=== PATIENT | male | born 1975 | race Caucasian/White ===

== ENCOUNTER → 2020-08-05 12:47 | Outpatient (BNVA) | payer OTHER, SELFPAY | PROVIDERS: Visit Provider Nurse Practitioner | DX: Z20.822 Contact with and (suspected) exposure to COVID-19 (principal) | CPT/HCPCS: 87400; 87635 ==

== ENCOUNTER → 2020-10-04 11:54 | Outpatient (BNVA) | payer SELFPAY | PROVIDERS: Visit Provider Family Medicine | DX: E10.9 Type 1 diabetes mellitus without complications (principal); M25.521 Pain in right elbow; G89.29 Other chronic pain; F17.219 Nicotine dependence, cigarettes, with unspecified nicotine-induced disorders | CPT/HCPCS: 80053; 80061; 82043; 83036; 85025 ==

== ENCOUNTER → 2021-01-10 11:45 | Outpatient (BNVA) | payer SELFPAY | PROVIDERS: PCP Family Medicine; Visit Provider Family Medicine | DX: E10.9 Type 1 diabetes mellitus without complications (principal); N52.9 Male erectile dysfunction, unspecified | CPT/HCPCS: 80053; 83036 ==

== ENCOUNTER 2021-01-17 12:36 | Emergency (ER) | payer SELFPAY ==
[2021-01-17 13:06] VITALS: BP 154/84; PULSE 93; RESP 18; TEMP 37; O2SAT 98; BMI 22.6
[2021-01-17 13:16] LABS: Glucose Point of Care 496 mg/dL (70-110)
[2021-01-17 14:26] LABS: ABG PH Result 7.43 (7.35-7.45); Alveolar-Arterial Oxygen Gradi 5.4 mmHg (5-10); Arterial Blood Gas Hematocrit 43.5 % (42-52); Base Excess ABG 3.3 mmol/L (-2.0-2.0); Blood Gas Allen Test Pos; Blood Gas Operator Identificat CAK; Blood Gas Sample Site Brachial, left; Blood Gas Sample Type Arterial; Carboxyhemoglobin 1.9 %THgb (0.4-20.1); HGB O2 Sat 88.1 % (95-100); Ionized Calcium Level - ABG 1.3 mmol/L (1.1-1.4); Oxygen Device ROOM AIR; Oxygen Saturation ABG 90.7; Potassium Level - ABG 4.5 mmol/L (3.5-5.0); Total Hemoglobin 14.2 g/dL (14-18)
[2021-01-17 15:55] VITALS: BP 143/80; PULSE 99; RESP 18; O2SAT 98
--- NOTE | 2021-01-17 15:56 | XRR_ITS ---
PROCEDURE INFORMATION: Exam: XR Chest Exam date and time: 01/17/2021 3:56 PM Age: 45 years old Clinical indication: Shortness of breath; Patient HX: History--congestion, SOB, body aches, n/v x couple days; Additional info: Reduced breath sounds TECHNIQUE: Imaging protocol: XR of the chest. Views: 1 view. COMPARISON: CR Chest 1 [place] [id number] 03/19/2019 11:54 AM FINDINGS: Lungs: Unremarkable. No consolidation. Pleural spaces: Unremarkable. No pleural effusion. No pneumothorax. Heart/Mediastinum: Unremarkable. No cardiomegaly. Bones/joints: Unremarkable. XR/XR chest 1V portable [id number] IMPRESSION: No acute findings.
[2021-01-17 16:18] LABS: Basophils % 0.4 %; Eosinophils # 0.1 10^3/uL (0.0-0.8); Eosinophils % 0.6 %; Hemoglobin 14.1 g/dL (11.7-16.6); Lymphocytes # 2.5 10^3/uL (0.8-4.8); Lymphocytes % 26.5 %; Mean Corpuscular HGB Conc 34.4 g/dL (30.0-36.0); Mean Corpuscular Hemoglobin 28.7 pg (28.0-34.0); Mean Corpuscular Volume 83.5 fL (80-94); Mean Platelet Volume 10.2 fL (7.4-10.4); Monocytes # 0.6 10^3/uL (0.2-0.9); Monocytes % 6.1 %; Neutrophils # 6.11 10^3/uL (1.8-7.7); Neutrophils % 66.2 %; Nucleated Red Blood Cells % 0 %; Platelet Count 320 10^3/cmm (130-400); Red Blood Count 4.91 10^6/uL (4.1-5.3); Red Cell Distribution Width 13.4 % (12.1-15.1); White Blood Count 9.2 10^3/uL (4.0-10.0)
[2021-01-17 16:28] LABS: Glucose Point of Care 336 mg/dL (70-110)
[2021-01-17 16:36] LABS: Ketone (Acetest) Serum Negative (Negative)
[2021-01-17 16:44] LABS: Alanine Aminotransferase 25 U/L (0-41); Albumin Level 4.5 g/dL (3.5-5.2); Alkaline Phosphatase 80 IU/L (40-130); Anion Gap 15.2 (5-19); Aspartate Amino Transferase 29 U/L (0-40); Blood Urea Nitrogen 37 mg/dL (6-20); Calcium 9.8 mg/dL (8.5-10.5); Carbon Dioxide 26 mmol/L (22-29); Chloride 94 mmol/L (98-107); Globulin 2.5 g/dL (1.3-4.6); Glomerular Filtration Rate 73.1 mL/min (90-130); Glucose 361 mg/dL (65-115); Lipase 12 U/L (13-60); Osmolality Calculated 295 mOsm/kg (285-295); Potassium 4.2 mmol/L (3.5-5.1); Sodium 131 mmol/L (136-145); Total Bilirubin 0.9 mg/dL (0.15-1.2)
[2021-01-17 16:45] LABS: Lactate (Lactic Acid level) 1.2 mmol/L (0.5-2.2)
[2021-01-17] MEDS: ondansetron 2 mg/ML SDV 2 mL 4 MG IVP (17:03)
[2021-01-17] MEDS: sodium chloride 0.9% 1,000 ML 999 ML IV ×2 (17:04→18:51)
--- NOTE | 2021-01-17 18:01 | CTR_ITS ---
PROCEDURE INFORMATION: Exam: CT Abdomen And Pelvis With Contrast Exam date and time: 01/17/2021 6:01 PM Age: 45 years old Clinical indication: Nausea and vomiting; Abdominal pain; Localized; Left lower quadrant (llq); Prior surgery; Surgery type: Hernia; Additional info: Abd pain. N/v/d TECHNIQUE: Imaging protocol: Computed tomography of the abdomen and pelvis with contrast. Radiation optimization: All CT scans at this facility use at least one of these dose optimization techniques: automated exposure control; mA and/or kV adjustment per patient size (includes targeted exams where dose is matched to clinical indication); or iterative reconstruction. Contrast material: OMNI 300; Contrast volume: 95 ml; Contrast route: INTRAVENOUS (IV); COMPARISON: US Abdomen* [id number] 10/17/2018 5:57 AM RADIATION DOSE METRICS: Total DLP (mGy-cm): 766.68 FINDINGS: Lungs: There is calcified granuloma at the left lung base. Liver: There is focal hypodensity in the left lobe of the liver adjacent to the falciform ligament consistent with focal fatty change. No other focal abnormalities identified within the liver. Gallbladder and bile ducts: Normal. No calcified stones. No ductal dilation. Pancreas: The pancreas is normal. Spleen: The spleen demonstrates punctate calcifications, consistent with remote granulomatous organism exposure. Adrenal glands: The adrenal glands are normal. Kidneys and ureters: The kidneys are normal. There is no evidence of hydronephrosis. There is no evidence of renal or ureteral calcifications. Stomach and bowel: There is no evidence of colitis/diverticulitis. Appendix: A normal appendix is identified. Intraperitoneal space: Unremarkable. No free air. No significant fluid collection. Vasculature: Unremarkable. No abdominal aortic aneurysm. Lymph nodes: Unremarkable. No enlarged lymph nodes. Urinary bladder: Unremarkable as visualized. Reproductive: Unremarkable as visualized. Bones/joints: Unremarkable. No acute fracture. Soft tissues: Unremarkable. CT/CT abdomen pelvis w con* [id number] IMPRESSION: 1. Old granulomatous disease. 2. No acute finding. Radiation Dose CTDIVOL = (mGy): DLP = 766.68 (mGy-cm)
[2021-01-17] MEDS: iohexol 300 mg/mL 100 mL Btl IV (18:28)
--- NOTE | 2021-01-17 18:46 | W.ED.ABDPA2 ---
HPI - Abdominal Pain General: Chief Complaint: Abdominal Pain Stated Complaint: body aches, vomitting Time Seen by Provider: 01/17/21 15:47 History of Present Illness: HPI narrative: The patient is a 45-year-old male with type 1 diabetes who comes to the ER complaining of nausea and vomiting of abdominal pain for 3 to 4 days. He has not been tolerating much orally. His glucose is 496 on arrival. He took 30 units of insulin prior to walking in the door. MD elicited complaint: abdominal pain Onset (ago): day(s) (4) Pain Consistency: constant Location: Diffuse Severity: moderate Quality: cramping Radiation: none Exacerbating factors: eating Relieving factors: nothing Associated Symptoms: Reports nausea and vomiting; Denies chills, dysuria and fever(s) Review of Systems General: Reports: 10 or more systems reviewed and unremarkable except in HPI and below Const: Denies: fever(s) or chills Eyes: Denies: change in vision, blurry vision or eye redness ENMT: Denies: throat pain, swelling of lips/tongue, ear or mastoid pain or nasal congestion Card: Denies: chest pain, palpitations, irregular heart rhythm, edema, dyspnea on exertion or orthopnea Resp: Denies: dyspnea, productive cough or non-productive cough GI: Reports: abdominal pain, nausea and vomiting : Denies: dysuria Musc: Denies: neck pain, back pain, extremity pain, joint pain, joint redness, limited range of motion or muscle weakness Skin/Breast: Denies: rash, pruritus, erythema, skin pain or skin tenderness Neuro: Denies: headache(s), numbness in extremities, weakness in extremities, sensory changes, difficulty walking, dizziness, confusion or Slurred speech present Psych: Denies: anxiety or depression Endo: Denies: polyuria All/Imm: Denies: urticaria, throat swelling or tongue swelling PFSH ED PFSH: Medical History Diabetes mellitus type I Surgical History H/O hernia repair Umbilical Social History Smoking and tobacco status: current every day smoker cigarettes Packs smoked per day: 1 Alcohol intake: former Physical Exam Const: COMMON NORMALS: no acute distress, average body habitus, patient oriented x3, no limitations, healthy appearing, alert and well nourished GENERAL APPEARANCE: cooperative, comfortable, well kempt and well developed ORIENTATION/CONSCIOUSNESS: Yes awake, Yes oriented to person, Yes oriented to place and Yes oriented to time HENMT: COMMON NORMALS: normocephalic, external ears normal and Normal external nose present HEAD & SCALP: normal to inspection and normocephalic NOSE: Normal external nose present EXTERNAL EAR: Yes external ears normal MOUTH: Normal oral and palatal mucosa present THROAT: posterior oropharynx normal Eye: COMMON NORMALS: Equal, round and reactive pupils present and EOMs intact bilaterally GENERAL EYE: appearance normal, both eyes and all related structures PUPIL: Yes Equal, round and reactive pupils present Neck/C-Spine: COMMON NORMALS: full ROM, no lymphadenopathy, no meningeal signs and no JVD GENERAL: Yes normal visual inspection Lymph: LYMPHATIC: no lymphadenopathy noted Chest: COMMONS NORMALS: normal inspection of the chest and normal palpation of entire chest wall Resp: COMMON NORMALS: normal respiratory effort, No retractions, No use of accessory muscles, clear to auscultation bilaterally and percussion normal EFFORT & INSPECTION: Yes able to speak in complete sentences AUSCULTATION: clear to auscultation bilaterally PERCUSSION: percussion normal Cardio: COMMON NORMALS: no JVD, regular rate, regular rhythm, S1 normal heart sound present, S2 normal heart sound present and Peripheral pulses 2+ throughout RATE: regular rate RHYTHM: regular rhythm HEART SOUNDS: S1 normal heart sound present and S2 normal heart sound present PERIPHERAL PULSES: Peripheral pulses 2+ throughout GI: COMMON NORMALS: Normal to inspection, nondistended, normoactive bowel sounds present, Soft to palpation, non-tender and no masses INSPECTION: Yes normal to inspection PALPATION: Yes Soft to palpation : COMMON NORMALS: Yes no CVA tenderness BLADDER/KIDNEY EXAM: Yes no CVA tenderness Back/Pelvis: COMMON NORMALS: no CVA tenderness, thoracic and lumbar spine normal to inspection, no thoracic nor lumbar tenderness and thoraco-lumbar ROM normal Extremity: COMMON NORMALS: normal to inspection, full ROM, capillary refill normal, no joint enlargement and no pedal edema GENERAL: Yes normal exam except as noted Neuro: COMMON NORMALS: patient oriented x3, CN's II-XII intact bilaterally, moves all extremities, no focal motor deficits, no sensory deficits noted and gait normal SENSORIUM/ORIENTATION: Yes alert, Yes oriented to person, Yes oriented to place and Yes oriented to time MENINGEAL SIGNS: Yes no meningeal signs Psych: COMMON NORMALS: mental status grossly normal, Normal thought process present, cooperative, normal affect and speech normal APPEARANCE: Yes well kempt ATTITUDE: Yes calm SPEECH: Yes normal speech THOUGHT PROCESS: Normal thought process present Skin: COMMON NORMALS: no rashes or lesions noted GENERAL SKIN EXAM: no rashes or lesions noted Course Vital Signs: Vital signs: Vital Signs Temperature 98.6 F 01/17/21 13:06 Pulse Rate 81 01/17/21 19:32 Respiratory Rate 18 01/17/21 19:32 Blood Pressure 119/88 01/17/21 19:32 Pulse Oximetry 100 01/17/21 19:32 MDM - Abdominal Pain MDM Narrative: Medical decision making narrative: Patient came in with hyperglycemia, nausea, vomiting, abdominal pain. He took 30 units of insulin prior to walking in the door. His glucose was elevated and he refused insulin here. It did come down on its own with insulin he gave prior to walking in the door. He was given IV fluids and Zofran and was tolerating oral fluids well. His belly pain resolved and belly CT was normal. Stable for discharge and follow-up with primary care in a few days. ER with worsening symptoms at any time Lab Data: Labs: Lab Results 01/17/21 01/17/21 01/17/21 Range/Units 13:05 14:15 16:09 WBC 9.2 (4.0-10.0) 10^3/ uL RBC 4.91 (4.1-5.3) 10^6/u L Hgb 14.1 (11.7-16.6) g/dL Hct 41.0 L (42.0-52.0) % MCV 83.5 (80-94) fL MCH 28.7 (28.0-34.0) pg MCHC 34.4 (30.0-36.0) g/dL RDW 13.4 (12.1-15.1) % Plt Count 320 (130-400) 10^3/c mm MPV 10.2 (7.4-10.4) fL Neut % (Auto) 66.2 % Lymph % (Auto) 26.5 % Nicholas % (Auto) 6.1 % Eos % (Auto) 0.6 % Baso % (Auto) 0.4 % Neut # (Auto) 6.11 (1.8-7.7) 10^3/u L Lymph # (Auto) 2.5 (0.8-4.8) 10^3/u L Nicholas # (Auto) 0.6 (0.2-0.9) 10^3/u L Eos # (Auto) 0.1 (0.0-0.8) 10^3/u L Baso # (Auto) 0.0 (0.0-0.1) 10^3/u L Nucleated RBC % (a uto) 0 % Nucleated RBCs # 0.0 /100WBC Specimen Type Arterial Sample Site Brachial, left ABG pH 7.43 (7.35-7.45) ABG pCO2 42.0 (35-45) mmHg ABG pO2 57.0 L (80.0-100.0) mmH g ABG HCO3 28.0 H (22-26) mmol/L ABG O2 Saturation 90.7 ABG Base Excess 3.3 H (-2.0-2.0) mmol/ L Brady Test Pos A-a O2 Gradient 5.4 (5-10) mmHg Hematocrit 43.5 (42-52) % Hgb O2 Saturation 88.1 L (95-100) % Carboxyhemoglobin 1.9 (0.4-20.1) %THgb Methemoglobin 1.0 (0.4-1.5) % Total Hemoglobin 14.2 (14-18) g/dL Sodium 133.0 (131-143) mmol/L Potassium 4.5 (3.5-5.0) mmol/L Glucose 420.0 H (70-115) mg/dL Ionized Calcium 1.3 (1.1-1.4) mmol/L O2 Delivery Device Room air FiO2 21.0 % Die Maker Trim ID Cak Chloride (98-107) mmol/L Carbon Dioxide (22-29) mmol/L Anion Gap (5-19) BUN (6-20) mg/dL Creatinine (0.7-1.2) mg/dL GFR Calculation (90-130) mL/min POC Glucose 496 H (70-110) mg/dL Calculated Osmolal ity (285-295) mOsm/k g Lactate (0.5-2.2) mmol/L Calcium (8.5-10.5) mg/dL Total Bilirubin (0.15-1.2) mg/dL AST (0-40) U/L ALT (0-41) U/L Alkaline Phosphata se (40-130) IU/L Total Protein (6.6-8.7) g/dL Albumin (3.5-5.2) g/dL Globulin (1.3-4.6) g/dL Lipase (13-60) U/L Serum Ketones (Negative) 01/17/21 01/17/21 01/17/21 Range/Units 16:09 16:09 16:09 WBC (4.0-10.0) 10^3/ uL RBC (4.1-5.3) 10^6/u L Hgb (11.7-16.6) g/dL Hct (42.0-52.0) % MCV (80-94) fL MCH (28.0-34.0) pg MCHC (30.0-36.0) g/dL RDW (12.1-15.1) % Plt Count (130-400) 10^3/c mm MPV (7.4-10.4) fL Neut % (Auto) % Lymph % (Auto) % Nicholas % (Auto) % Eos % (Auto) % Baso % (Auto) % Neut # (Auto) (1.8-7.7) 10^3/u L Lymph # (Auto) (0.8-4.8) 10^3/u L Nicholas # (Auto) (0.2-0.9) 10^3/u L Eos # (Auto) (0.0-0.8) 10^3/u L Baso # (Auto) (0.0-0.1) 10^3/u L Nucleated RBC % (a uto) % Nucleated RBCs # /100WBC Specimen Type Sample Site ABG pH (7.35-7.45) ABG pCO2 (35-45) mmHg ABG pO2 (80.0-100.0) mmH g ABG HCO3 (22-26) mmol/L ABG O2 Saturation ABG Base Excess (-2.0-2.0) mmol/ L Brady Test A-a O2 Gradient (5-10) mmHg Hematocrit (42-52) % Hgb O2 Saturation (95-100) % Carboxyhemoglobin (0.4-20.1) %THgb Methemoglobin (0.4-1.5) % Total Hemoglobin (14-18) g/dL Sodium 131 L (131-143) mmol/L Potassium 4.2 (3.5-5.0) mmol/L Glucose 361 H (70-115) mg/dL Ionized Calcium (1.1-1.4) mmol/L O2 Delivery Device FiO2 % Die Maker Trim ID Chloride 94 L (98-107) mmol/L Carbon Dioxide 26 (22-29) mmol/L Anion Gap 15.2 (5-19) BUN 37 H (6-20) mg/dL Creatinine 1.1 (0.7-1.2) mg/dL GFR Calculation 73.1 L (90-130) mL/min POC Glucose (70-110) mg/dL Calculated Osmolal ity 295 (285-295) mOsm/k g Lactate 1.2 (0.5-2.2) mmol/L Calcium 9.8 (8.5-10.5) mg/dL Total Bilirubin 0.9 (0.15-1.2) mg/dL AST 29 (0-40) U/L ALT 25 (0-41) U/L Alkaline Phosphata se 80 (40-130) IU/L Total Protein 7.0 (6.6-8.7) g/dL Albumin 4.5 (3.5-5.2) g/dL Globulin 2.5 (1.3-4.6) g/dL Lipase 12 L (13-60) U/L Serum Ketones Negative (Negative) 01/17/21 01/17/21 Range/Units 16:23 18:47 WBC (4.0-10.0) 10^3/ uL RBC (4.1-5.3) 10^6/u L Hgb (11.7-16.6) g/dL Hct (42.0-52.0) % MCV (80-94) fL MCH (28.0-34.0) pg MCHC (30.0-36.0) g/dL RDW (12.1-15.1) % Plt Count (130-400) 10^3/c mm MPV (7.4-10.4) fL Neut % (Auto) % Lymph % (Auto) % Nicholas % (Auto) % Eos % (Auto) % Baso % (Auto) % Neut # (Auto) (1.8-7.7) 10^3/u L Lymph # (Auto) (0.8-4.8) 10^3/u L Nicholas # (Auto) (0.2-0.9) 10^3/u L Eos # (Auto) (0.0-0.8) 10^3/u L Baso # (Auto) (0.0-0.1) 10^3/u L Nucleated RBC % (a uto) % Nucleated RBCs # /100WBC Specimen Type Sample Site ABG pH (7.35-7.45) ABG pCO2 (35-45) mmHg ABG pO2 (80.0-100.0) mmH g ABG HCO3 (22-26) mmol/L ABG O2 Saturation ABG Base Excess (-2.0-2.0) mmol/ L Brady Test A-a O2 Gradient (5-10) mmHg Hematocrit (42-52) % Hgb O2 Saturation (95-100) % Carboxyhemoglobin (0.4-20.1) %THgb Methemoglobin (0.4-1.5) % Total Hemoglobin (14-18) g/dL Sodium (131-143) mmol/L Potassium (3.5-5.0) mmol/L Glucose (70-115) mg/dL Ionized Calcium (1.1-1.4) mmol/L O2 Delivery Device FiO2 % Die Maker Trim ID Chloride (98-107) mmol/L Carbon Dioxide (22-29) mmol/L Anion Gap (5-19) BUN (6-20) mg/dL Creatinine (0.7-1.2) mg/dL GFR Calculation (90-130) mL/min POC Glucose 336 H 174 H (70-110) mg/dL Calculated Osmolal ity (285-295) mOsm/k g Lactate (0.5-2.2) mmol/L Calcium (8.5-10.5) mg/dL Total Bilirubin (0.15-1.2) mg/dL AST (0-40) U/L ALT (0-41) U/L Alkaline Phosphata se (40-130) IU/L Total Protein (6.6-8.7) g/dL Albumin (3.5-5.2) g/dL Globulin (1.3-4.6) g/dL Lipase (13-60) U/L Serum Ketones (Negative) Discharge Plan Discharge Patient Disposition: Home Clinical Impression: Abdominal pain, Vomiting, Hyperglycemia Condition: Stable Prescriptions: New ondansetron 4 mg tablet,disintegrating 4 mg PO Q8H 4 Days Qty: 12 RF: 0 No Action meloxicam [Mobic] 15 mg tablet 15 mg PO DAILY Qty: 30 RF: 0 Novolin R Regular U-100 Insuln 100 unit/mL solution 10 - 20 unit SUBCUT TID Qty: 30 RF: 1 lisinopril 2.5 mg tablet 2.5 mg PO DAILY Qty: 90 RF: 1 sildenafil (pulm.hypertension) 20 mg tablet See Rx Instructions PO TID Qty: 30 RF: 0 silver sulfadiazine [Silvadene] 1 % cream 1 applic topical BID Qty: 400 RF: 0 Novolin 70/30 U-100 Insulin 100 unit/mL (70-30) suspension 70 - 100 unit SUBCUT DAILY Qty: 30 RF: 1 aspirin 500 mg Tablet 500 - 1,000 mg PO Q4H PRN (Reason: UPSET STOMACH) RF: 0 Pepto-Bismol 262 mg/15 mL Suspension 524 mg PO Q1H PRN (Reason: UPSET STOMACH) RF: 0 Discharge Orders: Discharge ED (Routine); Ordered 01/17/21 Ordered By: Tolu Lang Referrals: Arely Holcomb DO [Primary Care Provider] - Patient Instructions: Abdominal Pain (ED), Opioid Safety Activity Restrictions/Additional Instructions: You have came to the ER for vomiting and hyperglycemia. The insulin you took before you came has lowered your blood glucose significantly to a normal this level. We have given you Zofran which has helped your nausea and your belly pain has improved as well. Please drink lots of fluids and use Zofran to help you with the nausea. Return to the ER with worsening symptoms at any time. Coding Level of Care Code ED Brim Cutter for Nasima Odom
[2021-01-17 18:48] VITALS: BP 125/89; PULSE 78; RESP 18; O2SAT 100
[2021-01-17 18:58] LABS: Glucose Point of Care 174 mg/dL (70-110)
--- NOTE | 2021-01-17 19:15 | PC.NURSE ---
Report from JEANNE Kaye
[2021-01-17 19:32] VITALS: BP 119/88; PULSE 81; RESP 18; O2SAT 100
== END 2021-01-17 19:33 | disposition home or self-care (01) ==
PROVIDERS: Physician Assistant; Emergency Provider Family Medicine; PCP Family Medicine
DX: E10.65 Type 1 diabetes mellitus with hyperglycemia (principal); F17.210 Nicotine dependence, cigarettes, uncomplicated
CPT/HCPCS: 36416; 36600; 71045; 74177; 80051; 80053; 82009; 82330; 82805; 82962; 83605; 83690; 85025; 96361; 96374; 99284; J2405; J7030; Q9967

== ENCOUNTER → 2021-01-19 10:26 | Outpatient (BNVA) | payer OTHER, SELFPAY | PROVIDERS: PCP Family Medicine; Visit Provider Nurse Practitioner Family | DX: J06.9 Acute upper respiratory infection, unspecified (principal); Z20.822 Contact with and (suspected) exposure to COVID-19 | CPT/HCPCS: 87635 ==

== ENCOUNTER 2021-02-27 23:10 | Emergency (ER) | payer SELFPAY ==
[2021-02-27 23:15] VITALS: BP 156/91; PULSE 119; RESP 30; TEMP 36.4; O2SAT 100; BMI 21.1
--- NOTE | 2021-02-27 23:33 | ED_ITS ---
HPI - Nausea/Vomiting/Diarrhea General: Chief complaint: Nausea/Vomiting/Diarrhea Stated complaint: n/v/d/poss low blood sugar Time Seen by Provider: 02/27/21 23:27 Source: patient Mode of arrival: ambulatory Limitations: no limitations History of Present Illness: HPI Narrative: 45-year-old male has a history of type 1 diabetes state over the last few days has not felt well has had nausea vomiting diarrhea. He states that he hasn't been taking his insulin as prescribed either due to not feeling well. He states he is just neglected to take it. He is tachycardic and tachypneic here and in distress. His glucose is reading high and he is afraid that he is in DKA. Denies any pain anywhere. Associated nausea: Yes Associated symtoms: Reports nausea; Denies chest pain, dysuria or headache(s) Review of Systems Const: Denies: fever(s), chills, body aches or change in appetite Eyes: Denies: blurry vision or eye discomfort ENMT: Denies: throat pain or dental pain Card: Denies: chest pain Resp: Denies: dyspnea GI: Reports: nausea and vomiting : Denies: dysuria Musc: Denies: neck pain or back pain Skin/Breast: Denies: rash Neuro: Denies: headache(s) Psych: Denies: depression Walter/Lymph: Denies: easy bruising All/Imm: Denies: urticaria PFS ED PFSH: Medical History Diabetes mellitus type I Surgical History H/O hernia repair Umbilical Social History Smoking and tobacco status: current every day smoker cigarettes Packs smoked per day: 1 Alcohol intake: former Physical Exam Const: COMMON NORMALS: patient oriented x3 GENERAL APPEARANCE: in distress and ill appearing HENMT: COMMON NORMALS: normocephalic and atraumatic HEAD & SCALP: normocephalic and atraumatic Eye: COMMON NORMALS: Equal, round and reactive pupils present and EOMs intact bilaterally PUPIL: Yes Equal, round and reactive pupils present Neck/C-Spine: COMMON NORMALS: full ROM and supple Chest: COMMONS NORMALS: normal inspection of the chest and normal palpation of entire chest wall Resp: COMMON NORMALS: normal respiratory effort, No retractions, No use of accessory muscles and clear to auscultation bilaterally EFFORT & INSPECTION: Yes tachypneic AUSCULTATION: clear to auscultation bilaterally Cardio: COMMON NORMALS: regular rhythm and No murmurs present (Cardio) RAT E: tachycardic RHYTHM: regular rhythm GI: COMMON NORMALS: Normal to inspection, nondistended, normoactive bowel sounds present, Soft to palpation, non-tender and no masses PALPATION: Yes Soft to palpation Extremity: COMMON NORMALS: normal to inspection and full ROM Neuro: COMMON NORMALS: patient oriented x3, moves all extremities and no focal motor deficits Psych: COMMON NORMALS: mental status grossly normal, Normal thought process present and cooperative THOUGHT PROCESS: Normal thought process present Skin: COMMON NORMALS: no rashes or lesions noted and no wounds GENERAL SKIN EXAM: no rashes or lesions noted Course Vital Signs: Vital signs: Vital Signs Temperature 97.5 F L 02/27/21 23:15 Pulse Rate 119 H 02/27/21 23:15 Respiratory Rate 30 H 02/27/21 23:15 Blood Pressure 156/91 02/27/21 23:15 Pulse Oximetry 100 02/27/21 23:15 MDM - Nausea/Vomiting/Diarrhea MDM Narrative: Medical decision making narrative: Patient presents here with DKA with pH of 7.0. Patient was started on insulin drip here and I spoke to parts counterperson at [facility] and will transfer there due to bed availability. Patient has been stable while here. Lab Data: Labs: Lab Results 02/27/21 02/27/21 02/27/21 Range/Units 00:55 23:40 23:45 WBC 23.0 H (4.0-10.0) 10^3/ uL RBC 5.10 (4.1-5.3) 10^6/u L Hgb 14.8 (11.7-16.6) g/dL Hct 47.2 (42.0-52.0) % MCV 92.5 (80-94) fl MCH 29.0 (28.0-34.0) pg MCHC 31.4 (30.0-36.0) g/dL RDW 13.5 (12.1-15.1) % Plt Count 399 (130-400) 10^3/c mm MPV 10.7 H (7.4-10.4) fL Neut % (Auto) 90.4 % Lymph % (Auto) 4.9 % Greenlee % (Auto) 3.8 % Eos % (Auto) 0.0 % Baso % (Auto) 0.1 % Neut # (Auto) 20.74 H (1.8-7.7) 10^3/u L Lymph # (Auto) 1.1 (0.8-4.8) 10^3/u L Greenlee # (Auto) 0.9 (0.2-0.9) 10^3/u L Eos # (Auto) 0.0 (0.0-0.8) 10^3/u L Baso # (Auto) 0.0 (0.0-0.1) 10^3/u L Nucleated RBC % (a uto) 0 % Nucleated RBCs # 0.0 /100WBC Specimen Type Arterial Sample Site Radial, right ABG pH 7.08 L* (7.35-7.45) ABG pCO2 12.4 L* (35-45) mmHg ABG pO2 139.0 H (80.0-100.0) mmH g ABG HCO3 3.7 L (22-26) mmol/L ABG Base Excess -24.1 L (-2.0-2.0) mmol/ L Brady Test Pos Hematocrit 43.3 (42-52) % O2 Delivery Device Room air Batch Analyst ID ellpe Sodium (136-145) mmol/L Potassium (3.5-5.1) mmol/L Chloride (98-107) mmol/L Carbon Dioxide (22-29) mmol/L Anion Gap (5-19) BUN (6-20) mg/dL Creatinine (0.7-1.2) mg/dL GFR Calculation (90-130) mL/min Glucose (65-115) mg/dL Calculated Osmolal ity (285-295) mOsm/k g Calcium (8.5-10.5) mg/dL Total Bilirubin (0.15-1.2) mg/dL AST (0-40) U/L ALT (0-41) U/L Alkaline Phosphata se (40-130) IU/L Total Protein (6.6-8.7) g/dL Albumin (3.5-5.2) g/dL Globulin (1.3-4.6) g/dL Lipase (13-60) U/L Serum Ketones (Negative) SARS-CoV-2 Ag (Rap id) Negative (Negative) 02/28/21 02/28/21 Range/Units 00:00 00:00 WBC (4.0-10.0) 10^3/ uL RBC (4.1-5.3) 10^6/u L Hgb (11.7-16.6) g/dL Hct (42.0-52.0) % MCV (80-94) fl MCH (28.0-34.0) pg MCHC (30.0-36.0) g/dL RDW (12.1-15.1) % Plt Count (130-400) 10^3/c mm MPV (7.4-10.4) fL Neut % (Auto) % Lymph % (Auto) % Greenlee % (Auto) % Eos % (Auto) % Baso % (Auto) % Neut # (Auto) (1.8-7.7) 10^3/u L Lymph # (Auto) (0.8-4.8) 10^3/u L Greenlee # (Auto) (0.2-0.9) 10^3/u L Eos # (Auto) (0.0-0.8) 10^3/u L Baso # (Auto) (0.0-0.1) 10^3/u L Nucleated RBC % (a uto) % Nucleated RBCs # /100WBC Specimen Type Sample Site ABG pH (7.35-7.45) ABG pCO2 (35-45) mmHg ABG pO2 (80.0-100.0) mmH g ABG HCO3 (22-26) mmol/L ABG Base Excess (-2.0-2.0) mmol/ L Brady Test Hematocrit (42-52) % O2 Delivery Device Batch Analyst ID Sodium 122 L (136-145) mmol/L Potassium 6.4 H (3.5-5.1) mmol/L Chloride 75 L (98-107) mmol/L Carbon Dioxide 5 L* (22-29) mmol/L Anion Gap 48.4 H (5-19) BUN 54 H (6-20) mg/dL Creatinine 2.0 H (0.7-1.2) mg/dL GFR Calculation 36.6 L (90-130) mL/min Glucose 839 H* (65-115) mg/dL Calculated Osmolal ity 310 H (285-295) mOsm/k g Calcium 9.1 (8.5-10.5) mg/dL Total Bilirubin 0.7 (0.15-1.2) mg/dL AST 16 (0-40) U/L ALT 26 (0-41) U/L Alkaline Phosphata se 103 (40-130) IU/L Total Protein 6.5 L (6.6-8.7) g/dL Albumin 4.1 (3.5-5.2) g/dL Globulin 2.4 (1.3-4.6) g/dL Lipase 9 L (13-60) U/L Serum Ketones Positive H (Negative) SARS-CoV-2 Ag (Rap id) (Negative) Imaging Data^: CT Abd/Pel: Attestation: I personally reviewed and interpreted this imaging study as follows: Radiologist's impression: [address] [address] [address] Scan Report Signed Patient: Andrews Robins Unit #: [id number] : 1975 Age/Sex: 45 / M ADM Date: 02/27/21 Loc: ER Room/Bed: Attending Dr: Ordering Provider/Ordering MD: Althea Sheehan MD Date of Service: 02/27/21 Procedure(s): CT abdomen pelvis w con* [id number] Accession Number(s): [id number] Report Number: [id number] PROCEDURE INFORMATION: Exam: CT Abdomen And Pelvis With Contrast Exam date and time: 02/27/2021 11:40 PM Age: 45 years old Clinical indication: Abdominal pain; Generalized; Patient HX: Dka; Additional info: Abd pain TECHNIQUE: Imaging protocol: Computed tomography of the abdomen and pelvis with contrast. Radiation optimization: All CT scans at this facility use at least one of these dose optimization techniques: automated exposure control; mA and/or kV adjustment per patient size (includes targeted exams where dose is matched to clinical indication); or iterative reconstruction. Contrast material: OMNI 300; Contrast volume: 95 ml; Contrast route: INTRAVENOUS (IV); COMPARISON: CT abdomen pelvis w con* [id number] 01/17/2021 6:24 PM RADIATION DOSE METRICS: Total DLP (mGy-cm): 709.19 FINDINGS: Lungs: Calcified granuloma again seen in the left lower lung. The lung bases otherwise appear essentially clear. Liver: There is fatty infiltration of the liver. Gallbladder and bile ducts: No definite gallbladder abnormality by CT. No biliary tree dilation. Pancreas: Unremarkable. Spleen: Several small splenic calcifications. Adrenal glands: Unremarkable. Kidneys and ureters: Unremarkable. Stomach and bowel: The stomach appears somewhat distended at the time of scanning. Please correlate clinically. Several small bowel loops are fluid-filled and borderline prominent in size, but the overall appearance is not suggestive of significant small bowel obstruction at this time. This appearance could be secondary to some form of gastroenteritis. Please correlate clinically. If there is clinical suspicion for small bowel obstruction, follow-up may be helpful to exclude progression. There are no CT findings to strongly suggest diverticulitis. Appendix: The appendix is visualized and appears normal. Intraperitoneal space: No free air, ascites, or significant bowel distention. Vasculature: No evidence for abdominal aortic aneurysm. Lymph nodes: No retroperitoneal adenopathy. Urinary bladder: The urinary bladder appears somewhat distended at the time of scanning. This appears similar to the prior exam. Please correlate clinically. Reproductive: Essentially unremarkable for age. Bones/joints: No significant acute finding. Soft tissues: No significant acute finding. CT/CT abdomen pelvis w con* [id number] IMPRESSION: 1. Normal appendix. 2. Several small bowel loops are fluid-filled and borderline prominent in size, see above discussion. This appearance could be secondary to some form of gastroenteritis. 3. Somewhat distended stomach. 4. No free air or significant bowel distention. 5. Somewhat distended urinary bladder. 6. Other findings discussed above. Radiation Dose CTDIVOL = (mGy): DLP = 709.19 (mGy-cm) Dictated By: Damaso Kirk MD Signed By: Damaso Kirk MD Signed Date/Time: 02/28/2154 DD/ Critical Care Time Critical Care Time: Critical Care Time: Yes Total Critical Care Time: 35 Attestation: This case had a high probability of a clinically significant, sudden, or life threatening deterioration of this patient's condition which required my full and direct attention, intervention and personal management. Discharge Plan Discharge Patient Disposition: Xfer Short-Term Hosp Clinical Impression: DKA (diabetic ketoacidoses) Qualifiers: Diabetes mellitus type: type 1 Diabetes mellitus complication detail: without coma Qualified Code(s): E10.10 - Type 1 diabetes mellitus with ketoacidosis without coma Condition: Stable Referrals: rAely Holcomb DO [Primary Care Provider] - Coding Level of Care Code ED Inventory Checker for Chg Fwd Exam Comprehensive
--- NOTE | 2021-02-27 23:40 | CTR_ITS ---
PROCEDURE INFORMATION: Exam: CT Abdomen And Pelvis With Contrast Exam date and time: 02/27/2021 11:40 PM Age: 45 years old Clinical indication: Abdominal pain; Generalized; Patient HX: Dka; Additional info: Abd pain TECHNIQUE: Imaging protocol: Computed tomography of the abdomen and pelvis with contrast. Radiation optimization: All CT scans at this facility use at least one of these dose optimization techniques: automated exposure control; mA and/or kV adjustment per patient size (includes targeted exams where dose is matched to clinical indication); or iterative reconstruction. Contrast material: OMNI 300; Contrast volume: 95 ml; Contrast route: INTRAVENOUS (IV); COMPARISON: CT abdomen pelvis w con* [id number] 01/17/2021 6:24 PM RADIATION DOSE METRICS: Total DLP (mGy-cm): 709.19 FINDINGS: Lungs: Calcified granuloma again seen in the left lower lung. The lung bases otherwise appear essentially clear. Liver: There is fatty infiltration of the liver. Gallbladder and bile ducts: No definite gallbladder abnormality by CT. No biliary tree dilation. Pancreas: Unremarkable. Spleen: Several small splenic calcifications. Adrenal glands: Unremarkable. Kidneys and ureters: Unremarkable. Stomach and bowel: The stomach appears somewhat distended at the time of scanning. Please correlate clinically. Several small bowel loops are fluid-filled and borderline prominent in size, but the overall appearance is not suggestive of significant small bowel obstruction at this time. This appearance could be secondary to some form of gastroenteritis. Please correlate clinically. If there is clinical suspicion for small bowel obstruction, follow-up may be helpful to exclude progression. There are no CT findings to strongly suggest diverticulitis. Appendix: The appendix is visualized and appears normal. Intraperitoneal space: No free air, ascites, or significant bowel distention. Vasculature: No evidence for abdominal aortic aneurysm. Lymph nodes: No retroperitoneal adenopathy. Urinary bladder: The urinary bladder appears somewhat distended at the time of scanning. This appears similar to the prior exam. Please correlate clinically. Reproductive: Essentially unremarkable for age. Bones/joints: No significant acute finding. Soft tissues: No significant acute finding. CT/CT abdomen pelvis w con* [id number] IMPRESSION: 1. Normal appendix. 2. Several small bowel loops are fluid-filled and borderline prominent in size, see above discussion. This appearance could be secondary to some form of gastroenteritis. 3. Somewhat distended stomach. 4. No free air or significant bowel distention. 5. Somewhat distended urinary bladder. 6. Other findings discussed above. Radiation Dose CTDIVOL = (mGy): DLP = 709.19 (mGy-cm)
[2021-02-27] MEDS: ondansetron 2 mg/ML SDV 2 mL 4 MG IVP (23:47)
[2021-02-27] MEDS: morphine 4 mg/mL SDV 1 mL IVP (23:47)
[2021-02-27] MEDS: sodium chloride 0.9% 1,000 ML 999 ML IV (23:47)
[2021-02-27 23:49] LABS: Basophils % 0.1 %; Hematocrit 47.2 % (42.0-52.0); Hemoglobin 14.8 g/dL (11.7-16.6); Lymphocytes # 1.1 10^3/uL (0.8-4.8); Lymphocytes % 4.9 %; Mean Corpuscular HGB Conc 31.4 g/dL (30.0-36.0); Mean Corpuscular Volume 92.5 fl (80-94); Mean Platelet Volume 10.7 fL (7.4-10.4); Monocytes # 0.9 10^3/uL (0.2-0.9); Monocytes % 3.8 %; Neutrophils # 20.74 10^3/uL (1.8-7.7); Neutrophils % 90.4 %; Nucleated Red Blood Cells % 0 %; Platelet Count 399 10^3/cmm (130-400); Red Cell Distribution Width 13.5 % (12.1-15.1)
[2021-02-27 23:55] LABS: Arterial Blood Gas Hematocrit 43.3 % (42-52); Base Excess ABG -24.1 mmol/L (-2.0-2.0); Blood Gas Allen Test Pos; Blood Gas Sample Site Radial, right; Blood Gas Sample Type Arterial; HCO3 ABG 3.7 mmol/L (22-26); Oxygen Device ROOM AIR
[2021-02-27 23:56] LABS: ABG PH Result 7.08 (7.35-7.45)
[2021-02-27 23:57] LABS: ABG PCO2 12.4 mmHg (35-45)
[2021-02-28 00:17] LABS: Ketone (Acetest) Serum Positive (Negative)
[2021-02-28] MEDS: iohexol 300 mg/mL 100 mL Btl IV (00:17)
[2021-02-28 00:25] LABS: Alanine Aminotransferase 26 U/L (0-41); Albumin Level 4.1 g/dL (3.5-5.2); Alkaline Phosphatase 103 IU/L (40-130); Anion Gap 48.4 (5-19); Aspartate Amino Transferase 16 U/L (0-40); Blood Urea Nitrogen 54 mg/dL (6-20); Calcium 9.1 mg/dL (8.5-10.5); Chloride 75 mmol/L (98-107); Globulin 2.4 g/dL (1.3-4.6); Glomerular Filtration Rate 36.6 mL/min (90-130); Lipase 9 U/L (13-60); Potassium 6.4 mmol/L (3.5-5.1); Sodium 122 mmol/L (136-145); Total Bilirubin 0.7 mg/dL (0.15-1.2); Total Protein 6.5 g/dL (6.6-8.7)
[2021-02-28 00:29] LABS: Carbon Dioxide 5 mmol/L (22-29)
[2021-02-28 00:34] LABS: Osmolality Calculated 310 mOsm/kg (285-295)
[2021-02-28 00:44] LABS: Glucose 839 mg/dL (65-115)
[2021-02-28 00:57] LABS: SARS Covid-2 Antigen Negative (Negative)
[2021-02-28] MEDS: insulin regular-human 250 UNIT in sodium chloride 0.9% 250 ML 23.23 UNIT IV (01:02)
[2021-02-28 01:15] VITALS: BP 163/85; PULSE 113; RESP 22; O2SAT 100
[2021-02-28 01:22] LABS: Glucose Point of Care > 600 mg/dL (70-110)
[2021-02-28] MEDS: sodium chloride 0.9% 1,000 ML 999 ML IV (02:01)
[2021-02-28 02:38] LABS: Glucose 689 mg/dL (65-115)
[2021-02-28 02:45] VITALS: BP 163/91; PULSE 123; RESP 20; O2SAT 100
[2021-02-28 03:01] VITALS: BP 146/87; PULSE 124; RESP 22; O2SAT 100
--- NOTE | 2021-02-28 03:03 | PC.NURSE ---
0250 Called report to Eder Montoya RN.
[2021-02-28 03:18] LABS: Glucose Point of Care 532 mg/dL (70-110)
[2021-02-28 04:09] LABS: Glucose Point of Care 395 mg/dL (70-110)
== END 2021-02-28 04:15 | disposition short-term general hospital (02) ==
PROVIDERS: Emergency Provider Emergency Medicine; PCP Family Medicine
DX: E10.10 Type 1 diabetes mellitus with ketoacidosis without coma (principal); F17.210 Nicotine dependence, cigarettes, uncomplicated
CPT/HCPCS: 36415; 36416; 36600; 74177; 80053; 82009; 82803; 82947; 82962; 83690; 85025; 87426; 96361; 96365; 96375; 99285; 99291; 99292; J1815; J2270; J2405; J7030; J7050; Q9967

== ENCOUNTER 2021-05-06 05:11 | Emergency (ER) | payer SELFPAY ==
[2021-05-06 05:17] VITALS: BP 177/102; PULSE 97; RESP 24; TEMP 36.4; O2SAT 99; BMI 19.8
--- NOTE | 2021-05-06 05:29 | ED_ITS ---
Documented by User: Elliot Lorenzo DO 05/06/21 06:04 HPI - Chest Pain General: Chief Complaint: Chest Pain Stated Complaint: Chest pain, swelling rt arm Time Seen by Provider: 05/06/21 05:19 History of Present Illness: HPI narrative: 45-year-old male insulin dependent diabetic presents with chest discomfort described as a right-sided sharp chest pain worsening with inspiration and cough for the past 2 days he denies any fever. He has had some sputum production of white frothy appearance. MD complaint: chest pain Onset (ago): day(s) Timing of current episode: episodic Prior episodes: Yes Onset: during rest Pain location: right chest Pain radiation: right arm Quality: sharp Relieving factors: nothing Exacerbating factors: inspiration Context: recent illness Associated symptoms: Reports dyspnea; Deny abdominal pain, diaphoresis, fever(s), leg edema, palpitations or vomiting Treatment prior to arrival: aspirin Review of Systems Const: Denies: fever(s) or diaphoresis ENMT: Denies: throat pain Card: Reports: chest pain; Denies: palpitations Resp: Reports: dyspnea GI: Denies: abdominal pain or vomiting PFSH ED PFSH: Medical History Diabetes mellitus type I Surgical History H/O hernia repair Umbilical Social History Smoking and tobacco status: current every day smoker cigarettes Packs smoked per day: 1 Alcohol intake: former Physical Exam Const: COMMON NORMALS: patient oriented x3 and alert GENERAL APPEARANCE: cooperative HENMT: COMMON NORMALS: normocephalic and Normal external nose present HEAD & SCALP: normocephalic FACE & SINUS: normal facial exam NOSE: Normal external nose present and Normal nares present Eye: COMMON NORMALS: Equal, round and reactive pupils present and EOMs intact bilaterally PUPIL: Yes Equal, round and reactive pupils present Chest: COMMONS NORMALS: normal inspection of the chest CHEST: Yes tenderness Breast/axilla inspection: Yes no chest deformity, asymmetry, normal contours, no nodules, masses, tenderness Resp: COMMON NORMALS: normal respiratory effort, No use of accessory muscles and clear to auscultation bilaterally AUSCULTATION: clear to auscultation bilaterally Cardio: COMMON NORMALS: regular rate and regular rhythm RATE: regular rate RHYTHM: regular rhythm GI: COMMON NORMALS: Normal to inspection, nondistended, normoactive bowel sounds present, Soft to palpation and non-tender PALPATION: Yes Soft to palpation Extremity: NARRATIVE EXTREMITY EXAM: Right upper extremity, tender swollen area with mild fluctuance no cellulitic streaking. No significant pain on passive extension or flexion of the fingers or wrist. Neuro: COMMON NORMALS: patient oriented x3 SENSORIUM/ORIENTATION: Yes alert Course Vital Signs: Vital signs: Vital Signs Temperature 97.5 F L 05/06/21 05:17 Pulse Rate 81 05/06/21 08:48 Respiratory Rate 16 05/06/21 08:48 Blood Pressure 155/103 05/06/21 08:48 Pulse Oximetry 99 05/06/21 08:48 MDM - Chest Pain MDM Narrative: Medical decision making narrative: White blood cell count elevated mildly. Other labs are pending. Chest x-ray showsNo significant infiltrate, no pneumothorax. Patient will be checked out to Dr. Dlearosa at shift change to follow up on labs and provide appropriate disposition. Lab Data: Labs: Lab Results 05/06/21 05/06/21 05/06/21 05:20 05:20 05:20 WBC 11.8 10^3/uL H 10 ^3/uL (4.0-10.0) RBC 4.17 10^6/uL 10^6 /uL (4.1-5.3) Hgb 12.1 g/dL g/dL (11.7-16.6) Hct 37.2 % L % (42.0-52.0) MCV 89.2 fl fl (80-94) MCH 29.0 pg pg (28.0-34.0) MCHC 32.5 g/dL g/dL (30.0-36.0) RDW 13.6 % % (12.1-15.1) Plt Count 426 10^3/cmm H 10 ^3/cmm (130-400) MPV 9.4 fL fL (7.4-10.4) Neut % (Auto) 68.2 % % Lymph % (Auto) 23.1 % % [place] % (Auto) 6.4 % % Eos % (Auto) 1.6 % % Baso % (Auto) 0.3 % % Neut # (Auto) 8.07 10^3/uL H 10 ^3/uL (1.8-7.7) Lymph # (Auto) 2.7 10^3/uL 10^3/ uL (0.8-4.8) [place] # (Auto) 0.8 10^3/uL 10^3/ uL (0.2-0.9) Eos # (Auto) 0.2 10^3/uL 10^3/ uL (0.0-0.8) Baso # (Auto) 0.0 10^3/uL 10^3/ uL (0.0-0.1) Nucleated RBC % (a uto) 0 % % Nucleated RBCs # 0.0 /100WBC /100W BC PT 11.30 SECONDS L S ECONDS (12.1-14.9) INR 0.79 L (0.8-1.2) APTT 23.8 SECONDS L SE CONDS (23.9-36.7) D-Dimer 0.48 ug/mIFEU ug/ mIFEU (0-0.59) Specimen Type Sample Site ABG pH ABG pCO2 ABG pO2 ABG HCO3 ABG Base Excess Brady Test Hematocrit O2 Delivery Device Bull Riveter ID Sodium 136 mmol/L mmol/L (136-145) Potassium 4.9 mmol/L mmol/L (3.5-5.1) Chloride 97 mmol/L L mmol/ L (98-107) Carbon Dioxide 26 mmol/L mmol/L (22-29) Anion Gap 17.9 (5-19) BUN 22 mg/dL H mg/dL (6-20) Creatinine 0.7 mg/dL mg/dL (0.7-1.2) GFR Calculation 123.1 mL/min mL/m in (90-130) Glucose 337 mg/dL H mg/dL (65-115) POC Glucose Calculated Osmolal ity 299 mOsm/kg H mOs m/kg (285-295) Calcium 9.2 mg/dL mg/dL (8.5-10.5) Total Bilirubin 0.2 mg/dL mg/dL (0.15-1.2) AST 15 U/L U/L (0-40) ALT 20 U/L U/L (0-41) Alkaline Phosphata se 131 IU/L H IU/L (40-130) Creatine Kinase 106 U/L U/L (39-308) Troponin T Baselin e Troponin T [address] [place] Troponin T C-Reactive Protein 3.8 mg/L mg/L (0.0-4.9) NT-Pro-B Natriuret Pep 13 pg/mL pg/mL (0-125) Total Protein 6.3 g/dL L g/dL (6.6-8.7) Albumin 3.9 g/dL g/dL (3.5-5.2) Globulin 2.4 g/dL g/dL (1.3-4.6) Procalcitonin 0.16 ng/mL ng/mL (0-0.5) Serum Ketones 05/06/21 05/06/21 05/06/21 05:20 05:20 06:06 WBC RBC Hgb Hct MCV MCH MCHC RDW Plt Count MPV Neut % (Auto) Lymph % (Auto) [place] % (Auto) Eos % (Auto) Baso % (Auto) Neut # (Auto) Lymph # (Auto) [place] # (Auto) Eos # (Auto) Baso # (Auto) Nucleated RBC % (a uto) Nucleated RBCs # PT INR APTT D-Dimer Specimen Type Arterial Sample Site Radial, left ABG pH 7.43 (7.35-7.45) ABG pCO2 43.9 mmHg mmHg (35-45) ABG pO2 104.0 mmHg H mmHg (80.0-100.0) ABG HCO3 28.9 mmol/L H mmo l/L (22-26) ABG Base Excess 4.0 mmol/L H mmol /L (-2.0-2.0) Brady Test Pos Hematocrit 35.0 % L % (42-52) O2 Delivery Device None Bull Riveter ID [email or web address] Sodium Potassium Chloride Carbon Dioxide Anion Gap BUN Creatinine GFR Calculation Glucose POC Glucose Calculated Osmolal ity Calcium Total Bilirubin AST ALT Alkaline Phosphata se Creatine Kinase Troponin T Baselin e 12 ng/L ng/L (0-15) Troponin T [address] [place] Troponin T C-Reactive Protein NT-Pro-B Natriuret Pep Total Protein Albumin Globulin Procalcitonin Serum Ketones Negative (Negative) 05/06/21 05/06/21 05/06/21 07:32 07:53 08:12 WBC RBC Hgb Hct MCV MCH MCHC RDW Plt Count MPV Neut % (Auto) Lymph % (Auto) [place] % (Auto) Eos % (Auto) Baso % (Auto) Neut # (Auto) Lymph # (Auto) [place] # (Auto) Eos # (Auto) Baso # (Auto) Nucleated RBC % (a uto) Nucleated RBCs # PT INR APTT D-Dimer Specimen Type Sample Site ABG pH ABG pCO2 ABG pO2 ABG HCO3 ABG Base Excess Brady Test Hematocrit O2 Delivery Device [place]eter ID Sodium Potassium Chloride Carbon Dioxide Anion Gap BUN Creatinine GFR Calculation Glucose POC Glucose 31 mg/dL L* mg/dL 72 mg/dL mg/dL (70-110) (70-110) Calculated Osmolal ity Calcium Total Bilirubin AST ALT Alkaline Phosphata se Creatine Kinase Troponin T Baselin e Troponin T [address] [place] 11.47 ng/L ng/L (0-15) Delta Troponin T -0.53 ABS# L ABS# (0-10) C-Reactive Protein NT-Pro-B Natriuret Pep Total Protein Albumin Globulin Procalcitonin Serum Ketones Discharge Plan Discharge Prescriptions: No Action Novolin R Regular U-100 Insuln 100 unit/mL solution 10 - 20 unit SUBCUT TID Qty: 30 RF: 1 silver sulfadiazine [Silvadene] 1 % cream 1 applic topical BID Qty: 400 RF: 0 Novolin 70/30 U-100 Insulin 100 unit/mL (70-30) suspension 70 - 100 unit SUBCUT DAILY Qty: 30 RF: 1 sildenafil (pulm.hypertension) 20 mg tablet See Rx Instructions PO TID Qty: 30 RF: 2 meloxicam [Mobic] 15 mg tablet 15 mg PO DAILY Qty: 30 RF: 2 lisinopril 2.5 mg tablet See Rx Instructions .ROUTE .COMPLEX Qty: 90 RF: 0 aspirin 500 mg Tablet 500 - 1,000 mg PO Q4H PRN (Reason: UPSET STOMACH) RF: 0 Pepto-Bismol 262 mg/15 mL Suspension 524 mg PO Q1H PRN (Reason: UPSET STOMACH) RF: 0 Sign Out Sign Out Data: Patient Sign Out occurred on 05/06/21 at 06:11. Patient's care was discussed, and care was transferred from to Barry Steinberg MD. 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 Detailed Documented by User: Barry Steinberg MD 05/06/21 09:15 HPI - Chest Pain General: Chief Complaint: Chest Pain Stated Complaint: Chest pain, swelling rt arm Time Seen by Provider: 05/06/21 05:19 PFS ED PFSH: Medical History Diabetes mellitus type I Surgical History H/O hernia repair Umbilical Social History Smoking and tobacco status: current every day smoker cigarettes Packs smoked per day: 1 Alcohol intake: former Course Vital Signs: Vital signs: Vital Signs Temperature 97.5 F L 05/06/21 05:17 Pulse Rate 81 05/06/21 08:48 Respiratory Rate 16 05/06/21 08:48 Blood Pressure 155/103 05/06/21 08:48 Pulse Oximetry 99 05/06/21 08:48 MDM - Chest Pain MDM Narrative: Medical decision making narrative: Patient was signed out to me by Dr. Lorenzo, 45-year-old male presents with right elbow pain. On exam he has signs of cellulitis. Bedside ultrasound does not reveal any abscess. No sign of extension of joint space and not believe aspiration is required at this time. Prescription for Keflex provided. Otherwise he is hemodynamically stable afebrile nontoxic-appearing. He also complains of chest pain but EKG and two troponins do not reveal any sign of acute ischemia or other acute abnormality. Symptoms have been ongoing for several days. D-dimer is negative. X-ray does not reveal pneumothorax or consolidation. Remainder of lab work is unremarkable except patient became briefly hypoglycemic due to taking his short acting insulin this morning before coming in and not eating. Significantly improved after food. Repeat glucose measures show normal glycemia. Heart score is two. At this time I believe patient would be safe for discharge and outpatient follow- up. Return precautions provided. Plan was reviewed with the patient who expressed understanding. Questions answered. Patient will follow up with PCP. Patient discharged in stable condition. Lab Data: Labs: Lab Results 3 05/06/21 05/06/21 05/06/21 05:20 05:20 05:20 WBC 11.8 10^3/uL H 10 ^3/uL (4.0-10.0) RBC 4.17 10^6/uL 10^6 /uL (4.1-5.3) Hgb 12.1 g/dL g/dL (11.7-16.6) Hct 37.2 % L % (42.0-52.0) MCV 89.2 fl fl (80-94) MCH 29.0 pg pg (28.0-34.0) MCHC 32.5 g/dL g/dL (30.0-36.0) RDW 13.6 % % (12.1-15.1) Plt Count 426 10^3/cmm H 10 ^3/cmm (130-400) MPV 9.4 fL fL (7.4-10.4) Neut % (Auto) 68.2 % % Lymph % (Auto) 23.1 % % [place] % (Auto) 6.4 % % Eos % (Auto) 1.6 % % Baso % (Auto) 0.3 % % Neut # (Auto) 8.07 10^3/uL H 10 ^3/uL (1.8-7.7) Lymph # (Auto) 2.7 10^3/uL 10^3/ uL (0.8-4.8) [place] # (Auto) 0.8 10^3/uL 10^3/ uL (0.2-0.9) Eos # (Auto) 0.2 10^3/uL 10^3/ uL (0.0-0.8) Baso # (Auto) 0.0 10^3/uL 10^3/ uL (0.0-0.1) Nucleated RBC % (a uto) 0 % % Nucleated RBCs # 0.0 /100WBC /100W BC PT 11.30 SECONDS L S ECONDS (12.1-14.9) INR 0.79 L (0.8-1.2) APTT 23.8 SECONDS L SE CONDS (23.9-36.7) D-Dimer 0.48 ug/mIFEU ug/ mIFEU (0-0.59) Specimen Type Sample Site ABG pH ABG pCO2 ABG pO2 ABG HCO3 ABG Base Excess Brady Test Hematocrit O2 Delivery Device Bull [place]eter ID Sodium 136 mmol/L mmol/L (136-145) Potassium 4.9 mmol/L mmol/L (3.5-5.1) Chloride 97 mmol/L L mmol/ L (98-107) Carbon Dioxide 26 mmol/L mmol/L (22-29) Anion Gap 17.9 (5-19) BUN 22 mg/dL H mg/dL (6-20) Creatinine 0.7 mg/dL mg/dL (0.7-1.2) GFR Calculation 123.1 mL/min mL/m in (90-130) Glucose 337 mg/dL H mg/dL (65-115) POC Glucose Calculated Osmolal ity 299 mOsm/kg H mOs m/kg (285-295) Calcium 9.2 mg/dL mg/dL (8.5-10.5) Total Bilirubin 0.2 mg/dL mg/dL (0.15-1.2) AST 15 U/L U/L (0-40) ALT 20 U/L U/L (0-41) Alkaline Phosphata se 131 IU/L H IU/L (40-130) Creatine Kinase 106 U/L U/L (39-308) Troponin T Baselin e Troponin T [address] [place] Troponin T C-Reactive Protein 3.8 mg/L mg/L (0.0-4.9) NT-Pro-B Natriuret Pep 13 pg/mL pg/mL (0-125) Total Protein 6.3 g/dL L g/dL (6.6-8.7) Albumin 3.9 g/dL g/dL (3.5-5.2) Globulin 2.4 g/dL g/dL (1.3-4.6) Procalcitonin 0.16 ng/mL ng/mL (0-0.5) Serum Ketones 05/06/21 05/06/21 05/06/21 05:20 05:20 06:06 WBC RBC Hgb Hct MCV MCH MCHC RDW Plt Count MPV Neut % (Auto) Lymph % (Auto) [place] % (Auto) Eos % (Auto) Baso % (Auto) Neut # (Auto) Lymph # (Auto) [place] # (Auto) Eos # (Auto) Baso # (Auto) Nucleated RBC % (a uto) Nucleated RBCs # PT INR APTT D-Dimer Specimen Type Arterial Sample Site Radial, left ABG pH 7.43 (7.35-7.45) ABG pCO2 43.9 mmHg mmHg (35-45) ABG pO2 104.0 mmHg H mmHg (80.0-100.0) ABG HCO3 28.9 mmol/L H mmo l/L (22-26) ABG Base Excess 4.0 mmol/L H mmol /L (-2.0-2.0) Brady Test Pos Hematocrit 35.0 % L % (42-52) O2 Delivery Device None Bull Riveter ID [email or web address] Sodium Potassium Chloride Carbon Dioxide Anion Gap BUN Creatinine GFR Calculation Glucose POC Glucose Calculated Osmolal ity Calcium Total Bilirubin AST ALT Alkaline Phosphata se Creatine Kinase Troponin T Baselin e 12 ng/L ng/L (0-15) Troponin T [address] [place] Troponin T C-Reactive Protein NT-Pro-B Natriuret Pep Total Protein Albumin Globulin Procalcitonin Serum Ketones Negative (Negative) 05/06/21 05/06/21 05/06/21 07:32 07:53 08:12 WBC RBC Hgb Hct MCV MCH MCHC RDW Plt Count MPV Neut % (Auto) Lymph % (Auto) [place] % (Auto) Eos % (Auto) Baso % (Auto) Neut # (Auto) Lymph # (Auto) [place] # (Auto) Eos # (Auto) Baso # (Auto) Nucleated RBC % (a uto) Nucleated RBCs # PT INR APTT D-Dimer Specimen Type Sample Site ABG pH ABG pCO2 ABG pO2 ABG HCO3 ABG Base Excess Brady Test Hematocrit O2 Delivery Device [place]eter ID Sodium Potassium Chloride Carbon Dioxide Anion Gap BUN Creatinine GFR Calculation Glucose POC Glucose 31 mg/dL L* mg/dL 72 mg/dL mg/dL (70-110) (70-110) Calculated Osmolal ity Calcium Total Bilirubin AST ALT Alkaline Phosphata se Creatine Kinase Troponin T Baselin e Troponin T [address] [place] 11.47 ng/L ng/L (0-15) Delta Troponin T -0.53 ABS# L ABS# (0-10) C-Reactive Protein NT-Pro-B Natriuret Pep Total Protein Albumin Globulin Procalcitonin Serum Ketones Discharge Plan Discharge Prescriptions: No Action Novolin R Regular U-100 Insuln 100 unit/mL solution 10 - 20 unit SUBCUT TID Qty: 30 RF: 1 silver sulfadiazine [Silvadene] 1 % cream 1 applic topical BID Qty: 400 RF: 0 Novolin 70/30 U-100 Insulin 100 unit/mL (70-30) suspension 70 - 100 unit SUBCUT DAILY Qty: 30 RF: 1 sildenafil (pulm.hypertension) 20 mg tablet See Rx Instructions PO TID Qty: 30 RF: 2 meloxicam [Mobic] 15 mg tablet 15 mg PO DAILY Qty: 30 RF: 2 lisinopril 2.5 mg tablet See Rx Instructions .ROUTE .COMPLEX Qty: 90 RF: 0 aspirin 500 mg Tablet 500 - 1,000 mg PO Q4H PRN (Reason: UPSET STOMACH) RF: 0 Pepto-Bismol 262 mg/15 mL Suspension 524 mg PO Q1H PRN (Reason: UPSET STOMACH) RF: 0 Sign Out Sign Out Data: Patient Sign Out occurred on 05/06/21 at 06:11. Patient's care was discussed, and care was transferred from to Barry Steinberg MD. 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
--- NOTE | 2021-05-06 05:29 | XRR_ITS ---
PROCEDURE INFORMATION: Exam: XR Chest Exam date and time: 05/06/2021 5:29 AM Age: 45 years old Clinical indication: Chest pressure; Patient HX: Chest pain with SOB. ; Additional info: Cp TECHNIQUE: Imaging protocol: XR of the chest. Views: 1 view. Total images: 1 COMPARISON: CR XR chest 1V portable [id number] 01/17/2021 4:06 PM FINDINGS: Lungs: Unremarkable. No consolidation. Pleural spaces: Unremarkable. No pleural effusion. No pneumothorax. Heart/Mediastinum: Unremarkable. No cardiomegaly. Bones/joints: Unremarkable. XR/XR chest 1V portable [id number] IMPRESSION: No acute findings. Radiation Dose CTDIVOL = (mGy): DLP = (mGy-cm)
--- NOTE | 2021-05-06 05:29 | ECG_ITS ---
[facility] Test Date: 2021-05-06 Pat Name: Andrews Robins Department: Room: Gender: Male Phlebotomy Specialist: : [id number] Requested By: Elliot Schulte Order Number: [id number] Edwards MD: Belem Moore M.D. Measurements Intervals [place] Rate: 95 P: 79 CA: 131 QRS: 74 QRSD: 90 T: 74 QT: 336 QTc: 424 Interpretive Statements SINUS RHYTHM POSSIBLE RIGHT ATRIAL ENLARGEMENT [0.25mV P-WAVE] POSSIBLE LEFT ATRIAL ENLARGEMENT [-0.1mV P-WAVE IN V1/V2] POSSIBLE RIGHT VENTRICULAR CONDUCTION DELAY [RSR (QR) IN V1/V2] POSSIBLE LEFT VENTRICULAR HYPERTROPHY [VOLTAGE CRITERIA PLUS LAE OR QRS WIDENING] Compared to ECG 03/19/2019 17:43:59 ST (T wave) deviation no longer present Electronically Signed On 05-07-2021 13:20:06 SHINGLE PACKER by Belem Moore M.D. [email or web address]
[2021-05-06 05:39] LABS: Basophils % 0.3 %; Eosinophils # 0.2 10^3/uL (0.0-0.8); Eosinophils % 1.6 %; Hematocrit 37.2 % (42.0-52.0); Hemoglobin 12.1 g/dL (11.7-16.6); Lymphocytes # 2.7 10^3/uL (0.8-4.8); Lymphocytes % 23.1 %; Mean Corpuscular HGB Conc 32.5 g/dL (30.0-36.0); Mean Corpuscular Volume 89.2 fl (80-94); Mean Platelet Volume 9.4 fL (7.4-10.4); Monocytes # 0.8 10^3/uL (0.2-0.9); Monocytes % 6.4 %; Neutrophils # 8.07 10^3/uL (1.8-7.7); Neutrophils % 68.2 %; Nucleated Red Blood Cells % 0 %; Platelet Count 426 10^3/cmm (130-400); Red Blood Count 4.17 10^6/uL (4.1-5.3); Red Cell Distribution Width 13.6 % (12.1-15.1); White Blood Count 11.8 10^3/uL (4.0-10.0)
[2021-05-06 05:50] LABS: INR 0.79 (0.8-1.2)
[2021-05-06 05:51] LABS: Partial Thromboplastin Time 23.8 SECONDS (23.9-36.7)
[2021-05-06 05:53] LABS: D Dimer 0.48 ug/mIFEU (0-0.59)
[2021-05-06 05:56] LABS: Troponin(5th) Baseline 12 ng/L (0-15)
[2021-05-06 05:59] VITALS: RESP 18; O2SAT 99
[2021-05-06] MEDS: morphine 4 mg/mL SDV 1 mL IVP (05:59)
[2021-05-06] MEDS: ondansetron 2 mg/ML SDV 2 mL 4 MG IVP (05:59)
[2021-05-06 06:06] LABS: NT Pro B Type Natriuretic Pept 13 pg/mL (0-125); Procalcitonin 0.16 ng/mL (0-0.5)
[2021-05-06 06:17] LABS: Alanine Aminotransferase 20 U/L (0-41); Albumin Level 3.9 g/dL (3.5-5.2); Alkaline Phosphatase 131 IU/L (40-130); Anion Gap 17.9 (5-19); Aspartate Amino Transferase 15 U/L (0-40); Blood Urea Nitrogen 22 mg/dL (6-20); C Reactive Protein 3.8 mg/L (0.0-4.9); Calcium 9.2 mg/dL (8.5-10.5); Carbon Dioxide 26 mmol/L (22-29); Chloride 97 mmol/L (98-107); Creatine Phosphokinase 106 U/L (39-308); Globulin 2.4 g/dL (1.3-4.6); Glomerular Filtration Rate 123.1 mL/min (90-130); Glucose 337 mg/dL (65-115); Osmolality Calculated 299 mOsm/kg (285-295); Potassium 4.9 mmol/L (3.5-5.1); Sodium 136 mmol/L (136-145); Total Bilirubin 0.2 mg/dL (0.15-1.2); Total Protein 6.3 g/dL (6.6-8.7)
[2021-05-06 06:18] LABS: ABG PCO2 43.9 mmHg (35-45); ABG PH Result 7.43 (7.35-7.45); Blood Gas Allen Test Pos; Blood Gas Sample Type Arterial; HCO3 ABG 28.9 mmol/L (22-26)
[2021-05-06 06:19] LABS: Blood Gas Sample Site Radial, left
[2021-05-06 06:24] LABS: Ketone (Acetest) Serum Negative (Negative)
--- NOTE | 2021-05-06 06:25 | PC.NURSE ---
2 sets of blood cultures drawn and sent to lab.
[2021-05-06 07:08] VITALS: BP 148/89; PULSE 97; RESP 18; O2SAT 97
--- NOTE | 2021-05-06 07:29 | ECG_ITS ---
[facility] Test Date: 2021-05-06 Pat Name: Andrews Robins Department: Room: Gender: Male Parts Counter Associate: : 1975 Requested By: Elliot Schulte Order Number: [id number] Edwards MD: Belem Moore M.D. Measurements Intervals [place] Rate: 84 P: 70 [place]: 139 QRS: 72 QRSD: 102 T: 71 QT: 369 QTc: 438 Interpretive Statements SINUS RHYTHM POSSIBLE LEFT ATRIAL ENLARGEMENT [-0.1mV P-WAVE IN V1/V2] POSSIBLE RIGHT VENTRICULAR CONDUCTION DELAY [RSR (QR) IN V1/V2] POSSIBLE LEFT VENTRICULAR HYPERTROPHY [VOLTAGE CRITERIA PLUS LAE OR QRS WIDENING] Compared to ECG 05/06/2021 05:16:13 No significant changes Electronically Signed On 05-07-2021 13:26:09 ELECTRICAL PROJECT MANAGER by Belem Moore M.D. [id number]
[2021-05-06] MEDS: dextrose 10% 1,000 ML 150 ML IV (07:45)
--- NOTE | 2021-05-06 07:45 | PC.NURSE ---
Pt states, I'm sweaty. Can you check my sugar? BG 31 at that time. Two orange juice boxes given to pt. ERP notified and new orders. received.
--- NOTE | 2021-05-06 07:56 | PC.NURSE ---
CBG 72 at this time.
[2021-05-06 07:57] LABS: Glucose Point of Care 72 mg/dL (70-110)
[2021-05-06 07:57] LABS: Glucose Point of Care 31 mg/dL (70-110)
[2021-05-06] MEDS: acetaminophen 325 mg Tablet 650 MG PO (08:06)
[2021-05-06 08:48] VITALS: BP 155/103; PULSE 81; RESP 16; O2SAT 99
[2021-05-06 09:03] LABS: Troponin 5 2HR 11.47 ng/L (0-15)
[2021-05-06 09:08] LABS: Troponin 5 2HR Delta -0.53 ABS# (0-10)
[2021-05-06 09:29] VITALS: BP 163/99; PULSE 83; RESP 18; O2SAT 100
== END 2021-05-06 09:28 | disposition home or self-care (01) ==
PROVIDERS: Emergency Medicine; Emergency Provider Emergency Medicine; PCP Family Medicine
DX: R07.9 Chest pain, unspecified (principal); M79.89 Other specified soft tissue disorders; E10.9 Type 1 diabetes mellitus without complications; Z79.4 Long term (current) use of insulin; Z79.82 Long term (current) use of aspirin; F17.210 Nicotine dependence, cigarettes, uncomplicated
CPT/HCPCS: 36416; 36600; 71045; 80053; 82009; 82550; 82803; 82962; 83880; 84145; 84484; 85025; 85378; 85610; 85730; 86140; 93005; 96361; 96374; 96375; 99284; J2270; J2405

== ENCOUNTER 2021-05-23 12:44 | Emergency (ER) | payer SELFPAY ==
--- NOTE | 2021-05-23 12:46 | XRR_ITS ---
PROCEDURE INFORMATION: Exam: XR Right Elbow Exam date and time: 05/23/2021 12:46 PM Age: 45 years old Clinical indication: Injury or trauma; Fall; Blunt trauma (contusions or hematomas); Elbow; Right TECHNIQUE: Imaging protocol: XR Right elbow. Views: 1 or 2 views. COMPARISON: No relevant prior studies available. FINDINGS: Bones/joints: No fracture or other acute bone or joint abnormalities are seen. There is a 9 mm olecranon spur. The joint spaces are not significantly narrowed. Soft tissues: Normal. XR/XR elbow RT 2V [id number] IMPRESSION: No acute bony abnormality. Radiation Dose CTDIVOL = (mGy): DLP = (mGy-cm)
--- NOTE | 2021-05-23 12:46 | CT_ITS ---
WS: [id number] CT FACIAL BONES TECHNIQUE: Noncontrast facial bones with coronal and sagittal reformatted images. CLINICAL INFORMATION: fall COMPARISON: None. DLP: 1670.[address] scans at [facility] use at least one of these dose optimization techniques: automated e xposure control; mA and/or kV adjustment per patient size (includes targeted exams where dose is matc hed to clinical indication); or iterative reconstruction. FINDINGS: Slight irregularity of the anterior nasal bones. Recommend correlation for nondisplaced nasal fractur e. This may be chronic. Paranasal sinuses and mastoid air cells well aerated. Orbits are normal in appearance. Normal lamina papyracea. Inferior orbits are normal. Normal lateral orbits. Normal zygoma. No evidence evidence of mandibular fracture or dislocation. Normal pterygoid plates. Normal parapharyngeal fat. Normal director of teacher education ior nasopharynx. Tonsillar calcifications. CT/CT facial bones wo con* [id number] IMPRESSION: 1. Slight irregularity of the anterior nasal bones. Recommend correlation for nondisplaced nasal fracture. This may be chronic. 2. No other facial fractures.
--- NOTE | 2021-05-23 12:46 | CT_ITS ---
WS: [id number] CT HEAD TECHNIQUE: Noncontrast CT of the head obtained from the skullbase to the vertex. CLINICAL INFORMATION: fall injury COMPARISON: None. DLP: 917.[address] scans at [facility] use at least one of these dose optimization techniques: automated e xposure control; mA and/or kV adjustment per patient size (includes targeted exams where dose is matc hed to clinical indication); or iterative reconstruction. FINDINGS: No evidence of intracranial hemorrhage or mass effect. Ventricular system and basal cisterns are lr nt. No extra-axial fluid collections. No evidence of mass or mass effect. Normal good-white different iation. Paranasal sinuses and mastoid air cells are well aerated. . Soft tissue edema overlying the dorsal pa rietal calvarium. No visualized fractures. CT/CT head wo con* [id number] IMPRESSION: 1. No evidence of intracranial hemorrhage or mass effect. 2. Paranasal sinuses and mastoid air cells well aerated. 3. No acute intracranial findings.
[2021-05-23 12:51] VITALS: BP 125/81; PULSE 90; RESP 19; O2SAT 93
--- NOTE | 2021-05-23 12:59 | ED_ITS ---
HPI - General Adult General: Chief complaint: General Medical Stated complaint: hYPERGLYCEMIA Time Seen by Provider: 05/23/21 12:46 History of Present Illness: HPI narrative: Patient is a 45-year-old male with a history of type 2 diabetes on regular insulin who presents emergency room with concerns for hypoglycemia and fall. Patient was outside and found unconscious on the ground. Patient initially by EMS, had a glucose of 43. Patient was noted to have blood on his forehead and onto his right elbow. Is unclear what happened. On arrival, patient is AAO x3, GCS 15. Her glucose by EMS was 06/25/1947. Patient is on a D10 drip. Patient told that she fell earlier today after taking his insulin. Patient denies any nausea/vomiting, diarrhea, fever/chills, dental complaints, chest pain shortness of breath or other issues. Denies any other coingestions at a time. Patient report taking 25 units of short acting insulin as well as 70/30 Humalog. Patient relates that since this morning. Patient denies any attempt at suicide, any homicidal ideation, hallucination, or hearing voices Onset:unknown Duration: ongoing Location:streets Severity:severe Review of Systems Narrative: Constitutional: No fever, no chills. HEENT: No vision changes CV: No chest pain, no palpitations PULM: no cough, no dyspnea. GI: No abdominal pain, no N/V/D. : No dysuria MSKEL: No muscle pain SKIN: No new rashes, no lesions. NEURO: No headache, no focal weakness. HEME: No visible bruises PSYCH: Normal mood [facility] ED PFSH: Medical History Diabetes mellitus type I Surgical History H/O hernia repair Umbilical Social History Smoking and tobacco status: current every day smoker cigarettes Packs smoked per day: 1 Alcohol intake: former Physical Exam Narrative: EXAM NARRATIVE: Head: Atraumatic Eyes: PERRL, conjunctiva without injection ENT: Mucous membrane moist NECK: Supple, ROM intact LUNGS: LCTAB, no crackles/rhonchi CV: RRR ABDOMEN: Soft, nontender in all quadrants EXTREMITY: Normal ROM SKIN: +multiple superficial abrasions over the face, head, and R elbow NEURO: Awake and alert, no focal motor deficits PSYCH: Normal mood and affect Course Vital Signs: Vital signs: Vital Signs Temperature 98.3 F 05/23/21 13:27 Pulse Rate 86 05/23/21 20:10 Respiratory Rate 18 05/23/21 20:10 Blood Pressure 136/78 05/23/21 20:10 Pulse Oximetry 86 L 05/23/21 20:10 MDM - General Adult MDM Narrative: Medical decision making narrative: Patient is a 45-year-old male with a history of type 1 diabetes presenting to the emergency room for concerns of hypoglycemia after patient was found down with glucose 43. Patient received D10. On arrival to emergency, patient had a glucose of 88 that dropped to 78. Patient continues to be AOx3, GCS 15. Patient received a prescription for D10 as well as is able to tolerate p.o. without difficulty. Patient sent include CT brain, CT face, x-ray of the elbow did not show any acute injuries other than possible acute versus chronic nasal fracture. Finding was discussed extensively with patient. Patient has a copy of the CT report. Patient is given follow-up with ENT for evaluation of broken nose. Facial/scalp and R elbow wounds were extensively irrigated and cleaned. Patient has been able to ambulate. Patient was watched in the emergency room for 3 hours. Do not suspect long-acting insulin at this time. Glucose improved to 600 initially with D10 and po intake. Patient received 10u of short acting insulin with improvement of symptoms. Observed now with glucose <300. Disposition: Discharge. Patient counseled regarding diagnostic impression, treatment plan. Patient given ED strict return precautions to return for continuation, worsening, or development of new symptoms. Instructed to f/u w/ PCP regarding symptoms today. Patient verbalized understanding. Lab Data: Labs: Lab Results 05/23/21 05/23/21 05/23/21 13:09 13:52 13:52 WBC 11.3 10^3/uL H 10 ^3/uL (4.0-10.0) RBC 3.69 10^6/uL L 10 ^6/uL (4.1-5.3) Hgb 10.6 g/dL L g/dL (11.7-16.6) Hct 33.0 % L % (42.0-52.0) MCV 89.4 fl fl (80-94) MCH 28.7 pg pg (28.0-34.0) MCHC 32.1 g/dL g/dL (30.0-36.0) RDW 13.8 % % (12.1-15.1) Plt Count 320 10^3/cmm 10^3 /cmm (130-400) MPV 9.4 fL fL (7.4-10.4) Neut % (Auto) 83.4 % % Lymph % (Auto) 11.2 % % [place] % (Auto) 4.3 % % Eos % (Auto) 0.3 % % Baso % (Auto) 0.4 % % Neut # (Auto) 9.42 10^3/uL H 10 ^3/uL (1.8-7.7) Lymph # (Auto) 1.3 10^3/uL 10^3/ uL (0.8-4.8) [place] # (Auto) 0.5 10^3/uL 10^3/ uL (0.2-0.9) Eos # (Auto) 0.0 10^3/uL 10^3/ uL (0.0-0.8) Baso # (Auto) 0.0 10^3/uL 10^3/ uL (0.0-0.1) Nucleated RBC % (a uto) 0 % % Nucleated RBCs # 0.0 /100WBC /100W BC Sodium 139 mmol/L mmol/L (136-145) Potassium 3.9 mmol/L mmol/L (3.5-5.1) Chloride 103 mmol/L mmol/L (98-107) Carbon Dioxide 24 mmol/L mmol/L (22-29) Anion Gap 15.9 (5-19) BUN 16 mg/dL mg/dL (6-20) Creatinine 0.6 mg/dL L mg/dL (0.7-1.2) GFR Calculation 147.0 mL/min H mL /min (90-130) Glucose 51 mg/dL L mg/dL (65-115) POC Glucose 86 mg/dL mg/dL (70-110) Calculated Osmolal ity 287 mOsm/kg mOsm/ kg (285-295) Calcium 7.9 mg/dL L mg/dL (8.5-10.5) Total Bilirubin 0.2 mg/dL mg/dL (0.15-1.2) AST 54 U/L H U/L (0-40) ALT 28 U/L U/L (0-41) Alkaline Phosphata se 85 IU/L IU/L (40-130) Total Protein 5.5 g/dL L g/dL (6.6-8.7) Albumin 3.7 g/dL g/dL (3.5-5.2) Globulin 1.8 g/dL g/dL (1.3-4.6) Lipase 14 U/L U/L (13-60) Salicylates < 0.3 mg/dL L mg/ dL (3-10) Acetaminophen < 5.0 ug/mL L ug/ mL (10-30) 05/23/21 05/23/21 05/23/21 13:56 15:07 15:09 WBC RBC Hgb Hct MCV MCH MCHC RDW Plt Count MPV Neut % (Auto) Lymph % (Auto) [place] % (Auto) Eos % (Auto) Baso % (Auto) Neut # (Auto) Lymph # (Auto) [place] # (Auto) Eos # (Auto) Baso # (Auto) Nucleated RBC % (a uto) Nucleated RBCs # Sodium Potassium Chloride Carbon Dioxide Anion Gap BUN Creatinine GFR Calculation Glucose POC Glucose 78 mg/dL mg/dL > 600 mg/dL H* mg /dL > 600 mg/dL H* mg /dL (70-110) (70-110) (70-110) Calculated Osmolal ity Calcium Total Bilirubin AST ALT Alkaline Phosphata se Total Protein Albumin Globulin Lipase Salicylates Acetaminophen 05/23/21 05/23/21 05/23/21 16:58 17:27 19:13 WBC RBC Hgb Hct MCV MCH MCHC RDW Plt Count MPV Neut % (Auto) Lymph % (Auto) [place] % (Auto) Eos % (Auto) Baso % (Auto) Neut # (Auto) Lymph # (Auto) [place] # (Auto) Eos # (Auto) Baso # (Auto) Nucleated RBC % (a uto) Nucleated RBCs # Sodium Potassium Chloride Carbon Dioxide Anion Gap BUN Creatinine GFR Calculation Glucose POC Glucose > 600 mg/dL H* mg /dL > 600 mg/dL H* mg /dL 285 mg/dL H mg/dL (70-110) (70-110) (70-110) Calculated Osmolal ity Calcium Total Bilirubin AST ALT Alkaline Phosphata se Total Protein Albumin Globulin Lipase Salicylates Acetaminophen Imaging Data^: Other Imaging: Radiologist's impression: [place] [id number] Scan ReportSigned Patient: Andrews Robins #: [id number]: 1975Acct#:[id number]/Sex: 45 / MADM Date: 05/23/21Loc: ERRoom/Bed:Attending Dr: Ordering Provider/Ordering MD: Kalani Sánchez MD Date of Service: 05/23/21 Procedure(s): CT head wo con* [id number] Accession Number(s): [id number] Report Number: [id number] WS: [id number] CT HEAD TECHNIQUE: Noncontrast CT of the head obtained from the skullbase to the vertex. CLINICAL INFORMATION: fall injury COMPARISON: None. DLP: 917.[address] scans at [facility] use at least one of these dose optimization techniques: automated exposure control; mA and/or kV adjustment per patient size (includes targeted exams where dose is matched to clinical indication); or iterative reconstruction. FINDINGS: No evidence of intracranial hemorrhage or mass effect. Ventricular system and basal cisterns are patent. No extra-axial fluid collections. No evidence of mass or mass effect. Normal good-white differentiation. Paranasal sinuses and mastoid air cells are well aerated. . Soft tissue edema overlying the dorsal parietal calvarium. No visualized fractures. CT/CT head wo con* [id number] IMPRESSION: 1. No evidence of intracranial hemorrhage or mass effect. 2. Paranasal sinuses and mastoid air cells well aerated. 3. No acute intracranial findings. Dictated By:Ted Becerra MDSigned By:Ted Becerra MDSigned Date/Time:05/23/[address] [id number] Scan ReportSigned Patient: Andrews Robinst #: [id number]: 1975Acct#:[id number]/Sex: 45 / MADM Date: 05/23/21Loc: ERRoom/Bed:Attending Dr: Ordering Provider/Ordering MD: Kalani Sánchez MD Date of Service: 05/23/21 Procedure(s): CT facial bones wo con* [id number] Accession Number(s): [id number] Report Number: [id number] WS: [id number] CT FACIAL BONES TECHNIQUE: Noncontrast facial bones with coronal and sagittal reformatted images. CLINICAL INFORMATION: fall COMPARISON: None. DLP: 1670.[address] scans at [facility] use at least one of these dose optimization techniques: automated exposure control; mA and/or kV adjustment per patient size (includes targeted exams where dose is matched to clinical indication); or iterative reconstruction. FINDINGS: Slight irregularity of the anterior nasal bones. Recommend correlation for nondisplaced nasal fracture. This may be chronic. Paranasal sinuses and mastoid air cells well aerated. Orbits are normal in appearance. Normal lamina papyracea. Inferior orbits are normal. Normal lateral orbits. Normal zygoma. No evidence evidence of mandibular fracture or dislocation. Normal pterygoid plates. Normal parapharyngeal fat. Normal posterior nasopharynx. Tonsillar calcifications. CT/CT facial bones wo con* [id number] IMPRESSION: 1. Slight irregularity of the anterior nasal bones. Recommend correlation for nondisplaced nasal fracture. This may be chronic. 2. No other facial fractures. Dictated By:Ted Becerra MDSigned By:Ted Becerra MDSigned Date/Time:05/23/21 1341DD/ [address] [id number] ReportSigned Patient: Andrews Robins #: [id number]: 1975Acct#:[id number]/Sex: 45 / MADM Date: 05/23/21Loc: ERRoom/Bed:Attending Dr: Ordering Provider/Ordering MD: Kalani Sánchez MD Date of Service: 05/23/21 Procedure(s): XR elbow RT 2V [id number] Accession Number(s): [id number] Report Number: [id number] PROCEDURE INFORMATION: Exam: XR Right Elbow Exam date and time: 05/23/2021 12:46 PM Age: 45 years old Clinical indication: Injury or trauma; Fall; Blunt trauma (contusions or hematomas); Elbow; Right TECHNIQUE: Imaging protocol: XR Right elbow. Views: 1 or 2 views. COMPARISON: No relevant prior studies available. FINDINGS: Bones/joints: No fracture or other acute bone or joint abnormalities are seen. There is a 9 mm olecranon spur. The joint spaces are not significantly narrowed. Soft tissues: Normal. XR/XR elbow RT 2V [id number] IMPRESSION: No acute bony abnormality. Radiation Dose CTDIVOL = (mGy): DLP = (mGy-cm) Dictated By:Allison Arellano By:Allison Arellano Date/Time:05/23/21 1336DD/ 1246 Discharge Plan Discharge Patient Disposition: Home Clinical Impression: Hypoglycemia, Fracture, nasal Condition: Stable Prescriptions: No Action Novolin R Regular U-100 Insuln 100 unit/mL solution 10 - 20 unit SUBCUT TID Qty: 30 RF: 1 silver sulfadiazine [Silvadene] 1 % cream 1 applic topical BID Qty: 400 RF: 0 Novolin 70/30 U-100 Insulin 100 unit/mL (70-30) suspension 70 - 100 unit SUBCUT DAILY Qty: 30 RF: 1 sildenafil (pulm.hypertension) 20 mg tablet See Rx Instructions PO TID Qty: 30 RF: 2 meloxicam [Mobic] 15 mg tablet 15 mg PO DAILY Qty: 30 RF: 2 lisinopril 2.5 mg tablet See Rx Instructions .ROUTE .COMPLEX Qty: 90 RF: 0 aspirin 500 mg Tablet 500 - 1,000 mg PO Q4H PRN (Reason: UPSET STOMACH) RF: 0 Pepto-Bismol 262 mg/15 mL Suspension 524 mg PO Q1H PRN (Reason: UPSET STOMACH) RF: 0 Discharge Orders: Discharge ED (Routine); Ordered 05/23/21 Ordered By: Kalani Sánchez Referrals: Arely Holcomb, [Primary Care Provider] - Discharge Diet: Advance as tolerated Discharge Activity: Resume usual activity Patient Instructions: Hypoglycemia, What to Do if Your Blood Sugar is Low (ED) Activity Restrictions/Additional Instructions: Please come back to the emergency room if you are lightheaded, feeling you are about to pass out, if your blood sugar is low, if you have any new or concerning complaints. Our case management associate will have you follow-up with ear nose and throat doctor in the next few days for nasal fracture that is likely chronic. You would be expected to have a phone call with our case management associate who will put you on the schedule. Here's your CT report: [facility] [facility].[place], [place] [address]PD Scan ReportSigned Patient: Andrews Robins #: [id number]: 1975Acct#:[id number]/Sex: 45 / MADM Date: 05/23/21Loc: ERRoom/Bed:A ttending Dr: Ordering Provider/Ordering MD: Kalani Sánchez MD Date of Service: 05/23/21 Procedure(s): CT facial bones wo con* [id number] Accession Number(s): [id number] Report Number: [id number] WS: [id number] CT FACIAL BONES TECHNIQUE: Noncontrast facial bones with coronal and sagittal reformatted images. CLINICAL INFORMATION: fall COMPARISON: None. DLP: 1670.[address] scans at [facility] use at least one of these dose optimization techniques: automated exposure control; mA and/or kV adjustment per patient size (includes targeted exams where dose is matched to clinical indication); or iterative reconstruction. FINDINGS: Slight irregularity of the anterior nasal bones. Recommend correlation for nondisplaced nasal fracture. This may be chronic. Paranasal sinuses and mastoid air cells well aerated. Orbits are normal in appearance. Normal lamina papyracea. Inferior orbits are normal. Normal lateral orbits. Normal zygoma. No evidence evidence of mandibular fracture or disl ocation. Normal pterygoid plates. Normal parapharyngeal fat. Normal posterior nasopharynx. Tonsillar calcifications. CT/CT facial bones wo con* [id number] IMPRESSION: 1. Slight irregularity of the anterior nasal bones. Recommend correlation for nondisplaced nasal fracture. This may be chronic. 2. No other facial fractures. Dictated By:Ted Becerra MDSigned By:Ted Becerra MDSigned Date/Time:05/23/21 1341DD/ 1326 Coding Level of Care Code ED Cotton Buyer for Nasima Odom
[2021-05-23 13:13] LABS: Glucose Point of Care 86 mg/dL (70-110)
[2021-05-23 13:27] VITALS: BP 125/68; PULSE 88; RESP 17; TEMP 36.8; O2SAT 98
[2021-05-23] MEDS: acetaminophen 500 mg Tablet PO (13:32)
[2021-05-23] MEDS: tetanus-dipt-pertussis 0.5 mL SDV IM (13:37)
[2021-05-23 14:00] LABS: Glucose Point of Care 78 mg/dL (70-110)
[2021-05-23] MEDS: dextrose 10% 1,000 ML 999 ML IV (14:15)
[2021-05-23 14:24] LABS: Basophils % 0.4 %; Eosinophils % 0.3 %; Hemoglobin 10.6 g/dL (11.7-16.6); Lymphocytes # 1.3 10^3/uL (0.8-4.8); Lymphocytes % 11.2 %; Mean Corpuscular HGB Conc 32.1 g/dL (30.0-36.0); Mean Corpuscular Hemoglobin 28.7 pg (28.0-34.0); Mean Corpuscular Volume 89.4 fl (80-94); Mean Platelet Volume 9.4 fL (7.4-10.4); Monocytes # 0.5 10^3/uL (0.2-0.9); Monocytes % 4.3 %; Neutrophils # 9.42 10^3/uL (1.8-7.7); Neutrophils % 83.4 %; Nucleated Red Blood Cells % 0 %; Platelet Count 320 10^3/cmm (130-400); Red Blood Count 3.69 10^6/uL (4.1-5.3); Red Cell Distribution Width 13.8 % (12.1-15.1); White Blood Count 11.3 10^3/uL (4.0-10.0)
[2021-05-23 14:47] LABS: Alanine Aminotransferase 28 U/L (0-41); Albumin Level 3.7 g/dL (3.5-5.2); Alkaline Phosphatase 85 IU/L (40-130); Anion Gap 15.9 (5-19); Aspartate Amino Transferase 54 U/L (0-40); Blood Urea Nitrogen 16 mg/dL (6-20); Calcium 7.9 mg/dL (8.5-10.5); Carbon Dioxide 24 mmol/L (22-29); Chloride 103 mmol/L (98-107); Globulin 1.8 g/dL (1.3-4.6); Glucose 51 mg/dL (65-115); Lipase 14 U/L (13-60); Osmolality Calculated 287 mOsm/kg (285-295); Potassium 3.9 mmol/L (3.5-5.1); Sodium 139 mmol/L (136-145); Total Bilirubin 0.2 mg/dL (0.15-1.2); Total Protein 5.5 g/dL (6.6-8.7)
[2021-05-23 14:49] LABS: Acetaminophen < 5.0 ug/mL (10-30); Salicylate < 0.3 mg/dL (3-10)
[2021-05-23 15:11] LABS: Glucose Point of Care > 600 mg/dL (70-110)
[2021-05-23 15:11] LABS: Glucose Point of Care > 600 mg/dL (70-110)
[2021-05-23 15:43] VITALS: BP 130/72; PULSE 85; RESP 18; O2SAT 97
[2021-05-23 17:00] LABS: Glucose Point of Care > 600 mg/dL (70-110)
[2021-05-23] MEDS: insulin lispro 100 unit/1 mL 10 UNIT SUBCUT (17:08)
[2021-05-23] MEDS: lactated ringers 1,000 ML 999 ML IV ×2 (17:10→19:50)
[2021-05-23 17:13] VITALS: BP 132/71; PULSE 87; RESP 18; O2SAT 98
[2021-05-23 17:30] LABS: Glucose Point of Care > 600 mg/dL (70-110)
--- NOTE | 2021-05-23 19:14 | PC.NURSE ---
Pt blood sugar is284
[2021-05-23 19:43] LABS: Glucose Point of Care 285 mg/dL (70-110)
[2021-05-23 19:52] VITALS: BP 152/95; PULSE 76; RESP 18; O2SAT 97
[2021-05-23 20:10] VITALS: BP 136/78; PULSE 86; RESP 18; O2SAT 86
--- NOTE | 2021-05-24 06:29 | DCPLANNER ---
regional program manager had message to schedule a follow up appointment for patient with ENT. regional program manager emailed patients information to both Sandra and Carie at [facility] General Surgery / ENT clinic. Patients information will be printed and reviewed. Clinic will call patient with appointment information.
--- NOTE | 2021-05-26 08:53 | DCPLANNER ---
Carie from [facility] General Surgery contacted director of casework department stating that clinic tried to contact patient to schedule a follow up appointment. Clinic was unable to speak with patient due to phone number on file is a nonworking number. Clinic has reached out to emergency contact and did not have any luck reaching patient that way. A letter was mailed to the patient, informing patient that if he wanted to schedule an appointment to call the clinic.
== END 2021-05-23 20:12 | disposition home or self-care (01) ==
PROVIDERS: Emergency Provider Emergency Medicine; PCP Family Medicine
DX: E10.649 Type 1 diabetes mellitus with hypoglycemia without coma (principal); Z79.4 Long term (current) use of insulin; Z79.82 Long term (current) use of aspirin; S02.2XXA Fracture of nasal bones, initial encounter for closed fracture; F17.210 Nicotine dependence, cigarettes, uncomplicated; Z23 Encounter for immunization; X58.XXXA Exposure to other specified factors, initial encounter
CPT/HCPCS: 36416; 70450; 70486; 73070; 80053; 80307; 82962; 83690; 85025; 90471; 90715; 96360; 96361; 96372; 99284; J1815

== ENCOUNTER 2021-06-12 02:29 | Emergency (ER) | payer SELFPAY ==
[2021-06-12 02:30] VITALS: BP 147/88; PULSE 92; RESP 18; TEMP 36.6; O2SAT 100; BMI 20.4
--- NOTE | 2021-06-12 03:08 | XRR_ITS ---
PROCEDURE INFORMATION: Exam: XR Chest Exam date and time: 06/12/2021 3:08 AM Age: 46 years old Clinical indication: Other: Low blood sugar; Additional info: Altered mental status TECHNIQUE: Imaging protocol: XR of the chest. Views: 1 view. COMPARISON: 1. CR (CHEST, ) 2021-05-06 05:38 2. CR XR chest 1V portable [id number] 2021-01-17 16:06 3. CR Chest 1 [place] [id number] 2019-03-19 11:54 4. CR Chest 1 [place] [id number] 2018-10-16 18:55 FINDINGS: Lungs: There is a pulmonary parenchymal calcification consistent with remote granulomatous organism exposure. Pleural spaces: Unremarkable. No pleural effusion. No pneumothorax. Heart/Mediastinum: Unremarkable. No cardiomegaly. Bones/joints: Unremarkable. XR/XR chest 1V portable [id number] IMPRESSION: No acute abnormality.
[2021-06-12] MEDS: dextrose 5%-sod chloride 0.9% 1,000 ML 100 ML IV (03:52)
[2021-06-12 03:53] VITALS: BP 136/74; PULSE 80; RESP 17; O2SAT 99
[2021-06-12 03:59] LABS: Basophils % 0.5 %; Eosinophils # 0.2 10^3/uL (0.0-0.8); Hematocrit 35.2 % (42.0-52.0); Hemoglobin 11.6 g/dL (11.7-16.6); Lymphocytes # 2.2 10^3/uL (0.8-4.8); Lymphocytes % 29.1 %; Mean Corpuscular Hemoglobin 28.2 pg (28.0-34.0); Mean Corpuscular Volume 85.6 fl (80-94); Mean Platelet Volume 10.6 fL (7.4-10.4); Monocytes # 0.5 10^3/uL (0.2-0.9); Monocytes % 7.2 %; Neutrophils # 4.49 10^3/uL (1.8-7.7); Neutrophils % 60.9 %; Nucleated Red Blood Cells % 0 %; Platelet Count 243 10^3/cmm (130-400); Red Blood Count 4.11 10^6/uL (4.1-5.3); Red Cell Distribution Width 13.4 % (12.1-15.1); White Blood Count 7.4 10^3/uL (4.0-10.0)
[2021-06-12 04:21] LABS: Alanine Aminotransferase 23 U/L (0-41); Albumin Level 3.9 g/dL (3.5-5.2); Alkaline Phosphatase 85 IU/L (40-130); Aspartate Amino Transferase 23 U/L (0-40); Blood Urea Nitrogen 16 mg/dL (6-20); Calcium 8.5 mg/dL (8.5-10.5); Carbon Dioxide 23 mmol/L (22-29); Chloride 101 mmol/L (98-107); Creatine Phosphokinase 259 U/L (39-308); Globulin 2.6 g/dL (1.3-4.6); Glomerular Filtration Rate 122.5 mL/min (90-130); Glucose 121 mg/dL (65-115); Osmolality Calculated 288 mOsm/kg (285-295); Phosphorus 3.2 mg/dL (2.5-4.5); Sodium 138 mmol/L (136-145); Total Bilirubin 0.2 mg/dL (0.15-1.2); Total Protein 6.5 g/dL (6.6-8.7)
[2021-06-12 04:34] LABS: Slide Review Slide Review Perform
[2021-06-12 04:36] LABS: Anion Gap 17.4 (5-19); Potassium 3.4 mmol/L (3.5-5.1)
--- NOTE | 2021-06-12 04:38 | W.ED.GENADLT ---
HPI - General Adult General: Chief complaint: General Medical Stated complaint: LOW BS Time Seen by Provider: 06/12/21 02:39 History of Present Illness: HPI narrative: 46-year-old male who was at home when a family member checked on him. They found him to be not responding. Blood sugar was low. Patient notes he has had several instances of low blood sugar in the last few days. He states that he may have overshot his regular insulin dosage with his nighttime insulin before bed tonight. He was given D10 in route, finish the bag, and was improved, but then began to deteriorate again, so another bag of D10 was given. On arrival he is alert and talking. Associated symptoms: Reports confusion and nausea; Deny chest pain, dyspnea, palpitations or vomiting Review of Systems Const: Denies: fever(s), chills or body aches Eyes: Denies: change in vision ENMT: Denies: throat pain Card: Denies: chest pain or palpitations Resp: Denies: dyspnea, productive cough or non-productive cough GI: Reports: nausea; Denies: abdominal pain or vomiting Neuro: Reports: confusion; Denies: numbness in extremities or weakness in extremities [facility] ED PFSH: Medical History Diabetes mellitus type I Surgical History H/O hernia repair Umbilical Social History Smoking and tobacco status: current every day smoker cigarettes Packs smoked per day: 1 Alcohol intake: former Physical Exam Const: COMMON NORMALS: no acute distress, patient oriented x3 and alert HENMT: COMMON NORMALS: normocephalic HEAD & SCALP: normocephalic Eye: COMMON NORMALS: Equal, round and reactive pupils present and EOMs intact bilaterally PUPIL: Yes Equal, round and reactive pupils present Chest: COMMONS NORMALS: normal inspection of the chest Cardio: COMMON NORMALS: regular rate and regular rhythm RATE: regular rate RHYTHM: regular rhythm GI: COMMON NORMALS: Normal to inspection, nondistended, normoactive bowel sounds present, Soft to palpation and non-tender PALPATION: Yes Soft to palpation Neuro: COMMON NORMALS: patient oriented x3 SENSORIUM/ORIENTATION: Yes alert Course Vital Signs: Vital signs: Vital Signs Temperature 97.9 F 06/12/21 02:30 Pulse Rate 80 06/12/21 03:53 Respiratory Rate 17 06/12/21 03:53 Blood Pressure 136/74 06/12/21 03:53 Pulse Oximetry 99 06/12/21 03:53 MDM - General Adult MDM Narrative: Medical decision making narrative: Shortly after my evaluation, the patient became less responsive again. He was diaphoretic. His blood sugar was checked and it was 30. He was given an amp of D50, with resolution of his symptoms. He has since had to pieces of pizza, and is getting a normal saline D5 infusion at 100 cc an hour. His potassium is 3.4. Hemoglobin 11.6. He appears stable, awake alert and talking. His chest x-ray shows no abnormality. Blood sugar has remained elevated. Currently 161. We will allow him discharge. Frequent sugar checks at home. Lab Data: Labs: Lab Results 06/12/21 06/12/21 06/12/21 03:21 03:40 03:40 WBC 7.4 10^3/uL 10^3/ uL (4.0-10.0) RBC 4.11 10^6/uL 10^6 /uL (4.1-5.3) Hgb 11.6 g/dL L g/dL (11.7-16.6) Hct 35.2 % L % (42.0-52.0) MCV 85.6 fl fl (80-94) MCH 28.2 pg pg (28.0-34.0) MCHC 33.0 g/dL g/dL (30.0-36.0) RDW 13.4 % % (12.1-15.1) Plt Count 243 10^3/cmm 10^3 /cmm (130-400) MPV 10.6 fL H fL (7.4-10.4) Neut % (Auto) 60.9 % % Lymph % (Auto) 29.1 % % [place] % (Auto) 7.2 % % Eos % (Auto) 2.0 % % Baso % (Auto) 0.5 % % Neut # (Auto) 4.49 10^3/uL 10^3 /uL (1.8-7.7) Lymph # (Auto) 2.2 10^3/uL 10^3/ uL (0.8-4.8) [place] # (Auto) 0.5 10^3/uL 10^3/ uL (0.2-0.9) Eos # (Auto) 0.2 10^3/uL 10^3/ uL (0.0-0.8) Baso # (Auto) 0.0 10^3/uL 10^3/ uL (0.0-0.1) Nucleated RBC % (a uto) 0 % % Nucleated RBCs # 0.0 /100WBC /100W BC Sodium 138 mmol/L mmol/L (136-145) Potassium 3.4 mmol/L L mmol /L (3.5-5.1) Chloride 101 mmol/L mmol/L (98-107) Carbon Dioxide 23 mmol/L mmol/L (22-29) Anion Gap 17.4 (5-19) BUN 16 mg/dL mg/dL (6-20) Creatinine 0.7 mg/dL mg/dL (0.7-1.2) GFR Calculation 122.5 mL/min mL/m in (90-130) Glucose 121 mg/dL H mg/dL (65-115) POC Glucose 30 mg/dL L* mg/dL (70-110) Calculated Osmolal ity 288 mOsm/kg mOsm/ kg (285-295) Calcium 8.5 mg/dL mg/dL (8.5-10.5) Phosphorus 3.2 mg/dL mg/dL (2.5-4.5) Magnesium 2.0 mg/dL mg/dL (1.7-2.3) Total Bilirubin 0.2 mg/dL mg/dL (0.15-1.2) AST 23 U/L U/L (0-40) ALT 23 U/L U/L (0-41) Alkaline Phosphata se 85 IU/L IU/L (40-130) Creatine Kinase 259 U/L U/L (39-308) Total Protein 6.5 g/dL L g/dL (6.6-8.7) Albumin 3.9 g/dL g/dL (3.5-5.2) Globulin 2.6 g/dL g/dL (1.3-4.6) 12/20/21 12/20/21 04:44 05:58 WBC RBC Hgb Hct MCV MCH MCHC RDW Plt Count MPV Neut % (Auto) Lymph % (Auto) [place] % (Auto) Eos % (Auto) Baso % (Auto) Neut # (Auto) Lymph # (Auto) [place] # (Auto) Eos # (Auto) Baso # (Auto) Nucleated RBC % (a uto) Nucleated RBCs # Sodium Potassium Chloride Carbon Dioxide Anion Gap BUN Creatinine GFR Calculation Glucose POC Glucose 97 mg/dL mg/dL 163 mg/dL H mg/dL (70-110) (70-110) Calculated Osmolal ity Calcium Phosphorus Magnesium Total Bilirubin AST ALT Alkaline Phosphata se Creatine Kinase Total Protein Albumin Globulin Discharge Plan Discharge Patient Disposition: Home Clinical Impression: Hypoglycemia Condition: Stable Prescriptions: No Action Novolin R Regular U-100 Insuln 100 unit/mL solution 10 - 20 unit SUBCUT TID Qty: 30 RF: 1 silver sulfadiazine [Silvadene] 1 % cream 1 applic topical BID Qty: 400 RF: 0 Novolin 70/30 U-100 Insulin 100 unit/mL (70-30) suspension 70 - 100 unit SUBCUT DAILY Qty: 30 RF: 1 sildenafil (pulm.hypertension) 20 mg tablet See Rx Instructions PO TID Qty: 30 RF: 2 meloxicam [Mobic] 15 mg tablet 15 mg PO DAILY Qty: 30 RF: 2 lisinopril 2.5 mg tablet See Rx Instructions .ROUTE .COMPLEX Qty: 90 RF: 0 aspirin 500 mg Tablet 500 - 1,000 mg PO Q4H PRN (Reason: UPSET STOMACH) RF: 0 Pepto-Bismol 262 mg/15 mL Suspension 524 mg PO Q1H PRN (Reason: UPSET STOMACH) RF: 0 Discharge Orders: Discharge ED (Routine); Ordered 06/12/21 Ordered By: Elliot Lorenzo Referrals: Arely Holcomb DO [Primary Care Provider] - 1-3 days Patient Instructions: Hypoglycemia in a Person with Diabetes (ED) Activity Restrictions/Additional Instructions: Check your blood sugar every 2 hours for the next 12 hours, then as needed. Make sure your oral intake today is appropriate for the insulin you take. Consider cutting the dosage of your long-acting insulin in half at least for the next 24 hours. Return for inability to keep your blood sugar up, mental status changes, fever, other concerning symptoms. Coding Level of Care Code ED Cytometry Technologist for Chg Fwd Exam Detailed
[2021-06-12 04:46] LABS: Glucose Point of Care 97 mg/dL (70-110)
[2021-06-12 06:02] LABS: Glucose Point of Care 30 mg/dL (70-110)
[2021-06-12 06:02] LABS: Glucose Point of Care 163 mg/dL (70-110)
[2021-06-12 07:38] VITALS: BP 136/74; PULSE 80; RESP 17; O2SAT 99
== END 2021-06-12 07:38 | disposition home or self-care (01) ==
PROVIDERS: Emergency Provider Emergency Medicine; PCP Family Medicine
DX: E10.649 Type 1 diabetes mellitus with hypoglycemia without coma (principal); Z79.4 Long term (current) use of insulin; Z79.82 Long term (current) use of aspirin; F17.210 Nicotine dependence, cigarettes, uncomplicated
CPT/HCPCS: 36416; 71045; 80053; 82550; 82962; 83735; 84100; 85025; 99283

== ENCOUNTER 2021-09-04 03:44 | Inpatient (IN) | payer SELFPAY ==
[2021-09-04] VITALS (45 sets, daily range): BP systolic 117–173; BP diastolic 70–100; PULSE 97–119; RESP 12–27; TEMP 36.4–36.8; O2SAT 90–99; BMI 19.8
--- NOTE | 2021-09-04 04:04 | W.ED.NAVMDI ---
HPI - Nausea/Vomiting/Diarrhea General: Chief complaint: Nausea/Vomiting/Diarrhea Stated complaint: N/V Time Seen by Provider: 09/04/21 03:47 Source: patient History of Present Illness: 46-year-old male who is not a stranger to the ER. He is an insulin-dependent diabetic. He presents with vomiting and diarrhea for the past 2 to 3 days. Multiple episodes of vomiting. States he is dehydrated. No history of fever. No blood in the stool. No significant belly pain. He states his sugars have been high. Therefore 100 earlier in the morning, but he took his insulin with some improvement. He just threw up in the room, and is asking for water. MD elicited complaint: nausea, vomiting and diarrhea Pertinent past history: other Onset (ago): day(s) Description of vomiting: watery Description of diarrhea: watery Associated nausea: Yes Associated abdominal pain: No Location of pain: Other Radiation: other Severity: moderate Associated symtoms: Reports anorexia and nausea; Denies altered mental status, change in vision, chest pain, cough, dizziness, fevers/chills or short of breath Review of Systems Const: Reports: chills; Denies: fever(s) or body aches Eyes: Denies: change in vision ENMT: Denies: throat pain Card: Denies: chest pain Resp: Denies: dyspnea, productive cough or non-productive cough GI: Reports: nausea, vomiting and diarrhea; Denies: abdominal pain or hematochezia Neuro: Denies: dizziness PFSH ED PFSH: Medical History Diabetes mellitus type I Surgical History H/O hernia repair Umbilical Social History Smoking and tobacco status: never smoked Alcohol intake: former Physical Exam Const: EXAM LIMITATIONS: no altered mental status HENMT: COMMON NORMALS: normocephalic, atraumatic and Normal external nose present HEAD & SCALP: normocephalic and atraumatic NOSE: Normal external nose present Eye: COMMON NORMALS: Equal, round and reactive pupils present and EOMs intact bilaterally PUPIL: Yes Equal, round and reactive pupils present Chest: COMMONS NORMALS: normal inspection of the chest Cardio: COMMON NORMALS: regular rate and regular rhythm RATE: regular rate RHYTHM: regular rhythm GI: COMMON NORMALS: Normal to inspection, nondistended, normoactive bowel sounds present, Soft to palpation and non-tender PALPATION: Yes Soft to palpation Neuro: GILBERTO COMA SCALE: document GCS findings Eakly coma scale eye opening: Spontaneous [place] coma scale verbal response: Orientated E[place] coma scale motor response: Obey commands Gilberto coma scale total score: 15 Course Consultations: Consultation #1: mary jo Time: 05:21 Vital Signs: Vital signs: Vital Signs Temperature 97.7 F 09/04/21 03:46 Pulse Rate 114 H 09/04/21 05:08 Respiratory Rate 18 09/04/21 05:08 Blood Pressure 125/84 09/04/21 03:46 Pulse Oximetry 99 09/04/21 05:08 MDM - Nausea/Vomiting/Diarrhea Medical Decision Making 46-year-old gentleman, type I diabetic, presenting with vomiting. Serum glucose is 850. Sodium 128. Potassium 5.5. White blood cell count 12.7. Bicarbonate is 12. Serum ketones are positive. pH is 7.2 on ABG. He is on his way through 4 L of fluid, insulin bolus with drip. He will go to the ICU. Lab Data : 09/04/21 03:30 09/04/21 03:30 Laboratory Results WBC 12.7 10^3/uL (4.0-10.0) H 09/04/21 03:30 RBC 5.47 10^6/uL (4.1-5.3) H 09/04/21 03:30 Hgb 15.0 g/dL (11.7-16.6) 09/04/21 03:30 Hct 49.3 % (42.0-52.0) 09/04/21 03:30 MCV 90.1 fl (80-94) 09/04/21 03:30 MCH 27.4 pg (28.0-34.0) L 09/04/21 03:30 MCHC 30.4 g/dL (30.0-36.0) 09/04/21 03:30 RDW 13.3 % (12.1-15.1) 09/04/21 03:30 Plt Count 374 10^3/cmm (130-400) 09/04/21 03:30 MPV 10.4 fL (7.4-10.4) 09/04/21 03:30 Neut % (Auto) 90.0 % 09/04/21 03:30 Lymph % (Auto) 7.8 % 09/04/21 03:30 [place] % (Auto) 1.1 % 09/04/21 03:30 Eos % (Auto) 0.1 % 09/04/21 03:30 Baso % (Auto) 0.4 % 09/04/21 03:30 Neut # (Auto) 11.39 10^3/uL (1.8-7.7) H 09/04/21 03:30 Lymph # (Auto) 1.0 10^3/uL (0.8-4.8) 09/04/21 03:30 [place] # (Auto) 0.1 10^3/uL (0.2-0.9) L 09/04/21 03:30 Eos # (Auto) 0.0 10^3/uL (0.0-0.8) 09/04/21 03:30 Baso # (Auto) 0.1 10^3/uL (0.0-0.1) 09/04/21 03:30 Nucleated RBC % (auto) 0 % 09/04/21 03:30 Nucleated RBCs # 0.0 /100WBC 09/04/21 03:30 Specimen Type Arterial 09/04/21 04:51 Sample Site Radial, right 09/04/21 04:51 ABG pH 7.20 (7.35-7.45) L 09/04/21 04:51 ABG pCO2 22.3 mmHg (35-45) L 09/04/21 04:51 ABG pO2 116.0 mmHg (80.0-100.0) H 09/04/21 04:51 ABG HCO3 8.7 mmol/L (22-26) L 09/04/21 04:51 ABG Base Excess -17.6 mmol/L (-2.0-2.0) L 09/04/21 04:51 Brady Test Pos 09/04/21 04:51 Hematocrit 37.9 % (42-52) L 09/04/21 04:51 O2 Delivery Device Room air 09/04/21 04:51 Materials Handling Coordinator ID [email or web address] 09/04/21 04:51 Sodium 128 mmol/L (136-145) L 09/04/21 03:30 Potassium 5.5 mmol/L (3.5-5.1) H 09/04/21 03:30 Chloride 77 mmol/L (98-107) L 09/04/21 03:30 Carbon Dioxide 12 mmol/L (22-29) L 09/04/21 03:30 Anion Gap 44.5 (5-19) H 09/04/21 03:30 BUN 44 mg/dL (6-20) H 09/04/21 03:30 Creatinine 1.5 mg/dL (0.7-1.2) H 09/04/21 03:30 GFR Calculation 50.8 mL/min (90-130) L 09/04/21 03:30 Glucose 850 mg/dL (65-115) H* 09/04/21 03:30 POC Glucose > 600 mg/dL (70-110) H* 09/04/21 04:56 Calculated Osmolality 319 mOsm/kg (285-295) H 09/04/21 03:30 Lactate 3.4 mmol/L (0.5-2.2) H 09/04/21 03:30 Calcium 10.1 mg/dL (8.5-10.5) 09/04/21 03:30 Total Bilirubin 0.5 mg/dL (0.15-1.2) 09/04/21 03:30 AST 25 U/L (0-40) 09/04/21 03:30 ALT 51 U/L (0-41) H 09/04/21 03:30 Alkaline Phosphatase 167 IU/L (40-130) H 09/04/21 03:30 C-Reactive Protein 11.7 mg/L (0.0-4.9) H 09/04/21 03:30 Total Protein 7.8 g/dL (6.6-8.7) 09/04/21 03:30 Albumin 4.7 g/dL (3.5-5.2) 09/04/21 03:30 Globulin 3.1 g/dL (1.3-4.6) 09/04/21 03:30 Lipase 14 U/L (13-60) 09/04/21 03:30 Serum Ketones Positive (Negative) H 09/04/21 03:30 Critical Care Time Critical Care Time: Critical Care Time: Yes Total Critical Care Time: 40 Attestation: This case had a high probability of a clinically significant, sudden, or life threatening deterioration of this patient's condition which required my full and direct attention, intervention and personal management. Time is independent of any procedures form Discharge Plan Discharge Patient Disposition: Admitted As Inpatient Clinical Impression: Diabetic keto-acidosis Condition: Serious Prescriptions: No Action mupirocin 2 % ointment 1 applic topical BID 14 Days Qty: 22 0RF cephalexin 500 mg capsule 500 mg PO QID 7 Days Qty: 28 0RF silver sulfadiazine [Silvadene] 1 % cream 1 applic topical BID Qty: 400 0RF Rx Instructions: apply a 1.5 mm thickness 340 B sildenafil (pulm.hypertension) 20 mg tablet See Rx Instructions PO TID Qty: 30 2RF Rx Instructions: take 1-5 one hour before sexual activity meloxicam [Mobic] 15 mg tablet 15 mg PO DAILY Qty: 30 2RF lisinopril 2.5 mg tablet See Rx Instructions .ROUTE .COMPLEX Qty: 90 0RF Dose Instruction: TAKE 1 TABLET BY MOUTH EVERY DAY Rx Instructions: TAKE 1 TABLET BY MOUTH EVERY DAY Novolin R Regular U-100 Insuln 100 unit/mL solution See Rx Instructions .ROUTE .COMPLEX Qty: 30 0RF Dose Instruction: INJECT 10 - 20 UNIT (0.1 - 0.2 ML) SUBCUTANEOUSLY THREE TIMES DAILY Rx Instructions: INJECT 10 - 20 UNIT (0.1 - 0.2 ML) SUBCUTANEOUSLY THREE TIMES DAILY Novolin 70/30 U-100 Insulin 100 unit/mL (70-30) suspension See Rx Instructions .ROUTE .COMPLEX Qty: 30 0RF Dose Instruction: INJECT 70 TO 100 UNITS SUBCUTANEOUSLY EVERY DAY Rx Instructions: INJECT 70 TO 100 UNITS SUBCUTANEOUSLY EVERY DAY aspirin 500 mg Tablet 500 - 1,000 mg PO Q4H PRN (Reason: UPSET STOMACH) 0RF Pepto-Bismol 262 mg/15 mL Suspension 524 mg PO Q1H PRN (Reason: UPSET STOMACH) 0RF Referrals: Arely Holcomb DO [Primary Care Provider] - Coding Level of Care Code ED Pharmacy Services Representative for Chg Fwd Exam Detailed
[2021-09-04 04:13] LABS: Basophils # 0.1 10^3/uL (0.0-0.1); Basophils % 0.4 %; Eosinophils % 0.1 %; Hematocrit 49.3 % (42.0-52.0); Lymphocytes % 7.8 %; Mean Corpuscular HGB Conc 30.4 g/dL (30.0-36.0); Mean Corpuscular Hemoglobin 27.4 pg (28.0-34.0); Mean Corpuscular Volume 90.1 fl (80-94); Mean Platelet Volume 10.4 fL (7.4-10.4); Monocytes # 0.1 10^3/uL (0.2-0.9); Monocytes % 1.1 %; Neutrophils # 11.39 10^3/uL (1.8-7.7); Nucleated Red Blood Cells % 0 %; Platelet Count 374 10^3/cmm (130-400); Red Blood Count 5.47 10^6/uL (4.1-5.3); Red Cell Distribution Width 13.3 % (12.1-15.1); White Blood Count 12.7 10^3/uL (4.0-10.0)
[2021-09-04] MEDS: sodium chloride 0.9% 1,000 ML 999 ML IV ×6 (04:16→05:15)
[2021-09-04] MEDS: ondansetron 2 mg/ML SDV 2 mL 4 MG IVP (04:17)
[2021-09-04 04:26] LABS: Lactate (Lactic Acid level) 3.4 mmol/L (0.5-2.2)
[2021-09-04 04:40] LABS: Alanine Aminotransferase 51 U/L (0-41); Albumin Level 4.7 g/dL (3.5-5.2); Alkaline Phosphatase 167 IU/L (40-130); Aspartate Amino Transferase 25 U/L (0-40); Blood Urea Nitrogen 44 mg/dL (6-20); C Reactive Protein 11.7 mg/L (0.0-4.9); Calcium 10.1 mg/dL (8.5-10.5); Carbon Dioxide 12 mmol/L (22-29); Chloride 77 mmol/L (98-107); Globulin 3.1 g/dL (1.3-4.6); Glomerular Filtration Rate 50.8 mL/min (90-130); Lipase 14 U/L (13-60); Sodium 128 mmol/L (136-145); Total Bilirubin 0.5 mg/dL (0.15-1.2); Total Protein 7.8 g/dL (6.6-8.7)
[2021-09-04 04:50] LABS: Anion Gap 44.5 (5-19); Glucose 850 mg/dL (65-115); Osmolality Calculated 319 mOsm/kg (285-295); Potassium 5.5 mmol/L (3.5-5.1)
[2021-09-04 04:58] LABS: Glucose Point of Care > 600 mg/dL (70-110)
[2021-09-04 04:59] LABS: Ketone (Acetest) Serum Positive (Negative)
[2021-09-04] MEDS: insulin regular-human 100 units/1 mL 10 UNIT IVP (04:59)
[2021-09-04 05:12] LABS: ABG PCO2 22.3 mmHg (35-45); Arterial Blood Gas Hematocrit 37.9 % (42-52); Base Excess ABG -17.6 mmol/L (-2.0-2.0); Blood Gas Allen Test Pos; Blood Gas Sample Site Radial, right; Blood Gas Sample Type Arterial; HCO3 ABG 8.7 mmol/L (22-26); Oxygen Device ROOM AIR
--- NOTE | 2021-09-04 05:22 | XRR_ITS ---
PROCEDURE INFORMATION: Exam: XR Chest Exam date and time: 09/04/2021 5:22 AM Age: 46 years old Clinical indication: Shortness of breath and other: Dka TECHNIQUE: Imaging protocol: XR of the chest. Views: 1 view. COMPARISON: CR XR chest 1V portable [id number] 06/12/2021 3:30 AM FINDINGS: Lungs: Unremarkable. No consolidation. Pleural spaces: Unremarkable. No pleural effusion. No pneumothorax. Heart/Mediastinum: Unremarkable. No cardiomegaly. Bones/joints: Unremarkable. XR/XR chest 1V portable [id number] IMPRESSION: No acute findings.
--- NOTE | 2021-09-04 05:42 | PC.NURSE ---
Pt lying L-side, eyes closed appears to be asleep, no needs identified at this time.
[2021-09-04] MEDS: insulin regular-human 250 UNIT in sodium chloride 0.9% 250 ML 13.33 UNIT IV (05:50)
[2021-09-04 05:54] LABS: Glucose Point of Care 500 mg/dL (70-110)
[2021-09-04 06:00] LABS: Add Urine Microscopic? NO; Charge for UA Resulting for Rev
[2021-09-04 06:01] LABS: Protein Urine Neg (Negative); Urine Appearance Clear (CLEAR); Urine Color Yellow (Yellow); pH Urine 5 (5-7)
[2021-09-04 06:02] LABS: Bilirubin Urine Neg (Negative); Blood Urine Neg (Negative); Glucose Urine UA 4+ (Normal); Ketones Urine 3+ (Negative); Leukocyte Esterase Urine Negative (Negative); Nitrate Urine Negative (Negative); Urobilinogen Urine Norm (Negative)
[2021-09-04 06:11] LABS: Amphetamines Screen Urine Positive (Negative); Barbiturates Screen Urine Negative (Negative); Benzodiazepines Screen Urine Negative (Negative); Cocaine Screen Urine Negative (Negative); Opiate Screen Urine Negative (Negative); PCP Screen Urine Negative (Negative); THC Screen Urine Negative (Negative)
[2021-09-04 06:16] LABS: Adenovirus Not Detected (NOT DETECT); Chlamydia Pneumoniae Not Detected (NOT DETECT); Coronavirus 229E,HKU1,NL63,OC4 Not Detected (NOT DETECT); Human Metapneumovirus Not Detected (NOT DETECT); Human Rhinovirus/Enterovirus Not Detected (NOT DETECT); Influenza A Not Detected (NOT DETECT); Influenza A H1 Not Detected (NOT DETECT); Influenza A H1-2009 Not Detected (NOT DETECT); Influenza A H3 Not Detected (NOT DETECT); Influenza B Not Detected (NOT DETECT); Mycoplasma Pneumoniae Not Detected (NOT DETECT); Parainfluenza Virus Type 1 Not Detected (NOT DETECT); Parainfluenza Virus Type 2 Not Detected (NOT DETECT); Parainfluenza Virus Type 3 Not Detected (NOT DETECT); Parainfluenza Virus Type 4 Not Detected (NOT DETECT); Respiratory Syncytial Virus A Not Detected (NOT DETECT); Respiratory Syncytial Virus B Not Detected (NOT DETECT); SARS-COV-2 Not Detected (NOT DETECT)
--- NOTE | 2021-09-04 06:25 | PM.HP ---
Providers/Chief Complaint Admitting Physician: Karuna Carrion MD Primary Care Provider: Arely Holcomb DO Chief Complaint: N/V History of Present Illness Andrews Robins is a 46 year old male with type 1 DM on 70/30 and regular insulin as outpatient with h/o recurrent hypoglycemia episodes with falls presenting today with DKA as evidenced by blood sugar 850, + urine ketones, metabolic acidosis, anion gap 44. urine tox + amphetamines. ROS + for multiple episodes of nausea, vomiting and diarrhea. Review of Systems General: Reports: 10 or more systems reviewed and unremarkable except in HPI and below Const: Denies: fever(s), chills or body aches Eyes: Denies: change in vision, blurry vision or photophobia ENMT: Reports: hoarseness; Denies: throat pain, enlarged tonsils, odynophagia or nasal congestion Card: Denies: chest pain, palpitations, irregular heart rhythm, edema, swelling of feet/ankles, lightheadedness, pre-syncope, dyspnea on exertion or orthopnea Resp: Denies: dyspnea, productive cough, non-productive cough, wheezing, stridor, pain on inspiration, change in phlegm color, hemoptysis or chest congestion GI: Denies: abdominal pain, nausea, vomiting, hematemesis, coffee ground emesis, dysphagia, heartburn, diarrhea, constipation, GI cramping, change in stool character, hematochezia or melena : Denies: flank pain, dysuria, urinary frequency, urinary urgency, urinary hesitancy or hematuria Musc: Denies: neck pain, back pain, extremity pain, joint swelling, joint warmth or deformity Neuro: Denies: headache(s), numbness in extremities, weakness in extremities, sensory changes, difficulty walking, frequent falls, dizziness, vertigo, behavioral changes, Slurred speech present or seizure-like activity Psych: Denies: anxiety, depression, suicidal ideation or homicidal ideation Endo: Denies: polyuria, polydipsia, tired all the time, cold intolerance or hot flashes Walter/Lymph: Denies: easy bruising or easy bleeding Medications/Allergies Home Medications Medication Instructions Recorded Confirmed Last Taken Type silver sulfadiazine 1 % topical 1 applic TOPICAL BID #400 g 01/10/21 06/21/21 01/17/21 Rx cream (Silvadene) aspirin 500 mg tablet 500 - 1,000 mg PO Q4H PRN 01/17/21 06/21/21 01/16/21 History bismuth subsalicylate 262 mg/15 mL 524 mg PO Q1H PRN 01/17/21 06/21/21 01/16/21 History oral suspension (Pepto-Bismol) meloxicam 15 mg tablet (Mobic) 15 mg PO DAILY #30 tab 02/20/21 06/21/21 Unknown Rx sildenafil (pulm.hypertension) 20 See Rx Instructions PO TID #30 tab 02/20/21 06/21/21 Unknown Rx mg tablet lisinopril 2.5 mg tablet See Rx Instructions .ROUTE 04/24/21 06/21/21 Unknown Rx .COMPLEX #90 tab cephalexin 500 mg capsule 500 mg PO QID 7 Days #28 cap 06/21/21 06/21/21 Unknown Rx mupirocin 2 % topical ointment 1 applic TOPICAL BID 14 Days #22 g 06/21/21 06/21/21 Unknown Rx insulin human U-100 NPH-regulr See Rx Instructions .ROUTE 08/09/21 Unknown Rx 70-30 mix 100 unit/mL subcutaneous .COMPLEX #30 ml susp (Novolin 70/30 U-100 Insulin) insulin regular human 100 unit/mL See Rx Instructions .ROUTE 08/09/21 Unknown Rx injection solution (Novolin R .COMPLEX #30 ml Regular U-100 Insulin) Allergies Allergy/AdvReac Type Severity Reaction Status Date / Time famotidine [From Pepcid] Allergy Unconscious Verified 06/21/21 16:15 omeprazole [From Prilosec] Allergy Unconscious Verified 06/21/21 16:15 PFSH Acute PFSH: Medical History Diabetes mellitus type I Surgical History H/O hernia repair Umbilical Social History Smoking and tobacco status: never smoked Alcohol intake: former Vitals/I&O/Wt Last Vital Signs Temp 97.7 F 09/04/21 03:46 Pulse 111 H 09/04/21 05:54 Resp 14 03/14/22 05:54 BP 155/86 09/04/21 05:54 Pulse Ox 98 09/04/21 05:54 09/03/21 09/03/21 09/04/21 14:59 22:59 06:59 Intake Total 2366.30 / 2366.30 Balance 2366.30 / 2366.30 Weight last 48 hrs Weight 68.039 kg Physical Exam Narrative: GEN: Awake, alert and oriented, no acute distress CVS: S1S2 N RS: CTA B/L Abd: Soft, nt/nd , bs+ INDUCTION HEAT TREATER: no focal neuro deficits Data : 09/04/21 03:30 09/04/21 03:30 Other Labs: Radiology Impressions Chest X-Ray 09/04/21 05:22 IMPRESSION: No acute findings. Laboratory Results WBC 12.7 10^3/uL (4.0-10.0) H 09/04/21 03:30 RBC 5.47 10^6/uL (4.1-5.3) H 09/04/21 03:30 Hgb 15.0 g/dL (11.7-16.6) 09/04/21 03:30 Hct 49.3 % (42.0-52.0) 09/04/21 03:30 MCV 90.1 fl (80-94) 09/04/21 03:30 MCH 27.4 pg (28.0-34.0) L 09/04/21 03:30 MCHC 30.4 g/dL (30.0-36.0) 09/04/21 03:30 RDW 13.3 % (12.1-15.1) 09/04/21 03:30 Plt Count 374 10^3/cmm (130-400) 09/04/21 03:30 MPV 10.4 fL (7.4-10.4) 09/04/21 03:30 Neut % (Auto) 90.0 % 09/04/21 03:30 Lymph % (Auto) 7.8 % 09/04/21 03:30 Alexander % (Auto) 1.1 % 09/04/21 03:30 Eos % (Auto) 0.1 % 09/04/21 03:30 Baso % (Auto) 0.4 % 09/04/21 03:30 Neut # (Auto) 11.39 10^3/uL (1.8-7.7) H 09/04/21 03:30 Lymph # (Auto) 1.0 10^3/uL (0.8-4.8) 09/04/21 03:30 Alexander # (Auto) 0.1 10^3/uL (0.2-0.9) L 09/04/21 03:30 Eos # (Auto) 0.0 10^3/uL (0.0-0.8) 09/04/21 03:30 Baso # (Auto) 0.1 10^3/uL (0.0-0.1) 09/04/21 03:30 Nucleated RBC % (auto) 0 % 09/04/21 03:30 Nucleated RBCs # 0.0 /100WBC 09/04/21 03:30 Specimen Type Arterial 09/04/21 04:51 Sample Site Radial, right 09/04/21 04:51 ABG pH 7.20 (7.35-7.45) L 09/04/21 04:51 ABG pCO2 22.3 mmHg (35-45) L 09/04/21 04:51 ABG pO2 116.0 mmHg (80.0-100.0) H 09/04/21 04:51 ABG HCO3 8.7 mmol/L (22-26) L 09/04/21 04:51 ABG Base Excess -17.6 mmol/L (-2.0-2.0) L 09/04/21 04:51 Brady Test Pos 09/04/21 04:51 Hematocrit 37.9 % (42-52) L 09/04/21 04:51 O2 Delivery Device Room air 09/04/21 04:51 Plastic Press Operator ID [email or web address] 09/04/21 04:51 Sodium 128 mmol/L (136-145) L 09/04/21 03:30 Potassium 5.5 mmol/L (3.5-5.1) H 09/04/21 03:30 Chloride 77 mmol/L (98-107) L 09/04/21 03:30 Carbon Dioxide 12 mmol/L (22-29) L 09/04/21 03:30 Anion Gap 44.5 (5-19) H 09/04/21 03:30 BUN 44 mg/dL (6-20) H 09/04/21 03:30 Creatinine 1.5 mg/dL (0.7-1.2) H 09/04/21 03:30 GFR Calculation 50.8 mL/min (90-130) L 09/04/21 03:30 Glucose 850 mg/dL (65-115) H* 09/04/21 03:30 POC Glucose 500 mg/dL (70-110) H 09/04/21 05:49 Calculated Osmolality 319 mOsm/kg (285-295) H 09/04/21 03:30 Lactate 3.4 mmol/L (0.5-2.2) H 09/04/21 03:30 Calcium 10.1 mg/dL (8.5-10.5) 09/04/21 03:30 Total Bilirubin 0.5 mg/dL (0.15-1.2) 09/04/21 03:30 AST 25 U/L (0-40) 09/04/21 03:30 ALT 51 U/L (0-41) H 09/04/21 03:30 Alkaline Phosphatase 167 IU/L (40-130) H 09/04/21 03:30 C-Reactive Protein 11.7 mg/L (0.0-4.9) H 09/04/21 03:30 Total Protein 7.8 g/dL (6.6-8.7) 09/04/21 03:30 Albumin 4.7 g/dL (3.5-5.2) 09/04/21 03:30 Globulin 3.1 g/dL (1.3-4.6) 09/04/21 03:30 Lipase 14 U/L (13-60) 09/04/21 03:30 Urine Color Yellow (Yellow) 09/04/21 05:54 Urine Appearance Clear (CLEAR) 09/04/21 05:54 Urine pH 5 (5-7) 09/04/21 05:54 Ur Specific [place] 1.020 (1.005-1.030) 09/04/21 05:54 Urine Protein Neg (Negative) 09/04/21 05:54 Urine Glucose (UA) 4+ (Normal) H 09/04/21 05:54 Urine Ketones 3+ (Negative) H 09/04/21 05:54 Urine Blood Neg (Negative) 09/04/21 05:54 Urine Nitrate Negative (Negative) 09/04/21 05:54 Urine Bilirubin Neg (Negative) 09/04/21 05:54 Urine Urobilinogen Norm mg/dL (Negative) 09/04/21 05:54 Ur Leukocyte Esterase Negative (Negative) 09/04/21 05:54 Urine Opiates Screen Negative ng/mL (Negative) 09/04/21 05:54 Ur Barbiturates Screen Negative ng/mL (Negative) 09/04/21 05:54 Ur Phencyclidine Scrn Negative ng/mL (Negative) 09/04/21 05:54 Ur Amphetamines Screen Positive ng/mL (Negative) H 09/04/21 05:54 U Benzodiazepines Scrn Negative ng/mL (Negative) 09/04/21 05:54 Urine Cocaine Screen Negative ng/mL (Negative) 09/04/21 05:54 U Marijuana (THC) Screen Negative ng/mL (Negative) 09/04/21 05:54 Serum Ketones Positive (Negative) H 09/04/21 03:30 Coronavirus 229E (PCR) Not detected (NOT DETECT) 09/04/21 04:20 SARS-CoV-2 (PCR) Not detected (NOT DETECT) 09/04/21 04:20 A&P Assessment and plan (1) Diabetic keto-acidosis: Known type 1diabetic p/w DKA Admit to ICU, start insulin infusion per DKA protocol. given 3L IVF in the Er, noted to be significantly dehydrated. Continue NS @ 125 cc/hr K goal to be 3.5-5.2 once blood sugar <250, change fluids to D5 NS @ 125cc/hr check CMP every 4 hrs to trend anion gap Lipsase WNL at 14 , low suspicion for pancreatitis elevated lactate likely 2/2 DKA, dehydration Status: Acute Qualifiers: Diabetes mellitus complication detail: without coma Diabetes mellitus type: type 1 Qualified Code(s): E10.10 - Type 1 diabetes mellitus with ketoacidosis without coma (2) HUBERT (acute kidney injury): likely 2/2 dehydration, GI losses IVF as above Status: Acute Attestations Medical Necessity Statement*: >2midnight anticipated for above defined care Critical Care Time: The high probability of a clinically significant, sudden or life threatening deterioration of the patient's [endocrine, renal] system(s) required my full and direct attention, intervention and personal management. The critical care time is as shown. This time is in addition to time spent performing any reported procedures but includes the following: [x] Data and vital sign review and interpretation [x] Patient assessment, examination and intervention [x] Documentation [x] Medication orders and management Coding Level of Care Code Acute Char Filter Operator for g Fwd Diagnoses Diabetic keto-acidosis E10.10 Diabetes mellitus complication detail: without coma Diabetes mellitus type: type 1 HUBERT (acute kidney injury) N17.9
[2021-09-04] MEDS: enoxaparin 40 mg/0.4 mL Syringe SUBCUT (06:41)
[2021-09-04 06:42] LABS: Glucose Point of Care 353 mg/dL (70-110)
[2021-09-04 07:26] LABS: Glucose Point of Care 352 mg/dL (70-110)
[2021-09-04] MEDS: sodium chloride 0.9% 1,000 ML 125 ML IV (07:29)
[2021-09-04 08:31] LABS: Glucose Point of Care 254 mg/dL (70-110)
[2021-09-04 09:28] LABS: Glucose Point of Care 167 mg/dL (70-110)
[2021-09-04 10:33] LABS: Glucose Point of Care 144 mg/dL (70-110)
--- NOTE | 2021-09-04 10:49 | PC.CHAP ---
Pastoral Care Encounter/Spiritual Assessment Type of Contact [] Declined extruding press operator visit [] Patient/Family/Request visit [] Outpatient visit [] Follow-up visit [] Physician referral [] Code/Alert [x] Routine visit [] Staff referral [] Actively dying [] Patient sleeping [] Family support [] [] Out of room [] Palliative care [] [] Receiving care in room [] Pre-surgical visit [] Trauma [] Long length of stay [x] ICU visit [] Other: Relational/Emotional Strength [] Patient feels connected with others/family/visitors/staff [] Distress [] Loneliness/isolation [] Abandonment Spirituality of Patient [] Person of Billie [] Attends Quaker of their Billie [] Believes in Prayer [] Reads Bible or Cheondoism materials [] There are Spiritual issues to be addressed Replanter Interventions [x] Prayer [x] Active listening [x] Non-anxious presence [x] Spiritual/emotional support [] Crisis/trauma care [] Spiritual counseling [] Bereavement support [] Provided bereavement packet [] Provided Bible/devotional materials [] Provided toy/stuffed animal, coloring book to patient or family member [] Provided Communion [] Anointing/[place] [] Salvation [x] Completed spiritual assessment [] Other: Impact on Illness or Injury [] Angry [] Fearful [] Anxious [] Often cries [] Exhaustion [] Unable to work [] Unable to attend quaker [] Unable to walk/stand [] Unable to read [] Unable to drive [] Unable to eat/drink [] Unable to sleep [] Unable to be with family [] Patient intubated [] Other: Summary tender heart... Time spent with patient 5 min
[2021-09-04 11:00] LABS: Alanine Aminotransferase 35 U/L (0-41); Albumin Level 3.4 g/dL (3.5-5.2); Alkaline Phosphatase 117 IU/L (40-130); Aspartate Amino Transferase 21 U/L (0-40); Blood Urea Nitrogen 33 mg/dL (6-20); Calcium 8.1 mg/dL (8.5-10.5); Carbon Dioxide 21 mmol/L (22-29); Chloride 106 mmol/L (98-107); Globulin 2.7 g/dL (1.3-4.6); Glomerular Filtration Rate 81.2 mL/min (90-130); Glucose 152 mg/dL (65-115); Magnesium 1.8 mg/dL (1.7-2.3); Osmolality Calculated 300 mOsm/kg (285-295); Sodium 140 mmol/L (136-145); Total Bilirubin 0.2 mg/dL (0.15-1.2); Total Protein 6.1 g/dL (6.6-8.7)
[2021-09-04 11:05] LABS: Salicylate < 0.3 mg/dL (3-10)
[2021-09-04 11:46] LABS: Glucose Point of Care 90 mg/dL (70-110)
[2021-09-04 12:31] LABS: Glucose Point of Care 80 mg/dL (70-110)
--- NOTE | 2021-09-04 13:15 | PC.NURSE ---
Rounding with Dr. Hendricks. Anion gap 17, blood sugar 80. Dr. Hendricks ordered discontinue Normal saline, and insulin Drip. Start D5 1/2 NS at 10ml/hr, moderate sliding scale, and Lantus 15 units SUBCUT Daily.
[2021-09-04] MEDS: dextrose 5%-sod chloride 0.45% 1,000 ML 100 ML IV (13:56)
[2021-09-04 14:02] LABS: Glucose Point of Care 121 mg/dL (70-110)
[2021-09-04 16:27] LABS: Alanine Aminotransferase 32 U/L (0-41); Albumin Level 3.2 g/dL (3.5-5.2); Alkaline Phosphatase 112 IU/L (40-130); Anion Gap 25.7 (5-19); Aspartate Amino Transferase 19 U/L (0-40); Blood Urea Nitrogen 28 mg/dL (6-20); Calcium 8.3 mg/dL (8.5-10.5); Carbon Dioxide 14 mmol/L (22-29); Chloride 101 mmol/L (98-107); Globulin 2.8 g/dL (1.3-4.6); Glomerular Filtration Rate 91.7 mL/min (90-130); Glucose 292 mg/dL (65-115); Magnesium 1.7 mg/dL (1.7-2.3); Osmolality Calculated 298 mOsm/kg (285-295); Potassium 4.7 mmol/L (3.5-5.1); Sodium 136 mmol/L (136-145); Total Bilirubin 0.3 mg/dL (0.15-1.2)
[2021-09-04 16:52] LABS: Glucose Point of Care 316 mg/dL (70-110)
[2021-09-04] MEDS: insulin lispro 100 unit/1 mL SUBCUT ×2 (16:56→20:07)
--- NOTE | 2021-09-04 19:10 | P.PN_ITS ---
Subjective Subjective: Pt is doing better. Not thirsty. Denies CP, SOB, cough, f/c. On insulin drip. Last FBS 82 Vitals/I&O/Wt Last Vital Signs Temp 98.1 F 09/04/21 16:00 Pulse 114 H 09/04/21 18:30 Resp 19 H 09/04/21 18:30 BP 141/80 09/04/21 18:30 Pulse Ox 95 09/04/21 18:30 09/04/21 09/04/21 09/04/21 06:59 14:59 22:59 Intake Total 4378.741 / 4378.741 40.128 / 40.128 1960 / 2000.128 Output Total 900 / 900 1650 / 2550 Balance 4378.741 / 4378.741 -859.872 / -859.872 310 / -549.872 Weight last 48 hrs Weight 68.039 kg Physical Exam Const: OTHER: NAD HENMT: OTHER: thr (-), Nose clear Eye: OTHER: EOMI, PERLLA Neck/C-Spine: OTHER: Supple, Thy (-), Bruit (-) Resp: OTHER: BS+, CTA Cardio: OTHER: S1S2, RRR, Mur (-) GI: OTHER: soft, NT, BS+ Extremity: OTHER: Edema (-), no deform Neuro: OTHER: A&Ox3, non focal Data : 09/07/21 04:36 09/07/21 04:36 A&P Assessment and plan (1) Leukocytosis: Status: Acute (2) HUBERT (acute kidney injury): Status: Acute (3) Diabetic keto-acidosis: Status: Acute Qualifiers: Diabetes mellitus complication detail: without coma Diabetes mellitus type: type 1 Qualified Code(s): E10.10 - Type 1 diabetes mellitus with ketoac idosis without coma (4) Nicotine dependence, cigarettes, with unspecified nicotine-induced disorders : Status: Chronic Plan D/C NS Start D5, 0.45% NS @100 ml/hr D/C Insulin fusion Start Lantus 15 U qhs SSI mod dose Resume 1800 Carl ADA diet DVT Prophylaxis GI Prophylaxis Attestations Medical Necessity Statement*: Pt w/ DKA, HUBERT is slowly improving. However he still critical needs further hospitalization Time Spent in Patient Care: 30 min Critical Care Time: 15 min Coding Level of Care Code Acute Quencher Operator for Chg Fwd Diagnoses Leukocytosis D72.829 HUBERT (acute kidney injury) N17.9 Diabetic keto-acidosis E10.10 Diabetes mellitus complication detail: without coma Diabetes mellitus type: type 1 Nicotine dependence, cigarettes, with unspecified nicotine-induced disorders F17.219
[2021-09-04 20:06] LABS: Alanine Aminotransferase 32 U/L (0-41); Albumin Level 3.3 g/dL (3.5-5.2); Alkaline Phosphatase 116 IU/L (40-130); Aspartate Amino Transferase 19 U/L (0-40); Blood Urea Nitrogen 26 mg/dL (6-20); Calcium 8.6 mg/dL (8.5-10.5); Carbon Dioxide 17 mmol/L (22-29); Chloride 102 mmol/L (98-107); Creatinine Clr Calc Pharmacy 125.2593; Globulin 2.6 g/dL (1.3-4.6); Glucose 221 mg/dL (65-115); Magnesium 1.8 mg/dL (1.7-2.3); Osmolality Calculated 292 mOsm/kg (285-295); Sodium 135 mmol/L (136-145); Total Bilirubin 0.4 mg/dL (0.15-1.2); Total Protein 5.9 g/dL (6.6-8.7)
[2021-09-04] MEDS: insulin glargine 100 units/1 mL 15 UNIT SUBCUT (20:07)
[2021-09-04 20:17] LABS: Glucose Point of Care 224 mg/dL (70-110)
[2021-09-04 23:35] LABS: Glucose Point of Care 157 mg/dL (70-110)
[2021-09-05] VITALS (47 sets, daily range): BP systolic 100–176; BP diastolic 61–102; PULSE 80–115; RESP 0–29; TEMP 36.4–37.1; O2SAT 93–100
[2021-09-05] MEDS: dextrose 5%-sod chloride 0.45% 1,000 ML 100 ML IV ×2 (00:09→08:59)
[2021-09-05] MEDS: ondansetron 2 mg/ML SDV 2 mL 4 MG IVP (02:45)
[2021-09-05] MEDS: lisinopril 2.5 mg Tablet PO (03:49)
[2021-09-05 04:50] LABS: Basophils % 0.3 %; Eosinophils # 0.1 10^3/uL (0.0-0.8); Eosinophils % 0.6 %; Hemoglobin 12.9 g/dL (11.7-16.6); Lymphocytes # 2.5 10^3/uL (0.8-4.8); Mean Corpuscular HGB Conc 33.1 g/dL (30.0-36.0); Mean Corpuscular Hemoglobin 28.2 pg (28.0-34.0); Mean Corpuscular Volume 85.2 fl (80-94); Mean Platelet Volume 9.4 fL (7.4-10.4); Monocytes # 0.7 10^3/uL (0.2-0.9); Monocytes % 4.2 %; Neutrophils # 12.48 10^3/uL (1.8-7.7); Neutrophils % 78.5 %; Nucleated Red Blood Cells % 0 %; Platelet Count 296 10^3/cmm (130-400); Red Blood Count 4.58 10^6/uL (4.1-5.3); Red Cell Distribution Width 13.7 % (12.1-15.1); White Blood Count 15.9 10^3/uL (4.0-10.0)
[2021-09-05] MEDS: amlodipine 5 mg Tablet PO (06:01)
[2021-09-05] MEDS: enoxaparin 40 mg/0.4 mL Syringe SUBCUT (06:04)
--- NOTE | 2021-09-05 06:17 | PC.NURSE ---
Called Dr. Crisostomo in regards to clarify the patient's IVF orders with his DKA at 2349. Updated him on the patient's blood sugar and current insulin needs. Orders to keep him on the D51/2NS at 100ml/hr for now. Talked with Dr. Crisostomo again around 0334 in regards to the patient's hypertension with a systolic blood pressure in the 160-170's. Orders to resume him home lisinopril dose of lisinopril 2.5 mg po and to go ahead and give a dose now. Talked with Dr. Crisostomo again at 0533 in regards to the patient's continued hypertension. Systolic blood pressure 170-180. Orders to give a one time dose of amlodipine 5mg po.
[2021-09-05 07:59] LABS: Glucose Point of Care 242 mg/dL (70-110)
[2021-09-05] MEDS: insulin lispro 100 unit/1 mL SUBCUT ×4 (08:59→21:17)
[2021-09-05 11:21] LABS: Glucose Point of Care 239 mg/dL (70-110)
[2021-09-05 17:20] LABS: Glucose Point of Care 298 mg/dL (70-110)
--- NOTE | 2021-09-05 18:10 | P.PN_ITS ---
Subjective Subjective: Doing much better today. Denies any complaint. Denied CP, SOB, cough, f/c. Vitals/I&O/Wt Last Vital Signs Temp 98.7 F 09/05/21 13:00 Pulse 87 09/05/21 16:30 Resp 15 09/05/21 16:30 BP 149/88 09/05/21 16:30 Pulse Ox 97 09/05/21 16:30 09/05/21 09/05/21 09/05/21 06:59 14:59 22:59 Intake Total 2200 / 4680.128 1643.333 / 1643.333 720 / 2363.333 Output Total 750 / 3300 2575 / 2575 875 / 3450 Balance 1450 / 1380.128 -931.667 / -931.667 -155 / -1086.667 Weight last 48 hrs Weight 68.492 kg Weight 68.039 kg Physical Exam Narrative: HEENT: EOMI. PERLLA, Thr (-), Nose (-)Neck: supple, Thy(-). Bruit (-) CVS: S1S2, RRR, Mur (-) Resp: CTA Abd: soft, NT, BS+ Edema (-) SPINNER TENDER A&Ox3 non focal Data : 09/05/21 04:20 09/04/21 19:36 A&P Assessment and plan (1) HUBERT (acute kidney injury): Improved Status: Acute (2) Diabetic keto-acidosis: Improved Status: Acute Qualifiers: Diabetes mellitus complication detail: without coma Diabetes mellitus type: type 1 Qualified Code(s): E10.10 - Type 1 diabetes mellitus with ketoacidosis without coma (3) Diabetes mellitus type I: uncontrolled Status: Chronic Qualifiers: Diabetes mellitus complication status: without complication Qualified Code(s): E10.9 - Type 1 diabetes mellitus without complications (4) Nicotine dependence, cigarettes, with unspecified nicotine-induced disorders: Status: Chronic Plan Transfer pt to CCU D/C Insulin infusion Resume Oral diet 1800 Carl ADA D/C IVF Continue Lantus. Will adjust based on SSI need DVT Prophylaxis GI Prophylaxis Attestations Medical Necessity Statement*: Pt will need >2 days stay in the hosp dur to uncontrolled DM overcoming DKA, HUBERT. Time Spent in Patient Care: 35 min Critical Care Time: 15 min Coding Level of Care Code Acute Non Destructive Testing Specialist for g Fwd Diagnoses HUBERT (acute kidney injury) N17.9 Diabetic keto-acidosis E10.10 Diabetes mellitus complication detail: without coma Diabetes mellitus type: type 1 Diabetes mellitus type I E10.9 Diabetes mellitus complication status: without complication Nicotine dependence, cigarettes, with unspecified nicotine-induced disorders F17.219
[2021-09-05] MEDS: insulin glargine 100 units/1 mL 15 UNIT SUBCUT (21:17)
[2021-09-05 21:18] LABS: Glucose Point of Care 329 mg/dL (70-110)
[2021-09-05] MEDS: nicotine 21 mg Patch 1 PATCH TRANSDERMA (22:17)
[2021-09-05] MEDS: nicotine 2 mg Gum 4 MG BUCCAL (22:17)
[2021-09-06] VITALS (22 sets, daily range): BP systolic 110–140; BP diastolic 63–95; PULSE 71–96; RESP 12–33; TEMP 36–36.8; O2SAT 91–100
[2021-09-06] MEDS: enoxaparin 40 mg/0.4 mL Syringe SUBCUT (05:47)
[2021-09-06] MEDS: lisinopril 2.5 mg Tablet PO (05:47)
--- NOTE | 2021-09-06 06:03 | PC.NURSE ---
Spoke with Dr. Crisostomo around 2129 updating him on the patient's blood sugar coming back 329, giving 12units of humalog and 15units of lantus. The patient also expressed feeling anxious in regards to not having smoked a cigarette since his hospital admission. Asked if he could receive a nicotine patch? Orders placed for a nicotine patch and nicotine lozenges.
[2021-09-06 08:43] LABS: Glucose Point of Care 169 mg/dL (70-110)
[2021-09-06] MEDS: insulin lispro 100 unit/1 mL SUBCUT ×4 (08:47→21:50)
[2021-09-06 12:02] LABS: Glucose Point of Care 157 mg/dL (70-110)
--- NOTE | 2021-09-06 12:07 | PC.CHAP ---
Pastoral Care Encounter/Spiritual Assessment Type of Contact [] Declined production quality analyst visit [] Patient/Family/Request visit [] Outpatient visit [] Follow-up visit [] Physician referral [] Code/Alert [x] Routine visit [] Staff referral [] Actively dying [] Patient sleeping [] Family support [] [] Out of room [] Palliative care [] [] Receiving care in room [] Pre-surgical visit [] Trauma [] Long length of stay [x] ICU visit [] Other: Relational/Emotional Strength [] Patient feels connected with others/family/visitors/staff [] Distress [] Loneliness/isolation [] Abandonment Spirituality of Patient [] Person of Billie [] Attends Scientology of their Billie [] Believes in Prayer [] Reads Bible or Advent materials [] There are Spiritual issues to be addressed Leasing Specialist Interventions [x] Prayer [x] Active listening [x] Non-anxious presence [x] Spiritual/emotional support [] Crisis/trauma care [] Spiritual counseling [] Bereavement support [] Provided bereavement packet [] Provided Bible/devotional materials [] Provided toy/stuffed animal, coloring book to patient or family member [] Provided Communion [] Anointing/Kane [] Salvation [x] Completed spiritual assessment [] Other: Impact on Illness or Injury [] Angry [] Fearful [] Anxious [] Often cries [] Exhaustion [] Unable to work [] Unable to attend jew [] Unable to walk/stand [] Unable to read [] Unable to drive [] Unable to eat/drink [] Unable to sleep [] Unable to be with family [] Patient intubated [] Other: Summary being moved to med surg.... Time spent with patient 10 min
--- NOTE | 2021-09-06 14:35 | PC.NURSE ---
Report faxed to [employer]. Further verbal report given to JEANNE Flaherty. Pt transferred to room 254-1 with all of his belongings.
[2021-09-06 17:20] LABS: Glucose Point of Care 375 mg/dL (70-110)
[2021-09-06 20:46] LABS: Glucose Point of Care 357 mg/dL (70-110)
[2021-09-06] MEDS: insulin glargine 100 units/1 mL 15 UNIT SUBCUT (21:47)
[2021-09-06] MEDS: nicotine 21 mg Patch 1 PATCH TRANSDERMA (21:49)
[2021-09-06 21:52] LABS: Glucose Point of Care 361 mg/dL (70-110)
--- NOTE | 2021-09-06 22:02 | P.PN_ITS ---
Subjective Subjective: Pt continues to do better. Tolerating diet. Denies cP, SOB, cough Vitals/I&O/Wt Last Vital Signs Temp 97.8 F 09/06/21 20:00 Pulse 71 09/06/21 20:00 Resp 17 09/06/21 20:00 BP 135/63 09/06/21 20:00 Pulse Ox 95 09/06/21 20:00 09/06/21 09/06/21 09/06/21 06:59 14:59 22:59 Intake Total 960 / 5043.333 1500 / 1500 240 / 1740 Output Total 1550 / 5000 450 / 450 Balance -590 / 43.333 1050 / 1050 240 / 1290 Weight last 48 hrs Weight 68.266 kg Weight 68.492 kg Physical Exam Narrative: NAD CVS: S1S2, RRR, Mur (-) Resp: CTA Abd: soft, NT, BS+ Edema (-) TRANSPLANT REGISTERED NURSE: A&Ox4 Data : 09/05/21 04:20 09/04/21 19:36 A&P Assessment and plan (1) HUBERT (acute kidney injury): resolved Status: Acute (2) Diabetic keto-acidosis: Out of DKA now Status: Acute Qualifiers: Diabetes mellitus complication detail: without coma Diabetes mellitus type: type 1 Qualified Code(s): E10.10 - Type 1 diabetes mellitus with ketoacidosis without coma (3) Nicotine dependence, cigarettes, with unspecified nicotine-induced disorders: abstaining Status: Chronic (4) Leukocytosis: improving Status: Acute Plan Transfer to [facility] Increase Lantus 25 U bid D/C IVF Possible d/c tomorrow Attestations Medical Necessity Statement*: Pt overcoming DKA still has uncontrolled DM and leukocytosis. This requires further adjustment otherwise will return in to DKA again. For this need to have continued admission Coding Level of Care Code Acute Gluer Machine Operator for [facility] Diagnoses HUBERT (acute kidney injury) N17.9 Diabetic keto-acidosis E10.10 Diabetes mellitus complication detail: without coma Diabetes mellitus type: type 1 Nicotine dependence, cigarettes, with unspecified nicotine-induced disorders F17.219 Leukocytosis D72.829
[2021-09-06 23:39] LABS: Basophils % 0.3 %; Eosinophils # 0.1 10^3/uL (0.0-0.8); Eosinophils % 1.7 %; Hematocrit 41.3 % (42.0-52.0); Hemoglobin 13.6 g/dL (11.7-16.6); Lymphocytes # 2.5 10^3/uL (0.8-4.8); Lymphocytes % 33.1 %; Mean Corpuscular HGB Conc 32.9 g/dL (30.0-36.0); Mean Corpuscular Hemoglobin 27.8 pg (28.0-34.0); Mean Corpuscular Volume 84.5 fl (80-94); Mean Platelet Volume 9.6 fL (7.4-10.4); Monocytes # 0.5 10^3/uL (0.2-0.9); Monocytes % 6.2 %; Neutrophils # 4.44 10^3/uL (1.8-7.7); Neutrophils % 58.4 %; Nucleated Red Blood Cells % 0 %; Platelet Count 274 10^3/cmm (130-400); Red Blood Count 4.89 10^6/uL (4.1-5.3); Red Cell Distribution Width 13.3 % (12.1-15.1); White Blood Count 7.6 10^3/uL (4.0-10.0)
[2021-09-07] VITALS: BP 119/71; PULSE 103; RESP 18; TEMP 36.6; O2SAT 100
[2021-09-07] LABS: Glucose Point of Care 129 mg/dL (70-110)
[2021-09-07 00:03] LABS: Alanine Aminotransferase 30 U/L (0-41); Albumin Level 3.9 g/dL (3.5-5.2); Alkaline Phosphatase 120 IU/L (40-130); Anion Gap 13.6 (5-19); Aspartate Amino Transferase 23 U/L (0-40); Blood Urea Nitrogen 20 mg/dL (6-20); Calcium 9.5 mg/dL (8.5-10.5); Carbon Dioxide 28 mmol/L (22-29); Chloride 99 mmol/L (98-107); Globulin 2.4 g/dL (1.3-4.6); Glucose 170 mg/dL (65-115); Osmolality Calculated 291 mOsm/kg (285-295); Potassium 3.6 mmol/L (3.5-5.1); Sodium 137 mmol/L (136-145); Total Bilirubin 0.2 mg/dL (0.15-1.2); Total Protein 6.3 g/dL (6.6-8.7)
[2021-09-07 00:19] LABS: Estmated Average Glucose 312; Hemoglobin A1C 12.5 % (4.0-6.0)
[2021-09-07 00:36] LABS: Glucose Point of Care 218 mg/dL (70-110)
--- NOTE | 2021-09-07 01:19 | PC.NURSE ---
i reported high pulse 103 to nurse
[2021-09-07 04:00] VITALS: BP 126/78; PULSE 100; RESP 18; TEMP 36.7; O2SAT 100
[2021-09-07 05:09] LABS: Basophils % 0.5 %; Eosinophils # 0.2 10^3/uL (0.0-0.8); Eosinophils % 2.5 %; Hematocrit 38.5 % (42.0-52.0); Hemoglobin 12.3 g/dL (11.7-16.6); Lymphocytes # 2.2 10^3/uL (0.8-4.8); Lymphocytes % 33.5 %; Mean Corpuscular HGB Conc 31.9 g/dL (30.0-36.0); Mean Corpuscular Hemoglobin 27.8 pg (28.0-34.0); Mean Corpuscular Volume 86.9 fl (80-94); Mean Platelet Volume 9.8 fL (7.4-10.4); Monocytes # 0.4 10^3/uL (0.2-0.9); Monocytes % 6.8 %; Neutrophils # 3.64 10^3/uL (1.8-7.7); Neutrophils % 56.4 %; Nucleated Red Blood Cells % 0 %; Platelet Count 267 10^3/cmm (130-400); Red Blood Count 4.43 10^6/uL (4.1-5.3); Red Cell Distribution Width 13.2 % (12.1-15.1); White Blood Count 6.5 10^3/uL (4.0-10.0)
[2021-09-07 05:27] LABS: Alanine Aminotransferase 27 U/L (0-41); Albumin Level 3.6 g/dL (3.5-5.2); Alkaline Phosphatase 111 IU/L (40-130); Anion Gap 16.2 (5-19); Aspartate Amino Transferase 20 U/L (0-40); Blood Urea Nitrogen 20 mg/dL (6-20); Carbon Dioxide 22 mmol/L (22-29); Chloride 96 mmol/L (98-107); Globulin 2.3 g/dL (1.3-4.6); Glucose 400 mg/dL (65-115); Osmolality Calculated 289 mOsm/kg (285-295); Potassium 4.2 mmol/L (3.5-5.1); Sodium 130 mmol/L (136-145); Total Bilirubin 0.2 mg/dL (0.15-1.2); Total Protein 5.9 g/dL (6.6-8.7)
[2021-09-07] MEDS: enoxaparin 40 mg/0.4 mL Syringe SUBCUT (05:59)
[2021-09-07] MEDS: lisinopril 2.5 mg Tablet PO (06:00)
[2021-09-07 06:38] LABS: Glucose Point of Care 477 mg/dL (70-110)
[2021-09-07 08:00] VITALS: BP 132/86; PULSE 94; RESP 16; TEMP 36.7; O2SAT 96
[2021-09-07] MEDS: insulin lispro 100 unit/1 mL SUBCUT (08:01)
[2021-09-07] MEDS: insulin glargine 100 units/1 mL 25 UNIT SUBCUT (08:02)
--- NOTE | 2021-09-07 09:01 | PC.NURSE ---
This nurse saw patient walking fast down [address] dressed in street clothes heading to elevator. This nurse and a few others stopped patient to redirect, patient refused, I'm leaving I've got things to do. Could not be encouraged to wait any longer, did not want to sign AMA paperwork but eventually did. No IV in place. Physician notified.
--- NOTE | 2021-09-07 11:00 | PM.DCS ---
Discharge Providers Date of Admission: 09/04/21 06:08 Date of Discharge: September 07, 2021 Attending Provider at Admission: Karuna Carrion MD Attending Provider at Discharge: Grover Hendricks MD Primary Care Provider: Arely Holcomb DO Diagnoses at Discharge Discharge Diagnosis (1) Leukocytosis: Status: Acute (2) HUBERT (acute kidney injury): Status: Acute (3) Diabetic keto-acidosis: Status: Acute Qualifiers: Diabetes mellitus complication detail: without coma Diabetes mellitus type: type 1 Qualified Code(s): E10.10 - Type 1 diabetes mellitus with ketoacidosis without coma (4) Nicotine dependence, cigarettes, with unspecified nicotine-induced disorders: Status: Chronic Reason for Visit Reason for Visit: N/V Hospital Course Hospital Course Pt admitted w/ DKA without coma has left the hosp AMA. He did not give any opportunity to to be evaluated or discuss the AMA. He walked off from the floor. Pt was not evaluated Physical Exam Narrative: No exam performed Discharge Data Studies Completed and Pending Completed Studies During Hospitalization Category Date Time Status XR chest 1V portable [id number] Stat Exams 09/04/21 05:22 Completed Radiology Impressions Chest X-Ray 09/04/21 05:22 IMPRESSION: No acute findings. Laboratory Results WBC 6.5 10^3/uL (4.0-10.0) 09/07/21 04:36 RBC 4.43 10^6/uL (4.1-5.3) 09/07/21 04:36 Hgb 12.3 g/dL (11.7-16.6) 09/07/21 04:36 Hct 38.5 % (42.0-52.0) L 09/07/21 04:36 MCV 86.9 fl (80-94) 09/07/21 04:36 MCH 27.8 pg (28.0-34.0) L 09/07/21 04:36 MCHC 31.9 g/dL (30.0-36.0) 09/07/21 04:36 RDW 13.2 % (12.1-15.1) 09/07/21 04:36 Plt Count 267 10^3/cmm (130-400) 09/07/21 04:36 MPV 9.8 fL (7.4-10.4) 09/07/21 04:36 Neut % (Auto) 56.4 % 09/07/21 04:36 Lymph % (Auto) 33.5 % 09/07/21 04:36 [place] % (Auto) 6.8 % 09/07/21 04:36 Eos % (Auto) 2.5 % 09/07/21 04:36 Baso % (Auto) 0.5 % 09/07/21 04:36 Neut # (Auto) 3.64 10^3/uL (1.8-7.7) 09/07/21 04:36 Lymph # (Auto) 2.2 10^3/uL (0.8-4.8) 09/07/21 04:36 [place] # (Auto) 0.4 10^3/uL (0.2-0.9) 09/07/21 04:36 Eos # (Auto) 0.2 10^3/uL (0.0-0.8) 09/07/21 04:36 Baso # (Auto) 0.0 10^3/uL (0.0-0.1) 09/07/21 04:36 Nucleated RBC % (auto) 0 % 09/07/21 04:36 Nucleated RBCs # 0.0 /100WBC 09/07/21 04:36 Specimen Type Arterial 09/04/21 04:51 Sample Site Radial, right 09/04/21 04:51 ABG pH 7.20 (7.35-7.45) L 09/04/21 04:51 ABG pCO2 22.3 mmHg (35-45) L 09/04/21 04:51 ABG pO2 116.0 mmHg (80.0-100.0) H 09/04/21 04:51 ABG HCO3 8.7 mmol/L (22-26) L 09/04/21 04:51 ABG Base Excess -17.6 mmol/L (-2.0-2.0) L 09/04/21 04:51 Brady Test Pos 09/04/21 04:51 Hematocrit 37.9 % (42-52) L 09/04/21 04:51 O2 Delivery Device Room air 09/04/21 04:51 Information Technology Data Analyst ID [email or web address] 09/04/21 04:51 Sodium 130 mmol/L (136-145) L 09/07/21 04:36 Potassium 4.2 mmol/L (3.5-5.1) 09/07/21 04:36 Chloride 96 mmol/L (98-107) L 09/07/21 04:36 Carbon Dioxide 22 mmol/L (22-29) 09/07/21 04:36 Anion Gap 16.2 (5-19) 09/07/21 04:36 BUN 20 mg/dL (6-20) 09/07/21 04:36 Creatinine 0.8 mg/dL (0.7-1.2) 09/07/21 04:36 GFR Calculation 105.0 mL/min (90-130) 09/07/21 04:36 Glucose 400 mg/dL (65-115) H 09/07/21 04:36 POC Glucose 477 mg/dL (70-110) H 09/07/21 06:22 Estimat Average Glucose Cancelled 09/07/21 04:36 Hemoglobin A1c Cancelled 09/07/21 04:36 Calculated Osmolality 289 mOsm/kg (285-295) 09/07/21 04:36 Lactate 3.4 mmol/L (0.5-2.2) H 09/04/21 03:30 Calcium 9.0 mg/dL (8.5-10.5) 09/07/21 04:36 Magnesium 1.8 mg/dL (1.7-2.3) 09/04/21 19:36 Total Bilirubin 0.2 mg/dL (0.15-1.2) 09/07/21 04:36 AST 20 U/L (0-40) 09/07/21 04:36 ALT 27 U/L (0-41) 09/07/21 04:36 Alkaline Phosphatase 111 IU/L (40-130) 09/07/21 04:36 C-Reactive Protein 11.7 mg/L (0.0-4.9) H 09/04/21 03:30 Total Protein 5.9 g/dL (6.6-8.7) L 09/07/21 04:36 Albumin 3.6 g/dL (3.5-5.2) 09/07/21 04:36 Globulin 2.3 g/dL (1.3-4.6) 09/07/21 04:36 Lipase 14 U/L (13-60) 09/04/21 03:30 Urine Color Yellow (Yellow) 09/04/21 05:54 Urine Appearance Clear (CLEAR) 09/04/21 05:54 Urine pH 5 (5-7) 09/04/21 05:54 Ur Specific [place] 1.020 (1.005-1.030) 09/04/21 05:54 Urine Protein Neg (Negative) 09/04/21 05:54 Urine Glucose (UA) 4+ (Normal) H 09/04/21 05:54 Urine Ketones 3+ (Negative) H 09/04/21 05:54 Urine Blood Neg (Negative) 09/04/21 05:54 Urine Nitrate Negative (Negative) 09/04/21 05:54 Urine Bilirubin Neg (Negative) 09/04/21 05:54 Urine Urobilinogen Norm mg/dL (Negative) 09/04/21 05:54 Ur Leukocyte Esterase Negative (Negative) 09/04/21 05:54 Salicylates < 0.3 mg/dL (3-10) L 09/04/21 10:16 Urine Opiates Screen Negative ng/mL (Negative) 09/04/21 05:54 Ur Barbiturates Screen Negative ng/mL (Negative) 09/04/21 05:54 Ur Phencyclidine Scrn Negative ng/mL (Negative) 09/04/21 05:54 Ur Amphetamines Screen Positive ng/mL (Negative) H 09/04/21 05:54 U Benzodiazepines Scrn Negative ng/mL (Negative) 09/04/21 05:54 Urine Cocaine Screen Negative ng/mL (Negative) 09/04/21 05:54 U Marijuana (THC) Screen Negative ng/mL (Negative) 09/04/21 05:54 Serum Ketones Positive (Negative) H 09/04/21 03:30 Coronavirus 229E (PCR) Not detected (NOT DETECT) 09/04/21 04:20 SARS-CoV-2 (PCR) Not detected (NOT DETECT) 09/04/21 04:20 Vitals Last Vital Signs Temp 98.1 F 09/07/21 08:00 Pulse 94 09/07/21 08:00 Resp 16 09/07/21 08:00 BP 132/86 09/07/21 08:00 Pulse Ox 96 09/07/21 08:00 Discharge Plan Discharge Patient Disposition: Home Condition: Serious Prescriptions: No Action sildenafil (pulm.hypertension) 20 mg tablet See Rx Instructions PO TID Qty: 30 2RF Rx Instructions: take 1-5 tabs one hour before sexual activity as needed Novolin R Regular U-100 Insuln 100 unit/mL solution See Rx Instructions .ROUTE .COMPLEX Qty: 30 0RF Dose Instruction: INJECT 10 - 20 UNIT (0.1 - 0.2 ML) SUBCUTANEOUSLY THREE TIMES DAILY Rx Instructions: INJECT 10 - 20 UNIT (0.1 - 0.2 ML) SUBCUTANEOUSLY THREE TIMES DAILY Novolin 70/30 U-100 Insulin 100 unit/mL (70-30) suspension See Rx Instructions .ROUTE .COMPLEX Qty: 30 0RF Dose Instruction: INJECT 70 TO 100 UNITS SUBCUTANEOUSLY EVERY DAY Rx Instructions: INJECT 70 TO 100 UNITS SUBCUTANEOUSLY EVERY DAY bismuth subsalicylate [Pepto-Bismol] 262 mg/15 mL Suspension 524 mg PO Q1H PRN (Reason: UPSET STOMACH) 0RF aspirin [Aspir-81] 81 mg Tablet,Delayed Release (Dr/Ec) 81 mg PO DAILY 0RF lisinopril 2.5 mg tablet 2.5 mg PO QAM 0RF Referrals: Arely Holcomb DO [Primary Care Provider] - Patient Instructions: Opioid Safety Discharge Attestations Time Spent in Discharge Care*: less than 30 min Quality Metrics Clinical Quality Measures [ No reported AMI, CVA or VTE this stay] Coding Level of Care Code Acute g DC note Diagnoses Leukocytosis D72.829 HUBERT (acute kidney injury) N17.9 Diabetic keto-acidosis E10.10 Diabetes mellitus complication detail: without coma Diabetes mellitus type: type 1 Nicotine dependence, cigarettes, with unspecified nicotine-induced disorders F17.219
== END 2021-09-07 09:05 | disposition left against medical advice (07) | DRG 638 ==
LOC: ER 05:54 → ICU 07:15 → MEDSURG 09-06 14:32
PROVIDERS: Admitting Provider Student in an Organized Health Care Education/Training Program; Emergency Provider Emergency Medicine; PCP Family Medicine; Visit Provider Internal Medicine
DX: E10.10 Type 1 diabetes mellitus with ketoacidosis without coma (principal); N17.9 Acute kidney failure, unspecified; E86.0 Dehydration; F17.210 Nicotine dependence, cigarettes, uncomplicated; Z53.21 Procedure and treatment not carried out due to patient leaving prior to being seen by health care provider
CPT/HCPCS: 36415; 36416; 36600; 71045; 80053; 80306; 80307; 81003; 82009; 82803; 82962; 83036; 83605; 83690; 83735; 85025; 86140; 87635; 96365; 96372; 96375; 99285; J1650; J1815 ×2; J2405; J7030; J7050; J7799

== ENCOUNTER 2021-11-15 20:37 | Emergency (ER) | payer SELFPAY ==
[2021-11-15 20:39] VITALS: BP 161/102; PULSE 101; RESP 18; TEMP 36.7; O2SAT 98; BMI 21.1
--- NOTE | 2021-11-15 20:42 | XRR_ITS ---
PROCEDURE INFORMATION: Exam: XR Chest Exam date and time: 11/15/2021 9:21 PM Age: 46 years old Clinical indication: Patient HX: Cough with hematemesis TECHNIQUE: Imaging protocol: XR of the chest. Views: 1 view. COMPARISON: CR XR chest 1V portable [id number] 09/04/2021 4:42 AM FINDINGS: Lungs: Lungs are clear bilaterally. Pleural spaces: No pleural effusion. No pneumothorax. Heart/Mediastinum: The cardiac silhouette and mediastinal contours are unremarkable. Bones/joints: Unremarkable for age. XR/XR chest 1V portable [id number] IMPRESSION: No acute cardiopulmonary process.
--- NOTE | 2021-11-15 20:43 | ECG_ITS ---
[facility] Test Date: 2021-11-15 Pat Name: Andrews Robins Department: Room: Gender: Male Core Carrier: : 1975 Requested By: Althea Sheehan Order Number: [id number] Grace MD: Belem Moore M.D. Measurements Intervals [place] Rate: 91 P: 77 MS: 123 QRS: 77 QRSD: 94 T: 70 QT: 365 QTc: 450 Interpretive Statements SINUS RHYTHM POSSIBLE RIGHT ATRIAL ENLARGEMENT [0.25mV P-WAVE] POSSIBLE LEFT ATRIAL ENLARGEMENT [-0.1mV P-WAVE IN V1/V2] POSSIBLE RIGHT VENTRICULAR CONDUCTION DELAY [RSR (QR) IN V1/V2] Compared to ECG 05/06/2021 07:48:42 No significant changes Electronically Signed On 11-15-2021 21:17:02 CDT by Belem Moore M.D. [id number]
[2021-11-15 20:45] VITALS: BP 155/110; PULSE 96; RESP 18; O2SAT 99
[2021-11-15 20:50] LABS: Glucose Point of Care 164 mg/dL (70-110)
--- NOTE | 2021-11-15 20:54 | ED_ITS ---
HPI - Chest Pain General: Chief Complaint: Chest Pain Stated Complaint: vomiting blood Time Seen by Provider: 11/15/21 20:38 Source: patient and EMS Mode of arrival: EMS Limitations: no limitations History of Present Illness: 46-year-old male who is a type I diabetic and states over the last 3 to 4 days he has been having cough congestion along with slight vomiting. He states that today seen in urgent care diagnosed with a bronchitis prescribe Levaquin and Zofran states has had increased vomiting and vomited up a slight amount of blood today. He denies any abdominal pain he does have some sharp chest pain from his coughing denies any fevers he is a longtime smoker denies any blood in his stools. Associated symptoms: Reports nausea and vomiting; Deny fever(s) Review of Systems Const: Denies: fever(s), chills, body aches or change in appetite Eyes: Denies: blurry vision or eye discomfort ENMT: Denies: throat pain or dental pain Card: Reports: chest pain Resp: Reports: non-productive cough GI: Reports: nausea and vomiting : Denies: dysuria Musc: Denies: neck pain or back pain Skin/Breast: Denies: rash Neuro: Denies: headache(s) Psych: Denies: depression Walter/Lymph: Denies: easy bruising All/Imm: Denies: urticaria PFSH ED PFSH: Medical History Diabetes mellitus type I Surgical History H/O hernia repair Umbilical Social History Smoking and tobacco status: current every day smoker cigarettes Packs smoked per day: 1 Alcohol intake: former Physical Exam Const: COMMON NORMALS: no acute distress, patient oriented x3 and healthy appearing HENMT: COMMON NORMALS: normocephalic and atraumatic HEAD & SCALP: normocephalic and atraumatic Eye: COMMON NORMALS: Equal, round and reactive pupils present and EOMs intact bilaterally PUPIL: Yes Equal, round and reactive pupils present Neck/C-Spine: COMMON NORMALS: full ROM and supple Chest: COMMONS NORMALS: normal inspection of the chest and normal palpation of entire chest wall Resp: COMMON NORMALS: normal respiratory effort, No retractions, No use of accessory muscles and clear to auscultation bilaterally AUSCULTATION: clear to auscultation bilaterally Cardio: COMMON NORMALS: regular rate, regular rhythm and No murmurs present (Cardio) RATE: regular rate RHYTHM: regular rhythm GI: COMMON NORMALS: Normal to inspection, nondistended, normoactive bowel sounds present, Soft to palpation, non-tender and no masses PALPATION: Yes Soft to palpation Extremity: COMMON NORMALS: normal to inspection and full ROM Neuro: COMMON NORMALS: patient oriented x3, moves all extremities and no focal motor deficits Psych: COMMON NORMALS: mental status grossly normal, Normal thought process present and cooperative THOUGHT PROCESS: Normal thought process present Skin: COMMON NORMALS: no rashes or lesions noted and no wounds GENERAL SKIN EXAM: no rashes or lesions noted Course Vital Signs: Vital signs: Vital Signs Temperature 98.1 F 11/15/21 20:39 Pulse Rate 96 11/15/21 20:45 Respiratory Rate 18 11/15/21 20:45 Blood Pressure 155/110 11/15/21 20:45 Pulse Oximetry 99 11/15/21 20:45 MDM - Chest Pain Medical Decision Making Patient presents here with chest pain that is atypical in nature initial and repeat troponins are negative. Patient's had no vomiting here his hemoglobin actually went up no signs of hematemesis he is stable for discharge follow-up PCP and return if worsening. Lab Data : 11/16/21 00:12 11/15/21 22:22 Radiology Impressions Chest X-Ray 11/15/21 20:42 IMPRESSION: No acute cardiopulmonary process. Laboratory Results WBC 4.2 10^3/uL (4.0-10.0) 11/15/21 22:22 RBC 3.80 10^6/uL (4.1-5.3) L 11/15/21 22:22 Hgb 13.4 g/dL (11.7-16.6) 11/16/21 00:12 Hct 40.5 % (42.0-52.0) L 11/16/21 00:12 MCV 87.4 fl (80-94) 11/15/21 22:22 MCH 28.4 pg (28.0-34.0) 11/15/21 22:22 MCHC 32.5 g/dL (30.0-36.0) 11/15/21: RDW 14.0 % (12.1-15.1) 11/15/21: Plt Count 181 10^3/cmm (130-400) 11/15/21 22: MPV 9.3 fL (7.4-10.4) 11/15/21: Neut % (Auto) 68.6 % 11/15/21: Lymph % (Auto) 23.1 % 11/15/21: [place] % (Auto) 7.6 % 11/15/21: Eos % (Auto) 0.5 % 11/15/21: Baso % (Auto) 0.0 % 11/15/21: Neut # (Auto) 2.88 10^3/uL (1.8-7.7) 11/15/21: Lymph # (Auto) 1.0 10^3/uL (0.8-4.8) 11/15/21: [place] # (Auto) 0.3 10^3/uL (0.2-0.9) 11/15/21: Eos # (Auto) 0.0 10^3/uL (0.0-0.8) 11/15/21: Baso # (Auto) 0.0 10^3/uL (0.0-0.1) 11/15/21: Nucleated RBC % (auto) 0 % 11/15/21: Nucleated RBCs # 0.0 /100WBC 11/15/21: PT 13.80 SECONDS (12.1-14.9) 11/15/21: INR 1.03 (0.8-1.2) 11/15/21: Sodium 141 mmol/L (136-145) 11/15/21: Potassium 3.4 mmol/L (3.5-5.1) L 11/15/21: Chloride 108 mmol/L (98-107) H 11/15/21: Carbon Dioxide 23 mmol/L (22-29) 11/15/21: Anion Gap 13.4 (5-19) 05/25/22 22:22 BUN 19 mg/dL (6-20) 11/15/21 22:22 Creatinine 0.7 mg/dL (0.7-1.2) 11/15/21 22:22 GFR Calculation 122.5 mL/min (90-130) 11/15/21 22:22 Glucose 95 mg/dL (65-115) 11/15/21 22:22 POC Glucose 164 mg/dL (70-110) H 11/15/21 20:48 Calculated Osmolality 294 mOsm/kg (285-295) 11/15/21 22: Calcium 6.5 mg/dL (8.5-10.5) L 11/15/21 22: Total Bilirubin 0.2 mg/dL (0.15-1.2) 11/15/21: AST 17 U/L (0-40) 11/15/21: ALT 16 U/L (0-41) 11/15/21 22: Alkaline Phosphatase 60 IU/L (40-130) 11/15/21 22: Troponin T Baseline 10 ng/L (0-15) 11/15/21 22: Troponin T 120 Minute 10.93 ng/L (0-15) 11/16/21 00:12 Delta Troponin T 0.93 ABS# (0-10) 11/16/21 00:12 Total Protein 5.1 g/dL (6.6-8.7) L 11/15/21 22: Albumin 3.1 g/dL (3.5-5.2) L 11/15/21: Globulin 2.0 g/dL (1.3-4.6) 11/15/21 22: Lipase 10 U/L (13-60) L 11/15/21 22:22 EKG Data EKG 1: I personally reviewed and interpreted this EKG as follows: EKG interpretation date: 11/15/21 EKG interpretation time: 20:58 Interpretation: nsr hr [address] or t wave abnormalities qrs 94 qtc 450 EKG 2: I personally reviewed and interpreted this EKG as follows: EKG interpretation date: 11/15/21 EKG interpretation time: 22:40 Interpretation: nsr hr [address] or t wave abnormalities qrs 94 qtc 420 Discharge Plan Discharge Patient Disposition: Home Clinical Impression: Atypical chest pain, Vomiting Condition: Stable Prescriptions: No Action ondansetron 8 mg tablet,disintegrating 8 mg PO Q8H PRN (Reason: nausea and vomiting) 4 Days Qty: 15 0RF levofloxacin 750 mg tablet 750 mg PO DAILY 7 Days Qty: 7 0RF sildenafil (pulm.hypertension) 20 mg tablet See Rx Instructions PO TID Qty: 30 2RF Rx Instructions: take 1-5 tabs one hour before sexual activity as needed Novolin 70/30 U-100 Insulin 100 unit/mL (70-30) suspension See Rx Instructions .ROUTE .COMPLEX Qty: 30 0RF Dose Instruction: INJECT 70 TO 100 UNITS SUBCUTANEOUSLY EVERY DAY Rx Instructions: INJECT 70 TO 100 UNITS SUBCUTANEOUSLY EVERY DAY Novolin R Regular U-100 Insuln 100 unit/mL solution See Rx Instructions .ROUTE .COMPLEX Qty: 30 0RF Dose Instruction: INJECT 10 - 20 UNIT (0.1 - 0.2 ML) SUBCUTANEOUSLY THREE TIMES DAILY Rx Instructions: INJECT 10 - 20 UNIT (0.1 - 0.2 ML) SUBCUTANEOUSLY THREE TIMES DAILY bismuth subsalicylate [Pepto-Bismol] 262 mg/15 mL Suspension 524 mg PO Q1H PRN (Reason: UPSET STOMACH) 0RF aspirin [Aspir-81] 81 mg Tablet,Delayed Release (Dr/Ec) 81 mg PO DAILY 0RF lisinopril 2.5 mg tablet 2.5 mg PO QAM 0RF Discharge Orders: Discharge ED (Routine); Ordered 11/16/21 Ordered By: Althea Sheehan Referrals: Arely Holcomb DO [Primary Care Provider] - Discharge Diet: Advance as tolerated Discharge Activity: Resume usual activity Patient Instructions: Acute Nausea and Vomiting (ED) Coding Level of Care Code ED Software Qa System Specialist for g Fwd Exam Comprehensive
[2021-11-15] MEDS: sodium chloride 0.9% 1,000 ML 999 ML IV (21:24)
[2021-11-15] MEDS: ondansetron 2 mg/ML SDV 2 mL 4 MG IVP (21:24)
[2021-11-15 22:26] LABS: Eosinophils % 0.5 %; Hematocrit 33.2 % (42.0-52.0); Hemoglobin 10.8 g/dL (11.7-16.6); Lymphocytes % 23.1 %; Mean Corpuscular HGB Conc 32.5 g/dL (30.0-36.0); Mean Corpuscular Hemoglobin 28.4 pg (28.0-34.0); Mean Corpuscular Volume 87.4 fl (80-94); Mean Platelet Volume 9.3 fL (7.4-10.4); Monocytes # 0.3 10^3/uL (0.2-0.9); Monocytes % 7.6 %; Neutrophils # 2.88 10^3/uL (1.8-7.7); Neutrophils % 68.6 %; Nucleated Red Blood Cells % 0 %; Platelet Count 181 10^3/cmm (130-400); White Blood Count 4.2 10^3/uL (4.0-10.0)
[2021-11-15 22:38] LABS: INR 1.03 (0.8-1.2)
[2021-11-15 22:43] LABS: Alanine Aminotransferase 16 U/L (0-41); Albumin Level 3.1 g/dL (3.5-5.2); Alkaline Phosphatase 60 IU/L (40-130); Anion Gap 13.4 (5-19); Aspartate Amino Transferase 17 U/L (0-40); Blood Urea Nitrogen 19 mg/dL (6-20); Calcium 6.5 mg/dL (8.5-10.5); Carbon Dioxide 23 mmol/L (22-29); Chloride 108 mmol/L (98-107); Glomerular Filtration Rate 122.5 mL/min (90-130); Glucose 95 mg/dL (65-115); Lipase 10 U/L (13-60); Osmolality Calculated 294 mOsm/kg (285-295); Potassium 3.4 mmol/L (3.5-5.1); Sodium 141 mmol/L (136-145); Total Bilirubin 0.2 mg/dL (0.15-1.2); Total Protein 5.1 g/dL (6.6-8.7)
--- NOTE | 2021-11-15 22:43 | ECG_ITS ---
[facility] Test Date: 2021-11-15 Pat Name: Andrews Robins Department: Room: Gender: Male Telecommunications Officer: : 1975 Requested By: Althea Sheehan Order Number: [id number] Grace MD: Wan Griffin M.D. Measurements Intervals [place] Rate: 74 P: 74 OR: 145 QRS: 71 QRSD: 94 T: 69 QT: 393 QTc: 437 Interpretive Statements SINUS RHYTHM POSSIBLE LEFT ATRIAL ENLARGEMENT [-0.1mV P-WAVE IN V1/V2] POSSIBLE RIGHT VENTRICULAR CONDUCTION DELAY [RSR (QR) IN V1/V2] POSSIBLE LEFT VENTRICULAR HYPERTROPHY [VOLTAGE CRITERIA PLUS LAE OR QRS WIDENING] Compared to ECG 11/15/2021 20:58:35 No significant changes Electronically Signed On 11-16-2021 22:28:36 CDT by Wan Griffin M.D. [id number]
[2021-11-15 22:44] LABS: Troponin(5th) Baseline 10 ng/L (0-15)
[2021-11-16 00:26] LABS: Hematocrit 40.5 % (42.0-52.0); Hemoglobin 13.4 g/dL (11.7-16.6)
[2021-11-16 01:05] LABS: Troponin 5 2HR 10.93 ng/L (0-15)
[2021-11-16 01:27] LABS: Troponin 5 2HR Delta 0.93 ABS# (0-10)
== END 2021-11-16 01:40 | disposition home or self-care (01) ==
PROVIDERS: Emergency Provider Emergency Medicine; PCP Family Medicine
DX: R07.89 Other chest pain (principal); R11.10 Vomiting, unspecified; E10.9 Type 1 diabetes mellitus without complications; Z79.4 Long term (current) use of insulin
CPT/HCPCS: 36416; 71045; 80053; 82962; 83690; 84484; 85014; 85018; 85025; 85610; 93005; 96361; 96374; 99284; J2405; J7030

== ENCOUNTER 2022-06-05 06:41 | Emergency (ER) | payer MEDICAID, SELFPAY ==
[2022-06-05] VITALS (9 sets, daily range): BP systolic 106–142; BP diastolic 64–92; PULSE 67–92; RESP 9–21; TEMP 36.7; O2SAT 95–98; BMI 20.5
[2022-06-05 06:56] LABS: Glucose Point of Care 328 mg/dL (70-110)
--- NOTE | 2022-06-05 06:57 | ECG_ITS ---
[facility] Test Date: 2022-06-05 Pat Name: Andrews Robins Department: Room: Gender: Male Multimedia Designer: : 1975 Requested By: James Winslow Order Number: [id number] Grace MD: Zehra Polo M.D. Measurements Intervals [place] Rate: 84 P: 78 VT: 132 QRS: 76 QRSD: 97 T: 71 QT: 363 QTc: 431 Interpretive Statements SINUS RHYTHM POSSIBLE RIGHT ATRIAL ENLARGEMENT [0.25mV P-WAVE] POSSIBLE LEFT ATRIAL ENLARGEMENT [-0.1mV P-WAVE IN V1/V2] POSSIBLE RIGHT VENTRICULAR CONDUCTION DELAY [RSR (QR) IN V1/V2] Compared to ECG 11/15/2021 22:40:12 No significant changes Electronically Signed On 06-06-2022 0:00:52 [employer]ODUCTION by Zehra Polo M.D. [id number]
--- NOTE | 2022-06-05 06:57 | CTR_ITS ---
PROCEDURE INFORMATION: Exam: CT Head Without Contrast Exam date and time: 06/05/2022 6:59 AM Age: 47 years old Clinical indication: Stroke-like symptoms; Right upper extremity numbness/paresthesia; RT upper extremity weakness; Additional info: Symptoms of acute stroke TECHNIQUE: Imaging protocol: Computed tomography of the head without contrast. Radiation optimization: All CT scans at this facility use at least one of these dose optimization techniques: automated exposure control; mA and/or kV adjustment per patient size (includes targeted exams where dose is matched to clinical indication); or iterative reconstruction. Other technique: STROKE PROTOCOL was implemented. COMPARISON: CT head wo con* [id number] 05/23/2021 12:56 PM RADIATION DOSE METRICS: Total DLP (mGy-cm): 1132.88 FINDINGS: Brain: No acute abnormality. No edema or mass effect. No hemorrhage. Cerebral ventricles: No acute abnormality. No significant ventriculomegaly. Paranasal sinuses: No significant or acute abnormality. No air-fluid levels. Mastoid air cells: No acute abnormality. No significant mastoid effusion. Bones/joints: No acute osseous abnormality. No acute fracture. Soft tissues: No significant soft tissue abnormalities. CT/CT head thrombolytic [id number] IMPRESSION: No evidence of acute intracranial abnormality. ASSESSMENT: ASPECTS ([place] Stroke Program Early CT Score) is 10.
--- NOTE | 2022-06-05 06:58 | ED_ITS ---
HPI - Neuro Symptoms/Deficit General: Chief Complaint: Neuro Symptoms/Deficit Stated Complaint: rightside numbness Time Seen by Provider: 06/05/22 06:50 Source: patient Mode of arrival: ambulatory History of Present Illness: 47-year-old male presents emergency room complaining of right-sided numbness this began yesterday at 1:00 has varied in degree of symptoms since then he reports that he had some heartburn yesterday. He states he has a history of diabetes mellitus and previously a stroke 14 months ago was not at our facility. He is essentially asymptomatic on arrival except for very slight alteration in sensation in the lower part of his face and his left arm. Stroke score is 1 with the alteration in sensation. No chest pain at this time. Onset (ago): minute(s) Location: speech History of same: Yes Severity: mild Quality: numb Relieving factors: none Exacerbating factors: none Context: gradual onset Associated symptoms: Deny chest pain, cough, diaphoresis, fevers/chills, headache(s), anorexia, malaise, nausea, seizures, short of breath, syncope, tingling, vomiting or weakness Treatments Prior to Arrival: none Review of Systems Const: Denies: fever(s), chills, fatigue, malaise or diaphoresis ENMT: Denies: throat pain, ear or mastoid pain, nasal discharge or nasal congestion Card: Denies: chest pain or syncope Resp: Denies: dyspnea, productive cough or non-productive cough GI: Denies: abdominal pain, nausea or vomiting : Denies: flank pain, dysuria, urinary frequency or urinary urgency Skin/Breast: Denies: rash or pruritus Neuro: Denies: headache(s) PFS ED PFSH: Medical History Diabetes mellitus type I Surgical History H/O hernia repair Umbilical Social History Smoking and tobacco status: current every day smoker cigarettes Packs smoked per day: 1 Alcohol intake: former NIH stroke score NIHSS: Level Of Consciousness - 1a: 0 Level Of Consciousness Questions - 1b: Both Correct Level Of Consciousness Commands - 1c: Both Correct Best Gaze - 2: Normal Visual Rogers - 3: No Visual Loss Facial Palsy - 4: Normal Motor Arm Right - 5: No Drift Motor Arm Left - 5: No Drift Motor Leg Right - 6: No Drift Motor Leg Left - 6: No Drift Limb Ataxia - 7: Absent Sensory - 8: Mild To Moderate Loss Best Language - 9: No Aphasia Dysarthia - 10: Normal Extinction And Inattention - 11: 0 Score: Total Score: 1 Physical Exam Const: COMMON NORMALS: no acute distress GENERAL APPEARANCE: cooperative and comfortable ORIENTATION/CONSCIOUSNESS: Yes awake, Yes oriented to person, Yes oriented to place and Yes oriented to time HENMT: COMMON NORMALS: normocephalic, atraumatic and hearing grossly normal bilaterally HEAD & SCALP: normocephalic and atraumatic Resp: COMMON NORMALS: normal respiratory effort, No retractions, No use of accessory muscles and clear to auscultation bilaterally AUSCULTATION: clear to auscultation bilaterally Cardio: COMMON NORMALS: regular rate, regular rhythm and No murmurs present (Cardio) RATE: regular rate RHYTHM: regular rhythm GI: COMMON NORMALS: Soft to palpation and No hepatosplenomegaly present AUSCULTATION: Yes normoactive bowel sounds PALPATION: Yes Soft to palpation, No Tenderness to palpation present (GI), No Guarding due to palpation present (GI) and Yes No hepatosplenomegaly present Extremity: COMMON NORMALS: normal to inspection, capillary refill normal, no clubbing, cyanosis or edema, no calf tenderness and no pedal edema Neuro: SENSORIUM/ORIENTATION: Yes oriented to person, Yes oriented to place a nd Yes oriented to time OTHER: Patient records decrease sensation when testing his sensation on his cheeks but equal on his forehead decreased COVID right hand compared to the left hand. Skin: COMMON NORMALS: no rashes or lesions noted GENERAL SKIN EXAM: no rashes or lesions noted Course Vital Signs: Vital signs: Vital Signs Temperature 98.1 F 06/05/22 06:45 Pulse Rate 67 06/05/22 08:15 Respiratory Rate 9 L 06/05/22 08:15 Blood Pressure 112/70 06/05/22 08:15 Pulse Oximetry 98 06/05/22 08:15 Oxygen Delivery Me thod 06/05/22 07:30 MDM - Neuro Symptoms/Deficit Medical Decision Making Symptoms began yesterday at noon. Very limited. Most of his NIH score is a 1. 18 hours out from onset of symptoms. Blood sugar 328 which patient reports is normal for him he states he intentionally keeps it that high otherwise he does not feel well. When encouraged to maintain better blood pressure control patient expresses no interest. CT is negative. His only symptom is the essentially the numbness in the right hand which is unchanged. He has no ataxia no weakness. He was previously on a spirin and statin but is not taking it. We will restart aspirin and clopidogrel for dual platelet therapy therapy atorvastatin 40 mg daily set up outpatient MRI echocardiogram and Holter monitor follow-up with neurology. Medical Records I reviewed the patient's medical records. Lab Data I reviewed the patient's lab results. 06/05/22 06:50 06/05/22 06:[address] 06/05/22 06:57 IMPRESSION: No evidence of acute intracranial abnormality. ASSESSMENT: ASPECTS ([place] Stroke Program Early CT Score) is 10. Laboratory Results WBC 6.7 10^3/uL (4.0-10.0) 06/05/22 06:50 RBC 5.25 10^6/uL (4.1-5.3) 06/05/22 06:50 Hgb 14.9 g/dL (11.7-16.6) 06/05/22 06:50 Hct 45.5 % (42.0-52.0) 06/05/22 06:50 MCV 86.7 fl (80-94) 06/05/22 06:50 MCH 28.4 pg (28.0-34.0) 06/05/22 06:50 MCHC 32.7 g/dL (30.0-36.0) 06/05/22 06:50 RDW 13.2 % (12.1-15.1) 06/05/22 06:50 Plt Count 340 10^3/cmm (130-400) 06/05/22 06:50 MPV 10.6 fL (7.4-10.4) H 06/05/22 06:50 Neut % (Auto) 45.9 % 06/05/22 06:50 Lymph % (Auto) 37.8 % 06/05/22 06:50 Grimes % (Auto) 8.8 % 06/05/22 06:50 Eos % (Auto) 6.6 % 06/05/22 06:50 Baso % (Auto) 0.6 % 06/05/22 06:50 Neut # (Auto) 3.06 10^3/uL (1.8-7.7) 06/05/22 06:50 Lymph # (Auto) 2.5 10^3/uL (0.8-4.8) 06/05/22 06:50 Grimes # (Auto) 0.6 10^3/uL (0.2-0.9) 06/05/22 06:50 Eos # (Auto) 0.4 10^3/uL (0.0-0.8) 06/05/22 06:50 Baso # (Auto) 0.0 10^3/uL (0.0-0.1) 06/05/22 06:50 Nucleated RBC % (auto) 0 % 06/05/22 06:50 Nucleated RBCs # 0.0 /100WBC 06/05/22 06:50 PT 12.50 SECONDS (12.1-14.9) 06/05/22 06:50 INR 0.90 (0.8-1.2) 06/05/22 06:50 APTT 24.3 SECONDS (23.9-36.7) 06/05/22 06:50 Sodium 138 mmol/L (136-145) 06/05/22 06:50 Potassium 4.5 mmol/L (3.5-5.1) 06/05/22 06:50 Chloride 99 mmol/L (98-107) 06/05/22 06:50 Carbon Dioxide 28 mmol/L (22-29) 06/05/22 06:50 Anion Gap 15.5 (5-19) 06/05/22 06:50 BUN 20 mg/dL (6-20) 06/05/22 06:50 Creatinine 0.9 mg/dL (0.7-1.2) 06/05/22 06:50 GFR Calculation 91.3 mL/min (90-130) 06/05/22 06:50 Glucose 349 mg/dL (65-115) H 06/05/22 06:50 POC Glucose 328 mg/dL (70-110) H 06/05/22 06:52 Calculated Osmolality 303 mOsm/kg (285-295) H 06/05/22 06:50 Calcium 9.9 mg/dL (8.5-10.5) 06/05/22 06:50 Total Bilirubin 0.5 mg/dL (0.15-1.2) 06/05/22 06:50 AST 14 U/L (0-40) 06/05/22 06:50 ALT 15 U/L (0-41) 06/05/22 06:50 Alkaline Phosphatase 87 U/L (40-130) 06/05/22 06:50 Total Protein 7.1 g/dL (6.6-8.7) 06/05/22 06:50 Albumin 4.5 g/dL (3.5-5.2) 06/05/22 06:50 Globulin 2.6 g/dL (1.3-4.6) 06/05/22 06:50 Urine Color Yellow (Yellow) 06/05/22 08:00 Urine Appearance Clear (CLEAR) 06/05/22 08:00 Urine pH 5 (5-7) 06/05/22 08:00 Ur Specific [place] 1.020 (1.005-1.030) 06/05/22 08:00 Urine Protein Neg (Negative) 06/05/22 08:00 Urine Glucose (UA) 4+ (Normal) H 06/05/22 08:00 Urine Ketones 1+ (Negative) H 06/05/22 08:00 Urine Blood Neg (Negative) 06/05/22 08:00 Urine Nitrate Negative (Negative) 06/05/22 08:00 Urine Bilirubin Neg (Negative) 06/05/22 08:00 Urine Urobilinogen Norm mg/dL (Negative) 06/05/22 08:00 Ur Leukocyte Esterase Negative (Negative) 06/05/22 08:00 Urine Opiates Screen Negative ng/mL (Negative) 06/05/22 08:00 Ur Barbiturates Screen Negative ng/mL (Negative) 06/05/22 08:00 Ur Phencyclidine Scrn Negative ng/mL (Negative) 06/05/22 08:00 Ur Amphetamines Screen Negative ng/mL (Negative) 06/05/22 08:00 U Benzodiazepines Scrn Negative ng/mL (Negative) 06/05/22 08:00 Urine Cocaine Screen Negative ng/mL (Negative) 06/05/22 08:00 U Marijuana (THC) Screen Positive ng/mL (Negative) H 06/05/22 08:00 Discharge Plan Discharge Patient Disposition: Home Clinical Impression: TIA (transient ischemic attack), Diabetes mellitus type I Condition: Stable Prescriptions: New clopidogrel 75 mg tablet 75 mg PO DAILY Qty: 30 0RF atorvastatin 40 mg tablet 40 mg PO DAILY Qty: 30 0RF aspirin 81 mg tablet,delayed release (DR/EC) 81 mg PO DAILY Qty: 30 0RF No Action Novolin R Regular U-100 Insuln 100 unit/mL solution See Rx Instructions .ROUTE .COMPLEX Qty: 30 3RF Dose Instruction: INJECT 10 - 20 UNIT (0.1 - 0.2 ML) SUBCUTANEOUSLY THREE TIMES DAILY Rx Instructions: INJECT 10 - 20 UNIT (0.1 - 0.2 ML) SUBCUTANEOUSLY THREE TIMES DAILY Novolin 70/30 U-100 Insulin 100 unit/mL (70-30) suspension See Rx Instructions .ROUTE .COMPLEX Qty: 30 3RF Dose Instruction: INJECT 70-100 UNITS SUBCUTANEOUSLY EVERY DAY Rx Instructions: INJECT 70-100 UNITS SUBCUTANEOUSLY EVERY DAY Discharge Orders: Discharge ED (Routine); Ordered 06/05/22 Ordered By: James Phelps Referrals: Arely Holcomb DO [Primary Care Provider] - Discharge Diet: Usual diet Discharge Activity: Increase activity as tolerated Activity Restrictions/Additional Instructions: You were seen today for a TIA. Your symptoms have resolved your stroke score does not make you eligible for any kind of intervention at this point. Do recommend that you start Plavix and aspirin as dual antiplatelet therapy as well as atorvastatin. Case management make arrangements for you to have an outpatient MRI of the head echocardiogram and 48-hour Holter monitor in the after these to follow-up with neurology. Coding Level of Care Code ED Supervisor Waterworks for Nasima Fwmisty Exam Detailed
[2022-06-05 07:07] LABS: Basophils % 0.6 %; Eosinophils # 0.4 10^3/uL (0.0-0.8); Eosinophils % 6.6 %; Hematocrit 45.5 % (42.0-52.0); Hemoglobin 14.9 g/dL (11.7-16.6); Lymphocytes # 2.5 10^3/uL (0.8-4.8); Lymphocytes % 37.8 %; Mean Corpuscular HGB Conc 32.7 g/dL (30.0-36.0); Mean Corpuscular Hemoglobin 28.4 pg (28.0-34.0); Mean Corpuscular Volume 86.7 fl (80-94); Mean Platelet Volume 10.6 fL (7.4-10.4); Monocytes # 0.6 10^3/uL (0.2-0.9); Monocytes % 8.8 %; Neutrophils # 3.06 10^3/uL (1.8-7.7); Neutrophils % 45.9 %; Nucleated Red Blood Cells % 0 %; Platelet Count 340 10^3/cmm (130-400); Red Blood Count 5.25 10^6/uL (4.1-5.3); Red Cell Distribution Width 13.2 % (12.1-15.1); White Blood Count 6.7 10^3/uL (4.0-10.0)
[2022-06-05 07:18] LABS: Partial Thromboplastin Time 24.3 SECONDS (23.9-36.7)
[2022-06-05 07:22] LABS: Alanine Aminotransferase 15 U/L (0-41); Albumin Level 4.5 g/dL (3.5-5.2); Alkaline Phosphatase 87 U/L (40-130); Anion Gap 15.5 (5-19); Aspartate Amino Transferase 14 U/L (0-40); Blood Urea Nitrogen 20 mg/dL (6-20); Calcium 9.9 mg/dL (8.5-10.5); Carbon Dioxide 28 mmol/L (22-29); Chloride 99 mmol/L (98-107); Globulin 2.6 g/dL (1.3-4.6); Glomerular Filtration Rate 91.3 mL/min (90-130); Glucose 349 mg/dL (65-115); Osmolality Calculated 303 mOsm/kg (285-295); Potassium 4.5 mmol/L (3.5-5.1); Sodium 138 mmol/L (136-145); Total Bilirubin 0.5 mg/dL (0.15-1.2); Total Protein 7.1 g/dL (6.6-8.7)
[2022-06-05 08:05] LABS: Add Urine Microscopic? NO; Charge for UA Resulting for Rev
[2022-06-05 08:22] LABS: Urine Appearance Clear (CLEAR); Urine Color Yellow (Yellow); pH Urine 5 (5-7)
[2022-06-05 08:23] LABS: Bilirubin Urine Neg (Negative); Blood Urine Neg (Negative); Glucose Urine UA 4+ (Normal); Ketones Urine 1+ (Negative); Leukocyte Esterase Urine Negative (Negative); Nitrate Urine Negative (Negative); Protein Urine Neg (Negative); Urobilinogen Urine Norm (Negative)
[2022-06-05 08:32] LABS: Amphetamines Screen Urine Negative (Negative); Barbiturates Screen Urine Negative (Negative); Benzodiazepines Screen Urine Negative (Negative); Cocaine Screen Urine Negative (Negative); Opiate Screen Urine Negative (Negative); PCP Screen Urine Negative (Negative); THC Screen Urine Positive (Negative)
--- NOTE | 2022-06-05 10:57 | DCPLANNER ---
Addendum entered by Inessa Pugh 09/21/22 08:55: Patient did attend MRI and echo appointments that were scheduled. Addendum entered by Inessa Pugh 09/05/22 15:37: Patient has an MRI scheduled for Sunday, September 18, 2022 at 4:00 Patient has an echo scheduled for August at 9:45 Patient had an appointment scheduled for neurology - this appointment was rescheduled Patient had an appointment scheduled with heart care - patient did not attend appointment Addendum entered by Inessa Pugh 06/08/22 12:35: Patient has a follow up appointment scheduled for Monday, June 27, 2022 at 10:00. Clinic will call patient with appointment information. Patient has a follow up appointment scheduled for July at 10:[address] Miles at neurology. Clinic will call patient with appointment information. Original Note: inside sales territory manager had message to schedule a follow up appointment for patient with neurology. inside sales territory manager sent patients information to the front office staff at neurology. Patients information will be printed and reviewed. Clinic will call patient with appointment information. inside sales territory manager had message to schedule an outpatient MRI, echo cardiogram, and a 48 hour halter monitor. inside sales territory manager faxed signed orders to heart care and centralized scheduling, who will call patient with appointment information.
== END 2022-06-05 08:45 | disposition home or self-care (01) ==
PROVIDERS: Emergency Provider Family Medicine; PCP Family Medicine
DX: G45.9 Transient cerebral ischemic attack, unspecified (principal); E10.9 Type 1 diabetes mellitus without complications; Z79.4 Long term (current) use of insulin; F17.210 Nicotine dependence, cigarettes, uncomplicated
CPT/HCPCS: 36416; 70450; 80053; 80306; 81003; 82962; 85025; 85610; 85730; 93005; 99285

== ENCOUNTER 2022-09-18 15:07 | Outpatient (CLI) | payer MEDICAID, SELFPAY ==
--- NOTE | 2022-09-18 16:00 | MR_ITS ---
WS: [id number] MRI BRAIN WITHOUT CONTRAST HISTORY: right sided weakness COMPARISON: CT head 06/05/2022 TECHNIQUE: Diffusion imaging, multiplanar T1, T2 and FLAIR imaging obtained. No evidence for acute infarct or hemorrhage. Erickson-white matter differentiation is normal. No remote or acute infarcts are volume loss. Ventricles and extra-axial spaces are normal. No inferior displacement of cerebellar tonsils. The sella turcica and pituitary gland are unremarkabl e. Dural venous sinuses and [place] demonstrate no abnormality on this unenhanced studies. Paranasal sinuses: Clear. Mastoid air cells: Normal. Calvarium and scalp: Intact. MR/MR head wo con* [id number] IMPRESSION: 1. Unremarkable noncontrast MRI brain. 2. No evidence for an acute infarct or remote infarct. No significant atrophy.
== END 2022-09-18 15:08 | disposition home or self-care (01) ==
LOC: RAD 15:07
PROVIDERS: PCP Family Medicine; Visit Provider Family Medicine
DX: R53.1 Weakness (principal)
CPT/HCPCS: 70551; 80061; 82043; 83036

== ENCOUNTER 2022-09-20 09:12 | Outpatient (CLI) | payer MEDICAID, SELFPAY ==
--- NOTE | 2022-09-20 09:45 | USCV_ITS ---
Andrews Robins Age: 47 Gender: M : 1975 Exam Date: 09/20/2022 09:44 Ordering Phys: Arely Holcomb DO Technologist: Taco Fonseca Exam Location: [facility] – [place] Indication: Right side weakness BP: 136 / 74 HR: 76 Rhythm: Sinus Technical Quality: Adequate MEASUREMENTS (Male / Female) Normal Values 2D ECHO LV Diastolic Diameter PLAX 5.1 cm 4.2 - 5.9 / 3.9 - 5.3 cm LV Systolic Diameter PLAX 2.6 cm IVS Diastolic Thickness 0.5 cm 0.6 - 1.0 / 0.6 - 0.9 cm IVS Systolic Thickness 0.8 cm LVPW Diastolic Thickness 0.8 cm 0.6 - 1.0 / 0.6 - 0.9 cm LVPW Systolic Thickness 1.8 cm LVOT Diameter 2.0 cm LV Ejection Fraction 2D Teich 80.5 % LV Ejection Fraction MOD 2C 62.3 % LV Ejection Fraction 2C AL 63.6 % LA Diameter 3.0 cm LA Width 3.5 cm LA Height 3.9 cm RA Width 3.4 cm RA Height 4.4 cm Aorta at Sinotubular Diameter 2.4 cm IVC Diameter 1.3 cm M-MODE Aortic Annulus Diameter 2.9 cm LA Ao Ratio MM 1.1 MV E Point Septal Separation 0.4 cm DOPPLER AV Peak Velocity 118.3 cm/s LVOT Peak Velocity 111.0 cm/s AV Area Cont Eq vti 3.2 cm squared AV Area Cont Eq pk 2.9 cm squared MV Peak Velocity 98.0 cm/s MV Area PHT 3.5 cm squared Mitral E to A Ratio 1.3 MV E' Velocity 47.0 cm/s Mitral E to MV E' Ratio 5.8 Mitral E to LV E' Lateral Ratio 5.0 Mitral E to LV E' Septal Ratio 6.9 TR Peak Velocity 245.7 cm/s TR Peak Gradient 24.1 mmHg TR Mean Velocity 186.6 cm/s TR Mean Gradient 15.1 mmHg TR Velocity Time Integral 57.5 cm Right Atrial Pressure 3.0 mmHg Pulmonary Artery Systolic Pressu 27.1 mmHg FINDINGS Left Ventricle Left ventricle normal size. LV systolic function is normal with EF of 55 to 60%. No regional wall motion abnormalities are seen. Diastolic function is normal Right Ventricle Normal in size and function Right Atrium Normal in size Left Atrium Normal in size Mitral Valve Mild mitral annular calcification. Trace mitral regurgitation. Aortic Valve Structurally normal aortic valve. No significant stenosis or regurgitation. Tricuspid Valve Mild tricuspid regurgitation. Pulmonary artery systolic pressure is normal Pulmonic Valve Not well visualized Pericardium Normal Aorta Normal in size IVC Appears to be normal CONCLUSIONS LV systolic function is normal with EF of 55-60% Diastolic function is normal Trace mitral regurgitation Mild tricuspid regurgitation No comparison studies are available. Wan Griffin MD (Electronically Signed) Final Date: 30 September 2022 12:23 S
== END 2022-09-20 09:13 | disposition home or self-care (01) ==
LOC: RAD 09:14
PROVIDERS: PCP Family Medicine; Visit Provider Family Medicine
DX: R53.1 Weakness (principal); I08.1 Rheumatic disorders of both mitral and tricuspid valves
CPT/HCPCS: 93306

== ENCOUNTER 2022-11-03 12:27 | Emergency (ER) | payer MEDICAID, SELFPAY ==
[2022-11-03 12:28] VITALS: BP 129/87; PULSE 96; RESP 15; O2SAT 98; BMI 19.8
--- NOTE | 2022-11-03 12:38 | W.ED.EXTPRO ---
HPI - Extremity Problem General: Chief complaint: Extremity Problem,Nontraumatic Stated complaint: RIGHT ARM PAIN Time Seen by Provider: 11/03/22 12:29 Source: patient Mode of arrival: EMS History of Present Illness: 47-year-old male presents emergency room with a knot in the medial distal aspect of his right upper arm just proximal to the medial epicondyle of the elbow. States he woke up with it. He is moderately tender. Cannot recall any specific injury. Onset (ago): hour(s) Location: right Quality: aching Relieving factors: nothing Exacerbating factors: palpation Associated symptoms: Deny chest pain, fever(s) or rash Review of Systems Const: Denies: fever(s) or chills Card: Denies: chest pain Resp: Denies: dyspnea, productive cough or non-productive cough GI: Denies: abdominal pain, nausea or vomiting Skin/Breast: Denies: rash or pruritus [facility] ED PFSH: Medical History Diabetes mellitus type I Surgical History H/O hernia repair Umbilical Social History Smoking and tobacco status: current every day smoker cigarettes Packs smoked per day: 1 Alcohol intake: former Substance/Drug Use: former Physical Exam Const: COMMON NORMALS: no acute distress GENERAL APPEARANCE: cooperative and comfortable ORIENTATION/CONSCIOUSNESS: Yes awake, Yes oriented to person, Yes oriented to place and Yes oriented to time HENMT: COMMON NORMALS: normocephalic, atraumatic and hearing grossly normal bilaterally HEAD & SCALP: normocephalic and atraumatic Resp: COMMON NORMALS: normal respiratory effort, No retractions, No use of accessory muscles and clear to auscultation bilaterally AUSCULTATION: clear to auscultation bilaterally Cardio: COMMON NORMALS: regular rate, regular rhythm and No murmurs present (Cardio) RATE: regular rate RHYTHM: regular rhythm Extremity: COMMON NORMALS: capillary refill normal, no clubbing, cyanosis or edema, no calf tenderness and no pedal edema OTHER: Tender superficial nodule in a vein in medial aspect of the right arm just proximal to the medial epicondyle. There are some bruising surrounding it no swelling of the arm. Peripheral pulses sensation normal Neuro: SENSORIUM/ORIENTATION: Yes oriented to person, Yes oriented to place and Yes oriented to time Skin: COMMON NORMALS: no rashes or lesions noted GENERAL SKIN EXAM: no rashes or lesions noted Course Vital Signs: Vital signs: Vital Signs Pulse Rate 96 11/03/22 12:28 Respiratory Rate 15 11/03/22 12:28 Blood Pressure 129/87 11/03/22 12:28 Pulse Oximetry 98 11/03/22 12:28 Oxygen Delivery Me thod Room Air 11/03/22 12:28 MDM - Extremity (Nontraumatic) Medical Decision Making Very focal superficial thrombophlebitis apply heat anti-inflammatories as needed follow-up as needed. No evidence of deep vein thrombosis no symptoms suggestive of PE or localized cellulitis at that area. Medical Records I reviewed the patient's medical records. Lab Data I reviewed the patient's lab results. Discharge Plan Discharge Patient Disposition: Home Clinical Impression: Superficial thrombophlebitis of arm Condition: Stable Prescriptions: New diclofenac sodium 75 mg tablet,delayed release (DR/EC) 75 mg PO Q12H PRN (Reason: pain) Qty: 20 0RF No Action (DME) Dexcom G6 Sensor Device See Rx Instructions .ROUTE .MEDSUPPLY Qty: 9 3RF Rx Instructions: change every 10 days (DME) Dexcom G6 Compressor Engineer Misc See Rx Instructions .ROUTE .MEDSUPPLY Qty: 1 3RF Rx Instructions: once a year (DME) Dexcom G6 Transmitter Device See Rx Instructions .ROUTE .MEDSUPPLY Qty: 2 3RF Rx Instructions: change every 3 months clopidogrel 75 mg tablet 75 mg PO DAILY Qty: 90 1RF atorvastatin 40 mg tablet 40 mg PO DAILY Qty: 90 1RF Novolin 70/30 U-100 Insulin 100 unit/mL (70-30) suspension See Rx Instructions .ROUTE .COMPLEX Qty: 30 3RF Dose Instruction: INJECT 70-100 UNITS SUBCUTANEOUSLY EVERY DAY Rx Instructions: INJECT 70-100 UNITS SUBCUTANEOUSLY EVERY DAY Novolin R Regular U-100 Insuln 100 unit/mL solution See Rx Instructions .ROUTE .COMPLEX Qty: 30 3RF Dose Instruction: INJECT 10 - 20 UNIT (0.1 - 0.2 ML) SUBCUTANEOUSLY THREE TIMES DAILY Rx Instructions: INJECT 10 - 20 UNIT (0.1 - 0.2 ML) SUBCUTANEOUSLY THREE TIMES DAILY (DME) insulin syringe-needle U-100 [UltiCare] 1 mL 30 gauge x 1/2 syringe See Rx Instructions .Route Qty: 100 0RF Rx Instructions: As directed with insulin lisinopril 2.5 mg tablet 2.5 mg PO QAM Qty: 90 1RF ondansetron 8 mg tablet,disintegrating See Rx Instructions .ROUTE .COMPLEX Qty: 15 0RF Dose Instruction: DISSOLVE ONE TABLET UNDER THE TONGUE EVERY 8 HOURS as needed for FOR NAUSEA AND VOMITING Rx Instructions: DISSOLVE ONE TABLET UNDER THE TONGUE EVERY 8 HOURS as needed for FOR NAUSEA AND VOMITING aspirin 81 mg tablet,delayed release (DR/EC) 81 mg PO DAILY Qty: 30 0RF Discharge Orders: Discharge ED (Routine); Ordered 11/03/22 Ordered By: James Phelps Referrals: Arely Holcomb DO [Primary Care Provider] - Discharge Diet: Usual diet Discharge Activity: Resume usual activity Patient Instructions: Superficial Thrombophlebitis (ED), Opioid Safety, Pain Management Coding Level of Care Code ED Storekeeper Steward for Nasima Odom
== END 2022-11-03 13:07 | disposition home or self-care (01) ==
PROVIDERS: Emergency Provider Family Medicine; PCP Family Medicine
DX: I80.8 Phlebitis and thrombophlebitis of other sites (principal); Z79.82 Long term (current) use of aspirin; Z79.02 Long term (current) use of antithrombotics/antiplatelets; Z79.4 Long term (current) use of insulin; E10.9 Type 1 diabetes mellitus without complications; F17.210 Nicotine dependence, cigarettes, uncomplicated
CPT/HCPCS: 99283

== ENCOUNTER 2022-12-16 12:39 | Inpatient (IN) | payer MEDICAID, SELFPAY ==
[2022-12-16] VITALS (36 sets, daily range): BP systolic 90–177; BP diastolic 62–89; PULSE 66–99; RESP 14–32; TEMP 36.5–36.8; O2SAT 86–100; BMI 19.8
--- NOTE | 2022-12-16 12:44 | ED_ITS ---
HPI - General Adult General: Chief complaint: Recheck/Abnormal Lab/Rx Stated complaint: HYPERGLYCEMIA Time Seen by Provider: 12/16/22 12:43 History of Present Illness: Mr. Robins is a 47-year-old gentleman with history of type 1 diabetes presented to the emergency department for concern for high blood sugar. He notes last insulin yesterday at 10 or 11 AM. He apparently only had access to his 70/30 insulin in assisted and was noted to be hyperglycemic. He notes thirst and increased urination as well as generalized malaise with some nausea vomiting. Intensity symptoms is moderate. Course has worsened. No other specific changes in health, exacerbating, or alleviating factors identified. Onset (ago): day(s) Severity: moderate Associated symptoms: Reports malaise, nausea and other Review of Systems General: Reports: 10 or more systems reviewed and unremarkable except in HPI and below Const: Reports: malaise GI: Reports: nausea PFSH ED PFSH: Medical History Diabetes mellitus type I Erectile dysfunction Nicotine dependence, cigarettes, with unspecified nicotine-induced disorders TIA (transient ischemic attack) Surgical History H/O hernia repair Umbilical Social History Smoking and tobacco status: current every day smoker cigarettes Packs smoked per day: 1 Alcohol intake: former Substance/Drug Use: former Physical Exam Const: COMMON NORMALS: alert GENERAL APPEARANCE: cooperative and well developed HENMT: COMMON NORMALS: normocephalic and atraumatic HEAD & SCALP: normocephalic and atraumatic Eye: COMMON NORMALS: conjunctivae normal CONJUNCTIVA: Yes conjunctivae normal SCLERA: sclerae normal Neck/C-Spine: COMMON NORMALS: supple GENERAL: Yes trachea midline Resp: COMMON NORMALS: clear to auscultation bilaterally EFFORT & INSPECTION : Yes able to speak in complete sentences AUSCULTATION: clear to auscultation bilaterally Cardio: COMMON NORMALS: regular rate and regular rhythm RATE: regular rate RHYTHM: regular rhythm GI: COMMON NORMALS: Soft to palpation PALPATION: Yes Soft to palpation and No Tenderness to palpation present (GI) Extremity: GENERAL: Yes normal exam except as noted and No edema Neuro: COMMON NORMALS: moves all extremities SENSORIUM/ORIENTATION: Yes alert and No Orientation impaired Psych: COMMON NORMALS: mental status grossly normal and Normal thought process present THOUGHT PROCESS: Normal thought process present Skin: NARRATIVE SKIN EXAM: Numerous picked at skin lesions Course Vital Signs: Vital signs: Vital Signs Temperature 98.2 F 12/16/22 21:00 Pulse Rate 78 12/17/22 11:35 Respiratory Rate 20 H 12/17/22 09:15 Blood Pressure 138/87 12/17/22 09:15 Pulse Oximetry 99 12/17/22 11:35 Oxygen Delivery Me thod Room Air 12/17/22 09:56 MDM - General Adult Medical Decision Making 47-year-old gentleman presenting via law enforcement for concerns over hyperglycemia. Somewhat ill on appearance though nontoxic. Labs with essentially unremarkable hematologic panel. Metabolic panel with significant derangement related to hyperglycemia likely diabetic ketoacidosis though pH is maintained. Ketones positive. No indication for imaging Patient treated with IV fluids and initiated on insulin drip. Antiemetic given. The results of ED evaluation were discussed with the patient including plan for admission due to requirement for level of care not available if discharged to prevent significant worsening/deterioration. Patient agreeable with plan. Discussed with hospitalist service who was agreeable to admit patient. Medical Records I reviewed the patient's medical records. Lab Data I reviewed the patient's lab results. 12/17/22 01:56 12/17/22 10:20 Laboratory Results WBC 7.7 10^3/uL (4.0-10.0) 12/16/22 12:12 RBC 4.50 10^6/uL (4.1-5.3) 12/16/22 12:12 Hgb 13.0 g/dL (11.7-16.6) 12/16/22 12:12 Hct 38.8 % (42.0-52.0) L 12/16/22 12:12 MCV 86.2 fl (80-94) 12/16/22 12:12 MCH 28.9 pg (28.0-34.0) 12/16/22 12:12 MCHC 33.5 g/dL (30.0-36.0) 12/16/22 12:12 RDW 13.0 % (12.1-15.1) 12/16/22 12:12 Plt Count 266 10^3/cmm (130-400) 12/16/22 12:12 MPV 10.9 fL (7.4-10.4) H 12/16/22 12:12 Neut % (Auto) 68.8 % 12/16/22 12:12 Lymph % (Auto) 20.3 % 12/16/22 12:12 [place] % (Auto) 7.1 % 12/16/22 12:12 Eos % (Auto) 3.0 % 12/16/22 12:12 Baso % (Auto) 0.5 % 12/16/22 12:12 Neut # (Auto) 5.32 10^3/uL (1.8-7.7) 12/16/22 12:12 Lymph # (Auto) 1.6 10^3/uL (0.8-4.8) 12/16/22 12:12 [place] # (Auto) 0.6 10^3/uL (0.2-0.9) 12/16/22 12:12 Eos # (Auto) 0.2 10^3/uL (0.0-0.8) 12/16/22 12:12 Baso # (Auto) 0.0 10^3/uL (0.0-0.1) 12/16/22 12:12 Nucleated RBC % (auto) 0 % 12/16/22 12:12 Nucleated RBCs # 0.0 /100WBC 12/16/22 12:12 Specimen Type Arterial 12/16/22 13:02 Sample Site Radial, right 12/16/22 13:02 ABG pH 7.36 (7.35-7.45) 12/16/22 13:02 ABG pCO2 34.7 mmHg (35-45) L 12/16/22 13:02 ABG pO2 109.0 mmHg (80.0-100.0) H 12/16/22 13:02 ABG HCO3 19.6 mmol/L (22-26) L 12/16/22 13:02 ABG Base Excess -5.1 mmol/L (-2.0-2.0) L 12/16/22 13:02 Brady Test Pos 12/16/22 13:02 Hematocrit 39.2 % (42-52) L 12/16/22 13:02 O2 Delivery Device Room air 12/16/22 13:02 FiO2 21.0 % 12/16/22 13:02 Correctional Substance Abuse Counselor ID Monro 12/16/22 13:02 Sodium 125 mmol/L (136-145) L 12/16/22 12:12 Potassium 5.6 mmol/L (3.5-5.1) H 12/16/22 12:12 Chloride 88 mmol/L (98-107) L 12/16/22 12:12 Carbon Dioxide 17 mmol/L (22-29) L 12/16/22 12:12 Anion Gap 25.6 (5-19) H 12/16/22 12:12 BUN 38 mg/dL (6-20) H 12/16/22 12:12 Creatinine 1.3 mg/dL (0.7-1.2) H 12/16/22 12:12 GFR Calculation 59.7 mL/min (90-130) L 12/16/22 12:12 Glucose 725 mg/dL (65-115) H* 12/16/22 12:12 POC Glucose > 600 mg/dL (70-110) H* 12/16/22 12:42 Calculated Osmolality 304 mOsm/kg (285-295) H 12/16/22 12:12 Lactic Acid 1.8 mmol/L (0.5-2.2) 12/16/22 12:12 Calcium 9.3 mg/dL (8.5-10.5) 12/16/22 12:12 Total Bilirubin 0.7 mg/dL (0.15-1.2) 12/16/22 12:12 AST 28 U/L (0-40) 12/16/22 12:12 ALT 51 U/L (0-41) H 12/16/22 12:12 Alkaline Phosphatase 139 U/L (40-130) H 12/16/22 12:12 Total Protein 6.6 g/dL (6.6-8.7) 12/16/22 12:12 Albumin 4.2 g/dL (3.5-5.2) 12/16/22 12:12 Globulin 2.4 g/dL (1.3-4.6) 12/16/22 12:12 Urine Color Straw (Yellow) 12/16/22 13:30 Urine Appearance Clear (CLEAR) 12/16/22 13:30 Urine pH 5 (5-7) 12/16/22 13:30 Ur Specific [place] 1.005 (1.005-1.030) 12/16/22 13:30 Urine Protein Neg (Negative) 12/16/22 13:30 Urine Glucose (UA) 4+ (Normal) H 12/16/22 13:30 Urine Ketones 2+ (Negative) H 12/16/22 13:30 Urine Blood Neg (Negative) 12/16/22 13:30 Urine Nitrate Negative (Negative) 12/16/22 13:30 Urine Bilirubin Neg (Negative) 12/16/22 13:30 Urine Urobilinogen Norm mg/dL (Negative) 12/16/22 13:30 Ur Leukocyte Esterase Negative (Negative) 12/16/22 13:30 Serum Ketones Positive (Negative) H 12/16/22 12:12 Critical Care Time Critical Care Time: Critical Care Time: Yes Total Critical Care Time: 32 Attestation: Due to a high probability of clinically significant, possibly life threatening deterioration, the patient required my highest level of attention and preparedness to intervene emergently and I personally spent this critical care time directly and personally managing the patient. This critical care time included obtaining a history; examining the patient; pulse oximetry; ordering and review of laboratory and imaging studies; arranging urgent treatment with development of a management plan; evaluation of patient's response to treatment; frequent reassessment; and, discussions with other providers as applicable. It was exclusive of separately billable procedures. Primary system involved is metabolic. Discharge Plan Discharge Patient Disposition: Placed in Observation Admit Provider: Phil Gusman Clinical Impression: DKA (diabetic ketoacidosis) Discharge Diet: Cardiac and Diabetic Discharge Activity: Resume usual activity Coding Level of Care Code ED Bilingual Teacher Assistant for Nasima Odom
[2022-12-16 12:45] LABS: Glucose Point of Care > 600 mg/dL (70-110)
[2022-12-16] MEDS: sodium chloride 0.9% 1,000 ML 999 ML IV (13:07)
[2022-12-16 13:09] LABS: Basophils % 0.5 %; Eosinophils # 0.2 10^3/uL (0.0-0.8); Hematocrit 38.8 % (42.0-52.0); Lymphocytes # 1.6 10^3/uL (0.8-4.8); Lymphocytes % 20.3 %; Mean Corpuscular HGB Conc 33.5 g/dL (30.0-36.0); Mean Corpuscular Hemoglobin 28.9 pg (28.0-34.0); Mean Corpuscular Volume 86.2 fl (80-94); Mean Platelet Volume 10.9 fL (7.4-10.4); Monocytes # 0.6 10^3/uL (0.2-0.9); Monocytes % 7.1 %; Neutrophils # 5.32 10^3/uL (1.8-7.7); Neutrophils % 68.8 %; Nucleated Red Blood Cells % 0 %; Platelet Count 266 10^3/cmm (130-400); White Blood Count 7.7 10^3/uL (4.0-10.0)
[2022-12-16 13:13] LABS: Ketone (Acetest) Serum Positive (Negative)
[2022-12-16 13:16] LABS: ABG PCO2 34.7 mmHg (35-45); ABG PH Result 7.36 (7.35-7.45); Arterial Blood Gas Hematocrit 39.2 % (42-52); Base Excess ABG -5.1 mmol/L (-2.0-2.0); Blood Gas Allen Test Pos; Blood Gas Operator Identificat MONRO; Blood Gas Sample Site Radial, right; Blood Gas Sample Type Arterial; HCO3 ABG 19.6 mmol/L (22-26); Oxygen Device ROOM AIR
[2022-12-16] MEDS: ondansetron 2 mg/ML SDV 2 mL 4 MG IVP (13:21)
[2022-12-16 13:33] LABS: Alanine Aminotransferase 51 U/L (0-41); Albumin Level 4.2 g/dL (3.5-5.2); Alkaline Phosphatase 139 U/L (40-130); Aspartate Amino Transferase 28 U/L (0-40); Blood Urea Nitrogen 38 mg/dL (6-20); Calcium 9.3 mg/dL (8.5-10.5); Carbon Dioxide 17 mmol/L (22-29); Chloride 88 mmol/L (98-107); Globulin 2.4 g/dL (1.3-4.6); Glomerular Filtration Rate 59.7 mL/min (90-130); Osmolality Calculated 304 mOsm/kg (285-295); Sodium 125 mmol/L (136-145); Total Bilirubin 0.7 mg/dL (0.15-1.2); Total Protein 6.6 g/dL (6.6-8.7)
[2022-12-16 13:37] LABS: Anion Gap 25.6 (5-19); Potassium 5.6 mmol/L (3.5-5.1)
[2022-12-16 13:38] LABS: Glucose 725 mg/dL (65-115)
[2022-12-16] MEDS: insulin regular-human 250 UNIT in sodium chloride 0.9% 250 ML 19.95 UNIT IV (14:07)
[2022-12-16 14:36] LABS: Lactic Sepsis W/Reflex 1.8 mmol/L (0.5-2.2)
[2022-12-16 14:44] LABS: Add Urine Microscopic? NO; Charge for UA Resulting for Rev
[2022-12-16] MEDS: heparin 5,000 unit/mL INJ 1 mL 5000 UNIT SUBCUT (14:53)
[2022-12-16] MEDS: sodium chloride 0.9% 1,000 ML 125 ML IV (14:53)
[2022-12-16] MEDS: insulin regular-human 250 UNIT in sodium chloride 0.9% 250 ML 6.06 UNIT IV (15:00)
[2022-12-16 15:05] LABS: Glucose Point of Care 513 mg/dL (70-110)
[2022-12-16 15:08] LABS: Bilirubin Urine Neg (Negative); Blood Urine Neg (Negative); Glucose Urine UA 4+ (Normal); Ketones Urine 2+ (Negative); Leukocyte Esterase Urine Negative (Negative); Nitrate Urine Negative (Negative); Protein Urine Neg (Negative); Specific Gravity, Urine 1.005 (1.005-1.030); Urine Appearance Clear (CLEAR); Urine Color Straw (Yellow); Urobilinogen Urine Norm (Negative); pH Urine 5 (5-7)
--- NOTE | 2022-12-16 15:22 | P.HP_ITS ---
Providers/Chief Complaint Admitting Physician: Phil Gusman MD Primary Care Provider: Arely Holcomb DO Chief Complaint: HYPERGLYCEMIA History of Present Illness Andrews Robins is a 47 year old male with past medical history of type 1 diabetes mellitus, TIA who follows up with endocrinology with last appointment on October 23. Patient is supposed to be on sliding scale and NovoLog 70/30. As per the history patient was incarcerated yesterday and has not been taking his insulin since then. Today started having abdominal pain with mild nausea so came to the ER. In the ER he was found to have diabetic ketoacidosis. He was given 2 L of IV fluids and DKA protocol has been ordered but not yet started. Review of Systems 2 General: Reports: 10 or more systems reviewed and unremarkable except in HPI and below Const: Denies: fever(s), chills, body aches, change in appetite, change in weight, malaise, night sweats, diaphoresis, change in sleep pattern, daytime sl eepiness or snoring Eyes: Denies: change in vision, blurry vision, photophobia, eye discomfort or eye discharge ENMT: Denies: throat pain, enlarged tonsils, hoarseness, mouth pain, oral sores, dry mouth, tinnitus, nasal congestion or post nasal drip Card: Denies: chest pain, palpitations, irregular heart rhythm, edema, swelling of feet/ankles, lightheadedness, syncope, pre-syncope, dyspnea on exertion, orthopnea, leg pain with exertion or acrocyanosis Resp: Denies: dyspnea, productive cough, non-productive cough, wheezing, stridor, pain on inspiration, change in phlegm color, hemoptysis or chest congestion GI: Denies: abdominal pain, nausea, vomiting, hematemesis, coffee ground emesis, dysphagia, heartburn, diarrhea, constipation, bloating, GI cramping, change in bowel habits, pain on defecation, hematochezia or melena : Denies: flank pain, difficulty urinating, dysuria, urinary frequency, urinary urgency, urinary hesitancy, urinary dribbling, difficulty starting urination, change in urine stream, nocturia or hematuria Musc: Denies: neck pain, back pain, extremity pain, joint pain, joint swelling, joint redness, joint stiffness or limited range of motion Neuro: Denies: headache(s), numbness in extremities, weakness in extremities, sensory changes, lack of coordination, difficulty walking, frequent falls, dizziness, vertigo, confusion, Slurred speech present, difficulty communicating thoughts or seizure-like activity Psych: Denies: anxiety, depression, mood swings, panic attacks, hopelessness or irritability Endo: Denies: polyuria, polydipsia, tired all the time, cold intolerance, excessive sweating, flushing or heat intolerance Walter/Lymph: Denies: easy bruising or easy bleeding All/Imm: Denies: tongue swelling, facial swelling or acute wheezing Medications/Allergies Home Medications Medication Instructions Recorded Confirmed Last Taken Type aspirin 81 mg tablet,delayed 81 mg PO DAILY #30 tabs 06/05/22 12/16/22 Unknown Rx release atorvastatin 40 mg tablet 40 mg PO DAILY #90 tabs 08/24/22 12/16/22 Unknown Rx clopidogrel 75 mg tablet 75 mg PO DAILY #90 tabs 08/24/22 12/16/22 Unknown Rx insulin human U-100 NPH-regulr See Rx Instructions .Route 08/24/22 12/16/22 Unknown Rx 70-30 mix 100 unit/mL subcutaneous .COMPLEX #30 mL susp (Novolin 70/30 U-100 Insulin) lisinopril 2.5 mg tablet 2.5 mg PO QAM #90 tabs 08/26/22 12/16/22 Unknown Rx blood-glucose meter,continuous #1 ea 10/23/22 12/16/22 Unknown Rx (Dexcom G6 Bss Solution Architect) blood-glucose sensor (Dexcom G6 #9 ea 10/23/22 12/16/22 Unknown Rx Sensor device) blood-glucose transmitter (Dexcom #2 ea 10/23/22 12/16/22 Unknown Rx G6 Transmitter device) ondansetron 8 mg disintegrating See Rx Instructions .Route 11/16/22 12/16/22 Unknown Rx tablet .COMPLEX #15 tabs insulin syringe-needle U-100 1 mL #100 ea 12/11/22 12/16/22 Unknown Rx 31 gauge x 5/16 (BD Insulin Syringe Ultra-Fine) insulin regular human 100 unit/mL 10 - 20 unit SUBCUT TID 12/16/22 12/16/22 Unknown History injection solution (Novolin R Regular U-100 Insulin) Allergies Allergy/AdvReac Type Severity Reaction Status Date / Time famotidine [From Pepcid] Allergy Unconscious Verified 12/16/22 14:20 omeprazole [From Prilosec] Allergy Unconscious Verified 12/16/22 14:20 PFSH Acute PFSH: Medical History (Updated 12/16/22 @ 15:23 by Phil Gusman MD) Diabetes mellitus type I Erectile dysfunction Nicotine dependence, cigarettes, with unspecified nicotine-induced disorders TIA (transient ischemic attack) Surgical History H/O hernia repair Umbilical Social History Smoking and tobacco status: current every day smoker cigarettes Packs smoked per day: 1 Alcohol intake: former Substance/Drug Use: former Vitals/I&O/Wt Last Vital Signs Temp 97.7 F 12/16/22 12:41 Pulse 86 12/16/22 14:42 Resp 18 12/16/22 14:42 BP 127/88 12/16/22 14:42 Pulse Ox 100 12/16/22 14:42 O2 Del Method Room Air 12/16/22 14:42 Weight last 48 hrs Weight 68.039 kg Physical Exam Narrative: General: No acute distress, drowsy, AOx3 on waking up HEENT: PERRLA, pupils bilaterally equal and reactive Chest: Normal vesicular breath sounds, no added sounds, equal good air entry bilaterally CVS: S1-S2 regular, no murmurs, no tachycardia, no gallops, no rubs Abdomen: Soft, nontender, no organomegaly, bowel sounds present Neuro: No focal deficits, no facial deformity, moving all limbs Data 12/16/22 12:12 12/16/22 12:12 A&P Assessment and plan (1) DKA (diabetic ketoacidosis): Insulin drip with target blood glucose of less than 250. Normal saline at 100 cc/h. If blood glucose drops less than 200 we will start on D5 NS. Maintain potassium over 4. If less than 4 can add 20 mEq of potassium to the fluid. BMP every 4 hour. N.p.o. after midnight. Recent A1c 12.9 in August. Once anion gap is closed can switch to insulin sliding scale while continuing normal saline and start on carb consistent diet. (2) Hyperlipemia, mixed: Continue home dose of atorvastatin. Plan Hypertension: Goal blood pressure less than 140/90 mmHg. Patient is supposed to be on lisinopril 2.5 mg oral daily. We will continue to monitor blood pressures and restart accordingly. Full code. NPO. Cannot start on PUD prophylaxis as patient is allergic to both famotidine and omeprazole. Heparin for DVT prophylaxis. Attestations Medical Necessity Statement*: Admission for more than 2 midnights for management of diabetic ketoacidosis with baseline type 1 diabetes Coding Level of Care Code Critical Care >/= 30 minutes Critical care time (in minutes): 50 The high probability of a clinically significant, sudden or life threatening deterioration, as referenced in this documentation, required my full and direct attention, intervention and personal management. The critical care time shown is in addition to time spent performing any reported separately billable procedures and includes the following: [x] Data and vital sign review and interpretation [x ] Patient assessment, examination and intervention [x] Medication orders and management [x] Patient/Family updates as able [x] Care Coordination and Documentation. Diagnoses DKA (diabetic ketoacidosis) E11.10 Hyperlipemia, mixed E78.2
[2022-12-16 15:50] LABS: Anion Gap 21.3 (5-19); Blood Urea Nitrogen 40 mg/dL (6-20); Carbon Dioxide 20 mmol/L (22-29); Chloride 96 mmol/L (98-107); Glomerular Filtration Rate 59.7 mL/min (90-130); Osmolality Calculated 310 mOsm/kg (285-295); Potassium 4.3 mmol/L (3.5-5.1); Sodium 133 mmol/L (136-145)
[2022-12-16 16:00] LABS: Thyroid Stimulating Hormone 1.09 uIU/mL (0.27-4.20)
[2022-12-16 16:01] LABS: Glucose 538 mg/dL (65-115)
[2022-12-16 16:03] LABS: Glucose Point of Care 468 mg/dL (70-110)
[2022-12-16 16:58] LABS: Glucose Point of Care 317 mg/dL (70-110)
[2022-12-16 18:14] LABS: Glucose Point of Care 213 mg/dL (70-110)
[2022-12-16] MEDS: dextrose 5%-ns + KCl 20 20 MEQ/1,000 ML BAG 100 MEQ IV (18:22)
[2022-12-16 18:36] LABS: Blood Urea Nitrogen 35 mg/dL (6-20); Carbon Dioxide 23 mmol/L (22-29); Chloride 104 mmol/L (98-107); Glomerular Filtration Rate 91.3 mL/min (90-130); Glucose 218 mg/dL (65-115); Osmolality Calculated 299 mOsm/kg (285-295); Sodium 137 mmol/L (136-145)
[2022-12-16 18:58] LABS: Glucose Point of Care 139 mg/dL (70-110)
[2022-12-16 20:07] LABS: Glucose Point of Care 137 mg/dL (70-110)
[2022-12-16] MEDS: insulin glargine 100 units/1 mL 10 UNIT SUBCUT (20:26)
[2022-12-16 21:05] LABS: Glucose Point of Care 186 mg/dL (70-110)
[2022-12-16 22:18] LABS: Glucose Point of Care 260 mg/dL (70-110)
[2022-12-16 22:46] LABS: Anion Gap 13.9 (5-19); Blood Urea Nitrogen 33 mg/dL (6-20); Calcium 9.1 mg/dL (8.5-10.5); Carbon Dioxide 27 mmol/L (22-29); Chloride 102 mmol/L (98-107); Glomerular Filtration Rate 104.5 mL/min (90-130); Glucose 275 mg/dL (65-115); Osmolality Calculated 303 mOsm/kg (285-295); Potassium 4.9 mmol/L (3.5-5.1); Sodium 138 mmol/L (136-145)
[2022-12-16 23:45] LABS: Glucose Point of Care 293 mg/dL (70-110)
[2022-12-17] VITALS (36 sets, daily range): BP systolic 95–154; BP diastolic 56–123; PULSE 60–121; RESP 11–28; O2SAT 95–100
[2022-12-17 01:27] LABS: Glucose Point of Care 318 mg/dL (70-110)
[2022-12-17 02:07] LABS: Basophils % 0.5 %; Eosinophils # 0.3 10^3/uL (0.0-0.8); Eosinophils % 5.1 %; Hematocrit 39.5 % (42.0-52.0); Hemoglobin 12.9 g/dL (11.7-16.6); Lymphocytes # 2.6 10^3/uL (0.8-4.8); Lymphocytes % 41.6 %; Mean Corpuscular HGB Conc 32.7 g/dL (30.0-36.0); Mean Corpuscular Hemoglobin 27.9 pg (28.0-34.0); Mean Corpuscular Volume 85.3 fl (80-94); Mean Platelet Volume 10.4 fL (7.4-10.4); Monocytes # 0.4 10^3/uL (0.2-0.9); Monocytes % 6.3 %; Neutrophils # 2.93 10^3/uL (1.8-7.7); Neutrophils % 46.3 %; Nucleated Red Blood Cells % 0 %; Platelet Count 271 10^3/cmm (130-400); Red Blood Count 4.63 10^6/uL (4.1-5.3); Red Cell Distribution Width 12.9 % (12.1-15.1); White Blood Count 6.3 10^3/uL (4.0-10.0)
[2022-12-17] MEDS: heparin 5,000 unit/mL INJ 1 mL 5000 UNIT SUBCUT (02:07)
[2022-12-17] MEDS: insulin lispro 100 unit/1 mL 10 UNIT SUBCUT (02:07)
[2022-12-17 02:21] LABS: Alanine Aminotransferase 43 U/L (0-41); Albumin Level 3.8 g/dL (3.5-5.2); Alkaline Phosphatase 127 U/L (40-130); Anion Gap 11.6 (5-19); Aspartate Amino Transferase 20 U/L (0-40); Blood Urea Nitrogen 30 mg/dL (6-20); Calcium 9.2 mg/dL (8.5-10.5); Carbon Dioxide 29 mmol/L (22-29); Chloride 99 mmol/L (98-107); Globulin 2.3 g/dL (1.3-4.6); Glomerular Filtration Rate 104.5 mL/min (90-130); Glucose 282 mg/dL (65-115); Magnesium 2.1 mg/dL (1.7-2.3); Osmolality Calculated 296 mOsm/kg (285-295); Phosphorus 3.7 mg/dL (2.5-4.5); Potassium 4.6 mmol/L (3.5-5.1); Sodium 135 mmol/L (136-145); Total Bilirubin 0.3 mg/dL (0.15-1.2); Total Protein 6.1 g/dL (6.6-8.7)
[2022-12-17 02:22] LABS: Anion Gap 12.6 (5-19); Blood Urea Nitrogen 31 mg/dL (6-20); Calcium 9.3 mg/dL (8.5-10.5); Carbon Dioxide 29 mmol/L (22-29); Chloride 99 mmol/L (98-107); Glomerular Filtration Rate 104.5 mL/min (90-130); Glucose 286 mg/dL (65-115); Osmolality Calculated 299 mOsm/kg (285-295); Potassium 4.6 mmol/L (3.5-5.1); Sodium 136 mmol/L (136-145)
[2022-12-17 04:05] LABS: Glucose Point of Care 184 mg/dL (70-110)
[2022-12-17 05:20] LABS: Glucose Point of Care 126 mg/dL (70-110)
[2022-12-17 05:37] LABS: Anion Gap 9.9 (5-19); Blood Urea Nitrogen 28 mg/dL (6-20); Calcium 9.2 mg/dL (8.5-10.5); Carbon Dioxide 29 mmol/L (22-29); Chloride 104 mmol/L (98-107); Glucose 138 mg/dL (65-115); Osmolality Calculated 296 mOsm/kg (285-295); Potassium 3.9 mmol/L (3.5-5.1); Sodium 139 mmol/L (136-145)
[2022-12-17 07:19] LABS: Glucose Point of Care 202 mg/dL (70-110)
[2022-12-17] MEDS: aspirin 81 mg EC Tablet PO (08:23)
[2022-12-17] MEDS: clopidogrel 75 mg Tablet PO (08:23)
[2022-12-17] MEDS: atorvastatin 40 mg Tablet PO (08:23)
[2022-12-17] MEDS: insulin lispro 100 unit/1 mL SUBCUT ×2 (08:25→11:14)
--- NOTE | 2022-12-17 10:10 | P.DS_ITS ---
Discharge Providers Date of Admission: 12/16/22 13:47 Date of Discharge: December 17, 2022 Attending Provider at Admission: Phil Gusman MD Attending Provider at Discharge: Karuna Carrion MD Primary Care Provider: Arely Holcomb DO Diagnoses at Discharge Discharge Diagnosis (1) DKA (diabetic ketoacidosis): Status: Acute (2) Hyperlipemia, mixed: Status: Acute Reason for Visit Reason for Visit: HYPERGLYCEMIA Hospital Course Hospital Course 47 year old male with past medical history of type 1 diabetes mellitus, TIA who follows up with endocrinology with last appointment on October 23.?Patient is supposed to be on regular insulin sliding scale and NovoLog 70/30. As per the history patient was incarcerated yesterday and has not been taking his insulin since then. At [facility] his blood sugar was found to be hi on glucometer (>600). In the ER he was found to be in DKA. He received treatment with insulin drip per DKA protocol. He had IVF resuscitation following which kidney function improved from1.3 to 0.7 at discharge. He is no longer using his dexcom. He has used insulin pens before but discontinued use in the past due to cost. He is willing to use insulin pens again. We are arranging this as meds to beds that can be sent with the patient back to [facility]. Physical Exam Narrative: General: No acute distress, AO x3 HEENT: PERRLA, pupils bilaterally equal and reactive, pallors not present Chest: Normal vesicular breath sounds, no added sounds, equal good air entry bilaterally CVS: S1-S2 regular, no murmurs, no tachycardia, no gallops, no rubs Abdomen: Soft, nontender, no organomegaly, bowel sounds present Neuro: No focal deficits, no facial deformity, AO x3, power 5/5 in all limbs Extremities: multiple healed small scabs all over the body including trunk, back, B/L arms and legs, face Discharge Data Studies Completed and Pending Pending at discharge Category Date Time Status Basic Metabolic Panel Q4H Lab 12/17/22 10:18 Ordered Laboratory Results WBC 6.3 10^3/uL (4.0-10.0) 12/17/22 01:56 RBC 4.63 10^6/uL (4.1-5.3) 12/17/22 01:56 Hgb 12.9 g/dL (11.7-16.6) 12/17/22 01:56 Hct 39.5 % (42.0-52.0) L 12/17/22 01:56 MCV 85.3 fl (80-94) 12/17/22 01:56 MCH 27.9 pg (28.0-34.0) L 12/17/22 01:56 MCHC 32.7 g/dL (30.0-36.0) 12/17/22 01:56 RDW 12.9 % (12.1-15.1) 12/17/22 01:56 Plt Count 271 10^3/cmm (130-400) 12/17/22 01:56 MPV 10.4 fL (7.4-10.4) 12/17/22 01:56 Neut % (Auto) 46.3 % 12/17/22 01:56 Lymph % (Auto) 41.6 % 12/17/22 01:56 [place] % (Auto) 6.3 % 12/17/22 01:56 Eos % (Auto) 5.1 % 12/17/22 01:56 Baso % (Auto) 0.5 % 12/17/22 01:56 Neut # (Auto) 2.93 10^3/uL (1.8-7.7) 12/17/22 01:56 Lymph # (Auto) 2.6 10^3/uL (0.8-4.8) 12/17/22 01:56 [place] # (Auto) 0.4 10^3/uL (0.2-0.9) 12/17/22 01:56 Eos # (Auto) 0.3 10^3/uL (0.0-0.8) 12/17/22 01:56 Baso # (Auto) 0.0 10^3/uL (0.0-0.1) 12/17/22 01:56 Nucleated RBC % (auto) 0 % 12/17/22 01:56 Nucleated RBCs # 0.0 /100WBC 12/17/22 01:56 Specimen Type Arterial 12/16/22 13:02 Sample Site Radial, right 12/16/22 13:02 ABG pH 7.36 (7.35-7.45) 12/16/22 13:02 ABG pCO2 34.7 mmHg (35-45) L 12/16/22 13:02 ABG pO2 109.0 mmHg (80.0-100.0) H 12/16/22 13:02 ABG HCO3 19.6 mmol/L (22-26) L 12/16/22 13:02 ABG Base Excess -5.1 mmol/L (-2.0-2.0) L 12/16/22 13:02 Brady Test Pos 12/16/22 13:02 Hematocrit 39.2 % (42-52) L 12/16/22 13:02 O2 Delivery Device Room air 12/16/22 13:02 FiO2 21.0 % 12/16/22 13:02 Reaming Machine Tender ID Monro 12/16/22 13:02 Sodium 139 mmol/L (136-145) 12/17/22 05:11 Potassium 3.9 mmol/L (3.5-5.1) 12/17/22 05:11 Chloride 104 mmol/L (98-107) 12/17/22 05:11 Carbon Dioxide 29 mmol/L (22-29) 12/17/22 05:11 Anion Gap 9.9 (5-19) 12/17/22 05:11 BUN 28 mg/dL (6-20) H 12/17/22 05:11 Creatinine 0.7 mg/dL (0.7-1.2) 12/17/22 05:11 GFR Calculation 122.0 mL/min (90-130) 12/17/22 05:11 Glucose 138 mg/dL (65-115) H 12/17/22 05:11 POC Glucose 202 mg/dL (70-110) H 12/17/22 07:14 Calculated Osmolality 296 mOsm/kg (285-295) H 12/17/22 05:11 Lactic Acid 1.8 mmol/L (0.5-2.2) 12/16/22 12:12 Calcium 9.2 mg/dL (8.5-10.5) 12/17/22 05:11 Phosphorus 3.7 mg/dL (2.5-4.5) 12/17/22 01:56 Magnesium 2.1 mg/dL (1.7-2.3) 12/17/22 01:56 Total Bilirubin 0.3 mg/dL (0.15-1.2) 12/17/22 01:56 AST 20 U/L (0-40) 12/17/22 01:56 ALT 43 U/L (0-41) H 12/17/22 01:56 Alkaline Phosphatase 127 U/L (40-130) 12/17/22 01:56 Total Protein 6.1 g/dL (6.6-8.7) L 12/17/22 01:56 Albumin 3.8 g/dL (3.5-5.2) 12/17/22 01:56 Globulin 2.3 g/dL (1.3-4.6) 12/17/22 01:56 TSH 1.09 uIU/mL (0.27-4.20) 12/16/22 15:03 Urine Color Straw (Yellow) 12/16/22 13:30 Urine Appearance Clear (CLEAR) 12/16/22 13:30 Urine pH 5 (5-7) 12/16/22 13:30 Ur Specific [place] 1.005 (1.005-1.030) 12/16/22 13:30 Urine Protein Neg (Negative) 12/16/22 13:30 Urine Glucose (UA) 4+ (Normal) H 12/16/22 13:30 Urine Ketones 2+ (Negative) H 12/16/22 13:30 Urine Blood Neg (Negative) 12/16/22 13:30 Urine Nitrate Negative (Negative) 12/16/22 13:30 Urine Bilirubin Neg (Negative) 12/16/22 13:30 Urine Urobilinogen Norm mg/dL (Negative) 12/16/22 13:30 Ur Leukocyte Esterase Negative (Negative) 12/16/22 13:30 Serum Ketones Positive (Negative) H 12/16/22 12:12 Vitals Last Vital Signs Temp 98.2 F 12/16/22 21:00 Pulse 78 12/17/22 09:56 Resp 20 H 12/17/22 09:15 BP 138/87 12/17/22 09:15 Pulse Ox 99 12/17/22 09:56 O2 Del Method Room Air 12/17/22 09:56 Discharge Plan Discharge Patient Disposition: Home Condition: Stable Prescriptions: New Lantus Solostar U-100 Insulin 100 unit/mL (3 mL) insulin pen 10 unit SUBCUT DAILY 30 Days Qty: 15 1RF Humalog KwikPen Insulin 100 unit/mL insulin pen See Rx Instructions .ROUTE .COMPLEX Qty: 15 1RF Rx Instructions: per sliding scale as instructed (DME) BD Ultra-Fine Micro Pen Needle 32 gauge x 1/4 needle See Rx Instructions .Route Qty: 100 0RF Rx Instructions: As directed Continued (DME) Dexcom G6 Sensor Device See Rx Instructions .ROUTE .MEDSUPPLY Qty: 9 3RF Rx Instructions: change every 10 days (DME) Dexcom G6 Ice Cream Maker Misc See Rx Instructions .ROUTE .MEDSUPPLY Qty: 1 3RF Rx Instructions: once a year ([facility]) Dexcom G6 Transmitter Device See Rx Instructions .ROUTE .MEDSUPPLY Qty: 2 3RF Rx Instructions: change every 3 months clopidogrel 75 mg tablet 75 mg PO DAILY Qty: 90 1RF atorvastatin 40 mg tablet 40 mg PO DAILY Qty: 90 1RF lisinopril 2.5 mg tablet 2.5 mg PO QAM Qty: 90 1RF ondansetron 8 mg tablet,disintegrating See Rx Instructions .ROUTE .COMPLEX Qty: 15 0RF Dose Instruction: DISSOLVE ONE TABLET UNDER THE TONGUE EVERY 8 HOURS as needed for FOR NAUSEA AND VOMITING Rx Instructions: DISSOLVE ONE TABLET UNDER THE TONGUE EVERY 8 HOURS as needed for FOR NAUSEA AND VOMITING aspirin 81 mg tablet,delayed release (DR/EC) 81 mg PO DAILY Qty: 30 0RF Discontinued Novolin 70/30 U-100 Insulin 100 unit/mL (70-30) suspension See Rx Instructions .ROUTE .COMPLEX Qty: 30 3RF Dose Instruction: INJECT 70-100 UNITS SUBCUTANEOUSLY EVERY DAY Rx Instructions: INJECT 70-100 UNITS SUBCUTANEOUSLY EVERY DAY (DME) insulin syringe-needle U-100 [BD Insulin Syringe Ultra-Fine] 1 mL 31 gauge x 5/16 syringe See Rx Instructions .ROUTE .COMPLEX Qty: 100 0RF Dose Instruction: USE DIRECTED with insulin Rx Instructions: USE DIRECTED with insulin Novolin R Regular U-100 Insuln 100 unit/mL solution 10 - 20 unit SUBCUT TID MDD 60 units Discharge Orders: Discharge Order (Routine); Ordered 12/17/22 Ordered By: Karuna Carrion Referrals: Linda Fisher MD [Physician] - 2 weeks Discharge Diet: Cardiac and Diabetic Discharge Activity: Resume usual activity Patient Instructions: Opioid Safety Activity Restrictions/Additional Instructions: take insulin humalog pen before meals per sliding scale as below: blood sugar 141-180: 4 units 181-220: 6 units 221-260: 8 units 261-300: 10 units 301-350: 12 units 251-400: 14 units > 400 : 16 units Discharge Attestations Time Spent in Discharge Care*: greater than 30 min Quality Metrics Clinical Quality Measures [ No reported AMI, CVA or VTE this stay] Coding Level of Care Code Acute Code for Chg Fwd Diagnoses DKA (diabetic ketoacidosis) E11.10 Hyperlipemia, mixed E78.2
[2022-12-17 11:08] LABS: Glucose Point of Care 247 mg/dL (70-110)
[2022-12-17 11:10] LABS: Anion Gap 12.1 (5-19); Blood Urea Nitrogen 26 mg/dL (6-20); Calcium 9.1 mg/dL (8.5-10.5); Carbon Dioxide 27 mmol/L (22-29); Chloride 99 mmol/L (98-107); Glucose 280 mg/dL (65-115); Osmolality Calculated 293 mOsm/kg (285-295); Potassium 4.1 mmol/L (3.5-5.1); Sodium 134 mmol/L (136-145)
--- NOTE | 2022-12-17 11:33 | PC.NURSE ---
Discharge Discharge orders given to patient. Patient verbalized understanding and had no questions.
== END 2022-12-17 11:37 | DRG 639 ==
LOC: ER 13:47 → ICU 14:09
PROVIDERS: Internal Medicine; Admitting Provider Student in an Organized Health Care Education/Training Program; Emergency Provider Emergency Medicine; PCP Family Medicine; Visit Provider Student in an Organized Health Care Education/Training Program
DX: E10.10 Type 1 diabetes mellitus with ketoacidosis without coma (principal); Z79.4 Long term (current) use of insulin; F17.210 Nicotine dependence, cigarettes, uncomplicated; Z86.73 Personal history of transient ischemic attack (TIA), and cerebral infarction without residual deficits; N52.9 Male erectile dysfunction, unspecified; I10 Essential (primary) hypertension; E78.2 Mixed hyperlipidemia; Z79.82 Long term (current) use of aspirin; Z79.02 Long term (current) use of antithrombotics/antiplatelets
CPT/HCPCS: 36415; 36416; 36600; 80048; 80053; 81003; 82009; 82803; 82962; 83605; 83735; 84100; 84443; 85025; 94664; 96365; 96372; 96375; 96376; 99285; J1644; J1815; J2405; J7030; J7050

== ENCOUNTER 2022-12-18 13:18 | Emergency (ER) | payer MEDICAID, SELFPAY ==
[2022-12-18 13:35] LABS: ABG PCO2 45.4 mmHg (35-45); ABG PH Result 7.38 (7.35-7.45); Arterial Blood Gas Hematocrit 40.7 % (42-52); Base Excess ABG 0.9 mmol/L (-2.0-2.0); Blood Gas Allen Test Pos; Blood Gas Operator Identificat WALCI; Blood Gas Sample Site Radial, left; Blood Gas Sample Type Arterial; HCO3 ABG 26.5 mmol/L (22-26); Oxygen Device ROOM AIR; PO2 ABG 79.4 mmHg (80.0-100.0)
[2022-12-18 13:37] LABS: Glucose Point of Care > 600 mg/dL (70-110)
[2022-12-18 13:39] VITALS: BP 102/68; PULSE 92; TEMP 37.2; O2SAT 98; BMI 19.8
--- NOTE | 2022-12-18 13:47 | ED_ITS ---
HPI - Recheck/Abnormal Lab/Rx General: Chief Complaint: Recheck/Abnormal Lab/Rx Stated Complaint: High Blood Sugar Time Seen by Provider: 12/18/22 13:23 Source: patient and police Mode of arrival: other Limitations: no limitations History of Present Illness: 47-year-old male who is here from senior care he is a type I diabetic he states he is not been taking his insulin as much since he has been incarcerated he states his blood sugars ran high there and he is concerned about going in DKA as he has a history of DKA he is not tachycardic he denies any pain anywhere he denies any vomiting or diarrhea. He denies worsening proving factors. Review of Systems Const: Denies: fever(s), chills, body aches or change in appetite Eyes: Denies: blurry vision ENMT: Denies: throat pain or dental pain Card: Denies: chest pain Resp: Denies: dyspnea GI: Denies: abdominal pain, nausea, vomiting or diarrhea : Denies: dysuria Musc: Denies: neck pain or back pain Skin/Breast: Denies: rash Neuro: Denies: headache(s) PFSH ED PFSH: Medical History Diabetes mellitus type I Erectile dysfunction Nicotine dependence, cigarettes, with unspecified nicotine-induced disorders TIA (transient ischemic attack) Surgical History H/O hernia repair Umbilical Social History Smoking and tobacco status: current every day smoker cigarettes Packs smoked per day: 1 Alcohol intake: former Substance/Drug Use: former Physical Exam Const: COMMON NORMALS: no acute distress, patient oriented x3 and healthy appearing HENMT: COMMON NORMALS: normocephalic and atraumatic HEAD & SCALP: normocephalic and atraumatic Eye: COMMON NORMALS: conjunctivae normal CONJUNCTIVA: Yes conjunctivae normal Neck/C-Spine: COMMON NORMALS: full ROM and supple Chest: COMMONS NORMALS: normal inspection of the chest and normal palpation of entire chest wall Resp: COMMON NORMALS: normal respiratory effort, No retractions, No use of acc essory muscles and clear to auscultation bilaterally AUSCULTATION: clear to auscultation bilaterally Cardio: COMMON NORMALS: regular rate, regular rhythm and No murmurs present (Cardio) RATE: regular rate RHYTHM: regular rhythm GI: INSPECTION: Yes normal to inspection Extremity: COMMON NORMALS: normal to inspection and full ROM Neuro: COMMON NORMALS: patient oriented x3, moves all extremities and no focal motor deficits Psych: COMMON NORMALS: mental status grossly normal, Normal thought process present and cooperative THOUGHT PROCESS: Normal thought process present Skin: COMMON NORMALS: no rashes or lesions noted and no wounds GENERAL SKIN EXAM: no rashes or lesions noted Course Vital Signs: Vital signs: Vital Signs Temperature 99.0 F 12/18/22 13:39 Pulse Rate 76 12/18/22 14:05 Respiratory Rate 16 12/18/22 14:05 Blood Pressure 127/81 12/18/22 14:05 Pulse Oximetry 100 12/18/22 14:05 Oxygen Delivery Me thod Room Air 12/18/22 14:05 MDM - Recheck/Abnormal Lab/Rx Medical Decision Making Patient presents here with hyperglycemia he is not in DKA his blood sugars here is improved he has been well-appearing here he is stable for discharge back to senior care he is take his meds as prescribed follow-up with PCP and return if worsening. Lab Data 12/18/22 13:45 12/18/22 13:45 Laboratory Results WBC 6.8 10^3/uL (4.0-10.0) 12/18/22 13:45 RBC 4.61 10^6/uL (4.1-5.3) 12/18/22 13:45 Hgb 13.0 g/dL (11.7-16.6) 12/18/22 13:45 Hct 39.8 % (42.0-52.0) L 12/18/22 13:45 MCV 86.3 fl (80-94) 12/18/22 13:45 MCH 28.2 pg (28.0-34.0) 12/18/22 13:45 MCHC 32.7 g/dL (30.0-36.0) 12/18/22 13:45 RDW 13.0 % (12.1-15.1) 12/18/22 13:45 Plt Count 262 10^3/cmm (130-400) 12/18/22 13:45 MPV 10.4 fL (7.4-10.4) 12/18/22 13:45 Neut % (Auto) 74.4 % 12/18/22 13:45 Lymph % (Auto) 17.1 % 12/18/22 13:45 [facility] % (Auto) 5.3 % 12/18/22 13:45 Eos % (Auto) 2.3 % 12/18/22 13:45 Baso % (Auto) 0.6 % 12/18/22 13:45 Neut # (Auto) 5.08 10^3/uL (1.8-7.7) 12/18/22 13:45 Lymph # (Auto) 1.2 10^3/uL (0.8-4.8) 12/18/22 13:45 [place] # (Auto) 0.4 10^3/uL (0.2-0.9) 12/18/22 13:45 Eos # (Auto) 0.2 10^3/uL (0.0-0.8) 12/18/22 13:45 Baso # (Auto) 0.0 10^3/uL (0.0-0.1) 12/18/22 13:45 Nucleated RBC % (auto) 0 % 12/18/22 13:45 Nucleated RBCs # 0.0 /100WBC 12/18/22 13:45 Specimen Type Arterial 12/18/22 13:24 Sample Site Radial, left 12/18/22 13:24 ABG pH 7.38 (7.35-7.45) 12/18/22 13:24 ABG pCO2 45.4 mmHg (35-45) H 12/18/22 13:24 ABG pO2 79.4 mmHg (80.0-100.0) L 12/18/22 13:24 ABG HCO3 26.5 mmol/L (22-26) H 12/18/22 13:24 ABG Base Excess 0.9 mmol/L (-2.0-2.0) 12/18/22 13:24 Brady Test Pos 12/18/22 13:24 Hematocrit 40.7 % (42-52) L 12/18/22 13:24 O2 Delivery Device Room air 12/18/22 13:24 FiO2 21.0 % 12/18/22 13:24 Electronic Resources Librarian ID [place] 12/18/22 13:24 Sodium 129 mmol/L (136-145) L 12/18/22 13:45 Potassium 4.8 mmol/L (3.5-5.1) 12/18/22 13:45 Chloride 92 mmol/L (98-107) L 12/18/22 13:45 Carbon Dioxide 24 mmol/L (22-29) 12/18/22 13:45 Anion Gap 17.8 (5-19) 12/18/22 13:45 BUN 38 mg/dL (6-20) H 12/18/22 13:45 Creatinine 1.0 mg/dL (0.7-1.2) 12/18/22 13:45 GFR Calculation 80.8 mL/min (90-130) L 12/18/22 13:45 Glucose 716 mg/dL (65-115) H* 12/18/22 13:45 POC Glucose 378 mg/dL (70-110) H 12/18/22 15:05 Calculated Osmolality 311 mOsm/kg (285-295) H 12/18/22 13:45 Calcium 8.8 mg/dL (8.5-10.5) 12/18/22 13:45 Phosphorus 2.5 mg/dL (2.5-4.5) 12/18/22 13:45 Magnesium 2.0 mg/dL (1.7-2.3) 12/18/22 13:45 Total Bilirubin 0.2 mg/dL (0.15-1.2) 12/18/22 13:45 AST 13 U/L (0-40) 12/18/22 13:45 ALT 32 U/L (0-41) 12/18/22 13:45 Alkaline Phosphatase 126 U/L (40-130) 12/18/22 13:45 Total Protein 6.0 g/dL (6.6-8.7) L 12/18/22 13:45 Albumin 3.5 g/dL (3.5-5.2) 12/18/22 13:45 Globulin 2.5 g/dL (1.3-4.6) 12/18/22 13:45 Serum Ketones Negative (Negative) 12/18/22 13:45 Discharge Plan Discharge Patient Disposition: Home Clinical Impression: Hyperglycemia Condition: Stable Prescriptions: No Action (DME) Dexcom G6 Sensor Device See Rx Instructions .ROUTE .MEDSUPPLY Qty: 9 3RF Rx Instructions: change every 10 days (DME) Dexcom G6 Greenhouse Superintendent Misc See Rx Instructions .ROUTE .MEDSUPPLY Qty: 1 3RF Rx Instructions: once a year (DME) Dexcom G6 Transmitter Device See Rx Instructions .ROUTE .MEDSUPPLY Qty: 2 3RF Rx Instructions: change every 3 months clopidogrel 75 mg tablet 75 mg PO DAILY Qty: 90 1RF atorvastatin 40 mg tablet 40 mg PO DAILY Qty: 90 1RF lisinopril 2.5 mg tablet 2.5 mg PO QAM Qty: 90 1RF ondansetron 8 mg tablet,disintegrating See Rx Instructions .ROUTE .COMPLEX Qty: 15 0RF Dose Instruction: DISSOLVE ONE TABLET UNDER THE TONGUE EVERY 8 HOURS as needed for FOR NAUSEA AND VOMITING Rx Instructions: DISSOLVE ONE TABLET UNDER THE TONGUE EVERY 8 HOURS as needed for FOR NAUSEA AND VOMITING aspirin 81 mg tablet,delayed release (DR/EC) 81 mg PO DAILY Qty: 30 0RF Lantus Solostar U-100 Insulin 100 unit/mL (3 mL) insulin pen 10 unit SUBCUT DAILY 30 Days Qty: 15 1RF Humalog KwikPen Insulin 100 unit/mL insulin pen See Rx Instructions .ROUTE .COMPLEX Qty: 15 1RF Rx Instructions: per sliding scale as instructed (DME) BD Ultra-Fine Micro Pen Needle 32 gauge x 1/4 needle See Rx Instructions .Route Qty: 100 0RF Rx Instructions: As directed Discharge Orders: Discharge ED (Routine); Ordered 12/18/22 Ordered By: Althea Sheehan Referrals: Arely Holcomb DO [Primary Care Provider] - 1-3 days Discharge Diet: Advance as tolerated Discharge Activity: Resume usual activity Patient Instructions: Diabetic Hyperglycemia (ED) Coding Level of Care Code ED Blood Typer for Nasima Odom
[2022-12-18 13:53] LABS: Basophils % 0.6 %; Eosinophils # 0.2 10^3/uL (0.0-0.8); Eosinophils % 2.3 %; Hematocrit 39.8 % (42.0-52.0); Lymphocytes # 1.2 10^3/uL (0.8-4.8); Lymphocytes % 17.1 %; Mean Corpuscular HGB Conc 32.7 g/dL (30.0-36.0); Mean Corpuscular Hemoglobin 28.2 pg (28.0-34.0); Mean Corpuscular Volume 86.3 fl (80-94); Mean Platelet Volume 10.4 fL (7.4-10.4); Monocytes # 0.4 10^3/uL (0.2-0.9); Monocytes % 5.3 %; Neutrophils # 5.08 10^3/uL (1.8-7.7); Neutrophils % 74.4 %; Nucleated Red Blood Cells % 0 %; Platelet Count 262 10^3/cmm (130-400); Red Blood Count 4.61 10^6/uL (4.1-5.3); White Blood Count 6.8 10^3/uL (4.0-10.0)
[2022-12-18 14:05] VITALS: BP 127/81; PULSE 76; RESP 16; O2SAT 100
[2022-12-18 14:12] LABS: Ketone (Acetest) Serum Negative (Negative)
[2022-12-18 14:13] LABS: Alanine Aminotransferase 32 U/L (0-41); Albumin Level 3.5 g/dL (3.5-5.2); Alkaline Phosphatase 126 U/L (40-130); Anion Gap 17.8 (5-19); Aspartate Amino Transferase 13 U/L (0-40); Blood Urea Nitrogen 38 mg/dL (6-20); Calcium 8.8 mg/dL (8.5-10.5); Carbon Dioxide 24 mmol/L (22-29); Chloride 92 mmol/L (98-107); Globulin 2.5 g/dL (1.3-4.6); Glomerular Filtration Rate 80.8 mL/min (90-130); Osmolality Calculated 311 mOsm/kg (285-295); Phosphorus 2.5 mg/dL (2.5-4.5); Potassium 4.8 mmol/L (3.5-5.1); Sodium 129 mmol/L (136-145); Total Bilirubin 0.2 mg/dL (0.15-1.2)
[2022-12-18 14:16] LABS: Glucose 716 mg/dL (65-115)
[2022-12-18 14:20] LABS: Glucose Point of Care 571 mg/dL (70-110)
[2022-12-18] MEDS: insulin regular-human 100 units/1 mL 15 UNIT IVP (14:25)
[2022-12-18] MEDS: sodium chloride 0.9% 1,000 ML 999 ML IV ×2 (14:28)
[2022-12-18 14:42] LABS: Glucose Point of Care 492 mg/dL (70-110)
[2022-12-18 15:07] LABS: Glucose Point of Care 378 mg/dL (70-110)
[2022-12-18 16:08] VITALS: BP 135/87; PULSE 73; O2SAT 99
== END 2022-12-18 16:10 | disposition home or self-care (01) ==
PROVIDERS: Emergency Provider Emergency Medicine; PCP Family Medicine
DX: E10.65 Type 1 diabetes mellitus with hyperglycemia (principal); Z79.82 Long term (current) use of aspirin; Z79.02 Long term (current) use of antithrombotics/antiplatelets; Z79.4 Long term (current) use of insulin; Z86.73 Personal history of transient ischemic attack (TIA), and cerebral infarction without residual deficits; F17.210 Nicotine dependence, cigarettes, uncomplicated
CPT/HCPCS: 36416; 36600; 80053; 82009; 82803; 82962; 83735; 84100; 85025; 96361; 96374; 99284; J1815; J7030

== ENCOUNTER → 2023-01-08 11:08 | Outpatient (BNVA) | payer MEDICAID, SELFPAY | PROVIDERS: PCP Family Medicine; Visit Provider Family Medicine | DX: E10.9 Type 1 diabetes mellitus without complications (principal) | CPT/HCPCS: 80053; 83036; 85025 ==

== ENCOUNTER 2023-02-24 12:02 | Emergency (ER) | payer MEDICAID, SELFPAY ==
[2023-02-24 12:15] VITALS: BP 163/108; PULSE 102; RESP 17; TEMP 36.8; O2SAT 99; BMI 21.7
[2023-02-24 13:23] VITALS: BP 160/110; PULSE 99; RESP 18; O2SAT 98
[2023-02-24 13:23] LABS: Basophils % 0.2 %; Lymphocytes # 1.5 10^3/uL (0.8-4.8); Lymphocytes % 10.7 %; Mean Corpuscular HGB Conc 32.9 g/dL (30-55); Mean Corpuscular Hemoglobin 28.5 pg (27-33); Mean Corpuscular Volume 86.5 fl (82-101); Mean Platelet Volume 10.2 fL (7.4-10.4); Monocytes # 0.7 10^3/uL (0.2-0.9); Monocytes % 4.6 %; Neutrophils # 12.05 10^3/uL (1.8-7.7); Neutrophils % 83.9 %; Nucleated Red Blood Cells % 0 %; Platelet Count 311 10^3/cmm (157-399); Red Cell Distribution Width 14.1 % (12.1-15.1); White Blood Count 14.36 10^3/uL (3.29-11.43)
[2023-02-24 13:24] VITALS: RESP 18; O2SAT 98
[2023-02-24] MEDS: morphine 4 mg/mL SDV 1 mL IVP (13:24)
[2023-02-24] MEDS: ondansetron 2 mg/ML SDV 2 mL 4 MG IVP (13:24)
[2023-02-24 13:31] LABS: Ketone (Acetest) Serum Negative (Negative)
--- NOTE | 2023-02-24 13:31 | CTR_ITS ---
PROCEDURE INFORMATION: Exam: CT Abdomen And Pelvis With Contrast Exam date and time: 02/24/2023 2:40 PM Age: 47 years old Clinical indication: Abdominal pain; Generalized; Prior surgery; Surgery date: 6+ months; Surgery type: Umbilical hernia; Additional info: Abdominal pain, fever TECHNIQUE: Imaging protocol: Computed tomography of the abdomen and pelvis with contrast. Axial, coronal and sagittal reformatted images were created and reviewed. Radiation optimization: All CT scans at this facility use at least one of these dose optimization techniques: automated exposure control; mA and/or kV adjustment per patient size (includes targeted exams where dose is matched to clinical indication); or iterative reconstruction. Contrast material: OMNI 350; Contrast volume: 100 ml; Contrast route: INTRAVENOUS (IV); REPORTING DATA: Count of CT and Cardiac NM exams in prior 12 months: This patient has received [address] and 0 known cardiac nuclear medicine studies in the 12 months prior to the current study. COMPARISON: CT abdomen pelvis w con* [id number] 02/28/2021 12:14 AM RADIATION DOSE METRICS: Total DLP (mGy-cm): 354.34 FINDINGS: Lungs: Left lower lobe calcified granuloma. Liver: Mild hepatomegaly. Gallbladder and bile ducts: No radiodense gallstones. No biliary ductal dilatation. Pancreas: Unremarkable. Spleen: Coarse calcified splenic granulomata. Adrenal glands: Normal. No mass. Kidneys and ureters: No mass. No radiodense calculi. No hydronephrosis. Stomach and bowel: Mild nonspecific distal esophageal wall thickening, suggesting chronic reflux/esophagitis. Scattered colonic diverticula without evidence of diverticulitis. No obstruction. No bowel wall thickening. No pneumatosis. Appendix: Normal. Intraperitoneal space: No free fluid. No organized fluid collection. No free air. Vasculature: Minimal atherosclerotic disease. No aneurysm or dissection. Lymph nodes: No pathologically enlarged lymph nodes. Urinary bladder: Unremarkable as visualized. Reproductive: Unremarkable. Bones/joints: No acute osseous abnormality. Mild degenerative changes. Soft tissues: Unremarkable. CT/CT abdomen pelvis w con* [id number]: 1[address] No CT evidence of acute intra-abdominal or pelvic pathology. 2. Additional findings, as above.
[2023-02-24 13:40] LABS: Lactic Sepsis W/Reflex 1.2 mmol/L (0.5-2.2)
[2023-02-24 13:41] LABS: Alanine Aminotransferase 35 U/L (0-41); Albumin Level 5.2 g/dL (3.5-5.2); Alkaline Phosphatase 116 U/L (40-130); Anion Gap 18.5 (5-19); Aspartate Amino Transferase 21 U/L (0-40); Blood Urea Nitrogen 36 mg/dL (6-20); Calcium 11.5 mg/dL (8.5-10.5); Carbon Dioxide 27 mmol/L (22-29); Chloride 94 mmol/L (98-107); Creatinine Clr Calc Pharmacy 102.7546; Globulin 2.4 g/dL (1.3-4.6); Glomerular Filtration Rate 80.8 mL/min (90-130); Glucose 223 mg/dL (65-115); Lipase 14 U/L (13-60); Osmolality Calculated 295 mOsm/kg (285-295); Potassium 4.5 mmol/L (3.5-5.1); Sodium 135 mmol/L (136-145); Total Bilirubin 0.8 mg/dL (0.15-1.2); Total Protein 7.6 g/dL (6.6-8.7)
[2023-02-24 13:50] VITALS: BP 161/102; PULSE 92; RESP 16; O2SAT 96
[2023-02-24 14:25] VITALS: BP 160/103; PULSE 99; RESP 18; O2SAT 100
[2023-02-24 15:00] LABS: Amphetamines Screen Urine Positive (Negative); Barbiturates Screen Urine Negative (Negative); Benzodiazepines Screen Urine Negative (Negative); Cocaine Screen Urine Negative (Negative); Opiate Screen Urine Positive (Negative); PCP Screen Urine Negative (Negative); THC Screen Urine Positive (Negative)
[2023-02-24 15:01] LABS: Add Urine Microscopic? YES; Bilirubin Urine Neg (Negative); Blood Urine Neg (Negative); Glucose Urine UA 4+ (Normal); Ketones Urine 2+ (Negative); Leukocyte Esterase Urine Negative (Negative); Nitrate Urine Negative (Negative); Protein Urine Trace (Negative); Urine Appearance Clear (CLEAR); Urine Color Dark Yellow (Yellow); Urobilinogen Urine Norm (Negative); pH Urine 5 (5-7)
[2023-02-24 15:02] LABS: Add Urine Culture? No; Bacteria Urine TRACE /hpf; Mucus Urine 1+ /hpf; WBC Urine 0-4 /hpf (0-5)
[2023-02-24 15:34] VITALS: BP 162/110; PULSE 94; RESP 18; O2SAT 95
--- NOTE | 2023-02-24 15:39 | ED_ITS ---
HPI - Abdominal Pain General: Chief Complaint: Abdominal Pain Stated Complaint: abd pain Time Seen by Provider: 02/24/23 12:19 History of Present Illness: This patient is a diabetic 47 year old presenting with abdominal pain, vomiting blood, skin sores that he reports are from super lice which are a cross between scabies and body lice. He has treated himself with permethrin so much that his doctor cut him off . He thinks he might have DKA. He is also concerned that the lower ribs on the right side are causing pain - because of a prior injury there. He also still has his gallbladder. He says that he threw up once and it was all blood and chunks of food. Since then he has thrown up a few times with streaks of blood. He thinks he has an ulcer. PFSH ED PFSH: Medical History Diabetes mellitus type I Erectile dysfunction Nicotine dependence, cigarettes, with unspecified nicotine-induced disorders TIA (transient ischemic attack) Surgical History H/O hernia repair Umbilical Social History Smoking and tobacco status: current every day smoker cigarettes Packs smoked per day: 1 Alcohol intake: former Substance/Drug Use: former Physical Exam Const: COMMON NORMALS: no acute distress, patient oriented x3, no limitations and alert GENERAL APPEARANCE: cooperative and comfortable HENMT: HEAD & SCALP: normal to inspection FACE & SINUS: normal facial exam Eye: GENERAL EYE: appearance normal, both eyes and all related structures Neck/C-Spine: COMMON NORMALS: supple, no meningeal signs and no JVD Chest: COMMONS NORMALS: normal inspection of the chest Resp: COMMON NORMALS: normal respiratory effort, No use of accessory muscles and clear to auscultation bilaterally AUSCULTATION: clear to auscultation bilaterally Cardio: COMMON NORMALS: no JVD, regular rate, regular rhythm and No murmurs p resent (Cardio) RATE: regular rate RHYTHM: regular rhythm GI: COMMON NORMALS: Normal to inspection, nondistended, normoactive bowel sounds present, Soft to palpation and non-tender INSPECTION: Yes normal to inspection AUSCULTATION: Yes normoactive bowel sounds PALPATION: Yes Soft to palpation Back/Pelvis: COMMON NORMALS: thoracic and lumbar spine normal to inspection Extremity: COMMON NORMALS: normal to inspection Neuro: COMMON NORMALS: patient oriented x3, moves all extremities, no focal motor deficits and no sensory deficits noted SENSORIUM/ORIENTATION: Yes alert MENINGEAL SIGNS: Yes no meningeal signs Psych: COMMON NORMALS: mental status grossly normal, cooperative and normal affect Skin: COMMON NORMALS: no rashes or lesions noted and turgor normal GENERAL SKIN EXAM: no rashes or lesions noted and turgor normal Course Vital Signs: Vital signs: Vital Signs Temperature 98.2 F 02/24/23 12:15 Pulse Rate 94 02/24/23 15:34 Respiratory Rate 18 02/24/23 15:34 Blood Pressure 162/110 02/24/23 15:34 Pulse Oximetry 95 02/24/23 15:34 Oxygen Delivery Me thod Room Air 02/24/23 15:34 MDM - Abdominal Pain Medical Decision Making Abdominal pain - relatively benign exam. He reports vomiting blood - since resolved - and hgb is normal. CT negative. UDS positive for meth and marijuana. Able to tolerate PO in the ED without difficulty. Lab Data 02/24/23 13:14 02/24/23 13:14 Labs/Radiology: Radiology Impressions Abdomen/Pelvis CT 02/24/23 13:[address]: [address] evidence of acute intra-abdominal or pelvic pathology. 2. Additional findings, as above. Laboratory Results WBC 14.36 10^3/uL (3.29-11.43) H 02/24/23 13:14 RBC 5.20 10^6/uL (3.85-5.65) 02/24/23 13:14 Hgb 14.80 g/dL (11.27-16.99) 02/24/23 13:14 Hct 45.0 % (37-53) 02/24/23 13:14 MCV 86.5 fl (82-101) 02/24/23 13:14 MCH 28.5 pg (27-33) 02/24/23 13:14 MCHC 32.9 g/dL (30-55) 02/24/23 13:14 RDW 14.1 % (12.1-15.1) 02/24/23 13:14 Plt Count 311 10^3/cmm (157-399) 02/24/23 13:14 MPV 10.2 fL (7.4-10.4) 02/24/23 13:14 Neut % (Auto) 83.9 % 02/24/23 13:14 Lymph % (Auto) 10.7 % 02/24/23 13:14 [place] % (Auto) 4.6 % 02/24/23 13:14 Eos % (Auto) 0.0 % 02/24/23 13:14 Baso % (Auto) 0.2 % 02/24/23 13:14 Neut # (Auto) 12.05 10^3/uL (1.8-7.7) H 02/24/23 13:14 Lymph # (Auto) 1.5 10^3/uL (0.8-4.8) 02/24/23 13:14 [place] # (Auto) 0.7 10^3/uL (0.2-0.9) 02/24/23 13:14 Eos # (Auto) 0.0 10^3/uL (0.0-0.8) 02/24/23 13:14 Baso # (Auto) 0.0 10^3/uL (0.0-0.1) 02/24/23 13:14 Nucleated RBC % (auto) 0 % 02/24/23 13:14 Nucleated RBCs # 0.0 /100WBC 02/24/23 13:14 Sodium 135 mmol/L (136-145) L 02/24/23 13:14 Potassium 4.5 mmol/L (3.5-5.1) 02/24/23 13:14 Chloride 94 mmol/L (98-107) L 02/24/23 13:14 Carbon Dioxide 27 mmol/L (22-29) 02/24/23 13:14 Anion Gap 18.5 (5-19) 02/24/23 13:14 BUN 36 mg/dL (6-20) H 02/24/23 13:14 Creatinine 1.0 mg/dL (0.7-1.2) 02/24/23 13:14 GFR Calculation 80.8 mL/min (90-130) L 02/24/23 13:14 Glucose 223 mg/dL (65-115) H 02/24/23 13:14 Calculated Osmolality 295 mOsm/kg (285-295) 02/24/23 13:14 Lactic Acid 1.2 mmol/L (0.5-2.2) 02/24/23 13:14 Calcium 11.5 mg/dL (8.5-10.5) H 02/24/23 13:14 Total Bilirubin 0.8 mg/dL (0.15-1.2) 02/24/23 13:14 AST 21 U/L (0-40) 02/24/23 13:14 ALT 35 U/L (0-41) 02/24/23 13:14 Alkaline Phosphatase 116 U/L (40-130) 02/24/23 13:14 Total Protein 7.6 g/dL (6.6-8.7) 02/24/23 13:14 Albumin 5.2 g/dL (3.5-5.2) 02/24/23 13:14 Globulin 2.4 g/dL (1.3-4.6) 02/24/23 13:14 Lipase 14 U/L (13-60) 02/24/23 13:14 Urine Color Dark yellow (Yellow) 02/24/23 14:12 Urine Appearance Clear (CLEAR) 02/24/23 14:12 Urine pH 5 (5-7) 02/24/23 14:12 Ur Specific [place] 1.020 (1.005-1.030) 02/24/23 14:12 Urine Protein Trace (Negative) 02/24/23 14:12 Urine Glucose (UA) 4+ (Normal) H 02/24/23 14:12 Urine Ketones 2+ (Negative) H 02/24/23 14:12 Urine Blood Neg (Negative) 02/24/23 14:12 Urine Nitrate Negative (Negative) 02/24/23 14:12 Urine Bilirubin Neg (Negative) 02/24/23 14:12 Urine Urobilinogen Norm mg/dL (Negative) 02/24/23 14:12 Ur Leukocyte Esterase Negative (Negative) 02/24/23 14:12 Urine RBC None /hpf (0-2) 02/24/23 14:12 Urine WBC 0-4 /hpf (0-5) H 02/24/23 14:12 Ur Squamous Epith Cells None /hpf (0-5) 02/24/23 14:12 Amorphous Sediment Not Reportable 02/24/23 14:12 Urine Bacteria Trace /hpf (NONE) 02/24/23 14:12 Urine Mucus 1+ /hpf 02/24/23 14:12 Urine Opiates Screen Positive ng/mL (Negative) H 02/24/23 14:12 Ur Barbiturates Screen Negative ng/mL (Negative) 02/24/23 14:12 Ur Phencyclidine Scrn Negative ng/mL (Negative) 02/24/23 14:12 Ur Amphetamines Screen Positive ng/mL (Negative) H 02/24/23 14:12 U Benzodiazepines Scrn Negative ng/mL (Negative) 02/24/23 14:12 Urine Cocaine Screen Negative ng/mL (Negative) 02/24/23 14:12 U Marijuana (THC) Screen Positive ng/mL (Negative) H 02/24/23 14:12 Serum Ketones Negative (Negative) 02/24/23 13:14 Discharge Plan Discharge Patient Disposition: Home Clinical Impression: Diabetes mellitus type I, Active substance abuse, Delusions of parasitosis, Hematemesis/vomiting blood Condition: Stable Prescriptions: No Action (DME) Dexcom G6 Sensor Device See Rx Instructions .ROUTE .MEDSUPPLY Qty: 9 3RF Rx Instructions: change every 10 days (DME) Dexcom G6 Transmitter Device See Rx Instructions .ROUTE .MEDSUPPLY Qty: 2 3RF Rx Instructions: change every 3 months (DME) blood-glucose meter Misc See Rx Instructions .MEDSUPPLY Qty: 1 0RF Rx Instructions: As directed (DME) Blood Glucose Test Strip See Rx Instructions .MEDSUPPLY Qty: 50 5RF Rx Instructions: As directed (DME) lancets 25 gauge misc See Rx Instructions .MEDSUPPLY Qty: 100 5RF Rx Instructions: As directed clopidogrel 75 mg tablet 75 mg PO DAILY Qty: 90 1RF atorvastatin 40 mg tablet 40 mg PO DAILY Qty: 90 1RF (DME) Dexcom G6 Makeup Sales Consultant Misc See Rx Instructions .ROUTE .MEDSUPPLY Qty: 1 3RF Rx Instructions: once a year sulfamethoxazole-trimethoprim [Bactrim DS] 800-160 mg tablet 1 tab PO BID Qty: 20 0RF lisinopril 2.5 mg tablet 2.5 mg PO QAM Qty: 90 1RF permethrin 5 % cream 1 applic topical Q14D Qty: 60 0RF Rx Instructions: apply second treatment 14 days after first treatment if live lice remain Novolin R Regular U100 Insulin 100 unit/mL solution 10 - 20 unit SUBCUT TID MDD 60 units Qty: 10 0RF insulin asp prt-insulin aspart [Novolog Mix 70-30 U-100 Insuln] 100 unit/mL (70-30) solution 70 unit SUBCUT BID Qty: 30 3RF Rx Instructions: 70-100 units daily (DME) insulin syringe-needle U-100 [UltiCare] 1 mL 30 gauge x 1/2 syringe See Rx Instructions .ROUTE .COMPLEX Qty: 100 0RF Dose Instruction: USE DIRECTED with insulin Rx Instructions: USE DIRECTED with insulin ondansetron 8 mg tablet,disintegrating See Rx Instructions .ROUTE .COMPLEX Qty: 30 0RF Dose Instruction: DISSOLVE ONE TABLET UNDER THE TONGUE EVERY 8 HOURS NEEDED FOR NAUSEA AND VOMITING Rx Instructions: DISSOLVE ONE TABLET UNDER THE TONGUE EVERY 8 HOURS NEEDED FOR NAUSEA AND VOMITING aspirin 81 mg tablet,delayed release (DR/EC) 81 mg PO DAILY Qty: 30 0RF (DME) BD Ultra-Fine Micro Pen Needle 32 gauge x 1/4 needle See Rx Instructions .Route Qty: 100 0RF Rx Instructions: As directed Discharge Orders: Discharge ED (Routine); Ordered 02/24/23 Ordered By: Asya Seth Referrals: Arely Holcomb DO [Primary Care Provider] - Discharge Diet: Clear Liquid Discharge Activity: Increase activity as tolerated Patient Instructions: Hematemesis (ED), Opioid Safety, Pain Management Activity Restrictions/Additional Instructions: Follow up with your doctor within the next few days. Return to the ED for further episodes of vomiting blood - or if worse pain or fever. Coding Level of Care Code ED Overhead Crane Truck Loader for Nasima Odom
== END 2023-02-24 16:25 | disposition home or self-care (01) ==
PROVIDERS: Emergency Provider Emergency Medicine; PCP Family Medicine
DX: E10.9 Type 1 diabetes mellitus without complications (principal); F22 Delusional disorders; K92.0 Hematemesis; F15.10 Other stimulant abuse, uncomplicated; F17.210 Nicotine dependence, cigarettes, uncomplicated; Z86.73 Personal history of transient ischemic attack (TIA), and cerebral infarction without residual deficits; Z79.82 Long term (current) use of aspirin; Z79.02 Long term (current) use of antithrombotics/antiplatelets; Z79.4 Long term (current) use of insulin
CPT/HCPCS: 36415; 74177; 80053; 80306; 81001; 82009; 83605; 83690; 85025; 96374; 96375; 99285; J2270; J2405; Q9967

== ENCOUNTER 2023-03-15 01:23 | Emergency (ER) | payer MEDICAID, SELFPAY ==
[2023-03-15 01:52] VITALS: BP 130/94; PULSE 104; RESP 20; TEMP 36.1; O2SAT 98; BMI 20.8
--- NOTE | 2023-03-15 02:11 | W.ED.SKABFB ---
HPI - Skin/Abscess/Foreign Bdy General: Chief complaint: Skin/Abscess/Foreign Body Stated complaint: Body Lice in Eye Time Seen by Provider: 03/15/23 02:06 History of Present Illness: Patient presents to the ER with complaints of having body lice all over his whole body. Patient states he is used 2 or 3 tubes of cream from his primary care doc for scabies which almost worked but he run out and she will not give him anymore because she wants sent him to the sales marketing coordinator. Patient does admit to meth use recently and marijuana use daily. Review of Systems General: Reports: 10 or more systems reviewed and unremarkable except in HPI and below PFSH ED PFSH: Medical History Diabetes mellitus type I Erectile dysfunction Nicotine dependence, cigarettes, with unspecified nicotine-induced disorders TIA (transient ischemic attack) Surgical History H/O hernia repair Umbilical Social History Smoking and tobacco status: current every day smoker cigarettes Packs smoked per day: 1 Alcohol intake: former Substance/Drug Use: former Physical Exam Const: COMMON NORMALS: no acute distress, average body habitus, patient oriented x3, no limitations and alert HENMT: COMMON NORMALS: normocephalic, atraumatic, hearing grossly normal bilaterally, external ears normal and moist oral mucous membranes HEAD & SCALP: normocephalic and atraumatic EXTERNAL EAR: Yes external ears normal Eye: COMMON NORMALS: Equal, round and reactive pupils present, EOMs intact bilaterally, conjunctivae normal and no scleral icterus CONJUNCTIVA: Yes conjunctivae normal PUPIL: Yes Equal, round and reactive pupils present Resp: COMMON NORMALS: normal respiratory effort, No retractions and No use of accessory muscles Neuro: COMMON NORMALS: patient oriented x3 SENSORIUM/ORIENTATION: Yes alert Skin: NARRATIVE SKIN EXAM: Patient has multiple excoriations over his entire body that is visible even his face in various stages of healing 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 This was explained to him in detail and he is instructed to keep his appointment with the sales marketing coordinator as he claims he has. Differential Diagnosis Likely dermatophytosis; Unlikely abscess of skin or subcutaneous tissue, viral exanthem, urticaria, herpes zoster, allergic reaction to drug, cellulitis, eczema, insect bites, impetigo or contact dermatitis Medical Records I reviewed the patient's medical records. Lab Data I reviewed the patient's lab results. No radiology studies performed this visit Discharge Plan Discharge Patient Disposition: Home Clinical Impression: Body lice Condition: Stable Prescriptions: New ivermectin 3 mg tablet 12 mg PO Q7D Qty: 12 0RF No Action (DME) Dexcom G6 Sensor Device See Rx Instructions .ROUTE .MEDSUPPLY Qty: 9 3RF Rx Instructions: change every 10 days (DME) Dexcom G6 Transmitter Device See Rx Instructions .ROUTE .MEDSUPPLY Qty: 2 3RF Rx Instructions: change every 3 months (DME) blood-glucose meter Misc See Rx Instructions .MEDSUPPLY Qty: 1 0RF Rx Instructions: As directed (DME) Blood Glucose Test Strip See Rx Instructions .MEDSUPPLY Qty: 50 5RF Rx Instructions: As directed (DME) lancets 25 gauge misc See Rx Instructions .MEDSUPPLY Qty: 100 5RF Rx Instructions: As directed insulin glargine [Lantus Solostar U-100 Insulin] 100 unit/mL (3 mL) insulin pen 15 unit SUBCUT DAILY Qty: 6 2RF clopidogrel 75 mg tablet 75 mg PO DAILY Qty: 90 1RF atorvastatin 40 mg tablet 40 mg PO DAILY Qty: 90 1RF (DME) Dexcom G6 Commercial Journeyman Electrician Misc See Rx Instructions .ROUTE .MEDSUPPLY Qty: 1 3RF Rx Instructions: once a year sulfamethoxazole-trimethoprim [Bactrim DS] 800-160 mg tablet 1 tab PO BID Qty: 20 0RF lisinopril 2.5 mg tablet 2.5 mg PO QAM Qty: 90 1RF permethrin 5 % cream 1 applic topical Q14D Qty: 60 0RF Rx Instructions: apply second treatment 14 days after first treatment if live lice remain Novolin R Regular U100 Insulin 100 unit/mL solution 10 - 20 unit SUBCUT TID MDD 60 units Qty: 10 0RF insulin asp prt-insulin aspart [Novolog Mix 70-30 U-100 Insuln] 100 unit/mL (70-30) solution 70 unit SUBCUT BID Qty: 30 3RF Rx Instructions: 70-100 units daily (DME) insulin syringe-needle U-100 [UltiCare] 1 mL 30 gauge x 1/2 syringe See Rx Instructions .ROUTE .COMPLEX Qty: 100 0RF Dose Instruction: USE DIRECTED with insulin Rx Instructions: USE DIRECTED with insulin ondansetron 8 mg tablet,disintegrating See Rx Instructions .ROUTE .COMPLEX Qty: 30 0RF Dose Instruction: DISSOLVE ONE TABLET UNDER THE TONGUE EVERY 8 HOURS NEEDED FOR NAUSEA AND VOMITING Rx Instructions: DISSOLVE ONE TABLET UNDER THE TONGUE EVERY 8 HOURS NEEDED FOR NAUSEA AND VOMITING (DME) Dexcom G7 Sensor Device See Rx Instructions .ROUTE .MEDSUPPLY Qty: 3 2RF Rx Instructions: As directed (DME) Dexcom G7 Commercial Journeyman Electrician Misc See Rx Instructions .ROUTE .MEDSUPPLY Qty: 1 0RF Rx Instructions: As directed aspirin 81 mg tablet,delayed release (DR/EC) 81 mg PO DAILY Qty: 30 0RF (DME) BD Ultra-Fine Micro Pen Needle 32 gauge x 1/4 needle See Rx Instructions .Route Qty: 100 0RF Rx Instructions: As directed Discharge Orders: Discharge ED (Routine); Ordered 03/15/23 Ordered By: Bubba Dukes Referrals: Arely Holcomb DO [Primary Care Provider] - 1 week Patient Instructions: Pediculosis (ED) Coding Level of Care Code ED Warehouse [employer]ing [employer] Clerk for Nasima Odom
[2023-03-15 02:28] VITALS: BP 89/76; PULSE 101; RESP 20; O2SAT 95
== END 2023-03-15 02:30 | disposition home or self-care (01) ==
PROVIDERS: Emergency Provider Emergency Medicine; PCP Family Medicine
DX: B85.1 Pediculosis due to Pediculus humanus corporis (principal); Z79.02 Long term (current) use of antithrombotics/antiplatelets; Z79.4 Long term (current) use of insulin; Z79.82 Long term (current) use of aspirin; E10.9 Type 1 diabetes mellitus without complications; Z86.73 Personal history of transient ischemic attack (TIA), and cerebral infarction without residual deficits; F17.210 Nicotine dependence, cigarettes, uncomplicated
CPT/HCPCS: 99283

== ENCOUNTER 2023-03-28 14:16 | Outpatient (CLI) | payer MEDICAID, SELFPAY ==
--- NOTE | 2023-03-28 14:45 | MR_ITS ---
WS: [id number] MRA ANGIOGRAPHY [place] HISTORY: I63.512 - Cerebral infarction due to unspecified occlusio... COMPARISON: None available. TECHNIQUE: 3-D MR angiography is performed of the [place]. All images are reviewed including source images. Distal vertebral and basilar arteries are intact with no significant stenosis or plaque. Posterior ce rebral arteries are normal course and caliber. Posterior communicating arteries are both patent. Intracranial portion of the internal carotid arteries are normal course and caliber. No significant a therosclerosis, stenosis or aneurysm identified. Middle and anterior cerebral arteries are both paten t with no significant disease. Anterior communicating artery is absent or small caliber. No aneurysm. IMPRESSION: 1. No significant stenosis in the [place]. 2. Absent or hypoplastic anterior communicating artery. 3. No aneurysms.
--- NOTE | 2023-03-28 15:00 | MR_ITS ---
WS: [id number] MRA CAROTID ARTERIES HISTORY: I63.512 - Cerebral infarction due to unspecified occlusio... COMPARISON: None available. TECHNIQUE: MRA is performed with intravenous gadolinium. MIP and source images are reviewed. Right: Normal common, internal and external carotid arteries. No significant plaque and no obstructio n. Left: Normal common, internal and external carotid arteries. No significant plaque and no obstruction . Subclavian Arteries: Aberrant RIGHT subclavian artery extends posterior to the esophagus. Normal LEFT subclavian artery. Vertebral Arteries: Normal. IMPRESSION: 1. No significant cervical carotid artery stenosis or plaque. 2. Aberrant RIGHT subclavian artery.
== END 2023-03-28 14:17 | disposition home or self-care (01) ==
LOC: RAD 14:17
PROVIDERS: PCP Family Medicine; Visit Provider Specialist
DX: I63.512 Cerebral infarction due to unspecified occlusion or stenosis of left middle cerebral artery (principal); Q27.8 Other specified congenital malformations of peripheral vascular system
CPT/HCPCS: 70544; 70548; A9577

== ENCOUNTER → 2023-06-11 11:49 | Outpatient (BNVA) | payer MEDICAID, SELFPAY | PROVIDERS: PCP Family Medicine; Visit Provider Internal Medicine | DX: E11.10 Type 2 diabetes mellitus with ketoacidosis without coma (principal); E78.2 Mixed hyperlipidemia; Z79.899 Other long term (current) drug therapy | CPT/HCPCS: 36415; 80053; 80061; 82044; 82310; 83036; 83970 ==

== ENCOUNTER 2023-09-06 13:20 | Outpatient (CLI) | payer MEDICAID, SELFPAY ==
[2023-09-06 14:19] LABS: Estmated Average Glucose 263; Hemoglobin A1C 10.8 % (4.0-6.0)
[2023-09-06 14:30] LABS: Alanine Aminotransferase 14 U/L (0-41); Albumin Level 3.8 g/dL (3.5-5.2); Alkaline Phosphatase 54 U/L (40-130); Aspartate Amino Transferase 17 U/L (0-40); Blood Urea Nitrogen 13 mg/dL (6-20); Calcium 8.4 mg/dL (8.5-10.5); Carbon Dioxide 28 mmol/L (22-29); Chloride 105 mmol/L (98-107); Chol HDL Ratio 2.02 mg/dL (1.0-5.00); Cholesterol 123 mg/dL (0-200); Globulin 2.1 g/dL (1.3-4.6); Glomerular Filtration Rate 90.8 mL/min (90-130); Glucose 144 mg/dL (65-115); HDL Cholesterol 61 mg/dL (60-100); LDL Cholesterol Calculated 50 mg/dL (50-129); LDL HDL Ratio 0.82 RATIO (0.00-3.22); Osmolality Calculated 295 mOsm/kg (285-295); Sodium 141 mmol/L (136-145); Total Bilirubin 0.4 mg/dL (0.15-1.2); Total Protein 5.9 g/dL (6.6-8.7); Triglycerides 62 mg/dL (0-150)
[2023-09-06 14:38] LABS: Creatinine Urine, Random 208 mg/dL (39-259); Microalbum Creatinine Ratio Ur 19 mg/dL (0-20); Microalbumin Random Urine 4 ug/dL (0-20)
[2023-09-06 14:44] LABS: Calcium 8.7 mg/dL (8.5-10.5)
[2023-09-06 14:48] LABS: Parathyroid Hormone 32.6 pg/mL (15-65)
== END 2023-09-06 13:21 | disposition home or self-care (01) ==
LOC: LAB 13:22
PROVIDERS: PCP Family Medicine; Visit Provider Internal Medicine
DX: E10.9 Type 1 diabetes mellitus without complications (principal); E78.2 Mixed hyperlipidemia
CPT/HCPCS: 80053; 80061; 82044; 82310; 83036; 83970

== ENCOUNTER 2024-01-10 08:57 | Emergency (ER) | payer MEDICAID, SELFPAY ==
[2024-01-10 09:13] VITALS: BP 104/81; PULSE 97; RESP 18; TEMP 36.8; O2SAT 98; BMI 19.8
--- NOTE | 2024-01-10 09:17 | XR_ITS ---
WS: [id number] Right hand, 3 views, 01/10/2024 Clinical data: Punched wall, right hand pain Comparison: none Findings: There is a fracture of the distal 4th metacarpal with minimal ventral angulation. The phalanges and joint spaces are normal. There is soft tissue swelling of the dorsum of the hand. There may be an old fracture of the distal 5th metacarpal. XR/XR hand RT min 3V* [id number] Impression: Fracture of the head of the 4th metacarpal
--- NOTE | 2024-01-10 09:19 | ED_ITS ---
Documented by User: COOPER Pereira 01/10/24 10:59 HPI - Extremity Problem General: Chief complaint: Extremity Injury, Upper Stated complaint: right hand pain Time Seen by Provider: 01/10/24 09:14 Source: patient Mode of arrival: ambulatory Limitations: no limitations History of Present Illness: Patient is a 48 y/o male who presents to the ED c/o right hand pain after punching wall yesterday afternoon. He does not elaborate on what made him punch the wall, however he notes that since then he has had increasing pain and swelling to the dorsal aspect of the right hand. He can no longer make a fist due to the pain and swelling. 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 At this time, he does not report any worsening numbness, and he has no obvious signs of deformity. He has not taken anything for pain and has not used ice or other OTC remedies. No other symptoms to report at this time. MD Complaint: extremity pain Onset (ago): day(s) Pain Consistency: constant Location: right and upper extremity Radiation: none Exacerbating factors: range of motion Associated symptoms: Deny chest pain, fever(s) or rash Review of Systems General: Reports: 10 or more systems reviewed and unremarkable except in HPI and below Const: Denies: fever(s) or chills Card: Denies: chest pain Resp: Denies: dyspnea or productive cough GI: Denies: abdominal pain, nausea, vomiting or diarrhea : Denies: flank pain Musc: Reports: extremity pain (rt hand), extremity swelling (rt hand) and limited range of motion; Denies: neck pain, back pain, joint pain, joint swelling, joint redness, joint warmth or muscle weakness Skin/Breast: Denies: rash Neuro: Denies: headache(s), numbness in extremities or weakness in extremities PFS ED PFSH: Medical History TIA (transient ischemic attack) Erectile dysfunction Nicotine dependence, cigarettes, with unspecified nicotine-induced disorders Diabetes mellitus type I Surgical History H/O hernia repair Umbilical Social History Smoking and tobacco/nicotine status: current every day tobacco/nicotine user cigarettes Packs smoked per day: 1 Alcohol intake: former Substance/Drug Use: former Physical Exam Const: COMMON NORMALS: no acute distress, patient oriented x3, no limitations, healthy appearing, alert and well nourished HENMT: COMMON NORMALS: normocephalic and atraumatic HEAD & SCALP: normocephalic and atraumatic Neck/C-Spine: COMMON NORMALS: full ROM, supple and no meningeal signs Resp: COMMON NORMALS: normal respiratory effort, No use of accessory muscles and clear to auscultation bilaterally AUSCULTATION: clear to auscultation bilaterally Cardio: COMMON NORMALS: regular rate and regular rhythm RATE: regular rate RHYTHM: regular rhythm Extremity: COMMON NORMALS: capillary refill normal, no joint enlargement and no clubbing, cyanosis or edema NARRATIVE EXTREMITY EXAM: swelling to the dorsal right hand, no bruising or redness. TTP over the dorsal right hand, which includes the base of the 5th metatarsal. No anatomical snuff box tenderness Neuro: COMMON NORMALS: patient oriented x3, moves all extremities, no focal motor deficits and no sensory deficits noted SENSORIUM/ORIENTATION: Yes alert MENINGEAL SIGNS: Yes no meningeal signs Psych: COMMON NORMALS: mental status grossly normal Skin: NARRATIVE SKIN EXAM: scattered excoriations to bilateral upper extremities Course Vital Signs: Vital signs: Vital Signs Temperature 98.2 F 01/10/24 09:20 Pulse Rate 98 01/10/24 11:05 Respiratory Rate 18 01/10/24 11:05 Blood Pressure 104/81 01/10/24 09:20 Pulse Oximetry 95 01/10/24 11:05 Oxygen Delivery Me thod Room Air 01/10/24 09:20 MDM - Extremity (Nontraumatic) Medical Decision Making Patient presented with right hand pain evolving since punching a wall yesterday afternoon. XR of the right hand showed a fracture of the head of the 4th MCP. He is placed in an ulnar gutter and referred to orthopedics. Post-splint NV exam intact. Strict return precautions given. No evidence for external wound that would require abx. Case discussed with Dr. Phelps. Lab Data Radiology Impressions Hand X-Ray 01/10/24 09:17 Impression: Fracture of the head of the 4th metacarpal All radiology interpretation(s) finalized by discharge Discharge Plan Discharge Patient Disposition: Home Clinical Impression: Closed fracture of 4th metacarpal Qualifiers: Encounter type: initial encounter Metacarpal location: neck Fracture alignment: nondisplaced Laterality: right Qualified Code(s): S62.364A - Nondisplaced fracture of neck of fourth metacarpal bone, right hand, initial encounter for closed fracture Condition: Stable Prescriptions: No Action (DME) Dexcom G6 Sensor Device See Rx Instructions .ROUTE .MEDSUPPLY Qty: 9 3RF Rx Instructions: change every 10 days (DME) Dexcom G6 Transmitter Device See Rx Instructions .ROUTE .MEDSUPPLY Qty: 2 3RF Rx Instructions: change every 3 months (DME) blood-glucose meter Misc See Rx Instructions .MEDSUPPLY Qty: 1 0RF Rx Instructions: As directed (DME) lancets 25 gauge misc See Rx Instructions .MEDSUPPLY Qty: 100 5RF Rx Instructions: As directed insulin asp prt-insulin aspart [Novolog Mix 70-30FlexPen U-100] 100 unit/mL (70-30) insulin pen 20 unit SUBCUT BID Qty: 15 3RF (DME) Dexcom G6 Information Delivery Analyst Misc See Rx Instructions .ROUTE .MEDSUPPLY Qty: 1 3RF Rx Instructions: once a year sulfamethoxazole-trimethoprim [Bactrim DS] 800-160 mg tablet 1 tab PO BID Qty: 20 0RF permethrin 5 % cream 1 applic topical Q14D Qty: 60 0RF Rx Instructions: apply second treatment 14 days after first treatment if live lice remain (DME) Dexcom G7 Information Delivery Analyst Misc See Rx Instructions .ROUTE .MEDSUPPLY Qty: 1 0RF Rx Instructions: As directed atorvastatin 40 mg tablet See Rx Instructions .ROUTE .COMPLEX Qty: 90 0RF Dose Instruction: TAKE ONE TABLET BY MOUTH EVERY DAY Rx Instructions: TAKE ONE TABLET BY MOUTH EVERY DAY clopidogrel 75 mg tablet See Rx Instructions .ROUTE .COMPLEX Qty: 90 0RF Dose Instruction: TAKE ONE TABLET BY MOUTH EVERY DAY Rx Instructions: TAKE ONE TABLET BY MOUTH EVERY DAY lisinopril 2.5 mg tablet See Rx Instructions .ROUTE .COMPLEX Qty: 90 0RF Dose Instruction: TAKE 1 TABLET BY MOUTH EVERY MORNING Rx Instructions: TAKE 1 TABLET BY MOUTH EVERY MORNING (DME) Dexcom G7 Sensor Device See Rx Instructions .ROUTE .COMPLEX Qty: 9 0RF Dose Instruction: USE DIRECTED Rx Instructions: USE DIRECTED (DME) insulin syringe-needle U-100 [UltiCare] 1 mL 30 gauge x 1/2 syringe See Rx Instructions .ROUTE .COMPLEX Qty: 200 0RF Dose Instruction: USE DIRECTED with insulin Rx Instructions: USE DIRECTED with insulin (DME) OneTouch Verio test strips Strip See Rx Instructions .ROUTE .COMPLEX Qty: 50 5RF Dose Instruction: USE DIRECTED Rx Instructions: USE DIRECTED ondansetron 8 mg tablet,disintegrating See Rx Instructions .ROUTE .COMPLEX Qty: 30 0RF Dose Instruction: DISSOLVE ONE TABLET UNDER THE TONGUE EVERY 8 HOURS NEEDED FOR NAUSEA AND VOMITING Rx Instructions: DISSOLVE ONE TABLET UNDER THE TONGUE EVERY 8 HOURS NEEDED FOR NAUSEA AND VOMITING Humulin R Regular U-100 Insuln 100 unit/mL solution See Rx Instructions .ROUTE .COMPLEX Qty: 10 0RF Dose Instruction: inject 15 units (0.15ml) SUBCUTANEOUSLY TWICE DAILY Rx Instructions: inject 15 units (0.15ml) SUBCUTANEOUSLY TWICE DAILY (DME) insulin syringe-needle U-100 [BD Insulin Syringe Ultra-Fine] 1 mL 31 gauge x 5/16 syringe See Rx Instructions .ROUTE .COMPLEX Qty: 200 0RF Dose Instruction: USE DIRECTED with insulin Rx Instructions: USE DIRECTED with insulin aspirin 81 mg tablet,delayed release (DR/EC) 81 mg PO DAILY Qty: 30 0RF ivermectin 3 mg tablet 12 mg PO Q7D Qty: 12 0RF Discharge Orders: Discharge ED (Routine); Ordered 01/10/24 Ordered By: Damaso Rashid Discharge Diet: Usual diet Discharge Activity: Limit activity as instructed Patient Instructions: Hand Fracture (ED) Activity Restrictions/Additional Instructions: Ulnar gutter splint. Follow up with orthopedics as discussed. Tylenol or Ibuprofen for pain relief. Avoid re-injury of the hand. Return if you develop any new or concerning symptoms. Coding Level of Care Code ED Buttermaker Continuous Churn for Nasima Odom Documented by User: James Phelps DO 01/10/24 13:48 HPI - Extremity Problem General: Chief complaint: Extremity Injury, Upper Stated complaint: right hand pain Time Seen by Provider: 01/10/24 09:14 PFS ED PFSH: Medical History TIA (transient ischemic attack) Erectile dysfunction Nicotine dependence, cigarettes, with unspecified nicotine-induced disorders Diabetes mellitus type I Surgical History H/O hernia repair Umbilical Social History Smoking and tobacco/nicotine status: current every day tobacco/nicotine user cigarettes Packs smoked per day: 1 Alcohol intake: former Substance/Drug Use: former Course Vital Signs: Vital signs: Vital Signs Temperature 98.2 F 01/10/24 09:20 Pulse Rate 98 01/10/24 11:05 Respiratory Rate 18 01/10/24 11:05 Blood Pressure 104/81 01/10/24 09:20 Pulse Oximetry 95 01/10/24 11:05 Oxygen Delivery Me thod Room Air 01/10/24 09:20 MDM - Extremity (Nontraumatic) Medical Decision Making Patient presented with right hand pain evolving since punching a wall yesterday afternoon. XR of the right hand showed a fracture of the head of the 4th MCP. He is placed in an ulnar gutter and referred to orthopedics. Post-splint NV exam intact. Strict return precautions given. No evidence for external wound that would require abx. Case discussed with Dr. Phelps. Chart reviewed and patient discussed with midlevel. Agree with assessment and plan. Lab Data Radiology Impressions Hand X-Ray 01/10/24 09:17 Impression: Fracture of the head of the 4th metacarpal Discharge Plan Discharge Patient Disposition: Home Clinical Impression: Closed fracture of 4th metacarpal Qualifiers: Encounter type: initial encounter Metacarpal location: neck Fracture alignment: nondisplaced Laterality: right Qualified Code(s): S62.364A - Nondisplaced fracture of neck of fourth metacarpal bone, right hand, initial encounter for closed fracture Condition: Stable Prescriptions: No Action (DME) Dexcom G6 Sensor Device See Rx Instructions .ROUTE .MEDSUPPLY Qty: 9 3RF Rx Instructions: change every 10 days [place] Dexcom G6 Transmitter Device See Rx Instructions .ROUTE .MEDSUPPLY Qty: 2 3RF Rx Instructions: change every 3 months ([facility] blood-glucose meter Misc See Rx Instructions .MEDSUPPLY Qty: 1 0RF Rx Instructions: As directed ([facility] lancets 25 gauge misc See Rx Instructions .MEDSUPPLY Qty: 100 5RF Rx Instructions: As directed insulin asp prt-insulin aspart [Novolog Mix 70-30FlexPen U-100] 100 unit/mL (70-30) insulin pen 20 unit SUBCUT BID Qty: 15 3RF ([facility] Dexcom G6 Information Delivery Analyst Misc See Rx Instructions .ROUTE .MEDSUPPLY Qty: 1 3RF Rx Instructions: once a year sulfamethoxazole-trimethoprim [Bactrim DS] 800-160 mg tablet 1 tab PO BID Qty: 20 0RF permethrin 5 % cream 1 applic topical Q14D Qty: 60 0RF Rx Instructions: apply second treatment 14 days after first treatment if live lice remain ([facility] Dexcom G7 Information Delivery Analyst Misc See Rx Instructions .ROUTE .MEDSUPPLY Qty: 1 0RF Rx Instructions: As directed atorvastatin 40 mg tablet See Rx Instructions .ROUTE .COMPLEX Qty: 90 0RF Dose Instruction: TAKE ONE TABLET BY MOUTH EVERY DAY Rx Instructions: TAKE ONE TABLET BY MOUTH EVERY DAY clopidogrel 75 mg tablet See Rx Instructions .ROUTE .COMPLEX Qty: 90 0RF Dose Instruction: TAKE ONE TABLET BY MOUTH EVERY DAY Rx Instructions: TAKE ONE TABLET BY MOUTH EVERY DAY lisinopril 2.5 mg tablet See Rx Instructions .ROUTE .COMPLEX Qty: 90 0RF Dose Instruction: TAKE 1 TABLET BY MOUTH EVERY MORNING Rx Instructions: TAKE 1 TABLET BY MOUTH EVERY MORNING ([facility] Dexcom G7 Sensor Device See Rx Instructions .ROUTE .COMPLEX Qty: 9 0RF Dose Instruction: USE DIRECTED Rx Instructions: USE DIRECTED ([facility] insulin syringe-needle U-100 [UltiCare] 1 mL 30 gauge x 1/2 syringe See Rx Instructions .ROUTE .COMPLEX Qty: 200 0RF Dose Instruction: USE DIRECTED with insulin Rx Instructions: USE DIRECTED with insulin ([facility] OneTouch Verio test strips Strip See Rx Instructions .ROUTE .COMPLEX Qty: 50 5RF Dose Instruction: USE DIRECTED Rx Instructions: USE DIRECTED ondansetron 8 mg tablet,disintegrating See Rx Instructions .ROUTE .COMPLEX Qty: 30 0RF Dose Instruction: DISSOLVE ONE TABLET UNDER THE TONGUE EVERY 8 HOURS NEEDED FOR NAUSEA AND VOMITING Rx Instructions: DISSOLVE ONE TABLET UNDER THE TONGUE EVERY 8 HOURS NEEDED FOR NAUSEA AND VOMITING Humulin R Regular U-100 Insuln 100 unit/mL solution See Rx Instructions .ROUTE .COMPLEX Qty: 10 0RF Dose Instruction: inject 15 units (0.15ml) SUBCUTANEOUSLY TWICE DAILY Rx Instructions: inject 15 units (0.15ml) SUBCUTANEOUSLY TWICE DAILY (DME) insulin syringe-needle U-100 [BD Insulin Syringe Ultra-Fine] 1 mL 31 gauge x 5/16 syringe See Rx Instructions .ROUTE .COMPLEX Qty: 200 0RF Dose Instruction: USE DIRECTED with insulin Rx Instructions: USE DIRECTED with insulin aspirin 81 mg tablet,delayed release (DR/EC) 81 mg PO DAILY Qty: 30 0RF ivermectin 3 mg tablet 12 mg PO Q7D Qty: 12 0RF Discharge Orders: Discharge ED (Routine); Ordered 01/10/24 Ordered By: Damaso Rashid Discharge Diet: Usual diet Discharge Activity: Limit activity as instructed Patient Instructions: Hand Fracture (ED) Activity Restrictions/Additional Instructions: Ulnar gutter splint. Follow up with orthopedics as discussed. Tylenol or Ibuprofen for pain relief. Avoid re-injury of the hand. Return if you develop any new or concerning symptoms. Coding Level of Care Code ED Buttermaker Continuous Churn for Nasima Odom
[2024-01-10 09:20] VITALS: BP 104/81; PULSE 97; RESP 18; TEMP 36.8; O2SAT 98
[2024-01-10] MEDS: ketorolac 60 mg/2 mL INJ IM (09:37)
[2024-01-10 11:05] VITALS: PULSE 98; RESP 18; O2SAT 95
--- NOTE | 2024-01-15 07:40 | DCPLANNER ---
message sent to ortho for er f/u
== END 2024-01-10 11:06 | disposition home or self-care (01) ==
PROVIDERS: Emergency Provider Physician Assistant
DX: S62.364A Nondisplaced fracture of neck of fourth metacarpal bone, right hand, initial encounter for closed fracture (principal); Z79.02 Long term (current) use of antithrombotics/antiplatelets; Z79.82 Long term (current) use of aspirin; Z79.4 Long term (current) use of insulin; Z86.73 Personal history of transient ischemic attack (TIA), and cerebral infarction without residual deficits; E10.9 Type 1 diabetes mellitus without complications; W22.09XA Striking against other stationary object, initial encounter
CPT/HCPCS: 73130; 96372; 99284; J1885

== ENCOUNTER → 2024-01-16 15:01 | Outpatient (BNVA) | payer MEDICAID, SELFPAY | PROVIDERS: Referring Provider Physician Assistant; Visit Provider Orthopaedic Surgery | DX: S62.394A Other fracture of fourth metacarpal bone, right hand, initial encounter for closed fracture (principal); X58.XXXA Exposure to other specified factors, initial encounter; M79.641 Pain in right hand | CPT/HCPCS: 73130 ==

== ENCOUNTER 2024-01-16 16:35 | Outpatient (CLI) | payer MEDICAID, SELFPAY | END 2024-01-16 16:36 | disposition home or self-care (01) | LOC: SPT 16:35 | PROVIDERS: Visit Provider Orthopaedic Surgery | DX: Z46.89 Encounter for fitting and adjustment of other specified devices (principal); S62.334D Displaced fracture of neck of fourth metacarpal bone, right hand, subsequent encounter for fracture with routine healing; X58.XXXD Exposure to other specified factors, subsequent encounter | CPT/HCPCS: L3984 ==

== ENCOUNTER 2024-01-20 10:56 | Outpatient (CLI) | payer MEDICAID, SELFPAY ==
[2024-01-20 11:48] LABS: Estmated Average Glucose 258; Hemoglobin A1C 10.6 % (4.0-6.0)
[2024-01-20 11:52] LABS: Alanine Aminotransferase 16 U/L (0-41); Albumin Level 3.8 g/dL (3.5-5.2); Alkaline Phosphatase 79 U/L (40-130); Anion Gap 14.7 (5-19); Aspartate Amino Transferase 14 U/L (0-40); Blood Urea Nitrogen 34 mg/dL (6-20); Calcium 8.8 mg/dL (8.5-10.5); Carbon Dioxide 25 mmol/L (22-29); Chloride 105 mmol/L (98-107); Cholesterol 185 mg/dL (0-200); Globulin 2.5 g/dL (1.3-4.6); Glomerular Filtration Rate 90.8 mL/min (90-130); Glucose 315 mg/dL (65-115); HDL Cholesterol 88 mg/dL (60-100); LDL Cholesterol Calculated 70 mg/dL (50-129); Osmolality Calculated 310 mOsm/kg (285-295); Potassium 4.7 mmol/L (3.5-5.1); Sodium 140 mmol/L (136-145); Total Bilirubin 0.2 mg/dL (0.15-1.2); Total Protein 6.3 g/dL (6.6-8.7); Triglycerides 133 mg/dL (0-150)
[2024-01-20 11:58] LABS: Creatinine Urine, Random 158 mg/dL (39-259); Microalbum Creatinine Ratio Ur 32 mg/dL (0-20); Microalbumin Random Urine 5 ug/dL (0-20)
== END 2024-01-20 10:57 | disposition home or self-care (01) ==
LOC: LAB 10:57
PROVIDERS: Visit Provider Internal Medicine
DX: E10.9 Type 1 diabetes mellitus without complications (principal); E78.2 Mixed hyperlipidemia
CPT/HCPCS: 36415; 80053; 80061; 82044; 83036

== ENCOUNTER → 2024-01-21 15:01 | Outpatient (BNVA) | payer MEDICAID, SELFPAY | PROVIDERS: Visit Provider Orthopaedic Surgery | DX: S62.304D Unspecified fracture of fourth metacarpal bone, right hand, subsequent encounter for fracture with routine healing; X58.XXXD Exposure to other specified factors, subsequent encounter | CPT/HCPCS: 73130 ==

== ENCOUNTER → 2024-02-06 07:51 | Outpatient (BNVA) | payer OTHER, MEDICAID, SELFPAY | PROVIDERS: Visit Provider Orthopaedic Surgery | DX: S62.91XA Unspecified fracture of right hand, initial encounter for closed fracture (principal); X58.XXXA Exposure to other specified factors, initial encounter | CPT/HCPCS: 73130 ==

== ENCOUNTER 2024-02-16 23:49 | Emergency (ER) | payer OTHER, MEDICAID, SELFPAY ==
[2024-02-16 23:49] VITALS: BP 115/69; PULSE 72; RESP 18; TEMP 36.3; O2SAT 99; BMI 21.3
[2024-02-16 23:59] LABS: Glucose Point of Care 101 mg/dL (70-110)
[2024-02-17 00:20] VITALS: BP 139/99; PULSE 78; RESP 18; O2SAT 99
[2024-02-17 00:32] LABS: Basophils % 0.6 %; Eosinophils # 0.3 10^3/uL (0.0-0.8); Eosinophils % 4.1 %; Hematocrit 42.1 % (37-53); Lymphocytes # 1.9 10^3/uL (0.8-4.8); Lymphocytes % 29.3 %; Mean Corpuscular HGB Conc 31.8 g/dL (30-55); Mean Corpuscular Hemoglobin 28.8 pg (27-33); Mean Corpuscular Volume 90.3 fl (82-101); Mean Platelet Volume 10.3 fL (7.4-10.4); Monocytes # 0.4 10^3/uL (0.2-0.9); Neutrophils # 3.94 10^3/uL (1.8-7.7); Neutrophils % 59.5 %; Nucleated Red Blood Cells % 0 %; Platelet Count 244 10^3/cmm (157-399); Red Blood Count 4.66 10^6/uL (3.85-5.65); Red Cell Distribution Width 13.5 % (12.1-15.1); White Blood Count 6.62 10^3/uL (3.29-11.43)
[2024-02-17 00:34] LABS: Charge for UA Resulting for Rev
[2024-02-17 00:39] LABS: Bilirubin Urine Negative (Negative); Blood Urine Negative (Negative); Glucose Urine UA 3+ (Normal); Ketones Urine Trace (Negative); Leukocyte Esterase Urine Negative (Negative); Nitrate Urine Negative (Negative); Protein Urine Trace (Negative); Urine Appearance Clear (CLEAR); Urine Color Yellow (Yellow); pH Urine 5.5 (5-7)
[2024-02-17 00:43] LABS: Bacteria Urine None Seen /hpf; RBC Urine 0-2 /hpf (0-2); Squamous Epithelial Cell Urine 0-5 /hpf (0-5); WBC Urine 0-5 /hpf (0-5)
[2024-02-17 00:46] LABS: Amphetamines Screen Urine Negative (Negative); Barbiturates Screen Urine Negative (Negative); Benzodiazepines Screen Urine Negative (Negative); Cocaine Screen Urine Negative (Negative); Opiate Screen Urine Negative (Negative); PCP Screen Urine Negative (Negative); Specific Gravity, Urine 1.038 (1.005-1.030); THC Screen Urine Positive (Negative)
[2024-02-17 00:48] LABS: Alanine Aminotransferase 16 U/L (0-41); Alkaline Phosphatase 92 U/L (40-130); Anion Gap 18.4 (5-19); Aspartate Amino Transferase 16 U/L (0-40); Blood Urea Nitrogen 32 mg/dL (6-20); Calcium 9.3 mg/dL (8.5-10.5); Carbon Dioxide 25 mmol/L (22-29); Chloride 104 mmol/L (98-107); Creatinine Clr Calc Pharmacy 100.9623; Globulin 2.8 g/dL (1.3-4.6); Glomerular Filtration Rate 80.4 mL/min (90-130); Glucose 107 mg/dL (65-115); Osmolality Calculated 305 mOsm/kg (285-295); Potassium 3.4 mmol/L (3.5-5.1); Sodium 144 mmol/L (136-145); Total Bilirubin 0.2 mg/dL (0.15-1.2); Total Protein 6.8 g/dL (6.6-8.7)
[2024-02-17 00:54] LABS: Glucose Point of Care 131 mg/dL (70-110)
--- NOTE | 2024-02-17 00:55 | W.ED.GENADLT ---
HPI - General Adult General: Chief complaint: General Medical Stated complaint: LOW BLOOD SUGAR Time Seen by Provider: 02/16/24 23:53 History of Present Illness: 48-year-old male insulin-dependent diabetic. Presents with low blood sugar. Blood pressure sugar was low at home, with associated mental status changes. He was given D10 en route by EMS. He is feeling better. He said peanut butter and crackers and milk here. Sugars trending up. He denies recent illness. Related Data Previous Rx's Medication Instructions Recorded aspirin 81 mg tablet,delayed 81 mg PO DAILY #30 tabs 06/05/22 release blood-glucose meter #1 ea 01/08/23 ivermectin 3 mg tablet 12 mg (4 x 3 mg) PO Q7D #12 tabs 03/15/23 atorvastatin 40 mg tablet See Rx Instructions .Route 04/01/23 .COMPLEX #90 tabs clopidogrel 75 mg tablet See Rx Instructions .Route 04/01/23 .COMPLEX #90 tabs lisinopril 2.5 mg tablet See Rx Instructions .Route 04/01/23 .COMPLEX #90 tabs insulin syringe-needle U-100 1 mL #200 ea 10/22/23 30 gauge x 1/2 (UltiCare) ondansetron 8 mg disintegrating See Rx Instructions .Route 11/07/23 tablet .COMPLEX #30 ea insulin syringe-needle U-100 1 mL #200 ea 12/19/23 31 gauge x 5/16 (BD Insulin Syringe Ultra-Fine) fast form #1 ea 01/16/24 blood sugar diagnostic (OneTouch #50 strips 01/24/24 Verio test strips) blood-glucose sensor (Dexcom G7 #6 ea 01/24/24 Sensor device) insulin aspar prot-insulin aspart 20 unit (0.2 mL) SUBCUT BID #15 mL 01/24/24 100 unit/mL (70-30) subcutaneous pen (Novolog Mix 70-30FlexPen U-100) lancets 25 gauge #100 ea 01/24/24 permethrin 5 % topical cream 1 applic topical Q14D 2 doses #60 01/27/24 grams blood-glucose meter,continuous #1 ea 02/11/24 (Dexcom G7 Energy Sales Consultant) Allergies Allergy/AdvReac Type Severity Reaction Status Date / Time famotidine [From Pepcid] Allergy Unconscious Verified 02/16/24 23:56 omeprazole [From Prilosec] Allergy Unconscious Verified 02/16/24 23:56 PFSH ED PFSH: Medical History TIA (transient ischemic attack) Erectile dysfunction Nicotine dependence, cigarettes, with unspecified nicotine-induced disorders Diabetes mellitus type I Surgical History H/O hernia repair Umbilical Social History Smoking and tobacco/nicotine status: unknown if used tobacco/nicotine Alcohol intake: former Substance/Drug Use: former Physical Exam Const: COMMON NORMALS: no acute distress GENERAL APPEARANCE: cooperative; not ill appearing and not frail appearing HENMT: COMMON NORMALS: normocephalic, atraumatic and Normal external nose present HEAD & SCALP: normocephalic and atraumatic FACE & SINUS: normal facial exam and face symmetric NOSE: Normal external nose present Eye: COMMON NORMALS: Equal, round and reactive pupils present and EOMs intact bilaterally PUPIL: Yes Equal, round and reactive pupils present Neck/C-Spine: GENERAL: Yes trachea midline Chest: CHEST: Yes Symmetrical chest wall rise Resp: COMMON NORMALS: normal respiratory effort, No retractions, No use of accessory muscles and clear to auscultation bilaterally AUSCULTATION: clear to auscultation bilaterally Cardio: COMMON NORMALS: regular rate and regular rhythm RATE: regular rate RHYTHM: regular rhythm GI: COMMON NORMALS: Normal to inspection, nondistended, normoactive bowel sounds present Extremity: COMMON NORMALS: no pedal edema Neuro: GILBERTO COMA SCALE: document [facility] findings [place] coma scale eye opening: Spontaneous Gilberto coma scale verbal response: Orientated Gilberto coma scale motor response: Obey commands [place] coma scale total score: 15 SENSORY EXAM: Yes extremities (intact) Psych: COMMON NORMALS: speech normal SPEECH: Yes normal speech Skin: COMMON NORMALS: no rashes or lesions noted GENERAL SKIN EXAM: no rashes or lesions noted Course Vital Signs: Vital signs: Vital Signs Temperature 97.4 F L 02/16/24 23:49 Pulse Rate 63 02/17/24 01:02 Respiratory Rate 14 02/17/24 01:02 Blood Pressure 93/60 02/17/24 01:02 Pulse Oximetry 97 02/17/24 01:02 Oxygen Delivery Me thod Room Air 02/16/24 23:49 MDM - General Adult Medical Decision Making Creatinine is 1. CBC is normal. Sugar is staying up. Drug screen is negative save marijuana. He will be allowed discharge. Return for worsening symptoms. He will check his sugar often the next 24 hours. Lab Data 02/17/24 00:16 02/17/24 00:16 Laboratory Results WBC 6.62 10^3/uL (3.29-11.43) 02/17/24 00:16 RBC 4.66 10^6/uL (3.85-5.65) 02/17/24 00:16 Hgb 13.40 g/dL (11.27-16.99) 02/17/24 00:16 Hct 42.1 % (37-53) 02/17/24 00:16 MCV 90.3 fl (82-101) 02/17/24 00:16 MCH 28.8 pg (27-33) 02/17/24 00:16 MCHC 31.8 g/dL (30-55) 02/17/24 00:16 RDW 13.5 % (12.1-15.1) 02/17/24 00:16 Plt Count 244 10^3/cmm (157-399) 02/17/24 00:16 MPV 10.3 fL (7.4-10.4) 02/17/24 00:16 Neut % (Auto) 59.5 % 02/17/24 00:16 Lymph % (Auto) 29.3 % 02/17/24 00:16 [place] % (Auto) 6.0 % 02/17/24 00:16 Eos % (Auto) 4.1 % 02/17/24 00:16 Baso % (Auto) 0.6 % 02/17/24 00:16 Neut # (Auto) 3.94 10^3/uL (1.8-7.7) 02/17/24 00:16 Lymph # (Auto) 1.9 10^3/uL (0.8-4.8) 02/17/24 00:16 [place] # (Auto) 0.4 10^3/uL (0.2-0.9) 02/17/24 00:16 Eos # (Auto) 0.3 10^3/uL (0.0-0.8) 02/17/24 00:16 Baso # (Auto) 0.0 10^3/uL (0.0-0.1) 02/17/24 00:16 Nucleated RBC % (auto) 0 % 02/17/24 00:16 Nucleated RBCs # 0.0 /100WBC 02/17/24 00:16 Sodium 144 mmol/L (136-145) 02/17/24 00:16 Potassium 3.4 mmol/L (3.5-5.1) L 02/17/24 00:16 Chloride 104 mmol/L (98-107) 02/17/24 00:16 Carbon Dioxide 25 mmol/L (22-29) 02/17/24 00:16 Anion Gap 18.4 (5-19) 02/17/24 00:16 BUN 32 mg/dL (6-20) H 02/17/24 00:16 Creatinine 1.0 mg/dL (0.7-1.2) 02/17/24 00:16 GFR Calculation 80.4 mL/min (90-130) L 02/17/24 00:16 Glucose 107 mg/dL (65-115) 02/17/24 00:16 POC Glucose 131 mg/dL (70-110) H 02/17/24 00:40 Calculated Osmolality 305 mOsm/kg (285-295) H 02/17/24 00:16 Calcium 9.3 mg/dL (8.5-10.5) 02/17/24 00:16 Total Bilirubin 0.2 mg/dL (0.15-1.2) 02/17/24 00:16 AST 16 U/L (0-40) 02/17/24 00:16 ALT 16 U/L (0-41) 02/17/24 00:16 Alkaline Phosphatase 92 U/L (40-130) 02/17/24 00:16 Total Protein 6.8 g/dL (6.6-8.7) 02/17/24 00:16 Albumin 4.0 g/dL (3.5-5.2) 02/17/24 00:16 Globulin 2.8 g/dL (1.3-4.6) 02/17/24 00:16 Urine Color Yellow (Yellow) 02/17/24 00:16 Urine Appearance Clear (CLEAR) 02/17/24 00:16 Urine pH 5.5 (5-7) 02/17/24 00:16 Ur Specific [place] 1.038 (1.005-1.030) H 02/17/24 00:16 Urine Protein Trace (Negative) A 02/17/24 00:16 Urine Glucose (UA) 3+ (Normal) H 02/17/24 00:16 Urine Ketones Trace (Negative) 02/17/24 00:16 Urine Blood Negative (Negative) 02/17/24 00:16 Urine Nitrate Negative (Negative) 02/17/24 00:16 Urine Bilirubin Negative (Negative) 02/17/24 00:16 Urine Urobilinogen 1.0 mg/dL (Negative) 02/17/24 00:16 Ur Leukocyte Esterase Negative (Negative) 02/17/24 00:16 Urine RBC 0-2 /hpf (0-2) 02/17/24 00:16 Urine WBC 0-5 /hpf (0-5) 02/17/24 00:16 Ur Squamous Epith Cells 0-5 /hpf (0-5) 02/17/24 00:16 Amorphous Sediment Not Reportable 02/17/24 00:16 Urine Bacteria None seen /hpf (NONE) 02/17/24 00:16 Hyaline Casts 0.40 /lpf 02/17/24 00:16 Urine Opiates Screen Negative ng/mL (Negative) 02/17/24 00:16 Ur Barbiturates Screen Negative ng/mL (Negative) 02/17/24 00:16 Ur Phencyclidine Scrn Negative ng/mL (Negative) 02/17/24 00:16 Ur Amphetamines Screen Negative ng/mL (Negative) 02/17/24 00:16 U Benzodiazepines Scrn Negative ng/mL (Negative) 02/17/24 00:16 Urine Cocaine Screen Negative ng/mL (Negative) 02/17/24 00:16 U Marijuana (THC) Screen Positive ng/mL (Negative) H 02/17/24 00:16 No radiology studies performed this visit Discharge Plan Discharge Patient Disposition: Home Clinical Impression: Hypoglycemia Condition: Stable Prescriptions: No Action (DME) blood-glucose meter Misc See Rx Instructions .MEDSUPPLY Qty: 1 0RF Rx Instructions: As directed (DME) fast form See Rx Instructions .Route .MEDSUPPLY Qty: 1 0RF Rx Instructions: As directed permethrin 5 % cream 1 applic topical Q14D Qty: 60 0RF Rx Instructions: apply second treatment 14 days after first treatment if live lice remain atorvastatin 40 mg tablet See Rx Instructions .ROUTE .COMPLEX Qty: 90 0RF Dose Instruction: TAKE ONE TABLET BY MOUTH EVERY DAY Rx Instructions: TAKE ONE TABLET BY MOUTH EVERY DAY clopidogrel 75 mg tablet See Rx Instructions .ROUTE .COMPLEX Qty: 90 0RF Dose Instruction: TAKE ONE TABLET BY MOUTH EVERY DAY Rx Instructions: TAKE ONE TABLET BY MOUTH EVERY DAY lisinopril 2.5 mg tablet See Rx Instructions .ROUTE .COMPLEX Qty: 90 0RF Dose Instruction: TAKE 1 TABLET BY MOUTH EVERY MORNING Rx Instructions: TAKE 1 TABLET BY MOUTH EVERY MORNING (DME) insulin syringe-needle U-100 [UltiCare] 1 mL 30 gauge x 1/2 syringe See Rx Instructions .ROUTE .COMPLEX Qty: 200 0RF Dose Instruction: USE DIRECTED with insulin Rx Instructions: USE DIRECTED with insulin ondansetron 8 mg tablet,disintegrating See Rx Instructions .ROUTE .COMPLEX Qty: 30 0RF Dose Instruction: DISSOLVE ONE TABLET UNDER THE TONGUE EVERY 8 HOURS NEEDED FOR NAUSEA AND VOMITING Rx Instructions: DISSOLVE ONE TABLET UNDER THE TONGUE EVERY 8 HOURS NEEDED FOR NAUSEA AND VOMITING (DME) insulin syringe-needle U-100 [BD Insulin Syringe Ultra-Fine] 1 mL 31 gauge x 5/16 syringe See Rx Instructions .ROUTE .COMPLEX Qty: 200 0RF Dose Instruction: USE DIRECTED with insulin Rx Instructions: USE DIRECTED with insulin (DME) Dexcom G7 Sensor Device See Rx Instructions .ROUTE .COMPLEX Qty: 6 2RF Dose Instruction: USE DIRECTED Rx Instructions: USE DIRECTED insulin asp prt-insulin aspart [Novolog Mix 70-30FlexPen U-100] 100 unit/mL (70-30) insulin pen 20 unit SUBCUT BID Qty: 15 3RF (DME) OneTouch Verio test strips Strip See Rx Instructions .ROUTE .COMPLEX Qty: 50 5RF Dose Instruction: USE DIRECTED Rx Instructions: USE DIRECTED (DME) lancets 25 gauge misc See Rx Instructions .MEDSUPPLY Qty: 100 5RF Rx Instructions: As directed (DME) Dexcom G7 Energy Sales Consultant Misc See Rx Instructions .ROUTE .MEDSUPPLY Qty: 1 0RF Rx Instructions: As directed aspirin 81 mg tablet,delayed release (DR/EC) 81 mg PO DAILY Qty: 30 0RF ivermectin 3 mg tablet 12 mg PO Q7D Qty: 12 0RF Discharge Orders: Discharge ED (Routine); Ordered 02/17/24 Ordered By: Elliot Lorenzo Patient Instructions: Hypoglycemia in a Person with Diabetes (ED), Opioid Safety, Pain Management Activity Restrictions/Additional Instructions: Stay hydrated. Check your blood sugar every 2 hours for the next 8 hours, then follow your normal blood sugar schedule following. Treat accordingly. Return for any problems. See your doctor this week. Coding Level of Care Code ED Housekeeper And Laundry Assistant for Nasima Odom
[2024-02-17 01:02] VITALS: BP 93/60; PULSE 63; RESP 14; O2SAT 97
== END 2024-02-17 01:08 | disposition home or self-care (01) ==
PROVIDERS: Emergency Provider Emergency Medicine
DX: E10.649 Type 1 diabetes mellitus with hypoglycemia without coma (principal); Z79.02 Long term (current) use of antithrombotics/antiplatelets; Z79.4 Long term (current) use of insulin; Z79.82 Long term (current) use of aspirin; Z86.73 Personal history of transient ischemic attack (TIA), and cerebral infarction without residual deficits
CPT/HCPCS: 36416; 80053; 80306; 81003; 81015; 82962; 85025; 99283

== ENCOUNTER 2024-04-17 20:33 | Observation (INO) | payer OTHER, MEDICAID, SELFPAY ==
[2024-04-17 20:41] VITALS: BP 123/84; PULSE 94; RESP 16; TEMP 36.8; O2SAT 99
[2024-04-17 20:59] LABS: Glucose Point of Care > 600 mg/dL (70-110)
--- NOTE | 2024-04-17 21:12 | CTR_ITS ---
PROCEDURE INFORMATION: Exam: CTA Head With Contrast, Arteriography Exam date and time: 04/17/2024 9:22 PM Age: 48 years old Clinical indication: Patient HX: C/O RT upper ext weakness x 2 days. History of TIA. ; Additional info: HX of stroke/ right arm weakness TECHNIQUE: Imaging protocol: Computed tomographic angiography of the head with contrast. Exam focused on the arteries. 3D rendering (Not supervised by radiologist): MIP and/or 3D reconstructed images were created by the technologist. Radiation optimization: All CT scans at this facility use at least one of these dose optimization techniques: automated exposure control; mA and/or kV adjustment per patient size (includes targeted exams where dose is matched to clinical indication); or iterative reconstruction. Contrast material: OMNI 350; Contrast volume: 100 ml; Contrast route: INTRAVENOUS (IV); COMPARISON: MR angio head wo con [id number] 03/28/2023 2:39 PM RADIATION DOSE METRICS: Total DLP (mGy-cm): 990.72 FINDINGS: ANTERIOR CIRCULATION: Right internal carotid artery: Intracranial segment is patent with no significant stenosis. No aneurysm. Mild atherosclerotic calcifications along the carotid siphon. Right middle cerebral artery: No occlusion or significant stenosis. No aneurysm. Right anterior cerebral artery: No occlusion or significant stenosis. No aneurysm. Left internal carotid artery: Intracranial segment is patent with no significant stenosis. No aneurysm. Mild atherosclerotic calcifications along the carotid siphon. Left middle cerebral artery: No occlusion or significant stenosis. No aneurysm. Left anterior cerebral artery: No occlusion or significant stenosis. No aneurysm. POSTERIOR CIRCULATION: Right vertebral artery: No occlusion or significant stenosis. No aneurysm. Left vertebral artery: No occlusion or significant stenosis. No aneurysm. Basilar artery: No occlusion or significant stenosis. No aneurysm. Right posterior cerebral artery: No occlusion or significant stenosis. No aneurysm. Left posterior cerebral artery: No occlusion or significant stenosis. No aneurysm. Brain: No definite mass, mass effect, or midline shift. Cerebral ventricles: No ventriculomegaly. Bones/joints: Unremarkable. No acute fracture. Soft tissues: Unremarkable. PROCEDURE INFORMATION: Exam: CTA Neck With Contrast Exam date and time: 04/17/2024 9:22 PM Age: 48 years old Clinical indication: Patient HX: C/O RT upper ext weakness x 2 days. History of TIA. ; Additional info: HX of stroke/ right arm weakness TECHNIQUE: Imaging protocol: Computed tomographic angiography of the neck with contrast. Exam focused on the cervical segments of the vasculature. 3D rendering (Not supervised by radiologist): MIP and/or 3D reconstructed images were created by the technologist. Radiation optimization: All CT scans at this facility use at least one of these dose optimization techniques: automated exposure control; mA and/or kV adjustment per patient size (includes targeted exams where dose is matched to clinical indication); or iterative reconstruction. Contrast material: OMNI 350; Contrast volume: 100 ml; Contrast route: INTRAVENOUS (IV); COMPARISON: MR angio neck w con* [id number] 03/28/2023 3:08 PM RADIATION DOSE METRICS: Total DLP (mGy-cm): 990.72 FINDINGS: Right common carotid artery: No stenosis. No dissection or occlusion. Right internal carotid artery: No stenosis of the extracranial segment. No dissection or occlusion. Right external carotid artery: No occlusion or stenosis of the origin. Left common carotid artery: No stenosis. No dissection or occlusion. Left internal carotid artery: No stenosis of the extracranial segment. No dissection or occlusion. Left external carotid artery: No occlusion or stenosis of the origin. Right vertebral artery: No stenosis. No dissection or occlusion. Left vertebral artery: No stenosis. No dissection or occlusion. Right subclavian artery: Aberrant right subclavian artery, normal anatomic variant. Soft tissues: Normal. No significant soft tissue swelling. Bones/joints: No acute fracture. CT/CT angio headneck* [id number] IMPRESSION: No large vessel stenosis or occlusion. IMPRESSION: No hemodynamically significant stenosis or occlusion within the arteries of the neck. REFERENCES: NASCET CRITERIA. The degree of stenosis in the cervical segment of the internal carotid artery is based on NASCET criteria. Normal is no stenosis. Mild is less than 50% stenosis. Moderate is 50-69% stenosis. Severe is 70% to 99% stenosis. Total occlusion is no detectable patent lumen.
--- NOTE | 2024-04-17 21:16 | ED_ITS ---
HPI - General Adult 2 General: Chief complaint: General Medical Stated complaint: Right shoulder pian/arm numbness Time Seen by Provider: 04/17/24 20:59 Source: patient Mode of arrival: ambulatory Limitations: no limitations History of Present Illness: Patient is a 48-year-old male presenting to the emergency department complaining of right arm pain atraumatic associated with right arm weakness over the past couple of days. He states that these are symptoms he had with a prior stroke, and also his blood sugars have been running greater than 600 at home. He has been taking his insulin aspart as prescribed, he states. He also notes that he is currently undergoing treatment with ivermectin for lice. He also notes he has had unsteadiness on his feet that has been increasing, denies any other neurological complaints such as visual changes or paralysis. He denies any chest pain, shortness of breath, abdominal pain, nausea, vomiting, or other symptoms at this time. No focal neurological deficit is appreciated at this time, he is breathing comfortably on room air. MD complaint: Atraumatic right shoulder pain and right arm weakness Onset (ago): day(s) Associated symptoms: Deny chest pain, dyspnea, headache(s), nausea, palpitations or vomiting Related Data Previous Rx's Medication Instructions Recorded aspirin 81 mg tablet,delayed 81 mg PO DAILY #30 tabs 06/05/22 release blood-glucose meter #1 ea 01/08/23 atorvastatin 40 mg tablet See Rx Instructions .Route 04/01/23 .COMPLEX #90 tabs clopidogrel 75 mg tablet See Rx Instructions .Route 04/01/23 .COMPLEX #90 tabs lisinopril 2.5 mg tablet See Rx Instructions .Route 04/01/23 .COMPLEX #90 tabs insulin syringe-needle U-100 1 mL #200 ea 10/22/23 30 gauge x 1/2 (UltiCare) ondansetron 8 mg disintegrating See Rx Instructions .Route 11/07/23 tablet .COMPLEX #30 ea insulin syringe-needle U-100 1 mL #200 ea 12/19/23 31 gauge x 5/16 (BD Insulin Syringe Ultra-Fine) fast form #1 ea 01/16/24 blood-glucose sensor (Dexcom G7 #6 ea 01/24/24 Sensor device) insulin aspar prot-insulin aspart 20 unit (0.2 mL) SUBCUT BID #15 mL 01/24/24 100 unit/mL (70-30) subcutaneous pen (Novolog Mix 70-30FlexPen U-100) lancets 25 gauge #100 ea 01/24/24 permethrin 5 % topical cream 1 applic topical Q14D 2 doses #60 01/27/24 grams blood-glucose meter,continuous #1 ea 02/11/24 (Dexcom G7 Disability Aide) blood sugar diagnostic (OneTouch #100 ea 02/18/24 Verio test strips) ivermectin 3 mg tablet 12 mg (4 x 3 mg) PO Q7D #12 tabs 03/31/24 mupirocin 2 % topical ointment 1 applic topical BID #15 grams 03/31/24 Allergies Allergy/AdvReac Type Severity Reaction Status Date / Time famotidine [From Pepcid] Allergy Unconscious Verified 02/16/24 23:56 omeprazole [From Prilosec] Allergy Unconscious Verified 02/16/24 23:56 Review of Systems 2 General: Reports: 10 or more systems reviewed and unremarkable except in HPI and below Const: Denies: fever(s), chills or fatigue Eyes: Denies: change in vision ENMT: Denies: throat pain, ear or mastoid pain or nasal discharge Card: Denies: chest pain, palpitations, swelling of feet/ankles or lightheadedness Resp: Denies: dyspnea, productive cough or wheezing GI: Denies: abdominal pain, nausea, vomiting, diarrhea or constipation : Denies: flank pain, difficulty urinating, dysuria or urinary frequency Musc: Reports: joint pain (Right shoulder); Denies: neck pain or back pain Neuro: Reports: numbness in extremities (Right arm), weakness in extremities (Right arm), lack of coordination and difficulty walking; Denies: headache(s), Slurred speech present or seizure-like activity PFSH ED 2 PFSH: Medical History TIA (transient ischemic attack) Erectile dysfunction Nicotine dependence, cigarettes, with unspecified nicotine-induced disorders Diabetes mellitus type I Surgical History H/O hernia repair Umbilical Family History Denies family history of Diabetes mellitus type 1 Social History Smoking and tobacco/nicotine status: current every day tobacco/nicotine user cigarettes Packs smoked per day: 1 Alcohol intake: former Substance/Drug Use: former Physical Exam 2 Const: COMMON NORMALS: no acute distress, patient oriented x3 and no limitations GENERAL APPEARANCE: cooperative, comfortable and well developed ORIENTATION/CONSCIOUSNESS: Yes awake, Yes oriented to person, Yes oriented to place and Yes oriented to time OTHER: Patient covered in excoriations, no focal neurological deficit at this time. NIH 0 HENMT: COMMON NORMALS: normocephalic, atraumatic and hearing grossly normal bilaterally HEAD & SCALP: normocephalic and atraumatic Eye: COMMON NORMALS: Equal, round and reactive pupils present, EOMs intact bilaterally and conjunctivae normal CONJUNCTIVA: Yes conjunctivae normal P UPIL: Yes Equal, round and reactive pupils present OTHER: Eyes track midline Neck/C-Spine: COMMON NORMALS: full ROM, supple and no JVD Resp: COMMON NORMALS: normal respiratory effort, No retractions, No use of accessory muscles and clear to auscultation bilaterally AUSCULTATION: clear to auscultation bilaterally Cardio: COMMON NORMALS: no JVD, regular rate, regular rhythm, No clicks present (Cardio), No murmurs present (Cardio) and No rub (Cardio) RATE: r egular rate RHYTHM: regular rhythm GI: COMMON NORMALS: Normal to inspection, nondistended, normoactive bowel sounds present, Soft to palpation and non-tender AUSCULTATION: Yes normoactive bowel sounds PALPATION: Yes Soft to palpation RECTAL EXAM: Yes deferred Extremity: COMMON NORMALS: full ROM and capillary refill normal Neuro: COMMON NORMALS: patient oriented x3, CN's II-XII intact bilaterally, moves all extremities, no focal motor deficits and no sensory deficits noted SENSORIUM/ORIENTATION: Yes oriented to person, Yes oriented to place and Yes oriented to time SPEECH: speech normal MOTOR EXAM: 5/5 motor strength present throughout, Pronator motor function not present, no tremor noted, no asterixis and Motor fasciculations not present Psych: COMMON NORMALS: mental status grossly normal and Normal thought process present THOUGHT PROCESS: Normal thought process present Skin: COMMON NORMALS: no rashes or lesions noted GENERAL SKIN EXAM: no rashes or lesions noted Course 2 Vital Signs: Vital signs: Vital Signs Temperature 98.3 F 04/17/24 20:41 Pulse Rate 87 04/17/24 22:07 Respiratory Rate 16 04/17/24 22:07 Blood Pressure 150/79 04/17/24 22:07 Pulse Oximetry 99 04/17/24 22:07 Oxygen Delivery Me thod Room Air 04/17/24 20:41 MDM - General Adult Medical Decision Making Patient presented with concerns of what he thought were strokelike symptoms with atraumatic right shoulder pain with weakness on the right arm. NIH was 0, neurologically was intact at time of examination. Of note he is a type I diabetic and states that his sugars have been running too high to record on his monitor. He does note taking his medications as prescribed. However here his blood glucose noted to be greater than 900 with elevated lactic of 4.4. ABG was not too significant, serum ketones were negative. Was started on fluids here also was given insulin through IV pain control with morphine. His head and neck CTA was negative for any acute stroke. Spoke with Dr. Snell, hospitalist, who agrees to accept the patient to the ICU and started on insulin drip. Informed patient of this, he agrees at this time. States that he is pain-free and is not having any nausea at this time. Dr. Dukes putting in admit orders. Lab Data 04/17/24 21:17 04/17/24 21:17 Radiology Impressions Head/Neck CTA 04/17/24 21:12 IMPRESSION: No large vessel stenosis or occlusion. IMPRESSION: No hemodynamically significant stenosis or occlusion within the arteries of the neck. REFERENCES: NASCET CRITERIA. The degree of stenosis in the cervical segment of the internal carotid artery is based on NASCET criteria. Normal is no stenosis. Mild is less than 50% stenosis. Moderate is 50-69% stenosis. Severe is 70% to 99% stenosis. Total occlusion is no detectable patent lumen. Laboratory Results WBC 5.95 10^3/uL (3.29-11.43) 04/17/24 21:17 RBC 4.69 10^6/uL (3.85-5.65) 04/17/24 21:17 Hgb 13.40 g/dL (11.27-16.99) 04/17/24 21:17 Hct 41.9 % (37-53) 04/17/24 21:17 MCV 89.3 fl (82-101) 04/17/24 21:17 MCH 28.6 pg (27-33) 04/17/24 21:17 MCHC 32.0 g/dL (30-55) 04/17/24 21:17 RDW 13.4 % (12.1-15.1) 04/17/24 21:17 Plt Count 321 10^3/cmm (157-399) 04/17/24 21:17 MPV 10.3 fL (7.4-10.4) 04/17/24 21:17 Neut % (Auto) 67.4 % 04/17/24 21:17 Lymph % (Auto) 24.2 % 04/17/24 21:17 [place] % (Auto) 5.5 % 04/17/24 21:17 Eos % (Auto) 2.4 % 04/17/24 21:17 Baso % (Auto) 0.3 % 04/17/24 21:17 Neut # (Auto) 4.01 10^3/uL (1.8-7.7) 04/17/24 21:17 Lymph # (Auto) 1.4 10^3/uL (0.8-4.8) 04/17/24 21:17 [place] # (Auto) 0.3 10^3/uL (0.2-0.9) 04/17/24 21:17 Eos # (Auto) 0.1 10^3/uL (0.0-0.8) 04/17/24 21:17 Baso # (Auto) 0.0 10^3/uL (0.0-0.1) 04/17/24 21:17 Nucleated RBC % (auto) 0 % 04/17/24 21:17 Nucleated RBCs # 0.0 /100WBC 04/17/24 21:17 Specimen Type Arterial 04/17/24 21:10 Sample Site Radial, left 04/17/24 21:10 ABG pH 7.38 (7.35-7.45) 04/17/24 21:10 ABG pCO2 48.4 mmHg (35-45) H 04/17/24 21:10 ABG pO2 80.0 mmHg (80.0-100.0) 04/17/24 21:10 ABG PO2/FiO2 Ratio 380 04/17/24 21:10 ABG HCO3 28.3 mmol/L (22-26) H 04/17/24 21:10 ABG O2 Saturation 95.8 04/17/24 21:10 ABG Base Excess 2.4 mmol/L (-2.0-2.0) H 04/17/24 21:10 Brady Test Pos 04/17/24 21:10 A-a O2 Gradient 1.5 mmHg (5-10) L 04/17/24 21:10 Hematocrit 40.1 % (42-52) L 04/17/24 21:10 Hgb O2 Saturation 92.6 % (95-100) L 04/17/24 21:10 Carboxyhemoglobin 2.8 %THgb (0.4-20.1) 04/17/24 21:10 Methemoglobin 0.7 % (0.4-1.5) 04/17/24 21:10 Total Hemoglobin 13.1 g/dL (14-18) L 04/17/24 21:10 Sodium 127.0 mmol/L (131-143) L 04/17/24 21:10 Potassium 5.3 mmol/L (3.5-5.0) H 04/17/24 21:10 Glucose 792.0 mg/dL (70-115) H 04/17/24 21:10 Ionized Calcium 1.3 mmol/L (1.1-1.4) 04/17/24 21:10 O2 Delivery Device Room air 04/17/24 21:10 FiO2 21.0 % 04/17/24 21:10 [place] Torque Tester ID Ed 04/17/24 21:10 Sodium 125 mmol/L (136-145) L 04/17/24 21:17 Potassium 5.6 mmol/L (3.5-5.1) H 04/17/24 21:17 Chloride 85 mmol/L (98-107) L 04/17/24 21:17 Carbon Dioxide 27 mmol/L (22-29) 04/17/24 21:17 Anion Gap 18.6 (5-19) 04/17/24 21:17 BUN 26 mg/dL (6-20) H 04/17/24 21:17 Creatinine 1.0 mg/dL (0.7-1.2) 04/17/24 21:17 GFR Calculation 80.4 mL/min (90-130) L 04/17/24 21:17 Glucose 930 mg/dL (65-115) H* 04/17/24 21:17 POC Glucose > 600 mg/dL (70-110) H* 04/17/24 20:50 Calculated Osmolality 311 mOsm/kg (285-295) H 04/17/24 21:17 Lactic Acid 4.3 mmol/L (0.5-2.2) H* 04/17/24 21:17 Calcium 9.4 mg/dL (8.5-10.5) 04/17/24 21:17 Total Bilirubin 0.3 mg/dL (0.15-1.2) 04/17/24 21:17 AST 16 U/L (0-40) 04/17/24 21:17 ALT 25 U/L (0-41) 04/17/24 21:17 Alkaline Phosphatase 127 U/L (40-130) 04/17/24 21:17 C-Reactive Protein 3.0 mg/L (0.0-4.9) 04/17/24 21:17 Total Protein 6.7 g/dL (6.6-8.7) 04/17/24 21:17 Albumin 4.0 g/dL (3.5-5.2) 04/17/24 21:17 Globulin 2.7 g/dL (1.3-4.6) 04/17/24 21:17 Urine Color Yellow (Yellow) 04/17/24 21:22 Urine Appearance Clear (CLEAR) 04/17/24 21:22 Urine pH 5.5 (5-7) 04/17/24 21:22 Ur Specific [place] 1.032 (1.005-1.030) H 04/17/24 21:22 Urine Protein Negative (Negative) 04/17/24 21:22 Urine Glucose (UA) 3+ (Normal) H 04/17/24 21:22 Urine Ketones Negative (Negative) 04/17/24 21:22 Urine Blood Negative (Negative) 04/17/24 21:22 Urine Nitrate Negative (Negative) 04/17/24 21:22 Urine Bilirubin Negative (Negative) 04/17/24 21:22 Urine Urobilinogen 0.2 mg/dL (Negative) 04/17/24 21:22 Ur Leukocyte Esterase Negative (Negative) 04/17/24 21:22 Urine RBC 0-2 /hpf (0-2) 04/17/24 21:22 Urine WBC 0-5 /hpf (0-5) 04/17/24 21:22 Ur Squamous Epith Cells 0-5 /hpf (0-5) 04/17/24 21:22 Amorphous Sediment Not Reportable 04/17/24 21:22 Urine Bacteria None seen /hpf (NONE) 04/17/24 21:22 Hyaline Casts 0-4 /lpf H 04/17/24 21:22 Serum Ketones Negative (Negative) 04/17/24 21:17 All radiology interpretation(s) finalized by discharge Discharge Plan Discharge Patient Disposition: Admitted As Inpatient Admit Provider: Eris Snell Clinical Impression: Diabetes mellitus type I, Elevated lactic acid level Condition: Stable Coding Level of Care Code ED [employer] Lead for Nasima Odom
[2024-04-17 21:20] LABS: ABG PCO2 48.4 mmHg (35-45); ABG PH Result 7.38 (7.35-7.45); Alveolar-Arterial Oxygen Gradi 1.5 mmHg (5-10); Arterial Blood Gas Hematocrit 40.1 % (42-52); Base Excess ABG 2.4 mmol/L (-2.0-2.0); Blood Gas Allen Test Pos; Blood Gas Sample Type Arterial; Carboxyhemoglobin 2.8 %THgb (0.4-20.1); HCO3 ABG 28.3 mmol/L (22-26); HGB O2 Sat 92.6 % (95-100); Ionized Calcium Level - ABG 1.3 mmol/L (1.1-1.4); Methemoglobin 0.7 % (0.4-1.5); Oxygen Saturation ABG 95.8; Potassium Level - ABG 5.3 mmol/L (3.5-5.0); Total Hemoglobin 13.1 g/dL (14-18)
[2024-04-17 21:21] LABS: Blood Gas Operator Identificat ED; Blood Gas Sample Site Radial, left; Oxygen Device ROOM AIR; PO2 FiO2 Ratio Arterial Blood 380
[2024-04-17 21:25] LABS: Basophils % 0.3 %; Eosinophils # 0.1 10^3/uL (0.0-0.8); Eosinophils % 2.4 %; Hematocrit 41.9 % (37-53); Lymphocytes # 1.4 10^3/uL (0.8-4.8); Lymphocytes % 24.2 %; Mean Corpuscular Hemoglobin 28.6 pg (27-33); Mean Corpuscular Volume 89.3 fl (82-101); Mean Platelet Volume 10.3 fL (7.4-10.4); Monocytes # 0.3 10^3/uL (0.2-0.9); Monocytes % 5.5 %; Neutrophils # 4.01 10^3/uL (1.8-7.7); Neutrophils % 67.4 %; Nucleated Red Blood Cells % 0 %; Platelet Count 321 10^3/cmm (157-399); Red Blood Count 4.69 10^6/uL (3.85-5.65); Red Cell Distribution Width 13.4 % (12.1-15.1); White Blood Count 5.95 10^3/uL (3.29-11.43)
[2024-04-17] MEDS: iohexol 350 mg/mL 500 mL Btl (per mL) IV (21:25)
[2024-04-17 21:33] LABS: Bilirubin Urine Negative (Negative); Blood Urine Negative (Negative); Glucose Urine UA 3+ (Normal); Ketones Urine Negative (Negative); Leukocyte Esterase Urine Negative (Negative); Nitrate Urine Negative (Negative); Protein Urine Negative (Negative); Urine Appearance Clear (CLEAR); Urine Color Yellow (Yellow); Urobilinogen Urine 0.2 mg/dL (Negative); pH Urine 5.5 (5-7)
[2024-04-17] MEDS: morphine 4 mg/mL SDV 1 mL IVP (21:36)
[2024-04-17 21:37] LABS: Add Urine Microscopic? YES; Bacteria Urine None Seen /hpf; Hyaline Casts Urine 0-4 /lpf; RBC Urine 0-2 /hpf (0-2); Squamous Epithelial Cell Urine 0-5 /hpf (0-5); WBC Urine 0-5 /hpf (0-5)
[2024-04-17 21:38] LABS: Ketone (Acetest) Serum Negative (Negative)
[2024-04-17] MEDS: insulin regular-human 100 units/1 mL 10 UNIT IVP (21:38)
[2024-04-17] MEDS: sodium chloride 0.9% 1,000 ML 999 ML IV (21:38)
--- NOTE | 2024-04-17 21:40 | ECG_ITS ---
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 Measurements Intervals [place] Rate: 81 P: 80 RI: 151 QRS: 71 QRSD: 97 T: 76 QT: 377 QTc: 440 Interpretive Statements SINUS RHYTHM POSSIBLE RIGHT ATRIAL ENLARGEMENT [0.25mV P-WAVE] POSSIBLE LEFT ATRIAL ENLARGEMENT [-0.1mV P-WAVE IN V1/V2] POSSIBLE RIGHT VENTRICULAR CONDUCTION DELAY [RSR (QR) IN V1/V2] POSSIBLE LEFT VENTRICULAR HYPERTROPHY [VOLTAGE CRITERIA PLUS LAE OR QRS WIDENING] Compared to ECG 06/05/2022 06:49:35 No significant changes Electronically Signed On 04-21-2024 00:53:10 CDT by Zehra Polo M.D. [email or web address]
[2024-04-17 21:41] LABS: Specific Gravity, Urine 1.032 (1.005-1.030)
[2024-04-17 21:48] LABS: Alanine Aminotransferase 25 U/L (0-41); Alkaline Phosphatase 127 U/L (40-130); Anion Gap 18.6 (5-19); Aspartate Amino Transferase 16 U/L (0-40); Blood Urea Nitrogen 26 mg/dL (6-20); Calcium 9.4 mg/dL (8.5-10.5); Carbon Dioxide 27 mmol/L (22-29); Chloride 85 mmol/L (98-107); Creatinine Clr Calc Pharmacy 85.8677; Globulin 2.7 g/dL (1.3-4.6); Glomerular Filtration Rate 80.4 mL/min (90-130); Potassium 5.6 mmol/L (3.5-5.1); Sodium 125 mmol/L (136-145); Total Bilirubin 0.3 mg/dL (0.15-1.2); Total Protein 6.7 g/dL (6.6-8.7)
[2024-04-17 21:57] LABS: Osmolality Calculated 311 mOsm/kg (285-295)
[2024-04-17 22:04] LABS: Glucose 930 mg/dL (65-115); Lactic Sepsis W/Reflex 4.3 mmol/L (0.5-2.2)
[2024-04-17 22:07] VITALS: BP 150/79; PULSE 87; RESP 16; O2SAT 99
--- NOTE | 2024-04-17 22:53 | PM.HP ---
Providers/Chief Complaint Chief Complaint: Right shoulder pian/arm numbness History of Present Illness Andrews Robins is a 48 year old male with a past medical history significant for type 1 diabetes mellitus, hyperlipidemia, left middle cerebral artery stroke, transient ischemic attack, methamphetamine abuse, and multiple other comorbidities who presents the emergency department with right arm weakness. Patient reports onset 2 days ago. Endorses associated symptoms of unsteady gait with bilateral lower extremity weakness. He notes a history of prior stroke and transient ischemic attack for which he states the symptoms were similar. Reports exertion worsens symptoms. Rest improves. He denies any other new neurological deficits including facial droop, dysphagia, changes in vision, or changes in sensation. He reports compliant with dual antiplatelet therapy with aspirin and Plavix. Patient is also on high intensity statin. In the emergency department, patient was found to be severely hyperglycemic with blood glucose of 930. He endorses compliance with insulin treatment. Review of Systems Narrative: Positive for skin rash which the patient reports is lysed, otherwise a complete review of systems was obtained and is negative except as stated in HPI. Medications/Allergies Home Medications Medication Instructions Recorded Confirmed Last Taken Type aspirin 81 mg tablet,delayed 81 mg PO DAILY #30 tabs 06/05/22 02/16/24 Unknown Rx release blood-glucose meter #1 ea 01/08/23 02/16/24 Unknown Rx atorvastatin 40 mg tablet See Rx Instructions .Route 04/01/23 02/16/24 Unknown Rx .COMPLEX #90 tabs clopidogrel 75 mg tablet See Rx Instructions .Route 04/01/23 02/16/24 Unknown Rx .COMPLEX #90 tabs lisinopril 2.5 mg tablet See Rx Instructions .Route 04/01/23 02/16/24 Unknown Rx .COMPLEX #90 tabs insulin syringe-needle U-100 1 mL #200 ea 10/22/23 02/16/24 Unknown Rx 30 gauge x 1/2 (UltiCare) ondansetron 8 mg disintegrating See Rx Instructions .Route 11/07/23 02/16/24 Unknown Rx tablet .COMPLEX #30 ea insulin syringe-needle U-100 1 mL #200 ea 12/19/23 02/16/24 Unknown Rx 31 gauge x 5/16 (BD Insulin Syringe Ultra-Fine) fast form #1 ea 01/16/24 02/16/24 Unknown Rx blood-glucose sensor (Dexcom G7 #6 ea 01/24/24 02/16/24 Unknown Rx Sensor device) insulin aspar prot-insulin aspart 20 unit (0.2 mL) SUBCUT BID #15 mL 01/24/24 02/16/24 Unknown Rx 100 unit/mL (70-30) subcutaneous pen (Novolog Mix 70-30FlexPen U-100) lancets 25 gauge #100 ea 01/24/24 02/16/24 Unknown Rx permethrin 5 % topical cream 1 applic topical Q14D 2 doses #60 01/27/24 02/16/24 Unknown Rx grams blood-glucose meter,continuous #1 ea 02/11/24 02/16/24 Unknown Rx (Dexcom G7 Insurance Verification Clerk) blood sugar diagnostic (OneTouch #100 ea 02/18/24 Unknown Rx Verio test strips) ivermectin 3 mg tablet 12 mg (4 x 3 mg) PO Q7D #12 tabs 03/31/24 Unknown Rx mupirocin 2 % topical ointment 1 applic topical BID #15 grams 03/31/24 Unknown Rx Allergies Allergy/AdvReac Type Severity Reaction Status Date / Time famotidine [From Pepcid] Allergy Unconscious Verified 02/16/24 23:56 omeprazole [From Prilosec] Allergy Unconscious Verified 02/16/24 23:56 PFSH Acute PFSH: Medical History TIA (transient ischemic attack) Erectile dysfunction Nicotine dependence, cigarettes, with unspecified nicotine-induced disorders Diabetes mellitus type I Surgical History H/O hernia repair Umbilical Family History Denies family history of Diabetes mellitus type 1 Social History Smoking and tobacco/nicotine status: current every day tobacco/nicotine user cigarettes Packs smoked per day: 1 Alcohol intake: former Substance/Drug Use: former Vitals/I&O/Wt Last Vital Signs Temp 98.3 F 04/17/24 20:41 Pulse 87 04/17/24 22:07 Resp 16 04/17/24 22:07 BP 150/79 04/17/24 22:07 Pulse Ox 99 04/17/24 22:07 O2 Del Method Room Air 04/17/24 20:41 Weight last 48 hrs Weight 65.771 kg Physical Exam Narrative: General: Patient is awake and alert. Head: Normocephalic. Atraumatic. EOM intact. Neck: No JVD. Cardiovascular: RRR. No gallops. No murmurs. No peripheral edema. Lungs: Clear to auscultation, no use of accessory muscles, no crackles or wheezes. Skin: Numerous scabbed over skin lesions. No rashes. Abdomen: Normal bowel sounds, abdomen soft and nontender. Genito Urinary: Genital exam not performed since complaints not related. Rectal: Rectal exam not performed since no symptoms indicated blood loss. Extremities: No cyanosis or clubbing. Musculoskeletal: No swollen or erythematous joints. Neurological: Moves all 4 extremities. No myoclonus. Strength is slightly reduced in the right upper extremity. Strength in other extremities is within normal limits. No facial droop. Cranial nerves II through XII are grossly intact. Sensation grossly intact. Data 04/17/24 21:17 04/17/24 21:17 Micro: Microbiology 04/17/24 21:19 Blood Culture - Preliminary Blood SPECIMEN COLLECTED 04/17/24 21:17 Blood Culture - Preliminary Blood SPECIMEN COLLECTED A&P Assessment and plan (1) Diabetes mellitus type I: Type 1 diabetes mellitus with severe hyperglycemia Patient is not in DKA Blood glucose is 930 mg/dL Patient endorses adherence to home insulin Will start insulin drip to safely control blood glucose Check A1c Status post IV fluids in ED NPO/clear liquid diet without glucose okay for now Qualifiers: Diabetes mellitus complication status: with hyperglycemia Qualified Code(s): E10.65 - Type 1 diabetes mellitus with hyperglycemia (2) Left middle cerebral artery stroke: CTA head neck negative for acute findings Stroke recrudescence within differential given symptoms are consistent with prior presentation Continue dual antiplatelet therapy with aspirin and Plavix Continue high intensity statin Neurochecks Check head MRI (3) Skin lesions: Patient reports skin lesions are related to lice Continue home ivermectin and permethrin if needed Continue topical mupirocin Take necessary precautions (4) Hyperlipemia, mixed: Continue high intensity statin (5) Pseudohyponatremia: Pseudohyponatremia Correct underlying hyperglycemia Repeat labs in a.m. (6) Hyperkalemia: Status post IV fluids in ED Telemetry Repeat labs in a.m. (7) Amphetamine abuse: Backorder urinary drug screen Plan DVT prophylaxis: Lovenox CODE STATUS: Full code Attestations Medical Necessity Statement*: Patient presents with neurological symptoms concerning for TIA, stroke, or stroke recrudescence, found to have severe hyperglycemia with expected hospitalization not to cross 2 midnights for blood glucose control and head MRI. Coding Level of Care Code Acute Code for [facility] Fwd Diagnoses Type 1 diabetes mellitus without complication E10.65 Diabetes mellitus complication status: with hyperglycemia Left middle cerebral artery stroke I63.512 Skin lesions L98.9 Hyperlipemia, mixed E78.2 Pseudohyponatremia R79.89 Hyperkalemia E87.5 Amphetamine abuse F15.10
[2024-04-17 23:14] LABS: Glucose Point of Care 334 mg/dL (70-110)
[2024-04-17 23:15] LABS: Reflex Lactate Order REFLEX LACTIC ORDERD
[2024-04-17 23:27] VITALS: BP 112/71; PULSE 91; RESP 18; O2SAT 98
[2024-04-17 23:32] LABS: Glucose Point of Care 370 mg/dL (70-110)
[2024-04-17 23:44] VITALS: BMI 18.4
[2024-04-17 23:56] VITALS: PULSE 84
[2024-04-18] VITALS (14 sets, daily range): BP systolic 119–160; BP diastolic 74–97; PULSE 73–92; RESP 12–20; TEMP 37.1–37.2; O2SAT 96–99
[2024-04-18 00:14] LABS: Estmated Average Glucose 292; Hemoglobin A1C 11.8 % (4.0-6.0)
[2024-04-18 00:25] LABS: Amphetamines Screen Urine Positive (Negative); Barbiturates Screen Urine Negative (Negative); Benzodiazepines Screen Urine Negative (Negative); Cocaine Screen Urine Negative (Negative); Opiate Screen Urine Negative (Negative); PCP Screen Urine Negative (Negative); THC Screen Urine Positive (Negative)
[2024-04-18] MEDS: insulin glargine 100 units/1 mL 10 UNIT SUBCUT (00:50)
[2024-04-18] MEDS: enoxaparin 40 mg/0.4 mL Syringe SUBCUT (00:50)
[2024-04-18 02:04] LABS: Glucose Point of Care 386 mg/dL (70-110)
--- NOTE | 2024-04-18 02:10 | PC.NURSE ---
When patient arrived on unit at 2320 poc blood glucose was 370. Dr. Snell was notified of this drop from 930 at 2200 and verified if he still wanted to start patient on insulin drip. Dr. Snell said to hold insulin drip and put in orders for 20 units of lantus and sliding scale insulin. This nurse discussed this with patient and patient stated he already took his home dose of short acting and long acting insulin before he came in. Dr. Snell was notified of this and changed the order to 10 units of lantus and hold sliding scale, recheck in an hour. Blood sugar now at 0200 came back at 386. Dr. Snell notified and ordered 8 units of lispro now.
[2024-04-18] MEDS: insulin lispro 100 unit/1 mL 8 UNIT SUBCUT (02:37)
[2024-04-18 04:00] LABS: Glucose Point of Care 142 mg/dL (70-110)
[2024-04-18 05:20] LABS: Anion Gap 12.8 (5-19); Blood Urea Nitrogen 19 mg/dL (6-20); Calcium 9.5 mg/dL (8.5-10.5); Carbon Dioxide 31 mmol/L (22-29); Chloride 104 mmol/L (98-107); Creatinine Clr Calc Pharmacy 118.3542; Glomerular Filtration Rate 121.4 mL/min (90-130); Glucose 96 mg/dL (65-115); Osmolality Calculated 300 mOsm/kg (285-295); Phosphorus 4.6 mg/dL (2.5-4.5); Potassium 3.8 mmol/L (3.5-5.1); Sodium 144 mmol/L (136-145)
--- NOTE | 2024-04-18 05:53 | PC.NURSE ---
Dr. Snell notified of patients electrolytes this am and that patient is no longer tachycardic, orders received for magnesium sulfate 2g IV.
[2024-04-18 07:21] LABS: Glucose Point of Care 84 mg/dL (70-110)
[2024-04-18] MEDS: mupirocin oint 22 gm 1 APPLIC TOPICAL (08:20)
[2024-04-18] MEDS: aspirin 81 mg EC Tablet PO (08:20)
[2024-04-18] MEDS: clopidogrel 75 mg Tablet PO (08:20)
--- NOTE | 2024-04-18 10:15 | MRR_ITS ---
PROCEDURE INFORMATION: Exam: MR Head Without Contrast Exam date and time: 04/18/2024 10:14 AM Age: 48 years old Clinical indication: Weakness, extremity; Right; Additional info: Right arm weakness TECHNIQUE: Imaging protocol: Magnetic resonance imaging of the head without contrast. COMPARISON: CT angio headneck* [id number] 04/17/2024 9:22 PM FINDINGS: Brain: Normal. No acute infarct. No hemorrhage. No significant white matter disease. No edema. Cerebral ventricles: Normal. No ventriculomegaly. Bones: Unremarkable. Paranasal sinuses: Normal as visualized. No acute sinusitis. Mastoid air cells: Normal as visualized. No mastoid effusion. Orbital cavities: Unremarkable. Soft tissues: Unremarkable. MR/MR head wo con* [id number] IMPRESSION: No acute infarct, intracranial bleed or intracranial mass.
[2024-04-18 11:26] LABS: Glucose Point of Care 484 mg/dL (70-110)
[2024-04-18 11:26] LABS: Glucose Point of Care 519 mg/dL (70-110)
[2024-04-18] MEDS: insulin lispro 100 unit/1 mL SUBCUT (12:13)
[2024-04-18 12:56] LABS: Blood Urea Nitrogen 21 mg/dL (6-20); Calcium 8.8 mg/dL (8.5-10.5); Carbon Dioxide 30 mmol/L (22-29); Chloride 94 mmol/L (98-107); Creatinine Clr Calc Pharmacy 92.0533; Glomerular Filtration Rate 90.8 mL/min (90-130); Glucose 494 mg/dL (65-115); Osmolality Calculated 297 mOsm/kg (285-295); Sodium 131 mmol/L (136-145)
[2024-04-18 13:18] LABS: Glucose Point of Care 472 mg/dL (70-110)
--- NOTE | 2024-04-18 13:21 | P.DS_ITS ---
Discharge Providers Date of Admission: 04/17/24 22:49 Date of Discharge: April 18, 2024 Attending Provider at Admission: Eris Snell MD Attending Provider at Discharge: Sundar Stoddard MD Diagnoses at Discharge Discharge Diagnosis (1) Diabetes mellitus type I: Status: Chronic Qualifiers: Diabetes mellitus complication status: with hyperglycemia Qualified Code(s): E10.65 - Type 1 diabetes mellitus with hyperglycemia (2) Left middle cerebral artery stroke: Status: Resolved (3) Skin lesions: Status: Resolved (4) Hyperlipemia, mixed: Status: Acute (5) Pseudohyponatremia: Status: Resolved (6) Hyperkalemia: Status: Resolved (7) Amphetamine abuse: Status: Acute Reason for Visit Reason for Visit: Right shoulder pian/arm numbness Hospital Course Hospital Course This is a 49-year-old male with a past medical history of type 1 diabetes mellitus, hyperlipidemia, history of left MCA stroke, history of TIA, history of methamphetamine abuse, who presents to [facility] for right arm weakness On examination on admission his NIH stroke scale was 0, he was not a candidate for tPA, had CT head and neck had no acute findings, patient is on aspirin, Plavix, statin On my examination 04/18/2024 patient is alert oriented x 3, following all commands, no focal neurologic deficits, NIH stroke scale 0, patient reports compliance with aspirin, Plavix, statin Patient reports that he more has right neck pain, he used to work as a heavy labor job and since then he has always has had right neck pain, he has c ontinuous right hand numbness that is all the way to his elbow he tells me that he has had this since his left MCA stroke which is not any significantly different now, I did not discern any significant surg physician asst strength weakness, [id number] was normal, his coordination of his right hand is within normal limits, but does report numbness throughout his right hand dorsal and plantar aspect, all the way to his elbow. he denies a history of carpal tunnel or tarsal tunnel syndrome, Tinel and Phalen sign were negative, he is adamant that it has been like this since his last left MCA stroke and nothing is new. Nonetheless his MRI of the brain was within normal limits. We discussed for him to abstain from any drug use, stop smoking, follow-up with primary care provider to be compliant with aspirin, Plavix, statin. Patient was advised if he were to have any recurrent strokelike symptoms to immediately call 911. For his neck pain he reports right sided neck pain, pain with range of motion, on examination does have right paracervical muscle tenderness, no spinal tenderness, his CTA head and neck did show mild degenerative disc disease anterior C1-C2 articulation, will have patient follow-up with Dr. Decker as outpatient For patient's type 1 diabetes mellitus his blood sugars were over 900 during his ER evaluation, monitor in the ICU blood sugars have improved without the use of IV insulin, on discharge his anion gap is 12, bicarb is 30, creatinine 0.9, potassium 5, I have increased his dose of 70/30 30 units twice daily. -Please monitor your blood sugars closely -Monitor your blood sugars 3 times daily as after meals -Please record your blood sugars, and a blood sugar log -For your 70/30 your dose has been increased to 30 units twice daily -Do not inject insulin if you do not eat as hypoglycemia kills -If your blood sugar is greater than 500 go to the emergency room -If your blood sugar is less than 60 or at anytime you feel lightheaded or dizzy or diaphoretic or have chest palpitations check your blood sugar, and eat a hard candy or drink orange juice and go immediately to the emergency room -Remember hypoglycemia kills, so if his blood sugar is less than 60 we have to increase it by taking in a sugary meal such as a hard candy or orange juice and go to the emergency room -If you have any questions please call us where here to help Physical Exam Const: COMMON NORMALS: no acute distress and patient oriented x3 Neck/C-Spine: COMMON NORMALS: no JVD CERVICAL SPINE: Yes cervical ROM normal, No Cervical spine tenderness, Yes Paracervical muscle tenderness and Yes Paracervical spasm Resp: COMMON NORMALS: normal respiratory effort, No retractions, No use of accessory muscles and clear to auscultation bilaterally AUSCULTATION: clear to auscultation bilaterally Cardio: COMMON NORMALS: no JVD, regular rate, regular rhythm, S1 normal heart sound present and S2 normal heart sound present RATE: regular rate RHYTHM: regular rhythm HEART SOUNDS: S1 normal heart sound present and S2 normal heart sound present GI: COMMON NORMALS: Normal to inspection, nondistended, normoactive bowel sounds present and non-tender Extremity: COMMON NORMALS: no calf tenderness and no pedal edema Neuro: COMMON NORMALS: patient oriented x3, CN's II-XII intact bilaterally, moves all extremities and no focal motor deficits Psych: COMMON NORMALS: mental status grossly normal Discharge Data Studies Completed and Pending Completed Studies During Hospitalization Category Date Time Status CTA head neck [CT angio headneck* [id number]] Stat Cat Scan 04/17/24 21:12 Completed MR head wo con* [id number] Routine MRI 04/18/24 10:15 Completed Pending at discharge Category Date Time Status Blood Culture Stat Lab 04/17/24 21:19 Results Radiology Impressions Head/Neck CTA 04/17/24 21:12 IMPRESSION: No large vessel stenosis or occlusion. IMPRESSION: No hemodynamically significant stenosis or occlusion within the arteries of the neck. REFERENCES: NASCET CRITERIA. The degree of stenosis in the cervical segment of the internal carotid artery is based on NASCET criteria. Normal is no stenosis. Mild is less than 50% stenosis. Moderate is 50-69% stenosis. Severe is 70% to 99% stenosis. Total occlusion is no detectable patent lumen. ADDENDUM: 04/18/24 0938 ADDENDUM: Mild degenerative disease at the anterior C1-C2 articulation. No significant bony canal stenosis or neural foraminal narrowing. Head MRI 04/18/24 10:15 IMPRESSION: No acute infarct, intracranial bleed or intracranial mass. Laboratory Results WBC 5.95 10^3/uL (3.29-11.43) 04/17/24 21:17 RBC 4.69 10^6/uL (3.85-5.65) 04/17/24 21:17 Hgb 13.40 g/dL (11.27-16.99) 04/17/24 21:17 Hct 41.9 % (37-53) 04/17/24 21:17 MCV 89.3 fl (82-101) 04/17/24 21:17 MCH 28.6 pg (27-33) 04/17/24 21:17 MCHC 32.0 g/dL (30-55) 04/17/24 21:17 RDW 13.4 % (12.1-15.1) 04/17/24 21:17 Plt Count 321 10^3/cmm (157-399) 04/17/24 21:17 MPV 10.3 fL (7.4-10.4) 04/17/24 21:17 Neut % (Auto) 67.4 % 04/17/24 21:17 Lymph % (Auto) 24.2 % 04/17/24 21:17 [place] % (Auto) 5.5 % 04/17/24 21:17 Eos % (Auto) 2.4 % 04/17/24 21:17 Baso % (Auto) 0.3 % 04/17/24 21:17 Neut # (Auto) 4.01 10^3/uL (1.8-7.7) 04/17/24 21:17 Lymph # (Auto) 1.4 10^3/uL (0.8-4.8) 04/17/24 21:17 [place] # (Auto) 0.3 10^3/uL (0.2-0.9) 04/17/24 21:17 Eos # (Auto) 0.1 10^3/uL (0.0-0.8) 04/17/24 21:17 Baso # (Auto) 0.0 10^3/uL (0.0-0.1) 04/17/24 21:17 Nucleated RBC % (auto) 0 % 04/17/24 21:17 Nucleated RBCs # 0.0 /100WBC 04/17/24 21:17 Specimen Type Arterial 04/17/24 21:10 Sample Site Radial, left 04/17/24 21:10 ABG pH 7.38 (7.35-7.45) 04/17/24 21:10 ABG pCO2 48.4 mmHg (35-45) H 04/17/24 21:10 ABG pO2 80.0 mmHg (80.0-100.0) 04/17/24 21:10 ABG PO2/FiO2 Ratio 380 04/17/24 21:10 ABG HCO3 28.3 mmol/L (22-26) H 04/17/24 21:10 ABG O2 Saturation 95.8 04/17/24 21:10 ABG Base Excess 2.4 mmol/L (-2.0-2.0) H 04/17/24 21:10 Brady Test Pos 04/17/24 21:10 A-a O2 Gradient 1.5 mmHg (5-10) L 04/17/24 21:10 Hematocrit 40.1 % (42-52) L 04/17/24 21:10 Hgb O2 Saturation 92.6 % (95-100) L 04/17/24 21:10 Carboxyhemoglobin 2.8 %THgb (0.4-20.1) 04/17/24 21:10 Methemoglobin 0.7 % (0.4-1.5) 04/17/24 21:10 Total Hemoglobin 13.1 g/dL (14-18) L 04/17/24 21:10 Sodium 127.0 mmol/L (131-143) L 04/17/24 21:10 Potassium 5.3 mmol/L (3.5-5.0) H 04/17/24 21:10 Glucose 792.0 mg/dL (70-115) H 04/17/24 21:10 Ionized Calcium 1.3 mmol/L (1.1-1.4) 04/17/24 21:10 O2 Delivery Device Room air 04/17/24 21:10 FiO2 21.0 % 04/17/24 21:10 Golf Technician ID Ed 04/17/24 21:10 Sodium 131 mmol/L (136-145) L 04/18/24 12:35 Potassium 5.0 mmol/L (3.5-5.1) 04/18/24 12:35 Chloride 94 mmol/L (98-107) L 04/18/24 12:35 Carbon Dioxide 30 mmol/L (22-29) H 04/18/24 12:35 Anion Gap 12.0 (5-19) 04/18/24 12:35 BUN 21 mg/dL (6-20) H 04/18/24 12:35 Creatinine 0.9 mg/dL (0.7-1.2) 04/18/24 12:35 GFR Calculation 90.8 mL/min (90-130) 04/18/24 12:35 Glucose 494 mg/dL (65-115) H 04/18/24 12:35 POC Glucose 472 mg/dL (70-110) H 04/18/24 13:15 Estimat Average Glucose 292 04/17/24 21:17 Hemoglobin A1c 11.8 % (4.0-6.0) H 04/17/24 21:17 Calculated Osmolality 297 mOsm/kg (285-295) H 04/18/24 12:35 Lactic Acid 4.3 mmol/L (0.5-2.2) H* 04/17/24 21:17 Lactic Acid (Sepsis) 3.0 mmol/L (0.5-2.2) H 04/17/24 23:35 Calcium 8.8 mg/dL (8.5-10.5) 04/18/24 12:35 Phosphorus 4.6 mg/dL (2.5-4.5) H 04/18/24 04:14 Magnesium 2.0 mg/dL (1.7-2.3) 04/18/24 04:14 Total Bilirubin 0.3 mg/dL (0.15-1.2) 04/17/24 21:17 AST 16 U/L (0-40) 04/17/24 21:17 ALT 25 U/L (0-41) 04/17/24 21:17 Alkaline Phosphatase 127 U/L (40-130) 04/17/24 21:17 C-Reactive Protein 3.0 mg/L (0.0-4.9) 04/17/24 21:17 Total Protein 6.7 g/dL (6.6-8.7) 04/17/24 21:17 Albumin 4.0 g/dL (3.5-5.2) 04/17/24 21:17 Globulin 2.7 g/dL (1.3-4.6) 04/17/24 21:17 Urine Color Yellow (Yellow) 04/17/24 21:22 Urine Appearance Clear (CLEAR) 04/17/24 21:22 Urine pH 5.5 (5-7) 04/17/24 21:22 Ur Specific [place] 1.032 (1.005-1.030) H 04/17/24 21:22 Urine Protein Negative (Negative) 04/17/24 21:22 Urine Glucose (UA) 3+ (Normal) H 04/17/24 21:22 Urine Ketones Negative (Negative) 04/17/24 21:22 Urine Blood Negative (Negative) 04/17/24 21:22 Urine Nitrate Negative (Negative) 04/17/24 21: Urine Bilirubin Negative (Negative) 04/17/24 21:22 Urine Urobilinogen 0.2 mg/dL (Negative) 04/17/24 21:22 Ur Leukocyte Esterase Negative (Negative) 04/17/24 21:22 Urine RBC 0-2 /hpf (0-2) 04/17/24 21:22 Urine WBC 0-5 /hpf (0-5) 04/17/24 21:22 Ur Squamous Epith Cells 0-5 /hpf (0-5) 04/17/24 21:22 Amorphous Sediment Not Reportable 04/17/24 21:22 Urine Bacteria None seen /hpf (NONE) 04/17/24 21:22 Hyaline Casts 0-4 /lpf H 04/17/24 21:22 Urine Opiates Screen Negative ng/mL (Negative) 04/18/24 00:00 Ur Barbiturates Screen Negative ng/mL (Negative) 04/18/24 00:00 Ur Phencyclidine Scrn Negative ng/mL (Negative) 04/18/24 00:00 Ur Amphetamines Screen Positive ng/mL (Negative) H 04/18/24 00:00 U Benzodiazepines Scrn Negative ng/mL (Negative) 04/18/24 00:00 Urine Cocaine Screen Negative ng/mL (Negative) 04/18/24 00:00 U Marijuana (THC) Screen Positive ng/mL (Negative) H 04/18/24 00:00 Serum Ketones Negative (Negative) 04/17/24 21:17 Vitals Last Vital Signs Temp 98.9 F 04/18/24 12:00 Pulse 75 04/18/24 12:00 Resp 16 04/18/24 12:00 BP 160/91 04/18/24 12:00 Pulse Ox 97 04/18/24 12:00 O2 Del Method Room Air 04/18/24 12:00 Discharge Plan Discharge Patient Disposition: Home Condition: Stable Prescriptions: New amlodipine 5 mg Tablet 5 mg PO DAILY 30 Days Qty: 30 0RF glucagon HCl [Glucagon (HCl) Emergency Kit] 1 mg recon soln 1 mg IM Q20M PRN (Reason: hypoglycemia) Qty: 1 0RF Rx Instructions: until target blood sugar attained Continued (DME) blood-glucose meter Misc See Rx Instructions .MEDSUPPLY Qty: 1 0RF Rx Instructions: As directed (DME) fast form See Rx Instructions .Route .MEDSUPPLY Qty: 1 0RF Rx Instructions: As directed permethrin 5 % cream 1 applic topical Q14D Qty: 60 0RF Rx Instructions: apply second treatment 14 days after first treatment if live lice remain atorvastatin 40 mg tablet See Rx Instructions .ROUTE .COMPLEX Qty: 90 0RF Dose Instruction: TAKE ONE TABLET BY MOUTH EVERY DAY Rx Instructions: TAKE ONE TABLET BY MOUTH EVERY DAY clopidogrel 75 mg tablet See Rx Instructions .ROUTE .COMPLEX Qty: 90 0RF Dose Instruction: TAKE ONE TABLET BY MOUTH EVERY DAY Rx Instructions: TAKE ONE TABLET BY MOUTH EVERY DAY lisinopril 2.5 mg tablet See Rx Instructions .ROUTE .COMPLEX Qty: 90 0RF Dose Instruction: TAKE 1 TABLET BY MOUTH EVERY MORNING Rx Instructions: TAKE 1 TABLET BY MOUTH EVERY MORNING (DME) insulin syringe-needle U-100 [UltiCare] 1 mL 30 gauge x 1/2 syringe See Rx Instructions .ROUTE .COMPLEX Qty: 200 0RF Dose Instruction: USE DIRECTED with insulin Rx Instructions: USE DIRECTED with insulin ondansetron 8 mg tablet,disintegrating See Rx Instructions .ROUTE .COMPLEX Qty: 30 0RF Dose Instruction: DISSOLVE ONE TABLET UNDER THE TONGUE EVERY 8 HOURS NEEDED FOR NAUSEA AND VOMITING Rx Instructions: DISSOLVE ONE TABLET UNDER THE TONGUE EVERY 8 HOURS NEEDED FOR NAUSEA AND VOMITING (DME) insulin syringe-needle U-100 [BD Insulin Syringe Ultra-Fine] 1 mL 31 gauge x 5/16 syringe See Rx Instructions .ROUTE .COMPLEX Qty: 200 0RF Dose Instruction: USE DIRECTED with insulin Rx Instructions: USE DIRECTED with insulin (DME) Dexcom G7 Sensor Device See Rx Instructions .ROUTE .COMPLEX Qty: 6 2RF Dose Instruction: USE DIRECTED Rx Instructions: USE DIRECTED (DME) lancets 25 gauge misc See Rx Instructions .MEDSUPPLY Qty: 100 5RF Rx Instructions: As directed (DME) Dexcom G7 Supervisor [employer]ing Misc See Rx Instructions .ROUTE .MEDSUPPLY Qty: 1 0RF Rx Instructions: As directed (DME) OneTouch Verio test strips Strip See Rx Instructions .ROUTE .COMPLEX Qty: 100 5RF Dose Instruction: USE DIRECTED Rx Instructions: Use to check blood sugar 4 times each day ivermectin 3 mg tablet 12 mg PO Q7D Qty: 12 0RF mupirocin 2 % ointment 1 applic topical BID Qty: 15 0RF aspirin 81 mg tablet,delayed release (DR/EC) 81 mg PO DAILY Qty: 30 0RF Changed insulin asp prt-insulin aspart [Novolog Mix 70-30FlexPen U-100] 100 unit/mL (70-30) insulin pen 30 unit SUBCUT BID Qty: 15 3RF Discharge Orders: Discharge Order (Routine); Ordered 04/18/24 Ordered By: Sundar Stoddard Referrals: Mendoza Decker DO [Physician] - 1 week Linda Fisher MD [Physician] - 1 week Discharge Diet: Diabetic Discharge Activity: Resume usual activity Patient Instructions: Glucagon (By injection) (GlucaGen HypoKit, GlucaGen, Glucagon..., Amlodipine (By mouth) (Hypertenipine-2.5, Norvasc, Norliqva), Opioid Safety, Pain Management Activity Restrictions/Additional Instructions: -Please monitor your blood sugars closely -Monitor your blood sugars 3 times daily. -Please record your blood sugars, in a blood sugar log -For your 70/30 your dose has been increased to 30 units twice daily -Do not inject insulin if you do not eat as hypoglycemia kills -If your blood sugar is greater than 500 go to the emergency room -If your blood sugar is less than 60 or at anytime you feel lightheaded or dizzy or diaphoretic or have chest palpitations check your blood sugar, and eat a hard candy or drink orange juice and go immediately to the emergency room -Remember hypoglycemia kills, so if his blood sugar is less than 60 we have to increase it by taking in a sugary meal such as a hard candy or orange juice and go to the emergency room -If you have any questions please call us where here to help Please call Saturday to schedule consult and follow-up appointments with both Dr. Decker and Dr. Fisher Discharge Attestations Time Spent in Discharge Care*: greater than 30 min Time Spent in Smoking Cessation: 3 to 10 minutes smoking cessation counselling Quality Metrics Clinical Quality Measures [ No reported AMI, CVA or VTE this stay] Coding Level of Care Code 51237 Total time (in minutes) for Discharge: 45 Diagnoses Type 1 diabetes mellitus without complication E10.65 Diabetes mellitus complication status: with hyperglycemia Left middle cerebral artery stroke I63.512 Skin lesions L98.9 Hyperlipemia, mixed E78.2 Pseudohyponatremia R79.89 Hyperkalemia E87.5 Amphetamine abuse F15.10
[2024-04-18] MEDS: amlodipine 5 mg Tablet PO (13:37)
[2024-04-18] MEDS: insulin lispro 100 unit/1 mL 10 UNIT SUBCUT (13:37)
[2024-04-18 14:42] LABS: Glucose Point of Care 241 mg/dL (70-110)
--- NOTE | 2024-04-18 15:35 | PC.NURSE ---
Written and verbal education provided to patient at bedside, patient educated on new, continued, and changed medications. Patient educated on follow up appointments as well as when to seek medical attention and monitoring glucose at home. All patient belongings with patient at the time of discharge. Patient states he does not have any questions regarding discharge education. Patent instructed to call with any questions. IV discontinued without complications, Patient brought to ER entrance via wheelchair where he states he parked his truck down the hill. AOX4 full strength ,see charted vitals at discharge.
== END 2024-04-18 15:40 | disposition home or self-care (01) ==
LOC: ER 22:50 → ICU 23:16
PROVIDERS: Admitting Provider Internal Medicine; Emergency Provider Physician Assistant; Visit Provider Family Medicine
DX: I63.512 Cerebral infarction due to unspecified occlusion or stenosis of left middle cerebral artery (principal); R29.700 NIHSS score 0; E10.65 Type 1 diabetes mellitus with hyperglycemia; L98.9 Disorder of the skin and subcutaneous tissue, unspecified; E78.2 Mixed hyperlipidemia; R79.89 Other specified abnormal findings of blood chemistry; E87.5 Hyperkalemia; F15.10 Other stimulant abuse, uncomplicated; E78.5 Hyperlipidemia, unspecified; Z79.82 Long term (current) use of aspirin; F17.210 Nicotine dependence, cigarettes, uncomplicated
CPT/HCPCS: 36415; 36416; 36600; 70496; 70498; 70551; 80048; 80051; 80053; 80306; 81001; 82009; 82330; 82805; 82962; 83036; 83605; 83735; 84100; 85025; 86140; 87040; 93005; 96365; 96372; 96375; 96376; 97165; 99285; G0378; J1650; J1815; J2270; J7030

== ENCOUNTER → 2024-04-23 14:49 | Outpatient (BNVA) | payer OTHER, MEDICAID, SELFPAY | PROVIDERS: Visit Provider Orthopaedic Surgery | DX: M54.2 Cervicalgia (principal) | CPT/HCPCS: 72050 ==

== ENCOUNTER 2024-08-11 22:39 | Inpatient (IN) | payer OTHER, MEDICAID, SELFPAY ==
[2024-08-11 22:41] VITALS: BP 176/90; PULSE 111; RESP 18; O2SAT 98; BMI 22.4
--- NOTE | 2024-08-11 22:44 | W.ED.GENADLT ---
HPI - General Adult General: Chief complaint: Nausea/Vomiting/Diarrhea Stated complaint: high bs Time Seen by Provider: 08/11/24 22:41 History of Present Illness: Patient presented to the ER by EMS with concerns of high blood sugar and possibility of going into DKA. Patient is an insulin-dependent diabetic who stated that his test trips approximate week ago but still has been given himself insulin every day but his blood sugars not been controlled. He has been getting weak all over and just feels bad. When EMS arrived there his blood sugars approximately 360. He says blood sugar normally runs between 2 and 300. Patient has been in DKA before. Does have a history of amphetamine abuse, does see the [employer] here. Related Data Previous Rx's ?Medication ?Instructions ?Recorded aspirin 81 mg tablet,delayed 81 mg PO DAILY #30 tabs 06/05/22 release blood-glucose meter #1 ea 01/08/23 atorvastatin 40 mg tablet See Rx Instructions .Route 04/01/23 .COMPLEX #90 tabs clopidogrel 75 mg tablet See Rx Instructions .Route 04/01/23 .COMPLEX #90 tabs lisinopril 2.5 mg tablet See Rx Instructions .Route 04/01/23 .COMPLEX #90 tabs insulin syringe-needle U-100 1 mL #200 ea 10/22/23 30 gauge x 1/2 (UltiCare) fast form #1 ea 01/16/24 blood-glucose sensor (Dexcom G7 #6 ea 01/24/24 Sensor device) lancets 25 gauge #100 ea 01/24/24 blood-glucose meter,continuous #1 ea 02/11/24 (Dexcom G7 Real Estate Services Coordinator) blood sugar diagnostic (OneTouch #100 ea 02/18/24 Verio test strips) insulin syringe-needle U-100 1 mL #100 ea 05/06/24 31 gauge x 5/16 (BD Insulin Syringe Ultra-Fine) minocycline 100 mg tablet 100 mg PO DAILY #10 tabs 06/20/24 insulin aspar prot-insulin aspart See Rx Instructions .Route 06/22/24 100 unit/mL (70-30) subcutaneous .COMPLEX #15 mL pen insulin pump cart,auto,BT,G6/7 #10 ea 06/26/24 (Omnipod 5 G6-G7 Pods (Gen 5) subcutaneous cartridge) insulin pump cartridge,auto #1 ea 06/26/24 dose,BT,G6/G7 with controller subcutaneous (Omnipod 5 G6-G7 Intro Kit(Gen 5) subcutaneous cartridge and controller) glucagon 1 mg solution for See Rx Instructions .Route 07/21/24 injection (Glucagon Emergency Kit) .COMPLEX #1 ea Allergies Allergy/AdvReac Type Severity Reaction Status Date / Time famotidine (From Pepcid) Allergy Unconscious Verified 08/11/24 22:43 omeprazole (From Prilosec) Allergy Unconscious Verified 08/11/24 22:43 Review of Systems General: Reports: 10 or more systems reviewed and unremarkable except in HPI and below PFSH ED PFSH: Medical History (Updated 08/12/24 @ 00:26 by Trang Hagen MD) Hyperlipemia, mixed Toe pain Insect bite Chronic pain of right elbow Epigastric pain Amphetamine abuse TIA (transient ischemic attack) Erectile dysfunction Nicotine dependence, cigarettes, with unspecified nicotine-induced disorders Diabetes mellitus type I Surgical History H/O hernia repair Umbilical Family History Denies family history of Diabetes mellitus type 1 Social History Smoking and tobacco/nicotine status: never used tobacco/nicotine Alcohol intake: former Substance/Drug Use: former Physical Exam Const: COMMON NORMALS: no acute distress, average body habitus, patient oriented x3, no limitations, healthy appearing, alert and well nourished HENMT: COMMON NORMALS: normocephalic, atraumatic, hearing grossly normal bilaterally, external ears normal, Normal external nose present, moist oral mucous membranes and oropharynx normal HEAD & SCALP: normocephalic and atraumatic NOSE: Normal external nose present EXTERNAL EAR: Yes external ears normal Neck/C-Spine: COMMON NORMALS: no JVD Chest: COMMONS NORMALS: normal inspection of the chest and normal palpation of entire chest wall Resp: COMMON NORMALS: normal respiratory effort, No retractions, No use of accessory muscles and clear to auscultation bilaterally AUSCULTATION: clear to auscultation bilaterally Cardio: COMMON NORMALS: no JVD, regular rate, regular rhythm, S1 normal heart sound present, S2 normal heart sound present, No gallops present (Cardio), No clicks present (Cardio), No murmurs present (Cardio) and No rub (Cardio) RATE: regular rate RHYTHM: regular rhythm HEART SOUNDS: S1 normal heart sound present and S2 normal heart sound present GI: COMMON NORMALS: Normal to inspection, nondistended, normoactive bowel sounds present, Soft to palpation, non-tender, No hepatosplenomegaly present and no masses PALPATION: Yes Soft to palpation and Yes No hepatosplenomegaly present Neuro: COMMON NORMALS: patient oriented x3 SENSORIUM/ORIENTATION: Yes alert Course Vital Signs: Vital signs: Vital Signs Temperature 97.5 F L 08/11/24 23:26 Pulse Rate 125 H 08/11/24 23:58 Respiratory Rate 19 H 08/11/24 23:58 Blood Pressure 143/101 08/11/24 23:58 Pulse Oximetry 94 08/11/24 23:58 Oxygen Delivery Me thod Room Air 08/11/24 23:58 MDM - General Adult Medical Decision Making Patient blood sugar POC greater than 600, blood draw on 998, potassium 7.3, BUN/creatinine 55 2.4, phosphorus 7.8 magnesium 3.1, anion gap 49, patient was given 10 units of IV insulin, 1 g of calcium chloride, EKG will be obtained as well as urine and urine drug screen, patient will be placed on insulin drip. Dr. Hagen has been notified and agrees to place patient in ICU for DKA protocol. Medical Records I reviewed the patient's medical records. Lab Data I reviewed the patient's lab results. 08/11/24 22:56 08/12/24 00:04 Radiology Impressions Chest X-Ray 08/12/24 00:28 IMPRESSION: Right apical small pneumothorax suspected with 11 mm separation between the lung and pleura, chest CT could further characterize this. Laboratory Results WBC 19.40 10^3/uL (3.29-11.43) H 08/11/24 22:56 RBC 6.02 10^6/uL (3.85-5.65) H 08/11/24 22:56 Hgb 16.60 g/dL (11.27-16.99) 08/11/24 22:56 Hct 53.1 % (37-53) H 08/11/24 22:56 MCV 88.2 fl (82-101) 08/11/24 22:56 MCH 27.6 pg (27-33) 08/11/24 22:56 MCHC 31.3 g/dL (30-55) 08/11/24 22:56 RDW 12.4 % (12.1-15.1) 08/11/24 22:56 Plt Count 502 10^3/cmm (157-399) H 08/11/24 22:56 MPV 10.4 fL (7.4-10.4) 08/11/24 22:56 Neut % (Auto) 91.1 % 08/11/24 22:56 Lymph % (Auto) 6.4 % 08/11/24 22:56 [place] % (Auto) 1.6 % 08/11/24 22:56 Eos % (Auto) 0.0 % 08/11/24 22:56 Baso % (Auto) 0.2 % 08/11/24 22:56 Neut # (Auto) 17.66 10^3/uL (1.8-7.7) H 08/11/24 22:56 Lymph # (Auto) 1.2 10^3/uL (0.8-4.8) 08/11/24 22:56 [place] # (Auto) 0.3 10^3/uL (0.2-0.9) 08/11/24 22:56 Eos # (Auto) 0.0 10^3/uL (0.0-0.8) 08/11/24 22:56 Baso # (Auto) 0.0 10^3/uL (0.0-0.1) 08/11/24 22:56 Nucleated RBC % (auto) 0 % 08/11/24 22:56 Nucleated RBCs # 0.0 /100WBC 08/11/24 22:56 Specimen Type Arterial 08/11/24 23:46 Sample Site Radial, right 08/11/24 23:46 ABG pH 7.20 (7.35-7.45) L 08/11/24 23:46 ABG pCO2 28.1 mmHg (35-45) L 08/11/24 23:46 ABG pO2 97.9 mmHg (80.0-100.0) 08/11/24 23:46 ABG PO2/FiO2 Ratio 466 08/11/24 23:46 ABG HCO3 10.9 mmol/L (22-26) L 08/11/24 23:46 ABG O2 Saturation 96.3 08/11/24 23:46 ABG Base Excess -15.6 mmol/L (-2.0-2.0) L 08/11/24 23:46 Brady Test Pos 08/11/24 23:46 A-a O2 Gradient 2.2 mmHg (5-10) L 08/11/24 23:46 Hematocrit 46.8 % (42-52) 08/11/24 23:46 Hgb O2 Saturation 94.3 % (95-100) L 08/11/24 23:46 Carboxyhemoglobin 0.6 %THgb (0.4-20.1) 08/11/24 23:46 Methemoglobin 1.5 % (0.4-1.5) 08/11/24 23:46 Total Hemoglobin 15.3 g/dL (14-18) 08/11/24 23:46 Sodium 129.0 mmol/L (131-143) L 08/11/24 23:46 Potassium 5.0 mmol/L (3.5-5.0) 08/11/24 23:46 Glucose 767.0 mg/dL (70-115) H 08/11/24 23:46 Ionized Calcium 1.6 mmol/L (1.1-1.4) H 08/11/24 23:46 O2 Delivery Device Room air 08/11/24 23:46 FiO2 21.0 % 08/11/24 23:46 Surgical Scrub Technician ID Stephenie 08/11/24 23:46 Sodium 123 mmol/L (136-145) L 08/11/24 22:56 Potassium 5.6 mmol/L (3.5-5.1) H 08/12/24 00:04 Chloride 71 mmol/L (98-107) L 08/11/24 22:56 Carbon Dioxide 10 mmol/L (22-29) L 08/11/24 22:56 Anion Gap 49.3 (5-19) H 08/11/24 22:56 BUN 55 mg/dL (6-20) H 08/11/24 22:56 Creatinine 2.4 mg/dL (0.7-1.2) H 08/11/24 22:56 GFR Calculation 29.2 mL/min (90-130) L 08/11/24 22:56 Glucose 998 mg/dL (65-115) H* 08/11/24 22:56 POC Glucose > 600 mg/dL (70-110) H* 08/11/24 22:51 Estimat Average Glucose 275 08/11/24 22:56 Hemoglobin A1c 11.2 % (4.0-6.0) H 08/11/24 22:56 Calculated Osmolality 321 mOsm/kg (285-295) H 08/11/24 22:56 Calcium 10.3 mg/dL (8.5-10.5) 08/11/24 22:56 Phosphorus 7.8 mg/dL (2.5-4.5) H* 08/11/24 22:56 Magnesium 3.1 mg/dL (1.7-2.3) H 08/11/24 22:56 Total Bilirubin 0.5 mg/dL (0.15-1.2) 08/11/24 22:56 AST 19 U/L (0-40) 08/11/24 22:56 ALT 36 U/L (0-41) 08/11/24 22:56 Alkaline Phosphatase 177 U/L (40-130) H 08/11/24 22:56 Total Protein 8.5 g/dL (6.6-8.7) 08/11/24 22:56 Albumin 4.5 g/dL (3.5-5.2) 08/11/24 22:56 Globulin 4.0 g/dL (1.3-4.6) 08/11/24 22:56 Serum Ketones Positive (Negative) H 08/11/24 22:56 All radiology interpretation(s) finalized by discharge Discharge Plan Discharge Patient Disposition: Admitted As Inpatient Clinical Impression: Acute hyperkalemia, Acute kidney injury DKA (diabetic ketoacidosis) Qualifiers: Diabetes mellitus type: type 1 Diabetes mellitus complication detail: without coma Qualified Code(s): E10.10 - Type 1 diabetes mellitus with ketoacidosis without coma Condition: Stable Coding Level of Care Code ED Headlight Assembler for Nasima Odom
[2024-08-11 22:56] LABS: Glucose Point of Care > 600 mg/dL (70-110)
[2024-08-11 22:56] LABS: Glucose Point of Care > 600 mg/dL (70-110)
[2024-08-11 22:57] VITALS: BP 176/90; PULSE 107; RESP 18; O2SAT 99
[2024-08-11 23:08] LABS: Basophils % 0.2 %; Hematocrit 53.1 % (37-53); Lymphocytes # 1.2 10^3/uL (0.8-4.8); Lymphocytes % 6.4 %; Mean Corpuscular HGB Conc 31.3 g/dL (30-55); Mean Corpuscular Hemoglobin 27.6 pg (27-33); Mean Corpuscular Volume 88.2 fl (82-101); Mean Platelet Volume 10.4 fL (7.4-10.4); Monocytes # 0.3 10^3/uL (0.2-0.9); Monocytes % 1.6 %; Neutrophils # 17.66 10^3/uL (1.8-7.7); Neutrophils % 91.1 %; Nucleated Red Blood Cells % 0 %; Platelet Count 502 10^3/cmm (157-399); Red Blood Count 6.02 10^6/uL (3.85-5.65); Red Cell Distribution Width 12.4 % (12.1-15.1)
[2024-08-11] MEDS: metoclopramide 5 mg/mL SDV 2 mL 10 MG IVP (23:08)
[2024-08-11] MEDS: ondansetron 2 mg/ML SDV 2 mL 4 MG IVP (23:08)
--- NOTE | 2024-08-11 23:08 | PM.HP ---
Providers/Chief Complaint Chief Complaint: high bs History of Present Illness Andrews Robins is a 49 year old male with history of type 1 diabetes insulin-dependent, active smoker, drinks alcohol, hypertension, presented with chief complaint of recurrent nausea vomiting generalized weakness and fatigue and concern for high blood sugar. Patient is stating that he ran out of glucose strips but he has been giving himself insulin on daily basis but his sugar was uncontrolled. In the ER he was diagnosed with DKA with hyperkalemia, potassium has been repeated, he has significant metabolic acidosis, he has been started on insulin drip after the bolus requested 2 L normal saline bolus as well patient not complaining of any active chest pain he is tachycardic heart rate 122 he meets SIRS criteria with tachypnea tachycardia leukocytosis he does not have any fever there is no source of infection either, this could be all related to significant dehydration, hypovolemia and DKA Since he is meeting SIRS criteria we will give him 30 mL/kg ideal body weight IV fluids There is no skin mottling Patient is not confused Drug screen is pending Patient is stating that he has been vomiting for last 2 to 3 days he has not noticed any fever or significant diarrhea, his last alcoholic drink was 2 days ago UA is pending Review of Systems Const: Reports: chills Eyes: Denies: change in vision ENMT: Denies: throat pain Card: Denies: chest pain Resp: Reports: dyspnea GI: Reports: nausea and vomiting : Denies: flank pain Medications/Allergies Home Medications ?Medication ?Instructions ?Recorded ?Confirmed ?Last Taken ?Type aspirin 81 mg tablet,delayed 81 mg PO DAILY #30 tabs 06/05/22 06/25/24 Unknown Rx release blood-glucose meter #1 ea 01/08/23 06/25/24 Unknown Rx atorvastatin 40 mg tablet See Rx Instructions .Route 04/01/23 06/25/24 Unknown Rx .COMPLEX #90 tabs clopidogrel 75 mg tablet See Rx Instructions .Route 04/01/23 06/25/24 Unknown Rx .COMPLEX #90 tabs lisinopril 2.5 mg tablet See Rx Instructions .Route 04/01/23 06/25/24 Unknown Rx .COMPLEX #90 tabs insulin syringe-needle U-100 1 mL #200 ea 10/22/23 06/25/24 Unknown Rx 30 gauge x 1/2 (UltiCare) fast form #1 ea 01/16/24 06/25/24 Unknown Rx blood-glucose sensor (Dexcom G7 #6 ea 01/24/24 06/25/24 Unknown Rx Sensor device) lancets 25 gauge #100 ea 01/24/24 06/25/24 Unknown Rx blood-glucose meter,continuous #1 ea 02/11/24 06/25/24 Unknown Rx (Dexcom G7 Plant Engineering Manager) blood sugar diagnostic (OneTouch #100 ea 02/18/24 06/25/24 Unknown Rx Verio test strips) insulin syringe-needle U-100 1 mL #100 ea 05/06/24 06/25/24 Unknown Rx 31 gauge x 5/16 (BD Insulin Syringe Ultra-Fine) minocycline 100 mg tablet 100 mg PO DAILY #10 tabs 06/20/24 06/25/24 Unknown Rx insulin aspar prot-insulin aspart See Rx Instructions .Route 06/22/24 Unknown Rx 100 unit/mL (70-30) subcutaneous .COMPLEX #15 mL pen insulin pump cart,auto,BT,G6/7 #10 ea 06/26/24 06/26/24 Unknown Rx (Omnipod 5 G6-G7 Pods (Gen 5) subcutaneous cartridge) insulin pump cartridge,auto #1 ea 06/26/24 06/26/24 Unknown Rx dose,BT,G6/G7 with controller subcutaneous (Omnipod 5 G6-G7 Intro Kit(Gen 5) subcutaneous cartridge and controller) glucagon 1 mg solution for See Rx Instructions .Route 07/21/24 Unknown Rx injection (Glucagon Emergency Kit) .COMPLEX #1 ea Allergies Allergy/AdvReac Type Severity Reaction Status Date / Time famotidine (From Pepcid) Allergy Unconscious Verified 08/11/24 22:43 omeprazole (From Prilosec) Allergy Unconscious Verified 08/11/24 22:43 PFSH Acute PFSH: Medical History (Updated 08/12/24 @ 00:26 by Trang Hagen MD) Hyperlipemia, mixed Toe pain Insect bite Chronic pain of right elbow Epigastric pain Amphetamine abuse TIA (transient ischemic attack) Erectile dysfunction Nicotine dependence, cigarettes, with unspecified nicotine-induced disorders Diabetes mellitus type I Surgical History H/O hernia repair Umbilical Family History Denies family history of Diabetes mellitus type 1 Social History Smoking and tobacco/nicotine status: never used tobacco/nicotine Alcohol intake: former Substance/Drug Use: former Vitals/I&O/Wt Last Vital Signs Pulse 107 H 08/11/24 22:57 Resp 18 08/11/24 22:57 BP 176/90 08/11/24 22:57 Pulse Ox 99 08/11/24 22:57 O2 Del Method Room Air 08/11/24 22:41 08/11/24 08/11/24 08/12/24 14:59 22:59 06:59 Intake Total 0 / 0 Balance 0 / 0 Weight last 48 hrs Weight 77.111 kg Physical Exam Narrative: Clinically dehydrated Tachycardic Tachypneic respiratory rate around 20 Currently on room air saturating 94% Afebrile Heart rate 125 Hypertensive blood pressure 143/101 No active chest pain S1, S2 tachycardia Abdomen soft Dry mucous membranes Lower extremity no significant edema Multiple laceration all over extremities GCS 15 No active focal deficit Able to answer questions Sepsis: Is patient septic: Yes Focused sepsis exam performed: Yes Focused sepsis exam: No skin mottling Cap refill less than 3 seconds Patient is tachycardic Awake and alert No encephalopathy Date exam was performed: 08/12/24 Time exam was performed: 00:24 Data 08/11/24 22:56 08/11/24 22:56 A&P Assessment and plan (1) Diabetes mellitus type I: Qualifiers: Diabetes mellitus complication status: with hyperglycemia Qualified Code(s): E10.65 - Type 1 diabetes mellitus with hyperglycemia (2) DKA (diabetic ketoacidosis): Qualifiers: Diabetes mellitus complication detail: without coma Diabetes mellitus type: type 1 Qualified Code(s): E10.10 - Type 1 diabetes mellitus with ketoacidosis without coma (3) Nausea: (4) Acute kidney injury: (5) Acute hyperkalemia: (6) Metabolic acidosis: Plan SIRS criteria met Tachypneic tachycardic endorgan damage No active source of infection UA pending I will put patient on ceftriaxone and doxycycline for now I do believe his SIRS criteria has been met secondary to severe dehydration with underlying DKA Request UA, urine and blood culture and chest x-ray along respiratory panel Antibiotics could be discontinued if patient remained afebrile by tomorrow DKA. Patient is type I diabetic Noncompliance Drug screen pending Start insulin drip. Currently on insulin drip, BMP every 4 hours Normal saline without potassium in addition at higher maintenance rate Severe metabolic acidosis: No need of added bicarb drip at this point pH is not below 6.9 This is related to his severe dehydration ketoacidosis, hypovolemia HUBERT: Significant elevation of creatinine with hyperkalemia: No EKG changes of hyperkalemia: Sample is hemolyzed, repeat potassium level Continue normal saline Discontinue lisinopril Hypertension Holding lisinopril for now , Dysfunction with DKA Continue dual attributes therapy N.p.o. DVT prophylaxis: Heparin Check EtOH level patient endorses to drinking alcohol, smokes half a pack a day, Patient is stating that he ran out of glucose strips: Will need refill at him discharge Drug screen pending as well PDMP PDMP Reviewed: Not Reviewed Attestations Medical Necessity Statement*: Anticipating more than 2 midnights for management of DKA, sepsis, dehydration and metabolic acidosis needing ICU admission Diagnoses Type 1 diabetes mellitus without complication E10.65 Diabetes mellitus complication status: with hyperglycemia DKA (diabetic ketoacidosis) E10.10 Diabetes mellitus complication detail: without coma Diabetes mellitus type: type 1 Nausea R11.0 Acute kidney injury N17.9 Acute hyperkalemia E87.5 Metabolic acidosis E87.20
[2024-08-11] MEDS: insulin regular-human 100 units/1 mL 10 UNIT IVP (23:10)
[2024-08-11 23:20] LABS: Ketone (Acetest) Serum Positive (Negative)
[2024-08-11 23:24] LABS: Alanine Aminotransferase 36 U/L (0-41); Albumin Level 4.5 g/dL (3.5-5.2); Alkaline Phosphatase 177 U/L (40-130); Aspartate Amino Transferase 19 U/L (0-40); Blood Urea Nitrogen 55 mg/dL (6-20); Calcium 10.3 mg/dL (8.5-10.5); Carbon Dioxide 10 mmol/L (22-29); Chloride 71 mmol/L (98-107); Creatinine Clr Calc Pharmacy 42.4013; Glomerular Filtration Rate 29.2 mL/min (90-130); Sodium 123 mmol/L (136-145); Total Bilirubin 0.5 mg/dL (0.15-1.2); Total Protein 8.5 g/dL (6.6-8.7)
[2024-08-11 23:26] VITALS: BP 185/95; PULSE 124; RESP 18; TEMP 36.4; O2SAT 99
[2024-08-11 23:33] LABS: Osmolality Calculated 321 mOsm/kg (285-295)
[2024-08-11 23:35] LABS: Anion Gap 49.3 (5-19); Glucose 998 mg/dL (65-115); Potassium 7.3 mmol/L (3.5-5.1)
--- NOTE | 2024-08-11 23:35 | ECG_ITS ---
[facility] Test Date: 2024-08-11 Pat Name: Andrews Robins Department: Room: ICU03 Gender: Male Driller Operator: : 1975 Requested By: Bubba Dukes Order Number: [id number] Edwards MD: Wan Griffin M.D. Measurements Intervals [place] Rate: 127 P: 92 DE: 141 QRS: 89 QRSD: 106 T: 81 QT: 279 QTc: 406 Interpretive Statements SINUS TACHYCARDIA POSSIBLE RIGHT VENTRICULAR CONDUCTION DELAY [RSR (QR) IN V1/V2] POSSIBLE INFERIOR MYOCARDIAL INFARCTION , OF INDETERMINATE AGE [30 ms Q WAVE IN II/aVF] Compared to ECG 04/17/2024 21:40:27 Myocardial infarct finding now present Sinus rhythm no longer present Electronically Signed On 08-13-2024 17:54:08 MECHANICAL ENGINEERING INTERN by Wan Griffin M.D. [email or web address]
[2024-08-11] MEDS: calcium chloride 10% Syr 10 mL 1 GM IVP (23:39)
[2024-08-11 23:44] LABS: Magnesium 3.1 mg/dL (1.7-2.3)
[2024-08-11 23:48] LABS: Phosphorus 7.8 mg/dL (2.5-4.5)
[2024-08-11 23:57] LABS: ABG PCO2 28.1 mmHg (35-45); Alveolar-Arterial Oxygen Gradi 2.2 mmHg (5-10); Arterial Blood Gas Hematocrit 46.8 % (42-52); Base Excess ABG -15.6 mmol/L (-2.0-2.0); Blood Gas Allen Test Pos; Blood Gas Operator Identificat BUSJA; Blood Gas Sample Site Radial, right; Blood Gas Sample Type Arterial; Carboxyhemoglobin 0.6 %THgb (0.4-20.1); HCO3 ABG 10.9 mmol/L (22-26); HGB O2 Sat 94.3 % (95-100); Ionized Calcium Level - ABG 1.6 mmol/L (1.1-1.4); Methemoglobin 1.5 % (0.4-1.5); Oxygen Device ROOM AIR; Oxygen Saturation ABG 96.3; PO2 ABG 97.9 mmHg (80.0-100.0); PO2 FiO2 Ratio Arterial Blood 466; Total Hemoglobin 15.3 g/dL (14-18)
[2024-08-11 23:58] VITALS: BP 143/101; PULSE 125; RESP 19; O2SAT 94
[2024-08-12] VITALS (18 sets, daily range): BP systolic 132–187; BP diastolic 69–109; PULSE 83–130; RESP 12–18; TEMP 36.4–37.3; O2SAT 95–100
[2024-08-12] MEDS: sodium chloride 0.9% 1,000 ML 999 ML IV ×3 (00:02→01:55)
[2024-08-12] MEDS: INSULIN REGULAR IN 0.9 % NACL 100 UNIT/100 ML BAG 7.5 UNIT IV (00:10)
[2024-08-12 00:17] LABS: Estmated Average Glucose 275; Hemoglobin A1C 11.2 % (4.0-6.0)
[2024-08-12 00:25] LABS: Potassium 5.6 mmol/L (3.5-5.1)
--- NOTE | 2024-08-12 00:28 | XRR_ITS ---
PROCEDURE INFORMATION: Exam: XR Chest Exam date and time: 08/12/2024 12:31 AM Age: 49 years old Clinical indication: Fever and shortness of breath; Additional info: Sepsis TECHNIQUE: Imaging protocol: Radiologic exam of the chest. Views: 1 view. COMPARISON: CR XR chest 1V portable [id number] 06/12/2021 3:30 AM FINDINGS: Lungs: Unremarkable. No consolidation. Pleural spaces: Right apical small pneumothorax suspected with 11 mm separation between the lung and pleura, chest CT could further characterize this. Heart/Mediastinum: Unremarkable. No cardiomegaly. Bones/joints: Unremarkable. XR/XR chest 1V portable [id number] IMPRESSION: Right apical small pneumothorax suspected with 11 mm separation between the lung and pleura, chest CT could further characterize this.
[2024-08-12 00:59] LABS: Alcohol Level < 10 mg/dL (0-10)
--- NOTE | 2024-08-12 00:59 | CTR_ITS ---
PROCEDURE INFORMATION: Exam: CT Chest Without Contrast; Diagnostic Exam date and time: 08/12/2024 1:38 AM Age: 49 years old Clinical indication: Pain; Chest pressure; Additional info: Concern for pneumothorax TECHNIQUE: Imaging protocol: Diagnostic computed tomography of the chest without contrast. Radiation optimization: All CT scans at this facility use at least one of these dose optimization techniques: automated exposure control; mA and/or kV adjustment per patient size (includes targeted exams where dose is matched to clinical indication); or iterative reconstruction. COMPARISON: CR (CHEST, ) 08/12/2024 12:31 AM RADIATION DOSE METRICS: Total DLP (mGy-cm): 248.62 FINDINGS: Lungs: Left upper and lower lobe calcified granulomas. A small pulmonary cyst is appreciated in the medial apex of the right lung. Pleural spaces: The suspected right-sided pneumothorax on prior radiograph is not visualized on this exam and may have corresponded to a skin fold. No pleural effusions. Heart: Unremarkable. No cardiomegaly. No pericardial effusion. Coronary arteries: Mild calcifications of the coronary arteries. Lymph nodes: Mediastinal and bilateral hilar calcified lymph nodes. Vasculature: Aberrant right subclavian artery. Spleen: Splenic granulomas. Bones/joints: Unremarkable. No acute fracture. Soft tissues: Unremarkable. CT/CT chest wo con [id number] IMPRESSION: The suspected right-sided pneumothorax on prior radiograph is not visualized on this exam and may have corresponded to a skin fold/external overlying shadow.
[2024-08-12 01:22] LABS: Glucose Point of Care > 600 mg/dL (70-110)
--- NOTE | 2024-08-12 01:24 | PC.NURSE ---
pt is refusing 2nd iv line at this time. pt educated on need for additional medication and verbalized understanding. pt still declined.
[2024-08-12 01:50] LABS: Bilirubin Urine Negative (Negative); Blood Urine Trace (Negative); Glucose Urine UA 3+ (Normal); Ketones Urine 3+ (Negative); Leukocyte Esterase Urine Negative (Negative); Nitrate Urine Negative (Negative); Protein Urine 1+ (Negative); Specific Gravity, Urine 1.029 (1.005-1.030); Urine Appearance Clear (CLEAR); Urine Color Yellow (Yellow); Urobilinogen Urine 0.2 mg/dL (Negative)
[2024-08-12] MEDS: cefTRIAXone 2,000 mg SDV 2000 MG IVP (01:54)
[2024-08-12] MEDS: doxycycline 100 mg Tablet PO ×3 (01:54→23:38)
[2024-08-12] MEDS: heparin 5,000 unit/mL INJ 1 mL 5000 UNIT SUBCUT ×3 (01:55→23:38)
[2024-08-12 01:57] LABS: Amphetamines Screen Urine Positive (Negative); Barbiturates Screen Urine Negative (Negative); Benzodiazepines Screen Urine Negative (Negative); Cocaine Screen Urine Negative (Negative); Opiate Screen Urine Negative (Negative); PCP Screen Urine Negative (Negative); THC Screen Urine Positive (Negative)
[2024-08-12 02:08] LABS: Add Urine Microscopic? YES; Mucus Urine TRACE /hpf; UA Manual Slide Review YES
[2024-08-12 02:25] LABS: Glucose Point of Care 460 mg/dL (70-110)
[2024-08-12] MEDS: sodium chloride 0.9% 1,000 ML 125 ML IV ×2 (03:08→19:37)
[2024-08-12 03:19] LABS: Glucose Point of Care 403 mg/dL (70-110)
[2024-08-12 04:22] LABS: Glucose Point of Care 314 mg/dL (70-110)
[2024-08-12 05:24] LABS: Basophils % 0.2 %; Hematocrit 45.1 % (37-53); Lymphocytes # 2.6 10^3/uL (0.8-4.8); Lymphocytes % 14.5 %; Mean Corpuscular HGB Conc 32.6 g/dL (30-55); Mean Corpuscular Hemoglobin 27.7 pg (27-33); Mean Corpuscular Volume 85.1 fl (82-101); Mean Platelet Volume 9.7 fL (7.4-10.4); Monocytes # 0.7 10^3/uL (0.2-0.9); Monocytes % 3.8 %; Neutrophils # 14.25 10^3/uL (1.8-7.7); Neutrophils % 81.2 %; Nucleated Red Blood Cells % 0 %; Platelet Count 372 10^3/cmm (157-399); Red Cell Distribution Width 12.1 % (12.1-15.1); White Blood Count 17.57 10^3/uL (3.29-11.43)
[2024-08-12] MEDS: dextrose 5%-sod chloride 0.45% 1,000 ML 100 ML IV (05:31)
[2024-08-12 05:42] LABS: Blood Urea Nitrogen 45 mg/dL (6-20); Calcium 9.6 mg/dL (8.5-10.5); Carbon Dioxide 21 mmol/L (22-29); Chloride 97 mmol/L (98-107); Creatinine Clr Calc Pharmacy 48.7023; Glomerular Filtration Rate 46.6 mL/min (90-130); Glucose 252 mg/dL (65-115); Magnesium 2.4 mg/dL (1.7-2.3); Osmolality Calculated 302 mOsm/kg (285-295); Sodium 136 mmol/L (136-145)
[2024-08-12 05:50] LABS: Anion Gap 22.9 (5-19); Potassium 4.9 mmol/L (3.5-5.1)
[2024-08-12 06:05] LABS: Glucose Point of Care 235 mg/dL (70-110)
[2024-08-12 06:13] LABS: Glucose Point of Care 227 mg/dL (70-110)
[2024-08-12 07:15] LABS: Glucose Point of Care 183 mg/dL (70-110)
[2024-08-12] MEDS: clopidogrel 75 mg Tablet PO (08:17)
[2024-08-12] MEDS: aspirin 81 mg EC Tablet PO (08:17)
[2024-08-12] MEDS: atorvastatin 40 mg Tablet PO (08:17)
[2024-08-12 08:22] LABS: Glucose Point of Care 125 mg/dL (70-110)
[2024-08-12 09:05] LABS: Glucose Point of Care 111 mg/dL (70-110)
[2024-08-12 09:55] LABS: Anion Gap 19.2 (5-19); Blood Urea Nitrogen 40 mg/dL (6-20); Calcium 9.3 mg/dL (8.5-10.5); Carbon Dioxide 23 mmol/L (22-29); Chloride 99 mmol/L (98-107); Creatinine Clr Calc Pharmacy 55.6598; Glomerular Filtration Rate 54.3 mL/min (90-130); Glucose 123 mg/dL (65-115); Osmolality Calculated 295 mOsm/kg (285-295); Potassium 4.2 mmol/L (3.5-5.1); Sodium 137 mmol/L (136-145)
[2024-08-12 10:07] LABS: Glucose Point of Care 222 mg/dL (70-110)
[2024-08-12 10:54] LABS: Iron 155 ug/dL (59-158); Thyroid Stimulating Hormone 1.24 uIU/mL (0.27-4.20); Vitamin B12 942 pg/mL (232-1245)
[2024-08-12 10:55] LABS: Glucose Point of Care 131 mg/dL (70-110)
[2024-08-12] MEDS: insulin glargine 100 units/1 mL 10 UNIT SUBCUT (10:57)
[2024-08-12] MEDS: amlodipine 10 mg Tablet PO (11:21)
[2024-08-12 12:41] LABS: Percent Saturation 60.7 % (20-50); Total Iron Binding Capacity 255 mcg/dl; Unsaturated Iron Binding 100 ug/dL (112-347)
--- NOTE | 2024-08-12 14:00 | P.PN_ITS ---
Subjective 2 Subjective: Admitted overnight. Today morning seen laying comfortably in bed. Denies any nausea, vomiting, headache. Remains hemodynamically stable and afebrile. Vitals/I&O/Wt Last Vital Signs Temp 97.5 F L 08/11/24 23:26 Pulse 100 08/12/24 09:37 Resp 18 08/12/24 09:37 BP 179/100 08/12/24 02:41 Pulse Ox 98 08/12/24 09:37 O2 Del Method Room Air 08/12/24 09:37 08/11/24 08/12/24 08/12/24 22:59 06:59 14:59 Intake Total 0 / 0 3299.575 / 3299.575 15.250 / 15.250 Balance 0 / 0 3299.575 / 3299.575 15.250 / 15.250 Weight last 48 hrs Weight 60.328 kg Weight 60.5 kg Weight 77.111 kg Physical Exam 2 Narrative: General: No acute distress, AO x3, mildly dehydrated HEENT: PERRLA, pupils bilaterally equal and reactive Chest: Normal vesicular breath sounds, no added sounds, equal good air entry bilaterally CVS: S1-S2 regular, no murmurs, no tachycardia, no gallops, no rubs Abdomen: Soft, nontender, no organomegaly, bowel sounds present Neuro: No focal deficits, no facial deformity, AO x3, power 5/5 in all limbs Data 08/12/24 04:59 08/12/24 08:58 Micro: Microbiology 08/11/24 10:56 Blood Culture - Preliminary Blood SPECIMEN COLLECTED 08/11/24 10:58 Blood Culture - Preliminary Blood SPECIMEN COLLECTED A&P Assessment and plan (1) DKA (diabetic ketoacidosis): Qualifiers: Diabetes mellitus complication detail: without coma Diabetes mellitus type: type 1 Qualified Code(s): E10.10 - Type 1 diabetes mellitus with ketoacidosis without coma (2) Acute kidney injury: (3) Diabetes mellitus type I: Qualifiers: Diabetes mellitus complication status: with hyperglycemia Qualified Code(s): E10.65 - Type 1 diabetes mellitus with hyperglycemia (4) Nausea: (5) Acute hyperkalemia: (6) Metabolic acidosis: Plan DKA: History of type 1 diabetes. Not able to check his blood sugars lately Hence has been taking lower low-dose of insulin. Anion gap closed. Stop insulin drip. Switch fluid to NS at 75 cc/h. Insulin drip at low-dose protocol. Start on Lantus 10 units every morning. Repeat BMP in afternoon to monitor for anion gap. Most likely in setting of dehydration. Resolving. Severe metabolic acidosis: Resolved. In setting of DKA. HUBERT: Creatinine down to 1.4. Baseline creatinine normal. Medical reconciliation done for nephrotoxic drugs. Continue with NS at 75 cc/h. Hypertension: Blood pressure is elevated. Goal blood pressure less than 140/90 mmHg. Start on amlodipine 10 mg oral daily. Uptitrate as for goal blood pressure. Amphetamine positive: Monitor for withdrawals. Carb consistent diet Protonix OPD prophylaxis Heparin for DVT prophylaxis. If BMP is stable in afternoon can plan to transfer to [facility] floor. PDMP PDMP Reviewed: Not Reviewed Attestations 2 Medical Necessity Statement*: Requires further hospitalization for management diabetic ketoacidosis in a patient with history of type 1 diabetes mellitus, HUBERT Diagnoses DKA (diabetic ketoacidosis) E10.10 Diabetes mellitus complication detail: without coma Diabetes mellitus type: type 1 Acute kidney injury N17.9 Type 1 diabetes mellitus without complication E10.65 Diabetes mellitus complication status: with hyperglycemia Nausea R11.0 Acute hyperkalemia E87.5 Metabolic acidosis E87.20
[2024-08-12 15:41] LABS: Anion Gap 23.9 (5-19); Blood Urea Nitrogen 39 mg/dL (6-20); Calcium 8.6 mg/dL (8.5-10.5); Carbon Dioxide 20 mmol/L (22-29); Chloride 93 mmol/L (98-107); Creatinine Clr Calc Pharmacy 64.9364; Glomerular Filtration Rate 64.9 mL/min (90-130); Glucose 317 mg/dL (65-115); Osmolality Calculated 296 mOsm/kg (285-295); Potassium 4.9 mmol/L (3.5-5.1); Sodium 132 mmol/L (136-145)
[2024-08-12 16:59] LABS: Glucose Point of Care 380 mg/dL (70-110)
[2024-08-12] MEDS: insulin lispro 100 unit/1 mL SUBCUT ×2 (17:54→20:18)
[2024-08-12] MEDS: insulin glargine 100 units/1 mL 15 UNIT SUBCUT (18:26)
[2024-08-12] MEDS: carvedilol 6.25 mg Tablet PO (19:19)
[2024-08-12] MEDS: cefTRIAXone 1,000 mg SDV 1000 MG IVP (19:20)
[2024-08-12 20:12] LABS: Glucose Point of Care 407 mg/dL (70-110)
[2024-08-13 03:30] LABS: Basophils % 0.2 %; Eosinophils # 0.1 10^3/uL (0.0-0.8); Eosinophils % 0.6 %; Lymphocytes # 3.1 10^3/uL (0.8-4.8); Lymphocytes % 22.4 %; Mean Corpuscular HGB Conc 33.3 g/dL (30-55); Mean Corpuscular Hemoglobin 27.5 pg (27-33); Mean Corpuscular Volume 82.8 fl (82-101); Mean Platelet Volume 9.9 fL (7.4-10.4); Monocytes # 0.5 10^3/uL (0.2-0.9); Monocytes % 3.8 %; Neutrophils # 10.17 10^3/uL (1.8-7.7); Neutrophils % 72.7 %; Nucleated Red Blood Cells % 0 %; Platelet Count 308 10^3/cmm (157-399); Red Blood Count 4.83 10^6/uL (3.85-5.65); Red Cell Distribution Width 12.3 % (12.1-15.1); White Blood Count 13.98 10^3/uL (3.29-11.43)
[2024-08-13 03:50] LABS: Alanine Aminotransferase 22 U/L (0-41); Albumin Level 3.5 g/dL (3.5-5.2); Alkaline Phosphatase 104 U/L (40-130); Aspartate Amino Transferase 22 U/L (0-40); Blood Urea Nitrogen 33 mg/dL (6-20); Calcium 8.9 mg/dL (8.5-10.5); Carbon Dioxide 26 mmol/L (22-29); Chloride 102 mmol/L (98-107); Creatinine Clr Calc Pharmacy 77.9237; Globulin 2.4 g/dL (1.3-4.6); Glomerular Filtration Rate 80.1 mL/min (90-130); Glucose 75 mg/dL (65-115); Osmolality Calculated 296 mOsm/kg (285-295); Sodium 140 mmol/L (136-145); Total Bilirubin 0.2 mg/dL (0.15-1.2); Total Protein 5.9 g/dL (6.6-8.7)
[2024-08-13 03:51] LABS: Chol HDL Ratio 2.75 mg/dL (1.0-5.00); Cholesterol 143 mg/dL (0-200); HDL Cholesterol 52 mg/dL (60-100); LDL Cholesterol Calculated 63 mg/dL (50-129); Magnesium 2.3 mg/dL (1.7-2.3); Triglycerides 138 mg/dL (0-150); VLDL Cholestrol Calculation 28 mg/dL (0-30)
[2024-08-13 04:08] LABS: Folate Level 7.5 ng/mL (4.5-32.2)
[2024-08-13] MEDS: sodium chloride 0.9% 1,000 ML 125 ML IV (05:23)
[2024-08-13 05:50] VITALS: PULSE 84
[2024-08-13 06:00] VITALS: BMI 17.5
[2024-08-13 07:30] VITALS: BP 138/80; PULSE 73; RESP 12; TEMP 37.4; O2SAT 96
[2024-08-13 08:06] LABS: Glucose Point of Care 279 mg/dL (70-110)
[2024-08-13 08:10] VITALS: PULSE 89; RESP 16; O2SAT 95
--- NOTE | 2024-08-13 09:12 | P.DS_ITS ---
Discharge Providers Date of Admission: 08/12/24 02:37 Date of Discharge: August 13, 2024 Attending Provider at Admission: Trang Hagen MD Attending Provider at Discharge: Phil Gusman MD Diagnoses at Discharge Discharge Diagnosis (1) DKA (diabetic ketoacidosis): Status: Acute Qualifiers: Diabetes mellitus complication detail: without coma Diabetes mellitus type: type 1 Qualified Code(s): E10.10 - Type 1 diabetes mellitus with ketoacidosis without coma (2) Acute kidney injury: Status: Acute (3) Diabetes mellitus type I: Status: Chronic Qualifiers: Diabetes mellitus complication status: with hyperglycemia Qualified Code(s): E10.65 - Type 1 diabetes mellitus with hyperglycemia (4) Nausea: Status: Acute (5) Acute hyperkalemia: Status: Acute (6) Metabolic acidosis: Status: Acute Reason for Visit Reason for Visit: high bs Brief History: History as per HPI: Andrews Robins is a 49 year old male with history of type 1 diabetes insulin- dependent, active smoker, drinks alcohol, hypertension, presented with chief complaint of recurrent nausea vomiting generalized weakness and fatigue and concern for high blood sugar. Patient is stating that he ran out of glucose strips but he has been giving himself insulin on daily basis but his sugar was uncontrolled. In the ER he was diagnosed with DKA with hyperkalemia, potassium has been repeated, he has significant metabolic acidosis, he has been started on insulin drip after the bolus requested 2 L normal saline bolus as well patient not complaining of any active chest pain he is tachycardic heart rate 122 he meets SIRS criteria with tachypnea tachycardia leukocytosis he does not have any fever there is no source of infection either, this could be all related to significant dehydration, hypovolemia and DKA Since he is meeting SIRS criteria we will give him 30 mL/kg ideal body weight IV fluids There is no skin mottling Patient is not confused Drug screen is pending Patient is stating that he has been vomiting for last 2 to 3 days he has not noticed any fever or significant diarrhea, his last alcoholic drink was 2 days ago UA is pending Hospital Course Hospital Course Patient was admitted to the hospital further evaluation and management of DKA with concerns for dehydration into HUBERT. He was started on IV hydration and insulin drip as per DKA protocol. Patient responded well to the treatment, DKA and HUBERT has resolved. Further insulin was adjusted as per insulin requirement in last 24 hours. During hospitalization was found to have uncontrolled hypertension for which his antihypertensives have been adjusted. Need for regular compliance of insulin and other medication were discussed in detail with the patient. Discussed that unfortunately patient's A1c has been more than 11 for last couple of years. Discussed all possible transition to Lantus and Humalog for which she was agreeable. He has been discharged in Lantus 25 units twice daily along with 10 units of Humalog premeals and further Humalog as per sliding scale premeals. Patient is agreeable. For now he will be using fingerstick blood sugar checks premeals and wants Dexcom is available he was switched to Dexcom blood sugar checks. He is advised to maintain a blood sugar and blood pressure diary and follow-up with his PCP for further management of medications. He is to follow-up with PCP next 1 week and with his juvenile officer in 2 weeks. Medications were delivered to the patient at bedside. Physical Exam Narrative: General: No acute distress, AO x3, mildly dehydrated HEENT: PERRLA, pupils bilaterally equal and reactive Chest: Normal vesicular breath sounds, no added sounds, equal good air entry bilaterally CVS: S1-S2 regular, no murmurs, no tachycardia, no gallops, no rubs Abdomen: Soft, nontender, no organomegaly, bowel sounds present Neuro: No focal deficits, no facial deformity, AO x3, power 5/5 in all limbs Discharge Data Studies Completed and Pending Completed Studies During Hospitalization Category Date Time Status CT chest wo con [id number] Stat Cat Scan 08/12/24 00:59 Completed XR chest 1V portable [id number] Stat Exams 08/12/24 00:28 Completed Pending at discharge Category Date Time Status Blood Culture Stat Lab 08/12/24 00:28 Results MAG [Magnesium] AM LABS Lab 08/14/24 04:00 Ordered MAG [Magnesium] AM LABS Lab 08/15/24 04:00 Ordered Urine Culture Stat Lab 08/12/24 01:39 Results Radiology Impressions Chest X-Ray 08/12/24 00:28 IMPRESSION: Right apical small pneumothorax suspected with 11 mm separation between the lung and pleura, chest CT could further characterize this. ADDENDUM: 08/12/24 0059 THIS REPORT CONTAINS FINDINGS THAT MAY BE CRITICAL TO PATIENT CARE. The findings were verbally communicated via telephone conference with Dr. Dukes at 12:57 AM VACU[employer] PAN OPERATOR on 08/12/2024. The findings were acknowledged and understood. Chest CT 08/12/24 00:59 IMPRESSION: The suspected right-sided pneumothorax on prior radiograph is not visualized on this exam and may have corresponded to a skin fold/external overlying shadow. Microbiology 08/12/24 01:39 Urine Catheterized Urine Culture - Preliminary 08/11/24 10:56 Blood Blood Culture - Preliminary NEGATIVE TO DATE 08/11/24 10:58 Blood Blood Culture - Preliminary NEGATIVE TO DATE Laboratory Results WBC 13.98 10^3/uL (3.29-11.43) H 08/13/24 01:23 RBC 4.83 10^6/uL (3.85-5.65) 08/13/24 01:23 Hgb 13.30 g/dL (11.27-16.99) 08/13/24 01:23 Hct 40.0 % (37-53) 08/13/24 01:23 MCV 82.8 fl (82-101) 08/13/24 01:23 MCH 27.5 pg (27-33) 08/13/24 01:23 MCHC 33.3 g/dL (30-55) 08/13/24 01:23 RDW 12.3 % (12.1-15.1) 08/13/24 01:23 Plt Count 308 10^3/cmm (157-399) 08/13/24 01:23 MPV 9.9 fL (7.4-10.4) 08/13/24 01:23 Neut % (Auto) 72.7 % 08/13/24 01:23 Lymph % (Auto) 22.4 % 08/13/24 01:23 [place] % (Auto) 3.8 % 08/13/24 01:23 Eos % (Auto) 0.6 % 08/13/24 01:23 Baso % (Auto) 0.2 % 08/13/24 01:23 Neut # (Auto) 10.17 10^3/uL (1.8-7.7) H 08/13/24 01:23 Lymph # (Auto) 3.1 10^3/uL (0.8-4.8) 08/13/24 01:23 [place] # (Auto) 0.5 10^3/uL (0.2-0.9) 08/13/24 01:23 Eos # (Auto) 0.1 10^3/uL (0.0-0.8) 08/13/24 01:23 Baso # (Auto) 0.0 10^3/uL (0.0-0.1) 08/13/24 01:23 Nucleated RBC % (auto) 0 % 08/13/24 01: Nucleated RBCs # 0.0 /100WBC 08/13/24 01:23 Specimen Type Arterial 08/11/24 23:46 Sample Site Radial, right 08/11/24 23:46 ABG pH 7.20 (7.35-7.45) L 08/11/24 23:46 ABG pCO2 28.1 mmHg (35-45) L 08/11/24 23:46 ABG pO2 97.9 mmHg (80.0-100.0) 08/11/24 23:46 ABG PO2/FiO2 Ratio 466 08/11/24 23:46 ABG HCO3 10.9 mmol/L (22-26) L 08/11/24 23:46 ABG O2 Saturation 96.3 08/11/24 23:46 ABG Base Excess -15.6 mmol/L (-2.0-2.0) L 08/11/24 23:46 Brady Test Pos 08/11/24 23:46 A-a O2 Gradient 2.2 mmHg (5-10) L 08/11/24 23:46 Hematocrit 46.8 % (42-52) 08/11/24 23:46 Hgb O2 Saturation 94.3 % (95-100) L 08/11/24 23:46 Carboxyhemoglobin 0.6 %THgb (0.4-20.1) 08/11/24 23:46 Methemoglobin 1.5 % (0.4-1.5) 08/11/24 23:46 Total Hemoglobin 15.3 g/dL (14-18) 08/11/24 23:46 Sodium 129.0 mmol/L (131-143) L 08/11/24 23:46 Potassium 5.0 mmol/L (3.5-5.0) 08/11/24 23:46 Glucose 767.0 mg/dL (70-115) H 08/11/24 23:46 Ionized Calcium 1.6 mmol/L (1.1-1.4) H 08/11/24 23:46 O2 Delivery Device Room air 08/11/24 23:46 FiO2 21.0 % 08/11/24 23:46 Correspondence Specialist ID Stephenie 08/11/24 23:46 Sodium 140 mmol/L (136-145) 08/13/24 01:23 Potassium 4.0 mmol/L (3.5-5.1) 08/13/24 01:23 Chloride 102 mmol/L (98-107) 08/13/24 01:23 Carbon Dioxide 26 mmol/L (22-29) 08/13/24 01:23 Anion Gap 16.0 (5-19) 08/13/24 01:23 BUN 33 mg/dL (6-20) H 08/13/24 01:23 Creatinine 1.0 mg/dL (0.7-1.2) 08/13/24 01:23 GFR Calculation 80.1 mL/min (90-130) L 08/13/24 01:23 Glucose 75 mg/dL (65-115) 08/13/24 01:23 POC Glucose 279 mg/dL (70-110) H 08/13/24 07:57 Estimat Average Glucose 275 08/11/24 22:56 Hemoglobin A1c 11.2 % (4.0-6.0) H 08/11/24 22:56 Calculated Osmolality 296 mOsm/kg (285-295) H 08/13/24 01:23 Calcium 8.9 mg/dL (8.5-10.5) 08/13/24 01:23 Phosphorus 7.8 mg/dL (2.5-4.5) H* 08/11/24 22:56 Magnesium 2.3 mg/dL (1.7-2.3) 08/13/24 01:23 Iron 155 ug/dL (59-158) 08/12/24 04:59 TIBC 255 mcg/dl 08/12/24 04:59 % Saturation 60.7 % (20-50) H 08/12/24 04:59 Unsat Iron Binding 100 ug/dL (112-347) L 08/12/24 04:59 Total Bilirubin 0.2 mg/dL (0.15-1.2) 08/13/24 01:23 AST 22 U/L (0-40) 08/13/24 01:23 ALT 22 U/L (0-41) 08/13/24 01:23 Alkaline Phosphatase 104 U/L (40-130) 08/13/24 01:23 Total Protein 5.9 g/dL (6.6-8.7) L 08/13/24 01:23 Albumin 3.5 g/dL (3.5-5.2) 08/13/24 01:23 Globulin 2.4 g/dL (1.3-4.6) 08/13/24 01:23 Triglycerides 138 mg/dL (0-150) 08/13/24 01:23 Cholesterol 143 mg/dL (0-200) 08/13/24 01:23 LDL Cholesterol, Calc 63 mg/dL (50-129) 08/13/24 01:23 Total VLDL Cholesterol 28 mg/dL (0-30) 08/13/24 01:23 HDL Cholesterol 52 mg/dL (60-100) L 08/13/24 01:23 Cholesterol/HDL Ratio 2.75 mg/dL (1.0-5.00) 08/13/24 01:23 Vitamin B12 942 pg/mL (232-1245) 08/12/24 04:59 Folate 7.5 ng/mL (4.5-32.2) 08/13/24 01:23 TSH 1.24 uIU/mL (0.27-4.20) 08/12/24 04:59 Urine Color Yellow (Yellow) 08/12/24 01:39 Urine Appearance Clear (CLEAR) 08/12/24 01:39 Urine pH 5.0 (5-7) 08/12/24 01:39 Ur Specific [place] 1.029 (1.005-1.030) 08/12/24 01:39 Urine Protein 1+ (Negative) A 08/12/24 01:39 Urine Glucose (UA) 3+ (Normal) H 08/12/24 01:39 Urine Ketones 3+ (Negative) H 08/12/24 01:39 Urine Blood Trace (Negative) A 08/12/24 01:39 Urine Nitrate Negative (Negative) 08/12/24 01:39 Urine Bilirubin Negative (Negative) 08/12/24 01:39 Urine Urobilinogen 0.2 mg/dL (Negative) 08/12/24 01:39 Ur Leukocyte Esterase Negative (Negative) 08/12/24 01:39 Urine RBC None /hpf (0-2) 08/12/24 01:39 Urine WBC None /hpf (0-5) 08/12/24 01:39 Ur Squamous Epith Cells None /hpf (0-5) 08/12/24 01:39 Amorphous Sediment Not Reportable 08/12/24 01:39 Urine Bacteria None /hpf (NONE) 08/12/24 01:39 Urine Mucus Trace /hpf 08/12/24 01:39 Urine Opiates Screen Negative ng/mL (Negative) 08/12/24 01:39 Ur Barbiturates Screen Negative ng/mL (Negative) 08/12/24 01:39 Ur Phencyclidine Scrn Negative ng/mL (Negative) 08/12/24 01:39 Ur Amphetamines Screen Positive ng/mL (Negative) H 08/12/24 01:39 U Benzodiazepines Scrn Negative ng/mL (Negative) 08/12/24 01:39 Urine Cocaine Screen Negative ng/mL (Negative) 08/12/24 01:39 U Marijuana (THC) Screen Positive ng/mL (Negative) H 08/12/24 01:39 Ethyl Alcohol < 10 mg/dL (0-10) 08/12/24 00:04 Serum Ketones Positive (Negative) H 08/11/24 22:56 Vitals Last Vital Signs Temp 99.4 F 08/13/24 07:30 Pulse 89 08/13/24 08:10 Resp 16 08/13/24 08:10 BP 138/80 08/13/24 07:30 Pulse Ox 95 08/13/24 08:10 O2 Del Method Room Air 08/13/24 08:10 Discharge Plan Discharge Patient Disposition: Home Condition: Stable Prescriptions: New carvedilol 6.25 mg Tablet 6.25 mg PO BID Qty: 60 0RF clopidogrel [Plavix] 75 mg tablet 75 mg PO DAILY Qty: 30 0RF insulin glargine [Basaglar KwikPen U-100 Insulin] 100 unit/mL (3 mL) insulin pen 25 unit SUBCUT BID Qty: 15 0RF insulin lispro [Humalog KwikPen Insulin] 100 unit/mL insulin pen 10 unit SUBCUT TID Qty: 15 0RF insulin lispro [Humalog KwikPen Insulin] 100 unit/mL insulin pen See Protocol SUBCUT TID Qty: 5 0RF Protocol: Insulin Corrective High-Dose Regimen Condition: Fingerstick Blood Glucose Dose/Route: Insulin Units Condition: 141-180 mg/dl Dose/Route: 2 units/SQ Condition: 181-220 mg/dl Dose/Route: 4 units/SQ Condition: 221-260 mg/dl Dose/Route: 6 units/SQ Condition: 261-300 mg/dl Dose/Route: 8 units/SQ Condition: 301-350 mg/dl Dose/Route: 10 units/SQ Condition: 351-400 mg/dl Dose/Route: 12 units/SQ Condition: greater than 400 mg/dl Dose/Route: 14 units/SQ losartan 100 mg tablet 100 mg PO DAILY Qty: 30 0RF Continued (DME) blood-glucose meter Misc See Rx Instructions .MEDSUPPLY Qty: 1 0RF Rx Instructions: As directed (DME) Omnipod 5 G6-G7 Pods (Gen 5) Cartridge See Rx Instructions .Route Qty: 10 3RF Rx Instructions: change pod every 3 days (DME) Omnipod 5 G6-G7 Intro Kt(Gen5) Cartridge See Rx Instructions .Route Qty: 1 0RF Rx Instructions: As directed (DME) fast form See Rx Instructions .Route .MEDSUPPLY Qty: 1 0RF Rx Instructions: As directed (DME) insulin syringe-needle U-100 [UltiCare] 1 mL 30 gauge x 1/2 syringe See Rx Instructions .ROUTE .COMPLEX Qty: 200 0RF Dose Instruction: USE DIRECTED with insulin Rx Instructions: USE DIRECTED with insulin (DME) Dexcom G7 Sensor Device See Rx Instructions .ROUTE .COMPLEX Qty: 6 2RF Dose Instruction: USE DIRECTED Rx Instructions: USE DIRECTED (DME) lancets 25 gauge misc See Rx Instructions .MEDSUPPLY Qty: 100 5RF Rx Instructions: As directed (DME) Dexcom G7 Soldering Machine Operator Helper Misc See Rx Instructions .ROUTE .MEDSUPPLY Qty: 1 0RF Rx Instructions: As directed (DME) OneTouch Verio test strips Strip See Rx Instructions .ROUTE .COMPLEX Qty: 100 5RF Dose Instruction: USE DIRECTED Rx Instructions: Use to check blood sugar 4 times each day (DME) insulin syringe-needle U-100 [BD Insulin Syringe Ultra-Fine] 1 mL 31 gauge x 5/16 syringe See Rx Instructions .ROUTE .COMPLEX Qty: 100 3RF Dose Instruction: USE DIRECTED WITH INSULIN Rx Instructions: USE DIRECTED WITH INSULIN insulin asp prt-insulin aspart 100 unit/mL (70-30) insulin pen See Rx Instructions .ROUTE .COMPLEX Qty: 15 3RF Dose Instruction: inject 20 units SUBCUTANEOUSLY TWICE DAILY Rx Instructions: inject 20 units SUBCUTANEOUSLY TWICE DAILY Glucagon Emergency Kit (human) 1 mg recon soln See Rx Instructions .ROUTE .COMPLEX Qty: 1 3RF Dose Instruction: inject 1mg INTRAMUSCULARLY every 20 minutes NEEDED FOR hypoglycemia UNTIL target blood sugar attained Rx Instructions: inject 1mg INTRAMUSCULARLY every 20 minutes NEEDED FOR hypoglycemia UNTIL target blood sugar attained aspirin 81 mg tablet,delayed release (DR/EC) 81 mg PO DAILY Qty: 30 0RF Discharge Orders: Discharge Order (Routine); Ordered 08/13/24 Ordered By: Phil Gusman Referrals: Linda Fisher MD [Physician] - 08/27/24 12:00 pm Paul Gonzales MD [Physician] - 09/10/24 9:30 am Discharge Diet: Cardiac and Diabetic Discharge Activity: Resume usual activity and Increase activity as tolerated Patient Instructions: Losartan (By mouth), Carvedilol (By mouth) (Coreg, Coreg CR, Hypertenevide-12.5), Clopidogrel (By mouth) (Plavix), Insulin Glargine (By injection) (Lantus, Lantus SoloStar, Touje[place], Semglee), Insulin Lispro (By injection) (Humalog, Humalog Pen, Lispro-PFC,..., Diabetic Gastroparesis (DC), Heart Healthy Diet (DC), Diabetic Ketoacidosis (DC), Basic Carbohydrate Counting (DC), Diabetes Type 1: Management (DC), Opioid Safety Activity Restrictions/Additional Instructions: Going forward please take Lantus 25 units morning and evening. Take Humalog which is the short acting of insulin 10 units before each meal along with sliding scale. If you do not get your Dexcom fixed, until then please check your blood sugars before each meal at home and dose extra dose of Humalog accordingly. For high blood pressure take Coreg 6.25 mg twice daily along with losartan 100 mg daily. Please check your blood pressure daily at home maintain a blood pressure diary. Goal blood pressures less than 140/90 mmHg. Please follow with a primary care provider within next 1 week and with your juvenile officer within next 2 weeks with a blood pressure and blood sugar diary. Discharge Attestations Time Spent in Discharge Care*: greater than 30 min Specific Discharge Activities: educating patient, discussing with pcp/other providers, discussing with rn case management/social workers/dc planners, documenting/other paperwork and evaluating patient/reviewing data Status at Discharge: Cognitive status at discharge: cognitively intact , Behavioral status at discharge: cooperative , Functional status at discharge: independent ambulation , Overall status at discharge: patient is back to baseline Quality Metrics Clinical Quality Measures [ No reported AMI, CVA or VTE this stay] Coding Level of Care Code 90823 Total time (in minutes) for Discharge: 80 Diagnoses DKA (diabetic ketoacidosis) E10.10 Diabetes mellitus complication detail: without coma Diabetes mellitus type: type 1 Acute kidney injury N17.9 Type 1 diabetes mellitus without complication E10.65 Diabetes mellitus complication status: with hyperglycemia Nausea R11.0 Acute hyperkalemia E87.5 Metabolic acidosis E87.20
[2024-08-13] MEDS: aspirin 81 mg EC Tablet PO (09:30)
[2024-08-13] MEDS: atorvastatin 40 mg Tablet PO (09:30)
[2024-08-13] MEDS: clopidogrel 75 mg Tablet PO (09:30)
[2024-08-13] MEDS: carvedilol 6.25 mg Tablet PO (09:30)
[2024-08-13] MEDS: insulin lispro 100 unit/1 mL SUBCUT (09:30)
[2024-08-13] MEDS: amlodipine 10 mg Tablet PO (09:30)
[2024-08-13] MEDS: insulin glargine 100 units/1 mL 15 UNIT SUBCUT (09:33)
[2024-08-13 11:53] LABS: Glucose Point of Care 129 mg/dL (70-110)
[2024-08-13 12:00] VITALS: BP 126/70; PULSE 91; RESP 14; TEMP 36.9; O2SAT 97
[2024-08-13] MEDS: doxycycline 100 mg Tablet PO (12:33)
--- NOTE | 2024-08-13 13:20 | PC.NURSE ---
Pt provided discharge instructions on follow up appt, care notes on medications and disease processes, BP log and HTN education sheet. Pt declined to review care notes with nurse, stated he would read at home. Pt able to demonstrate how to use sliding scale with success. Pt wanted to go to front o hospital to wait for his ride. Pt taken to front entrance via W/C.
--- NOTE | 2024-08-13 13:27 | PC.NURSE ---
Discharge delay related to new prescriptions from pharmacy and ride home.
--- NOTE | 2024-08-13 13:27 | PC.NURSE ---
Notified Dr Love of Insulin Glargine ordered as [place], co-pay was $35, pt threw a fit and refused it and all other prescription per pharmacy. Lantus would be covered by Medicaid. Dr Love authorized the cheapest version of his new prescriptions.
--- NOTE | 2024-08-13 13:47 | PC.NURSE ---
Shift summary: Pt stated he feels better. Isnulin gtt stopped before nooon. He was started on Lantus and mild slding scale. His blood sugar was over 300 in the evening. Anion gap increased to 23.9, so sliding scale increased to high dose and Lantus increased to 15 units BID. NO complaints of nausea or vomiting noted tis shift. He spent most of the day curled up under the balnket in his bed. He was started on consistent carb diet, tolerating it well. He had 950 ml of urine output.
[2024-08-13 15:34] VITALS: BP 126/70; PULSE 91; RESP 14; TEMP 36.9; O2SAT 97
== END 2024-08-13 13:20 | disposition home or self-care (01) | DRG 638 ==
LOC: ER 23:52 → ICU 08-12 02:38
PROVIDERS: Admitting Provider Internal Medicine; Emergency Provider Emergency Medicine; Visit Provider Student in an Organized Health Care Education/Training Program
DX: E10.10 Type 1 diabetes mellitus with ketoacidosis without coma (principal); N17.9 Acute kidney failure, unspecified; R65.10 Systemic inflammatory response syndrome (SIRS) of non-infectious origin without acute organ dysfunction; Z79.4 Long term (current) use of insulin; E87.5 Hyperkalemia; F17.200 Nicotine dependence, unspecified, uncomplicated; E86.0 Dehydration; Z86.73 Personal history of transient ischemic attack (TIA), and cerebral infarction without residual deficits; Z79.82 Long term (current) use of aspirin; Z79.02 Long term (current) use of antithrombotics/antiplatelets
CPT/HCPCS: 36415; 36416; 36600; 71045; 71250; 80048; 80051; 80053; 80061; 80306; 80307; 81001; 82009; 82330; 82607; 82746; 82805; 82962; 83036; 83540; 83550; 83735; 84100; 84132; 84443; 85025; 87040; 87086; 93005; 96365; 96366; 96372; 96375; 99285; J0696; J1644; J1815; J2405; J2765; J3490; J7030; J7799

== ENCOUNTER 2024-10-19 20:51 | Emergency (ER) | payer OTHER, MEDICAID, SELFPAY ==
[2024-10-19 21:06] VITALS: BP 100/69; PULSE 106; RESP 18; TEMP 37.1; O2SAT 97; BMI 18.4
[2024-10-19 21:13] LABS: Glucose Point of Care 335 mg/dL (70-110)
[2024-10-19 22:05] LABS: Basophils # 0.1 10^3/uL (0.0-0.1); Basophils % 0.6 %; Eosinophils # 0.1 10^3/uL (0.0-0.8); Eosinophils % 1.5 %; Hematocrit 39.7 % (37-53); Lymphocytes # 2.4 10^3/uL (0.8-4.8); Lymphocytes % 28.8 %; Mean Corpuscular HGB Conc 32.7 g/dL (30-55); Mean Corpuscular Hemoglobin 27.7 pg (27-33); Mean Corpuscular Volume 84.6 fl (82-101); Mean Platelet Volume 9.8 fL (7.4-10.4); Monocytes # 0.6 10^3/uL (0.2-0.9); Monocytes % 6.6 %; Neutrophils # 5.26 10^3/uL (1.8-7.7); Neutrophils % 62.3 %; Nucleated Red Blood Cells % 0 %; Platelet Count 420 10^3/cmm (157-399); Red Blood Count 4.69 10^6/uL (3.85-5.65); Red Cell Distribution Width 13.9 % (12.1-15.1); White Blood Count 8.45 10^3/uL (3.29-11.43)
[2024-10-19 22:09] LABS: Alanine Aminotransferase 28 U/L (0-41); Albumin Level 4.1 g/dL (3.5-5.2); Alkaline Phosphatase 118 U/L (40-130); Anion Gap 18.6 (5-19); Aspartate Amino Transferase 17 U/L (0-40); Blood Urea Nitrogen 39 mg/dL (6-20); Calcium 10.2 mg/dL (8.5-10.5); Carbon Dioxide 23 mmol/L (22-29); Chloride 97 mmol/L (98-107); Creatinine Clr Calc Pharmacy 54.6831; Globulin 2.9 g/dL (1.3-4.6); Glomerular Filtration Rate 50.2 mL/min (90-130); Glucose 202 mg/dL (65-115); Osmolality Calculated 295 mOsm/kg (285-295); Potassium 3.6 mmol/L (3.5-5.1); Sodium 135 mmol/L (136-145); Total Bilirubin 0.3 mg/dL (0.15-1.2)
[2024-10-19 23:12] VITALS: BP 110/76; PULSE 99; O2SAT 97
[2024-10-19 23:16] LABS: Glucose Point of Care 101 mg/dL (70-110)
[2024-10-19 23:45] VITALS: BP 110/76; PULSE 99; O2SAT 91
--- NOTE | 2024-10-20 03:38 | ED_ITS ---
HPI - Dizziness 2 General: Chief Complaint: Dizziness Stated Complaint: high blood sugar Time Seen by Provider: 10/19/24 22:56 History of Present Illness: HPI Narrative: Patient is a 49-year-old type I diabetic seen for feeling dizzy and off. At the time, he states that his blood sugar was 1200. On arrival in the emergency department, sugar was roughly 300. Without intervention has dropped to 150. At the time my exam, he states his symptoms are all better. He would like something to eat. He denies recent sickness, fever, cough, chest pain, shortness of breath, lightheadedness associated with the symptoms. Related Data Home Medications ?Medication ?Instructions ?Recorded ?Confirmed insulin aspar prot-insulin aspart SUBCUT BID 09/23/24 100 unit/mL (70-30) subcutaneous pen Previous Rx's ?Medication ?Instructions ?Recorded aspirin 81 mg tablet,delayed 81 mg PO DAILY #30 tabs 1 08/06/21 release blood-glucose meter #1 ea 01/08/23 insulin syringe-needle U-100 1 mL #200 ea 10/22/23 30 gauge x 1/2 (UltiCare) lancets 25 gauge #100 ea 01/24/24 blood-glucose meter,continuous #1 ea 02/11/24 (Dexcom G7 Copy Center Associate) blood sugar diagnostic (OneTouch #100 ea 02/18/24 Verio test strips) insulin pump cart,auto,BT,G6/7 #10 ea 06/26/24 (Omnipod 5 G6-G7 Pods (Gen 5) subcutaneous cartridge) insulin pump cartridge,auto #1 ea 06/26/24 dose,BT,G6/G7 with controller subcutaneous (Omnipod 5 G6-G7 Intro Kit(Gen 5) subcutaneous cartridge and controller) clopidogrel 75 mg tablet (Plavix) 75 mg PO DAILY #30 t abs 08/13/24 insulin glargine 100 unit/mL (3 25 unit (0.25 mL) SUBC UT BID #15 mL 08/13/24 mL) subcutaneous pen (Basaglar KwikPen U-100 Insulin) insulin lispro 100 unit/mL See Protocol SUBCUT TID #5 mL 08/13/24 subcutaneous pen (Humalog KwikPen (U-100) Insulin) blood-glucose sensor (Dexcom G7 #6 ea 08/18/24 Sensor device) losartan 100 mg tablet 100 mg PO DAILY #30 tabs permethrin 5 % topical cream 1 applic topical Q14D 2 d oses #60 08/19/24 grams glucagon 1 mg solution for See Rx Instructions .Route 08/27/24 injection (Glucagon Emergency Kit) .COMPLEX #1 ea minocycline 100 mg tablet 100 mg PO DAILY #10 tabs insulin syringe-needle U-100 1 mL #100 ea 09/29/24 31 gauge x 5/16 Allergies Allergy/AdvReac Type Severity Reaction Status Date / Time famotidine (From Pepcid) Allergy Unconscious Verified 09/14/24 18:54 omeprazole (From Prilosec) Allergy Unconscious Verified 09/14/24 18:54 PFSH ED 2 PFSH: Medical History Moderate major depression Hx of arterial ischemic stroke History of medication noncompliance Cannabis use disorder Methamphetamine use disorder, moderate Essential hypertension Hyperlipemia, mixed Toe pain Insect bite Chronic pain of right elbow Epigastric pain Amphetamine abuse TIA (transient ischemic attack) Erectile dysfunction Nicotine dependence, cigarettes, with unspecified nicotine-induced disorders Diabetes mellitus type I Surgical History H/O hernia repair Umbilical Family History Denies family history of Diabetes mellitus type 1 Social History Smoking and tobacco/nicotine status: current every day tobacco/nicotine user cigarettes Packs smoked per day: 1 Alcohol intake: former Substance/Drug Use: former Physical Exam 2 Const: COMMON NORMALS: no acute distress, patient oriented x3 and alert HENMT: COMMON NORMALS: normocephalic and atraumatic HEAD & SCALP: n ormocephalic and atraumatic Eye: COMMON NORMALS: Equal, round and reactive pupils present, EOMs intact bilaterally and no scleral icterus PUPIL: Yes Equal, round and reactive pupils present Resp: COMMON NORMALS: normal respiratory effort and No retractions Cardio: COMMON NORMALS: regular rate, regular rhythm and No murmurs present (Cardio) RATE: regular rate RHYTHM: regular rhythm GI: COMMON NORMALS: Normal to inspection, nondistended, normoactive bowel sounds present, Soft to palpation and non-tender PALPATION: Yes Soft to palpation Neuro: COMMON NORMALS: patient oriented x3 SENSORIUM/ORIENTATION: Yes alert Skin: OTHER: Numerous excoriations of the bilateral forearms which she is actively picking at, none of which appear acutely infected. Course 2 Vital Signs: Vital signs: Vital Signs Temperature 98.7 F 10/19/24 21:06 Pulse Rate 99 10/19/24 23:45 Respiratory Rate 18 10/19/24 21:06 Blood Pressure 110/76 10/19/24 23:45 Pulse Oximetry 91 10/19/24 23:45 Oxygen Delivery Me thod Room Air 10/19/24 21:06 MDM - Dizziness Medical Decision Making In summary, patient is a type I diabetic who at the time of my exam has no acute symptoms. Blood sugar is nearly ideal and he does not have evidence of DKA or other emergent process warranting further workup at this time. He will be discharged in stable and improved condition follow-up primary care as needed. He states that he has plenty of insulin and supplies. Lab Data 10/19/24 21:45 10/19/24 21:45 Laboratory Results WBC 8.45 10^3/uL (3.29-11.43) 10/19/24 21:45 RBC 4.69 10^6/uL (3.85-5.65) 10/19/24 21:45 Hgb 13.00 g/dL (11.27-16.99) 10/19/24 21:45 Hct 39.7 % (37-53) 10/19/24 21:45 MCV 84.6 fl (82-101) 10/19/24 21:45 MCH 27.7 pg (27-33) 10/19/24 21:45 MCHC 32.7 g/dL (30-55) 10/19/24 21:45 RDW 13.9 % (12.1-15.1) 10/19/24 21:45 Plt Count 420 10^3/cmm (157-399) H 10/19/24 21:45 MPV 9.8 fL (7.4-10.4) 10/19/24 21:45 Neut % (Auto) 62.3 % 10/19/24 21:45 Lymph % (Auto) 28.8 % 10/19/24 21:45 [place] % (Auto) 6.6 % 10/19/24 21:45 Eos % (Auto) 1.5 % 10/19/24 21:45 Baso % (Auto) 0.6 % 10/19/24 21:45 Neut # (Auto) 5.26 10^3/uL (1.8-7.7) 10/19/24 21:45 Lymph # (Auto) 2.4 10^3/uL (0.8-4.8) 10/19/24 21:45 [place] # (Auto) 0.6 10^3/uL (0.2-0.9) 10/19/24 21:45 Eos # (Auto) 0.1 10^3/uL (0.0-0.8) 10/19/24 21:45 Baso # (Auto) 0.1 10^3/uL (0.0-0.1) 10/19/24 21:45 Nucleated RBC % (auto) 0 % 10/19/24 21:45 Nucleated RBCs # 0.0 /100WBC 10/19/24 21:45 Sodium 135 mmol/L (136-145) L 10/19/24 21:45 Potassium 3.6 mmol/L (3.5-5.1) 10/19/24 21:45 Chloride 97 mmol/L (98-107) L 10/19/24 21:45 Carbon Dioxide 23 mmol/L (22-29) 10/19/24 21:45 Anion Gap 18.6 (5-19) 10/19/24 21:45 BUN 39 mg/dL (6-20) H 10/19/24 21:45 Creatinine 1.5 mg/dL (0.7-1.2) H 10/19/24 21:45 GFR Calculation 50.2 mL/min (90-130) L 10/19/24 21:45 Glucose 202 mg/dL (65-115) H 10/19/24 21:45 POC Glucose 101 mg/dL (70-110) 10/19/24 23:13 Calculated Osmolality 295 mOsm/kg (285-295) 10/19/24 21:45 Calcium 10.2 mg/dL (8.5-10.5) 10/19/24 21:45 Total Bilirubin 0.3 mg/dL (0.15-1.2) 10/19/24 21:45 AST 17 U/L (0-40) 10/19/24 21:45 ALT 28 U/L (0-41) 10/19/24 21:45 Alkaline Phosphatase 118 U/L (40-130) 10/19/24 21:45 Total Protein 7.0 g/dL (6.6-8.7) 10/19/24 21:45 Albumin 4.1 g/dL (3.5-5.2) 10/19/24 21:45 Globulin 2.9 g/dL (1.3-4.6) 10/19/24 21:45 No radiology studies performed this visit Discharge Plan Discharge Patient Disposition: Home Clinical Impression: Hyperglycemia due to type 1 diabetes mellitus Condition: Stable Prescriptions: No Action (DME) blood-glucose meter Misc See Rx Instructions .MEDSUPPLY Qty: 1 0RF Rx Instructions: As directed (DME) Omnipod 5 G6-G7 Pods (Gen 5) Cartridge See Rx Instructions .Route Qty: 10 3RF Rx Instructions: change pod every 3 days (DME) Omnipod 5 G6-G7 Intro Kt(Gen5) Cartridge See Rx Instructions .Route Qty: 1 0RF Rx Instructions: As directed Glucagon Emergency Kit (human) 1 mg recon soln See Rx Instructions .ROUTE .COMPLEX Qty: 1 3RF Dose Instruction: inject 1mg INTRAMUSCULARLY every 20 minutes NEEDED FOR hypoglycemia UNTIL target blood sugar attained Rx Instructions: inject 1mg INTRAMUSCULARLY every 20 minutes NEEDED FOR hypoglycemia UNTIL target blood sugar attained minocycline 100 mg tablet 100 mg PO DAILY Qty: 10 0RF losartan 100 mg tablet 100 mg PO DAILY Qty: 30 1RF permethrin 5 % cream 1 applic topical Q14D Qty: 60 0RF Rx Instructions: apply second treatment 14 days after first treatment if live lice remain (DME) insulin syringe-needle U-100 [UltiCare] 1 mL 30 gauge x 1/2 syringe See Rx Instructions .ROUTE .COMPLEX Qty: 200 0RF Dose Instruction: USE DIRECTED with insulin Rx Instructions: USE DIRECTED with insulin (DME) lancets 25 gauge misc See Rx Instructions .MEDSUPPLY Qty: 100 5RF Rx Instructions: As directed (DME) Dexcom G7 Copy Center Associate Misc See Rx Instructions .ROUTE .MEDSUPPLY Qty: 1 0RF Rx Instructions: As directed (DME) OneTouch Verio test strips Strip See Rx Instructions .ROUTE .COMPLEX Qty: 100 5RF Dose Instruction: USE DIRECTED Rx Instructions: Use to check blood sugar 4 times each day (DME) Dexcom G7 Sensor Device See Rx Instructions .ROUTE .COMPLEX Qty: 6 2RF Dose Instruction: USE DIRECTED Rx Instructions: USE DIRECTED insulin asp prt-insulin aspart 100 unit/mL (70-30) insulin pen SUBCUT BID (DME) insulin syringe-needle U-100 1 mL 31 gauge x 5/16 syringe See Rx Instructions .ROUTE .COMPLEX Qty: 100 3RF Dose Instruction: USE DIRECTED WITH INSULIN Rx Instructions: USE DIRECTED WITH INSULIN aspirin 81 mg tablet,delayed release (DR/EC) 81 mg PO DAILY Qty: 30 0RF clopidogrel [Plavix] 75 mg tablet 75 mg PO DAILY Qty: 30 0RF insulin glargine [Basaglar KwikPen U-100 Insulin] 100 unit/mL (3 mL) insulin pen 25 unit SUBCUT BID Qty: 15 0RF insulin lispro [Humalog KwikPen Insulin] 100 unit/mL insulin pen See Protocol SUBCUT TID Qty: 5 0RF Protocol: Insulin Corrective High-Dose Regimen Condition: Fingerstick Blood Glucose Dose/Route: Insulin Units Condition: 141-180 mg/dl Dose/Route: 2 units/SQ Condition: 181-220 mg/dl Dose/Route: 4 units/SQ Condition: 221-260 mg/dl Dose/Route: 6 units/SQ Condition: 261-300 mg/dl Dose/Route: 8 units/SQ Condition: 301-350 mg/dl Dose/Route: 10 units/SQ Condition: 351-400 mg/dl Dose/Route: 12 units/SQ Condition: greater than 400 mg/dl Dose/Route: 14 units/SQ Discharge Orders: Discharge ED (Routine); Ordered 10/19/24 Ordered By: Cameron Robins Referrals: Paul Gonzales MD [Primary Care Provider] - Discharge Diet: Diabetic Discharge Activity: Resume usual activity Patient Instructions: Diabetic Hyperglycemia (ED) Activity Restrictions/Additional Instructions: Keep a close watch on your blood sugar levels and take insulin as needed and follow-up with your primary care doctor to make sure you have all the supplies you need. Print Language: Uzbek Coding Level of Care Code ED Director Of Valuation for Nasima Odom
== END 2024-10-19 23:46 | disposition home or self-care (01) ==
PROVIDERS: Emergency Medicine; Emergency Provider Student in an Organized Health Care Education/Training Program; PCP Family Medicine
DX: E10.65 Type 1 diabetes mellitus with hyperglycemia (principal); Z79.82 Long term (current) use of aspirin; Z79.02 Long term (current) use of antithrombotics/antiplatelets; F17.210 Nicotine dependence, cigarettes, uncomplicated; Z86.73 Personal history of transient ischemic attack (TIA), and cerebral infarction without residual deficits
CPT/HCPCS: 36415; 36416; 80053; 82962; 85025; 99283

== ENCOUNTER → 2024-12-14 08:24 | Outpatient (BNVA) | payer OTHER, MEDICAID, SELFPAY | PROVIDERS: PCP Family Medicine; Visit Provider Nurse Practitioner | DX: M19.011 Primary osteoarthritis, right shoulder (principal); M67.911 Unspecified disorder of synovium and tendon, right shoulder; S49.91XA Unspecified injury of right shoulder and upper arm, initial encounter; X58.XXXA Exposure to other specified factors, initial encounter | CPT/HCPCS: 73030 ==

== ENCOUNTER 2025-02-01 11:20 | Outpatient (CLI) | payer OTHER, MEDICAID, SELFPAY ==
[2025-02-01 12:27] LABS: Estmated Average Glucose 243; Hemoglobin A1C 10.1 % (4.0-6.0)
[2025-02-01 12:39] LABS: Alanine Aminotransferase 11 U/L (0-41); Albumin Level 4.1 g/dL (3.5-5.2); Alkaline Phosphatase 68 U/L (40-130); Anion Gap 12.4 (5-19); Aspartate Amino Transferase 14 U/L (0-40); Blood Urea Nitrogen 13 mg/dL (6-20); Calcium 9.3 mg/dL (8.5-10.5); Carbon Dioxide 31 mmol/L (22-29); Chloride 104 mmol/L (98-107); Cholesterol 182 mg/dL (0-200); Globulin 2.5 g/dL (1.3-4.6); Glucose 72 mg/dL (65-115); HDL Cholesterol 67 mg/dL (60-100); Osmolality Calculated 295 mOsm/kg (285-295); Potassium 4.4 mmol/L (3.5-5.1); Sodium 143 mmol/L (136-145); Total Protein 6.6 g/dL (6.6-8.7); Triglycerides 56 mg/dL (0-150)
[2025-02-01 12:39] LABS: Creatinine Urine, Random 195 mg/dL (39-259); Microalbum Creatinine Ratio Ur 15 mg/dL (0-20)
== END 2025-02-01 11:21 | disposition home or self-care (01) ==
PROVIDERS: PCP Family Medicine; Visit Provider Internal Medicine
DX: E10.65 Type 1 diabetes mellitus with hyperglycemia (principal); E78.2 Mixed hyperlipidemia
CPT/HCPCS: 36415; 80053; 80061; 82044; 83036

== ENCOUNTER → 2025-03-04 15:14 | Outpatient (BNVA) | payer OTHER, MEDICAID, SELFPAY | PROVIDERS: PCP Family Medicine; Visit Provider Orthopaedic Surgery | DX: M54.12 Radiculopathy, cervical region (principal); M54.9 Dorsalgia, unspecified | CPT/HCPCS: 72040; 72072 ==

== ENCOUNTER 2025-03-22 15:47 | Outpatient (CLI) | payer OTHER, MEDICAID, SELFPAY ==
--- NOTE | 2025-03-22 16:00 | MR_ITS ---
WS: [id number] MRI CERVICAL SPINE NONCONTRAST TECHNIQUE: Sagittal T1, T2 and STIR imaging. Axial T2, gradient, and fiesta imaging. CLINICAL INFORMATION: Numbness right arm COMPARISON: None. FINDINGS: Some images degraded by motion. Straightening of the normal cervical lordosis. Mild disc bulging worse at C4-C5 and C5-C6. Cord signal is normal. C2-C3: Normal. C3-C4: Mild facet arthropathy. Spinal canal and foramen are patent. C4-C5: Mild central disc osteophyte protrusion. Slight indentation on the cervical cord. Spinal canal is patent. Moderate RIGHT and mild LEFT bony foraminal narrowing. Moderate facet arthropathy. C5-C6: Disc osteophyte complex. Severe RIGHT bony foraminal narrowing. Moderate facet arthropathy with uncovertebral joint hypertrophy. C6-C7: Mild LEFT and no significant RIGHT foraminal narrowing. Spinal canal is patent. Moderate facet arthropathy. C7-T1: Normal. Visualized brain stem structures: Normal. Prevertebral soft tissues: Normal. MR/MR cervical spin wo con* [id number] IMPRESSION: 1. Straightening of the normal cervical lordosis. 2. Mild disc bulging C4-C5 and C5-C6. 3. No significant central canal stenosis. 4. Moderate RIGHT C4-5 and severe RIGHT C5-6 bony foraminal narrowing.
== END 2025-03-22 15:48 | disposition home or self-care (01) ==
PROVIDERS: PCP Family Medicine; Visit Provider Orthopaedic Surgery
DX: M54.12 Radiculopathy, cervical region (principal)
CPT/HCPCS: 72141